=== PATIENT | male | born 1955 | race Hispanic/Latino ===

== ENCOUNTER 2017-04-22 10:39 | Inpatient (IN) | payer OTHER ==
[2017-04-22 11:18] LABS: #Eosinphils 0.2 thou/uL (0.0-0.7); #Monocytes 0.4 thou/uL (0.11-0.59); %Basophils 1.1 % (0.0-1.0); %Eosinophils 6.6 % (0.0-10.0); %Lymphocytes 38.9 % (21.0-51.0); %Neutrophils 39.5 % (42.0-75.0); Anisocytosis SLIGHT = 6-15 cells (100X) (0-5/hpf); Hemoglobin 6.8 g/dL (14.0-18.0); MDiff Complete? YES; Mean Corpuscular HGB CONC 34.1 g/dL (32.0-36.0); Mean Corpuscular Hemoglobin 33.6 pg (27.0-31.0); Mean Corpuscular Volume 98.6 fl (80.0-94.0); Mean Platelet Volume 7.6 fL (7.4-10.4); PLT Morphology Comment Appears Decreased; Platelet Count 32 thou/uL (130-400); RBC Distribution Width 14.6 % (11.5-14.5); Red Blood Cell (RBC) Count 2.02 mill/uL (4.70-6.10); White Blood Cell (WBC) Count 2.6 thou/uL (4.8-10.8)
--- NOTE | 2017-04-22 11:31 | RAD ---
PORTABLE CHEST ONE VIEW: 04/22/2017 10:59 a.m. HISTORY: Chest pain. COMPARISON: 12/15/2008 FINDINGS: There are changes of median sternotomy. The heart size is borderline. The lung are well expanded wi th mild infiltrate in the right medial lung base. No pneumothoraces or pleural effusions are seen. The possibility of pneumonia should be considered. POS: OFF
[2017-04-22 11:33] LABS: ALT (SGPT) 24 U/L (8-55); AST (SGOT) 19 U/L (5-34); Albumin 3.9 g/dL (3.5-5.0); Alkaline Phosphatase 273 U/L (40-150); Anion Gap 12 mmol/L (10-20); BUN (Urea Nitrogen) 40 mg/dL (8.4-25.7); Bilirubin, Total 0.5 mg/dL (0.2-1.2); CK (CPK) 38 U/L (30-200); Calc. Creatinine Clearance 0 mL/min (70-130); Carbon Dioxide 17 mmol/L (22-29); Chloride 115 mmol/L (98-107); Estimated GFR-MDRD 22; Globulin 2.4 g/dL (2.4-3.5); Glucose 279 mg/dL (70-105); Potassium 5.9 mmol/L (3.5-5.1); Protein, Total 6.3 g/dL (6.0-8.3); Sodium 138 mmol/L (136-145)
[2017-04-22 11:37] LABS: CKMB 0.9 ng/mL (0-6.6); Troponin I Less than 0.010 ng/mL (< 0.028)
[2017-04-22] MEDS ORDERED: AMOXicillin 250 MG CAP ONE (12:56)
[2017-04-22] MEDS ORDERED: Clarithromycin 500 MG TAB PO SCH (13:00)
[2017-04-22] MEDS ORDERED: diphenhydrAMINE 50 MG/ML VIAL ONE (15:45)
--- NOTE | 2017-04-22 16:03 | PDOC.FPRHP ---
Addendum entered and electronically signed by Terrence Hidalgo MD 04/29/17 11:35: -Discussed access with Dr. Lagunas, he will address this today, considering surgery consultation - stopped bicarb - Will give glycerin suppository Addendum entered and electronically signed by Rodrick Armendariz DO 04/22/17 19: 05: Upper Level Addendum: I personally evaluated the patient at the same time as Dr. Hidalgo and I agree with his plan as below. Pertinent History: 61 year old male presenting with leg weakness, fatigue, and exertional dyspnea as well as multiple other symptoms over the last few months. Pertinent Exam Findings: Patient awake, alert, and in no apparent distress. Vital stable. Patient slightly pale. Abdomen bloated but no distended and nontender. A/P: 1) Pancytopenia - Will need extensive workup including peripheral smear, PT/INR , HIV screen, hepatitis screen, and LDH. Consult hematology in the morning. Will consult GI regarding anemia in light of H. pylori result 2) H. pylori IgG positive - Current infection vs previous exposure. In light of anemia + positive test, triple therapy started 3) PACHECO vs CKD - urine studies ordered. May improve with volume expansion via PRBCs. Trend creatinine 4) Hyperkalemia - May improve with volume expansion. Will repeat CMP this evening For full history, exam, assessment, and plan. Please refer to Dr. Hidalgo's note below. Original Note: - History of Present Illness Chief Complaint: Leg weakness History of Present Illness: 61 year old male who presented to the ER due to reported leg weakness. He states he has not had this before. It has been ongoing for 3-4 months. No history of injury. He reports full body weakness and leg pain with walking. Associated symptoms include dizziness with exertion, resting and exertional dyspnea, intermittent vomiting 2 weeks ago, occasional headaches, and bloating with meals. Denies nausea, chest pain, diarrhea, hematemesis, melena, diarrhea, hematochezia, constipation. Patient has been without his meds for 2-3 weeks because they make him feel bloated. Patient's PCP is in [place]. He does not know his name. ED Course: Received 2U of blood, patient broke out in rash after platelets so transfusion was halted - Allergies/Adverse Reactions Allergies Allergy/AdvReac Type Severity Reaction Status Date / Time No Known Allergies Allergy Verified 04/22/17 16:50 - Home Medications Medication Instructions Recorded Confirmed Type Insulin Glargine,Hum.Rec.Anlog 20 unit SQ QAM 04/22/17 04/22/17 History [Lantus] Insulin Glargine,Hum.Rec.Anlog 20 units SQ HS 04/22/17 04/22/17 History [Lantus] Comments: Patient is not sure of his home medications. He thinks he is on 20 of Lantus nightly but he is not sure. He remembers he is on aspirin but does not remember any of his other medications. 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 - Review of Systems General: reports: fever/chills, night sweats, fatigue. denies: weight/appetite/ sleep changes Respiratory: reports: exercise intolerance. denies: cough, shortness of breath Cardiovascular: denies: chest pain, palpitation, edema Gastrointestinal: denies: nausea, vomiting, diarrhea, constipation, abdominal pain Genitourinary: denies: dysuria, polyuria Skin: denies: rashes, lesions Musculoskeletal: reports: pain (pain with walking). denies: tenderness Neurological: reports: weakness. denies: numbness - Vital signs BP: [] HR: [] RR: [] Tmax: [] Pox: []% on [] Wt: [] - Physical Exam Constitutional: NAD, awake, alert and oriented HEENT: normocephalic and atraumatic, PERRLA, other (pale oral mucosa) Neck: supple, trachea midline Heart: RRR, normal S1/S2, no murmurs/rubs/gallops, pulses present, no edema Lungs: CTAB, no respiratory distress Abdomen: soft, non-tender, bowel sounds present, no masses/distention Musculoskeletal: normal structure, normal tone, ROM grossly normal, other ( bloated) Neurological: no focal deficit, CN II-XII intact Skin: no rash/lesions, capillary refill <2 seconds, other FMR H&P: Results - Labs Result Diagrams: 04/29/17 05:20 04/29/17 05:20 Lab results: WBC 2.6 thou/uL (4.8-10.8) L 04/22/17 10:55 Hgb 6.8 g/dL (14.0-18.0) L 04/22/17 10:55 Hct 20.0 % (42.0-52.0) L 04/22/17 10:55 MCV 98.6 fl (80.0-94.0) H 04/22/17 10:55 Plt Count 32 thou/uL (130-400) L 04/22/17 10:55 Neutrophils % 39.5 % (42.0-75.0) L 04/22/17 10:55 Sodium 138 mmol/L (136-145) 04/22/17 10:55 Potassium 5.9 mmol/L (3.5-5.1) H 04/22/17 10:55 Chloride 115 mmol/L (98-107) H 04/22/17 10:55 Carbon Dioxide 17 mmol/L (22-29) L 04/22/17 10:55 BUN 40 mg/dL (8.4-25.7) H 04/22/17 10:55 Creatinine 2.94 mg/dL (0.6-1.3) H 04/22/17 10:55 Glucose 279 mg/dL (70-105) H 04/22/17 10:55 Calcium 10.0 mg/dL (7.8-10.44) 04/22/17 10:55 Total Bilirubin 0.5 mg/dL (0.2-1.2) 04/22/17 10:55 AST 19 U/L (5-34) 04/22/17 10:55 ALT 24 U/L (8-55) 04/22/17 10:55 Alkaline Phosphatase 273 U/L (40-150) H 04/22/17 10:55 Creatine Kinase 38 U/L (30-200) 04/22/17 10:55 CK-MB (CK-2) 0.9 ng/mL (0-6.6) 04/22/17 10:55 Serum Total Protein 6.3 g/dL (6.0-8.3) 04/22/17 10:55 Albumin 3.9 g/dL (3.5-5.0) 02/26/18 10:55 FMR H&P: A/P - Problem List (1) Pancytopenia Current Visit: Yes Status: Acute Code(s): D61.818 - OTHER PANCYTOPENIA (2) Weakness Current Visit: Yes Status: Acute Code(s): R53.1 - WEAKNESS (3) GI bleed Current Visit: Yes Status: Acute Code(s): K92.2 - GASTROINTESTINAL HEMORRHAGE, UNSPECIFIED (4) Anemia Current Visit: Yes Status: Acute Code(s): D64.9 - ANEMIA, UNSPECIFIED (5) Diabetes Current Visit: Yes Status: Acute Code(s): E11.9 - TYPE 2 DIABETES MELLITUS WITHOUT COMPLICATIONS Qualifiers: Diabetes mellitus type: type 2 Diabetes mellitus complication status: without complication Diabetes mellitus custodial insulin use: with intermediate designer use Qualified Code(s): E11.9 - Type 2 diabetes mellitus without complications ; Z79.4 - shelter (current) use of insulin; Z79.4 - shelter (current) use of insulin; Z79.4 - intermediate designer (current) use of insulin; Z79.4 - shelter ( current) use of insulin (6) Coronary artery disease Current Visit: Yes Status: Acute Code(s): I25.10 - ATHSCL HEART DISEASE OF [place] CORONARY ARTERY W/O ANG PCTRS Qualifiers: Coronary Disease-Associated Artery/Lesion type: [place] artery [place] vs. transplanted heart: [place] heart Associated angina: angina presence unspecified Qualified Code(s): I25.10 - Atherosclerotic heart disease of [place] coronary artery without angina pectoris - Plan # Pancytopenia - 2 U blood received in ED - re-check CBC at midnight - Hep C negative at outside lab - check HIV, PT/INR, CMP, LDH, Hepatitis panel, Urine h. pylori - consult Heme # PACHECO - Cr 2.69 - Urine Cr, Na, Urea # HTN - PRN Hydralazine 5mg # GI Bleed - denies melena, bright red blood per stools, hematochezia - IgG positive H. Pylori - start triple therapy - GI consult, consider Scope # Diabetes - Sliding scale insulin # History CABG - will hold ASA now due to possible active bleed # PPx - SCDs - will hold pharmacologic anticoagulation 2/2 to possible active bleed FMR H&P: Upper Level - Plan Date/Time: 02/26/18 1602 I, [], have evaluated this patient and agree with findings/plan as outlined by software intern resident. Pertinent changes/additions are listed here. Attending Addendum - Attending Addendum Date/Time: 04/29/171605 I personally evaluated the patient and discussed the management with Dr. Hidalgo. I agree with the History, Examination, Assessment and Plan documented above with any addition or exceptions noted below.
[2017-04-22] MEDS ORDERED: hydrALAZINE 20 MG/ML VIAL SLOW IVP PRN (17:25)
[2017-04-22] MEDS ORDERED: FLU VACC QS2017-18 36 mo. & older 0.5 ML SYRINGE IM ONE (18:00)
[2017-04-22 19:45] LABS: Bilirubin Negative (Negative); Blood, Urine Trace (Negative); Clarity CLEAR (Clear); Glucose, Urine (Dipstick) Negative (Negative); Leukocyte Negative (Negative); Nitrite Negative (Negative); Protein, Urine (Dipstick) 100 mg/dL (Neg-Trace); Specific Gravity, Urine 1.016 (1.002-1.036); Urobilinogen 0.2 mg/dL (0.2-1.0)
[2017-04-22 19:55] LABS: Bacteria/HPF None Seen HPF (None Seen); Hyaline Casts/LPF 0-3 HYALINE CAST LPF (0-3 Hyaline); Squamous Epithelial None Seen HPF (0-3); WBC/HPF 0-3 HPF (0-3)
[2017-04-22 19:58] LABS: Yeast-AUWi Flag 32.5 (0-25.0)
[2017-04-22 20:00] LABS: Creatinine, Urine 70.58 mg/dL (63-166)
[2017-04-22 20:11] LABS: Yeast-All Forms None Seen HPF (None Seen)
[2017-04-22] MEDS: AMOXicillin 250 MG CAP PO SCH (20:46)
[2017-04-22] MEDS: Clarithromycin 500 MG TAB PO SCH (20:46)
[2017-04-23 00:53] LABS: Eosinophils 2 % (0-10); Hemoglobin 7.3 g/dL (14.0-18.0); Lymphocytes 49 % (21-51); MDiff Complete? YES; Mean Corpuscular HGB CONC 33.4 g/dL (32.0-36.0); Mean Corpuscular Hemoglobin 32.1 pg (27.0-31.0); Mean Platelet Volume 7.8 fL (7.4-10.4); Monocytes 7 % (0-10); Neutrophil 41 % (42-75); PLT Morphology Comment Appears Decreased; Platelet Count 31 thou/uL (130-400); RBC Distribution Width 15.6 % (11.5-14.5); Red Blood Cell (RBC) Count 2.27 mill/uL (4.70-6.10)
[2017-04-23 01:01] LABS: ALT (SGPT) 20 U/L (8-55); AST (SGOT) 15 U/L (5-34); Albumin 3.6 g/dL (3.5-5.0); Alkaline Phosphatase 263 U/L (40-150); Anion Gap 11 mmol/L (10-20); BUN (Urea Nitrogen) 37 mg/dL (8.4-25.7); Bilirubin, Total 0.6 mg/dL (0.2-1.2); Calc. Creatinine Clearance 30 mL/min (70-130); Calcium 9.5 mg/dL (7.8-10.44); Carbon Dioxide 16 mmol/L (22-29); Chloride 116 mmol/L (98-107); Estimated GFR-MDRD 25; Globulin 2.3 g/dL (2.4-3.5); Glucose 114 mg/dL (70-105); Potassium 5.8 mmol/L (3.5-5.1); Protein, Total 5.9 g/dL (6.0-8.3); Sodium 137 mmol/L (136-145)
[2017-04-23 05:49] LABS: Hemoglobin 7.4 g/dL (14.0-18.0); INR-International Normal Ratio 1.3; Mean Corpuscular HGB CONC 32.6 g/dL (32.0-36.0); Mean Corpuscular Hemoglobin 31.8 pg (27.0-31.0); Mean Corpuscular Volume 97.3 fl (80.0-94.0); Mean Platelet Volume 8.1 fL (7.4-10.4); PTT 36.2 SEC (22.9-36.1); Platelet Count 33 thou/uL (130-400); RBC Distribution Width 15.6 % (11.5-14.5); Red Blood Cell (RBC) Count 2.34 mill/uL (4.70-6.10)
[2017-04-23 05:55] LABS: Anion Gap 13 mmol/L (10-20); BUN (Urea Nitrogen) 36 mg/dL (8.4-25.7); Calc. Creatinine Clearance 31 mL/min (70-130); Calcium 9.7 mg/dL (7.8-10.44); Carbon Dioxide 14 mmol/L (22-29); Chloride 116 mmol/L (98-107); Estimated GFR-MDRD 26; Glucose 108 mg/dL (70-105); Potassium 5.5 mmol/L (3.5-5.1); Sodium 137 mmol/L (136-145)
[2017-04-23] MEDS: Sodium Chloride 0.9% 1,000 ML IV SCH ×4 (06:26→23:31)
[2017-04-23 07:18] LABS: HBSAg Index 0.26 S/CO (0-0.99); Hep B Surf Ag Non-Reactive S/CO (NonReactive)
[2017-04-23 07:19] LABS: Hep A IgM AB Non-Reactive (NonReactive); Hep C IgG Ab Non-Reactive (NonReactive); Hep C Index 0.06 S/CO (0-0.79)
[2017-04-23 07:21] LABS: HBCM Index 0.06 S/CO (0-0.79); Hepatitis B Core IGM Abs Non-Reactive (NonReactive)
--- NOTE | 2017-04-23 09:30 | PDOC.FM ---
- Objective Vital Signs & Weight: Vital Signs (12 hours) Temp Pulse Resp BP Pulse Ox 04/23/17 10:14 98.5 F 76 18 160/78 H 93 L 04/23/17 04:00 98.9 F 74 20 143/70 H 95 Weight Weight 68.991 kg I&O: 04/22/17 04/23/17 04/24/17 06:59 06:59 06:59 Intake Total 560 Output Total 650 Balance -90 Result Diagrams: 04/23/17 05:32 04/23/17 05:32 <Rodrick Armendariz - Last Filed: 04/23/17 11:11> - Subjective Subjective: This morning patient states he is still feeling weak overall. He states he rested well overnight. Says he feels somewhat bloated, having a bowel movement helped some. Denies blood in stool or dark stool. No Nausea, vomiting, or diarrhea. - Objective Vital Signs & Weight: Vital Signs (12 hours) Temp Pulse Resp BP Pulse Ox 04/23/17 04:00 98.9 F 74 20 143/70 H 95 04/22/17 21:43 175/85 H Weight Weight 68.991 kg I&O: 04/22/17 04/23/17 04/24/17 06:59 06:59 06:59 Intake Total 560 Output Total 650 Balance -90 Result Diagrams: 04/23/17 05:32 04/23/17 05:32 <Terrence Hidalgo - Last Filed: 04/23/17 13:55> - Objective Vital Signs & Weight: Vital Signs (12 hours) Temp Pulse Resp BP Pulse Ox 04/23/17 12:12 98.5 F 78 16 163/84 H 94 L 04/23/17 10:14 98.5 F 76 18 160/78 H 93 L 04/23/17 08:36 98.5 F 78 16 93 L 04/23/17 04:00 98.9 F 74 20 143/70 H 95 Weight Weight 68.991 kg I&O: 04/22/17 04/23/17 04/24/17 06:59 06:59 06:59 Intake Total 560 Output Total 650 Balance -90 Result Diagrams: 04/23/17 05:32 04/23/17 05:32 <Pina Cuello - Last Filed: 04/23/17 15:04> Phys Exam - Physical Examination HEENT: PERRLA, moist MMs Neck: no nodes, full ROM Respiratory: no wheezing, clear to auscultation bilateral Cardiovascular: RRR, no significant murmur Gastrointestinal: soft, non-tender, positive bowel sounds mild distension Musculoskeletal: no edema, pulses present Neurological: non-focal, moves all 4 limbs Lymphatic: no nodes Skin: no rash, normal turgor, cap refill <2 seconds <Terrence Hidalgo - Last Filed: 04/23/17 13:55> Dx/Plan - Plan Plan: I personally evaluated patient and discussed the case with Dr. Hidalgo. I agree with his exam, assessment, and plan with the exceptions as listed below. 1) Pancytopenia - Hepatitis and HIV workup negative so far. INR normal. No abnormalities on CMP. Oncology and GI consulted 2) H. pylori antibody positive - Stool antigen pending. On triple therapy. GI consulted for guidance 3) PACHECO - Improving. Unclear if patient has baseline CKD 4) Hyperkalemia - Potassium trending down. Continue to follow. Now receiving iv fluids <Rodrick Armendariz - Last Filed: 04/23/17 11:11> (1) Pancytopenia Code(s): D61.818 - OTHER PANCYTOPENIA Status: Acute (2) Weakness Code(s): R53.1 - WEAKNESS Status: Acute (3) GI bleed Code(s): K92.2 - GASTROINTESTINAL HEMORRHAGE, UNSPECIFIED Status: Acute (4) Anemia Code(s): D64.9 - ANEMIA, UNSPECIFIED Status: Acute (5) Diabetes Code(s): E11.9 - TYPE 2 DIABETES MELLITUS WITHOUT COMPLICATIONS Status: Acute (6) Coronary artery disease Code(s): I25.10 - ATHSCL HEART DISEASE OF [place] CORONARY ARTERY W/O ANG PCTRS Status: Acute - Plan Plan: # Pancytopenia - 1 U blood received in ED - Hgb at 7.4 this morning, was 6.8 on presentation to Ed - Hep C negative at outside lab - check HIV, PT/INR, CMP, LDH, Hepatitis panel, Urine h. pylori - consult Heme # GI Bleed - denies melena, bright red blood per stools, hematochezia - FOBT negative - IgG positive H. Pylori - start triple therapy - GI consult #Hyperkalemia - down to 5.5 this AM will monitor # PACHECO - Cr 2.69-> 2.60 - FeNa is 1.43 # HTN - PRN Hydralazine 5mg # Diabetes - Sliding scale insulin # History CABG - will hold ASA now due to possible active bleed # PPx - SCDs - will hold pharmacologic anticoagulation 2/2 to possible active bleed <Terrence Hidalgo - Last Filed: 04/23/17 13:55> Attending Addendum - Attending Addendum Date/Time: 04/23/17 8626 I personally evaluated the patient and discussed the management with Dr. Hidalgo on 04/23/17. I agree with the History, Examination, Assessment and Plan documented above with any addition or exceptions noted below. Patient with pancytopenia, including absolute neutropenia. Heme consulted, will do peripheral smear. Given low hg and postive serum H Pylori antigen as well as epigastric TTP, GI consulted to consider PUD. Started on neutropenic precautions for now. <Pina Cuello - Last Filed: 04/23/17 15:04>
[2017-04-23 09:34] LABS: HIV (1/2) Antibody/Antigen Non-Reactive (NonReactive); HIV 1/2 INDEX 0.14 S/CO (<1.00)
[2017-04-23] MEDS: AMOXicillin 250 MG CAP PO SCH ×2 (10:17→20:39)
[2017-04-23] MEDS ORDERED: Clarithromycin 500 MG TAB PO SCH (12:30)
[2017-04-23] MEDS: Clarithromycin 500 MG TAB PO SCH ×2 (15:03→20:40)
[2017-04-23] MEDS ORDERED: GoLYTELY 4,000 ml Bottle PO SCH (16:15)
--- NOTE | 2017-04-23 17:39 | PRG ---
DATE OF SERVICE: 04/23/2017 MISCELLANEOUS GI NOTE I discussed the patient's case with Hematology. They feel it is more likely that the patient may hav e a bone marrow disorder underlying his pancytopenia. Given his neutropenia, thrombocytopenia, negat agatha FOBT, no report of overt gastrointestinal bleeding, together we feel that bone marrow workup shou ld probably be performed prior to any endoscopic investigation. They are planning to proceed with aracely ne marrow biopsy likely tomorrow. We will hold off on any endoscopic exam and follow up the results of their workup.
--- NOTE | 2017-04-23 19:24 | CON ---
DATE OF CONSULTATION: 04/23/2017 GI INPATIENT CONSULTATION NOTE REQUESTING PHYSICIAN: Dr. Hidalgo. REASON FOR CONSULTATION: Anemia, possible gastrointestinal bleed. HISTORY OF PRESENT ILLNESS: Ahmet Venegas is a 61-year-old gentleman who speaks [place]ian only seen to day with the assistance of an project manager senior phone. He has a history of diabetes, as well as significan t coronary artery disease and coronary artery bypass graft in the past. He was admitted to the [facility] yesterday, presenting with significant fatigue, lower extremity weakness, dyspnea on exertion and he was found to have pancytopenia, hemoglobin was 6.8 on presentation and inquiring after gastrointe stinal symptoms, the patient does report that he has been having epigastric pain and a sensation of e pigastric fullness and bloating which is worsened postprandially. This has been going on for the pas t 2 weeks. He also reports diarrhea by which he means his stools are loose and often urgent and even sometimes in the middle the night 2 or 3 times, this is also new over the past couple of weeks. He denies any melena or hematochezia. He denies any nausea, vomiting or any hematemesis. He will occas ionally have mild nosebleeds, but nothing recent. He has been found to have some degree of acute kid jennifer injury with a little bit of creatinine improvement over the past couple of days. He has received 1 unit RBC transfusion. They tried to give him platelet transfusion, but evidently he developed a r jose with this. He also tested positive for H. pylori serology, it is a triple therapy has been start ed. He has never undergone EGD or colonoscopy. It is unclear what his baseline blood counts are. T his is his first presentation to this institution. REVIEW OF SYSTEMS: Full review of systems including constitutional, head, eyes, ears, nose, throat, GI, , cardiovascular, respiratory, musculoskeletal, and neurologic systems is negative except as no kaleigh in the HPI. PAST MEDICAL HISTORY: 1. Diabetes on insulin. 2. Coronary artery disease status post coronary artery bypass graft. 3. Hypertension. 4. Hyperlipidemia. FAMILY HISTORY: Noncontributory. 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 No tobacco, alcohol, or drug use. ALLERGIES: No known drug allergies. HOME MEDICATIONS: Lantus insulin 20 units twice daily, daily aspirin. Patient cannot recall any of his other medications: PHYSICAL EXAMINATION: VITAL SIGNS: Temperature 98.5, pulse 78, blood pressure 163/84, 94% oxygen saturation on room air. GENERAL: A 61-year-old gentleman sitting up in bed comfortably in no acute distress. SKIN: He is a bit pale, no jaundice, no rash visible or palpable. EYES: No scleral icterus. Extraocular movements are intact. ENT: Mucous membranes moist, no oral lesions. LYMPH: No submandibular, supraclavicular lymphadenopathy. THYROID: Nontender to palpation. HEART: Regular rate and rhythm. LUNGS: Clear to auscultation bilaterally. ABDOMEN: Bowel sounds present, soft, nontender to palpation throughout. No masses or organomegaly a ppreciated. EXTREMITIES: No peripheral edema. VESSELS: Radial pulses 2+ bilaterally. NEUROLOGICAL: Cranial nerves II-XII intact bilaterally. No focal deficits. LABORATORY STUDIES: WBC 2.0, hemoglobin 7.4, platelets 33, MCV 97. INR 1.3. Peripheral smear is pe nding. LDH is normal at 128, BUN 36, creatinine 2.56, glucose 108. H. pylori serology is positive. Troponin negative, creatine kinase 38, total bilirubin 0.6, alkaline phosphatase 263, AST 15, ALT 20 . Viral hepatitis serology is negative. HIV negative. FOBT was negative. IMAGING STUDIES: Chest x-ray suggested possible mild infiltrate in the right lung base. ASSESSMENT AND PLAN: 1. Pancytopenia. 2. Macrocytic anemia. 3. Epigastric pain. 4. Diarrhea. 5. Positive Helicobacter serology. Note the patient's anemia is really in the context of pancytopenia which is of unknown etiology at th is time. Agree with Hematology consultation which is pending. Peripheral smear is pending. Note th e normal LDH and normal total bilirubin, so I doubt that he is hemolyzing. He reports no overt gastr ointestinal bleeding, but on the other hand, he has been complaining of new diarrhea, new epigastric pain and does have this positive H. pylori serology. It would be reasonable to perform endoscopic in vestigation to rule out gastrointestinal bleeding lesion is contributive to his anemia. I discussed this in detail with the patient. Due to his low platelets, we will need to be judicious with any bio psies obtained, and this will likely be a diagnostic exam only. We will go ahead and administer hanh l preparation tonight in anticipation of procedure tomorrow. Thank you for the consultation. Please call back anytime with questions or concerns.
--- NOTE | 2017-04-23 21:46 | CON ---
DATE OF CONSULTATION: 04/23/2017 REASON FOR CONSULTATION: Pancytopenia. HISTORY OF PRESENT ILLNESS: Mr. Venegas is a pleasant 61-year-old male with a past medical hi story of diabetes who presented to the emergency room for weakness. He states it has been ongoing fo r the last several months, but has been significantly worse in the last few days. He states he has f ever at night with night sweats. Denies any weight loss. He has no chest pain or shortness of breat h. He does have occasional stomach pain and feels like his food gets stuck in his stomach, but he do es have regular bowel movements. He has pain on his right upper quadrant. He is able to pinpoint th e area exactly on palpation. He has no rebound or guarding. In the emergency room, he had a CBC don e, which showed a white count of 2.6 with 39% neutrophils and 38% lymphocytes, 14% monocytes. His he moglobin was 6.8 on arrival and platelet count was 32,000. He received 2 units of packed RBCs and 1 unit of platelets with minimal improvement in his counts. He has been recently diagnosed with H. pyl laisha, but he denies any hematochezia or melena. No epistaxis or hematuria. He denies any rash. PAST MEDICAL HISTORY: Diabetes type 2. PAST SURGICAL HISTORY: None. ALLERGIES: No known drug allergies. HOME MEDICATIONS: Lantus insulin daily. FAMILY HISTORY: His mother had diabetes. No known history of cancer. SOCIAL HISTORY: He is , lives with his spouse in [place], 3 grown children. Denies any alcoh ol, tobacco or illicit drug use. REVIEW OF SYSTEMS: Twelve-point review of systems negative except for noted in HPI. PHYSICAL EXAMINATION: VITAL SIGNS: Temperature is 97.9, pulse is 80, respiratory rate 16, blood pressure is 162/83, and he is 95% on room air. GENERAL: Well-developed, well-nourished male in no acute distress. HEENT: Normocephalic, atraumatic. Pupils equal and reactive to light. NECK: Supple. CARDIOVASCULAR: Regular rate and rhythm. LUNGS: Clear to auscultation. ABDOMEN: Soft, nontender, bowel sounds are positive. There is no hepatosplenomegaly. EXTREMITIES: No clubbing, cyanosis or edema. SKIN: No rash. HEMATOLOGIC: There is no petechia or purpura. NEUROLOGIC: Nonfocal. PSYCHIATRIC: The patient appears alert and oriented and appropriate. PERTINENT LABORATORY DATA AND X-RAYS: Current WBCs are 2.0, hemoglobin 7.4, hematocrit 22.8, platele t count 33,000. Peripheral smear is pending. His PT is 16.0, INR is 1.3, PTT is 36.2. Sodium is 13 7, potassium is 5.5, chloride is 116, CO2 is 14, BUN is 36, creatinine is 2.56, calcium is 9.7, total bilirubin is 0.6, AST is 15, ALT is 20, alkaline phosphatase is 263, LDH is 128. Troponin is negati ve. Serum total protein is 5.9, albumin is 3.6, globulin is 2.3. His urine is negative for bacteria . His hepatitis and HIV panel is negative. Chest x-ray showed possible infiltrate in the right lung base. ASSESSMENT: 1. Pancytopenia. 2. Acute renal insufficiency versus chronic kidney disease 4. DISCUSSION: The patient's pancytopenia is worrisome for bone marrow dysfunction, recommend a bone ma rrow biopsy tomorrow. Further recommendations will be based on these results. I have spoken with Dr Minoo Dunne and a GI evaluation can be placed on hold until bone marrow biopsy has been obtained. He is r eceiving IV fluids at this time and has been transfused. We will continue to check a daily CBC. I w ill not transfuse until his hemoglobin drops below 7 or if platelets drop below 15. There is no evid ence of bleeding at this time. We will provide supportive care and followup during this hospitalizat ion. Thank you for the consult.
[2017-04-24 07:50] LABS: Hemoglobin 7.4 g/dL (14.0-18.0); Mean Corpuscular HGB CONC 32.9 g/dL (32.0-36.0); Mean Corpuscular Hemoglobin 31.7 pg (27.0-31.0); Mean Corpuscular Volume 96.2 fl (80.0-94.0); Mean Platelet Volume 8.2 fL (7.4-10.4); Platelet Count 27 thou/uL (130-400); RBC Distribution Width 15.4 % (11.5-14.5); Red Blood Cell (RBC) Count 2.32 mill/uL (4.70-6.10); White Blood Cell (WBC) Count 1.8 thou/uL (4.8-10.8)
--- NOTE | 2017-04-24 07:55 | PDOC.FM ---
- Subjective Subjective: This morning patient states he slept well overnight. He denies any episodes of diarrhea overnight. He states understanding of the bone marrow biopsy scheduled for today. States he is still feeling weak overall although ambulating does not cause shortness of breath. He is still having muscle aches particularly around the knees. - Objective Vital Signs & Weight: Vital Signs (12 hours) Temp Pulse Resp BP Pulse Ox 04/24/17 07:41 97.1 F L 76 16 151/82 H 93 L 04/24/17 04:00 97.8 F 81 18 152/78 H 93 L 04/23/17 20:35 98.1 F 78 20 169/87 H 96 Weight Weight 70.392 kg I&O: 04/23/17 04/24/17 04/25/17 06:59 06:59 06:59 Intake Total 560 2995 Output Total 650 1125 Balance -90 1870 Result Diagrams: 04/24/17 07:30 04/23/17 05:32 <Terrence Hidalgo - Last Filed: 04/24/17 09:35> - Objective Vital Signs & Weight: Vital Signs (12 hours) Temp Pulse Resp BP Pulse Ox 04/24/17 12:27 97.3 F L 90 16 163/85 H 93 L 04/24/17 07:41 97.1 F L 76 16 151/82 H 93 L 04/24/17 04:00 97.8 F 81 18 152/78 H 93 L Weight Weight 70.392 kg I&O: 04/23/17 04/24/17 04/25/17 06:59 06:59 06:59 Intake Total 560 2995 Output Total 650 1125 Balance -90 1870 Result Diagrams: 04/24/17 07:30 04/24/17 07:30 <Pina Cuello - Last Filed: 04/24/17 14:00> Phys Exam - Physical Examination HEENT: PERRLA, moist MMs Neck: no nodes Respiratory: no wheezing, clear to auscultation bilateral Cardiovascular: RRR, no significant murmur Gastrointestinal: soft, non-tender, positive bowel sounds Still distended, similiar maybe slightly more than yesterday Musculoskeletal: no edema, pulses present Neurological: non-focal, moves all 4 limbs Psychiatric: normal affect, A&O x 3 Skin: no rash, normal turgor, cap refill <2 seconds <Terrence Hidalgo - Last Filed: 04/24/17 09:35> Dx/Plan (1) Pancytopenia Code(s): D61.818 - OTHER PANCYTOPENIA Status: Acute (2) Weakness Code(s): R53.1 - WEAKNESS Status: Acute (3) GI bleed Code(s): K92.2 - GASTROINTESTINAL HEMORRHAGE, UNSPECIFIED Status: Acute (4) Anemia Code(s): D64.9 - ANEMIA, UNSPECIFIED Status: Acute (5) Diabetes Code(s): E11.9 - TYPE 2 DIABETES MELLITUS WITHOUT COMPLICATIONS Status: Acute (6) Coronary artery disease Code(s): I25.10 - ATHSCL HEART DISEASE OF [place] CORONARY ARTERY W/O ANG PCTRS Status: Acute - Plan Plan: # Pancytopenia - 1 U blood received in ED - Hgb unchanged from yesterday at 7.4 this morning, was 6.8 on presentation to Ed - Plts down to 27 this AM - Hep C negative at outside lab - LDH, Bili not elevated, therefore likely not hemolysis - hepatitis panel negative - bone marrow biopsy today # GI Bleed - denies melena, bright red blood per stools, hematochezia - FOBT negative - IgG positive H. Pylori - continue triple therapy - GI consulted, will consider scope after results of bone marrow biopsy #Hyperkalemia - trending down, will follow # PACHECO - Cr 2.69-> 2.60 - FeNa is 1.43 # HTN - PRN Hydralazine 5mg # Diabetes - Sliding scale insulin # History CABG - will hold ASA now due to possible active bleed # PPx - SCDs - will hold pharmacologic anticoagulation 2/2 to possible active bleed <Terrence Hidalgo - Last Filed: 04/24/17 09:35> Attending Addendum - Attending Addendum Date/Time: 04/24/17 1872 I personally evaluated the patient and discussed the management with Dr. Hidalgo on 04/24/17. I agree with the History, Examination, Assessment and Plan documented above with any addition or exceptions noted below. Patient feels well today, although still fatigues. Hemoglobin stable, platelets decreased. On neutropenic precautions for absolute neutropenia. Going for bone marrow biopsy today. May consider EGD after biopsy results return. <Pina Cuello Last Filed: 04/24/17 14:00>
[2017-04-24 08:02] LABS: Anion Gap 12 mmol/L (10-20); BUN (Urea Nitrogen) 33 mg/dL (8.4-25.7); Calc. Creatinine Clearance 32 mL/min (70-130); Carbon Dioxide 13 mmol/L (22-29); Chloride 119 mmol/L (98-107); Estimated GFR-MDRD 27; Glucose 74 mg/dL (70-105); Potassium 5.1 mmol/L (3.5-5.1); Sodium 139 mmol/L (136-145)
[2017-04-24] MEDS: AMOXicillin 250 MG CAP PO SCH ×2 (09:56→22:13)
[2017-04-24] MEDS: Clarithromycin 500 MG TAB PO SCH ×2 (09:56→22:12)
[2017-04-24] MEDS ORDERED: Sodium Bicarbonate 2.4 MEQ/5 ML ONE (11:21)
[2017-04-24] MEDS ORDERED: Fentanyl 100 MCG/2 ML VIAL ONE (11:21)
[2017-04-24] MEDS ORDERED: Midazolam HCl 2 mg/2 ml Vial ONE (11:21)
--- NOTE | 2017-04-24 15:05 | CT ---
PERCUTANEOUS BONE MARROW ASPIRATION AND BIOPSY RIGHT ILIAC BONE: TRE: 04/24/17. HISTORY: Pancytopenia. TECHNIQUE: The procedure including the risks and complications were explained to the patient and informed consen t was obtained. The patient was placed on the CT scan table in the prone position. Limited noncontr asted CT scan was obtained through each iliac bone with grid localizer in place. An area was marked overlying the right iliac bone, and the area was meticulously prepped and draped in the usual sterile fashion. Skin and subcutaneous tissues were infiltrated with buffered 1% Lidocaine for local anesth esia. A small skin incision was made. An 11 gauge lung biopsy needle was advanced through the cortex of the posterior right iliac bone. Ap proximately 8 ml of bone marrow was aspirated. A single 11 gauge 2-3 cm core bone biopsy was then ob tained of the right iliac bone. Hemostasis was achieved with direct pressure. A dry sterile dressing was placed. The patient tolerated the procedure well and without immediate complication. FINDINGS: Initial limited salon supervisor images through the pelvis demonstrate a small amount of intraperitone al free fluid in the visualized pelvis. Vascular calcifications are evident. Urinary bladder whitfield appear thickened, and this is probably related to incomplete distention. A technically successful CT-guided bone marrow aspiration and biopsy was obtained of the right iliac bone. IMPRESSION: 1. Ascites. 2. Technically successful bone marrow aspiration and biopsy acquired from the right iliac bone. POS: [facility]
--- NOTE | 2017-04-24 16:41 | PRG ---
DATE OF SERVICE: 04/24/2017 This is GI inpatient daily progress note. SUBJECTIVE: Mr. Venegas underwent bone marrow biopsy earlier today, results are pending. He says he i s not having any further abdominal pain at all today. He is feeling hungry. There has been no evide nce of any melena or hematochezia. He has remained stable. PHYSICAL EXAMINATION: VITAL SIGNS: Temperature 97.7, pulse 84, blood pressure 163/83, 96% oxygen saturation on room air. GENERAL: No acute distress. HEART: Regular rate and rhythm. LUNGS: Clear to auscultation bilaterally. ABDOMEN: Bowel sounds present, soft, nontender to deep palpation throughout today. EXTREMITIES: No peripheral edema. LABORATORY STUDIES: INR 1.3. WBC 1.8, hemoglobin 7.4, platelets down to 27. Sodium 139, potassium 5.1, BUN 33, creatinine 2.46. Viral hepatitis serology is negative. HIV antibody negative. ASSESSMENT AND PLAN: 1. Pancytopenia. 2. Epigastric pain, resolved. 3. Positive H. pylori serology. There has been no overt evidence of gastrointestinal bleeding. We will await the results of his hematology workup including bone marrow biopsy prior to making any deci navin about endoscopic investigation. I doubt that gastrointestinal blood loss is significant contrib utor to his anemia in this case. Would continue triple therapy to completion for his H. pylori. If the bone marrow biopsy and other studies are unrevealing with regards to the anemia, we could always perform EGD and colonoscopy thereafter. Please call with questions or concerns.
--- NOTE | 2017-04-24 17:24 | PDOC.EVN ---
Event Note - Event Note Event Note: Called to bedside to eval patient for chest pain. Patient states the pain is 3/ 10, worsened by palpating left side of the chest, or moving in bed. Not worsened by exertion, no radiation. Patient says it is "muscle soreness." One time dose tramadol 50mg
[2017-04-24] MEDS ORDERED: traMADol HCl 50 MG TAB PO SCH (17:45)
[2017-04-24] MEDS: Sodium Chloride 0.9% 1,000 ML IV SCH (17:52)
[2017-04-24] MEDS: Acetaminophen 500 MG TAB PO PRN (22:12)
[2017-04-25] MEDS: Sodium Chloride 0.9% 1,000 ML IV SCH (04:22)
[2017-04-25] MEDS: Ondansetron HCl/PF 4 MG/2 ML Vial SLOW IVP PRN (04:22)
[2017-04-25 05:39] LABS: Hemoglobin 7.9 g/dL (14.0-18.0); Mean Corpuscular HGB CONC 33.3 g/dL (32.0-36.0); Mean Corpuscular Hemoglobin 32.1 pg (27.0-31.0); Mean Corpuscular Volume 96.5 fl (80.0-94.0); Mean Platelet Volume 8.4 fL (7.4-10.4); Platelet Count 35 thou/uL (130-400); RBC Distribution Width 15.1 % (11.5-14.5); Red Blood Cell (RBC) Count 2.45 mill/uL (4.70-6.10); White Blood Cell (WBC) Count 2.7 thou/uL (4.8-10.8)
[2017-04-25 06:11] LABS: ALT (SGPT) 20 U/L (8-55); AST (SGOT) 14 U/L (5-34); Albumin 3.7 g/dL (3.5-5.0); Alkaline Phosphatase 281 U/L (40-150); Anion Gap 13 mmol/L (10-20); BUN (Urea Nitrogen) 33 mg/dL (8.4-25.7); Bilirubin, Total 0.8 mg/dL (0.2-1.2); Calc. Creatinine Clearance 32 mL/min (70-130); Calcium 9.6 mg/dL (7.8-10.44); Carbon Dioxide 12 mmol/L (22-29); Chloride 119 mmol/L (98-107); Estimated GFR-MDRD 27; Globulin 2.4 g/dL (2.4-3.5); Glucose 105 mg/dL (70-105); Protein, Total 6.1 g/dL (6.0-8.3); Sodium 139 mmol/L (136-145)
--- NOTE | 2017-04-25 07:14 | PDOC.FM ---
- Subjective Subjective: This morning patient states he had vomiting x3 overnight. He denies any abdominal pain or nausea this morning. He was given zofran overnight and says that seems to have helped. He denies any chest pain or shortness of breath this morning. States he is noticing some swelling at the ankles. - Objective Vital Signs & Weight: Vital Signs (12 hours) Temp Pulse Resp BP BP Pulse Ox 04/25/17 04:00 97.5 F L 89 18 171/86 H 93 L 04/25/17 00:20 87 18 94 L 04/24/17 20:55 98.2 F 89 16 158/82 H 93 L 04/24/17 20:00 98.2 F 89 16 Weight Weight 70.392 kg I&O: 04/24/17 04/25/17 04/26/17 06:59 06:59 06:59 Intake Total 2995 2900 Output Total 1125 1400 Balance 1870 1500 Result Diagrams: 04/25/17 05:01 04/25/17 05:01 <Terrence Hidalgo - Last Filed: 04/25/17 08:59> - Objective Vital Signs & Weight: Vital Signs (12 hours) Temp Pulse Resp BP Pulse Ox 04/25/17 04:00 97.5 F L 89 18 171/86 H 93 L Weight Weight 70.307 kg I&O: 04/24/17 04/25/17 04/26/17 06:59 06:59 06:59 Intake Total 2995 2900 Output Total 1125 1400 Balance 1870 1500 Result Diagrams: 04/25/17 05:01 04/25/17 05:01 <Pina Cuello - Last Filed: 04/25/17 12:41> Phys Exam - Physical Examination HEENT: PERRLA, moist MMs Neck: no nodes, full ROM Respiratory: no wheezing, clear to auscultation bilateral Cardiovascular: RRR, no significant murmur, no rub Gastrointestinal: soft, non-tender, positive bowel sounds still mildly distended Musculoskeletal: pulses present trace edema Neurological: non-focal, moves all 4 limbs Psychiatric: normal affect, A&O x 3 Skin: no rash, normal turgor, cap refill <2 seconds <Terrence Hidalgo - Last Filed: 04/25/17 08:59> Dx/Plan (1) Pancytopenia Code(s): D61.818 - OTHER PANCYTOPENIA Status: Acute (2) Weakness Code(s): R53.1 - WEAKNESS Status: Acute (3) GI bleed Code(s): K92.2 - GASTROINTESTINAL HEMORRHAGE, UNSPECIFIED Status: Acute (4) Anemia Code(s): D64.9 - ANEMIA, UNSPECIFIED Status: Acute (5) Diabetes Code(s): E11.9 - TYPE 2 DIABETES MELLITUS WITHOUT COMPLICATIONS Status: Acute (6) Coronary artery disease Code(s): I25.10 - ATHSCL HEART DISEASE OF [place] CORONARY ARTERY W/O ANG PCTRS Status: Acute - Plan Plan: # Pancytopenia - 1 U blood received in ED - Hgb up to 7.9 today, 6.8 on presentation to Ed - Plts up to 33 - Hep C negative at outside lab - LDH, Bili not elevated, therefore likely not hemolysis - hepatitis panel negative - bone marrow biopsy yesterday, awaiting results # GI Bleed - denies melena, bright red blood per stools, hematochezia - FOBT negative - IgG positive H. Pylori - continue triple therapy - CT marrow biopsy shows ascites - GI consulted, will consider scope after results of bone marrow biopsy # Ascites - albumin WNL - ALP trending up - check abdominal US #Hyperkalemia - trending down, will follow # PACHECO - Cr 2.69-> 2.60 - FeNa is 1.43 - Stopped IVF today 2/2 swelling, tolerating PO intake # HTN - PRN Hydralazine 5mg # Diabetes - Sliding scale insulin # History CABG - will hold ASA now due to possible active bleed # PPx - SCDs - will hold pharmacologic anticoagulation 2/2 to possible active bleed <Terrence Hidalgo - Last Filed: 04/25/17 08:59> Attending Addendum - Attending Addendum Date/Time: 04/25/17 1240 I personally evaluated the patient and discussed the management with Dr. Hidalgo on . I agree with the History, Examination, Assessment and Plan documented above with any addition or exceptions noted below. Patient nauseated from medications, likely from triple therapy. Will treat with IV or NM nausea medication prior to taking. Otherwise doing well today. Results of bone marrow biopsy still pending. Given his elevated alk phos as well as ascites noted during CT for bone marrow biopsy, will check RUQ/spleen US. <Pina Cuello - Last Filed: 04/25/17 12:41>
[2017-04-25] MEDS ORDERED: Sodium Chloride 0.9% 10 ML ONE (08:44)
[2017-04-25] MEDS: Acetaminophen 500 MG TAB PO PRN (08:54)
[2017-04-25] MEDS: AMOXicillin 250 MG CAP PO SCH ×2 (08:54→23:13)
[2017-04-25] MEDS: Ondansetron ODT 4 MG TAB PO PRN (09:07)
[2017-04-25] MEDS: Clarithromycin 500 MG TAB PO SCH ×2 (09:08→23:13)
[2017-04-25] MEDS ORDERED: traMADol HCl 50 MG TAB PO SCH (12:45)
--- NOTE | 2017-04-25 13:02 | ULT ---
ABDOMEN ULTRASOUND: HISTORY: Ascites. Right upper quadrant pain. Epigastric pain. COMPARISON: None. TECHNIQUE: Utilizing a Multi-Hertz transducer, sonographic imaging of the abdomen is performed in the longitudin al and transverse planes. FINDINGS: The head and proximal pancreatic body have a normal echotexture. The remainder of the pancreas is ob scured by bowel gas. The visualized IVC and aorta are unremarkable. The hepatic parenchyma has a normal echotexture. No hepatic masses or intrahepatic biliary dilatatio n. The contour of the hepatic margin is maintained. The right hepatic lobe measures 15.4 cm. There is evidence of perihepatic free fluid. The main portal vein is patent. Appropriate directional flow. The common bile duct diameter is 0.4 cm. No sonographic evidence of cholelithiasis. Gallbladder wall thickness is at the upper limits of norm al. No pericholecystic fluid. Negative Spann sign. Both kidneys have a normal cortical echotexture. Bilaterally, no hydronephrosis. The right kidney m easures 5.2 x 11.9 x 5.1 cm. The left kidney measures 5.8 x 12.3 x 5 cm. The spleen has a normal echotexture, measuring 13.5 cm. There is perisplenic fluid. Bilateral pleural effusions are identified. IMPRESSION: 1. Bilateral pleural effusion. 2. Small amount of ascites. 3. Mild splenomegaly. POS: [facility]
[2017-04-25 15:37] LABS: Uric Acid 8.1 mg/dL (3.5-7.2)
--- NOTE | 2017-04-25 17:29 | RAD ---
XR BONE SURVEY ADULT STANDARD 04/25/17 HISTORY: Plasma cell myeloma. COMPARISON: None. TECHNIQUE: Cervical spine two view. Thoracic spine one view. Lumbar spine one view. Pelvis one view. Right forearm one view. Left forearm one view. Right tib/fib one view. Left tib/fib one view. Right femur one view. Left femur one view. Right humerus one view. Left humerus one view. FINDINGS: There are no abnormal areas of lytic process in the axial or appendicular skeleton. Normal cervical lordosis. No acute compression fractures of the spine. Extensive vascular calcificati ons. IMPRESSION: No evidence of osteolytic disease. POS: [facility]
[2017-04-25] MEDS: Promethazine HCl 25 MG/ML VIAL IM/IV PRN (17:52)
[2017-04-26 05:53] LABS: Hemoglobin 7.2 g/dL (14.0-18.0); Mean Corpuscular HGB CONC 34.2 g/dL (32.0-36.0); Mean Corpuscular Hemoglobin 32.5 pg (27.0-31.0); Mean Corpuscular Volume 95.2 fl (80.0-94.0); Mean Platelet Volume 7.8 fL (7.4-10.4); Platelet Count 31 thou/uL (130-400); RBC Distribution Width 15.3 % (11.5-14.5); Red Blood Cell (RBC) Count 2.22 mill/uL (4.70-6.10); White Blood Cell (WBC) Count 2.1 thou/uL (4.8-10.8)
[2017-04-26 05:57] LABS: Anion Gap 14 mmol/L (10-20); BUN (Urea Nitrogen) 35 mg/dL (8.4-25.7); Calc. Creatinine Clearance 31 mL/min (70-130); Calcium 9.5 mg/dL (7.8-10.44); Carbon Dioxide 13 mmol/L (22-29); Chloride 119 mmol/L (98-107); Estimated GFR-MDRD 26; Glucose 130 mg/dL (70-105); Potassium 5.4 mmol/L (3.5-5.1); Sodium 141 mmol/L (136-145)
[2017-04-26] MEDS: AMOXicillin 250 MG CAP PO SCH (07:45)
[2017-04-26] MEDS: Clarithromycin 500 MG TAB PO SCH (07:45)
--- NOTE | 2017-04-26 08:20 | RAD ---
PORTABLE UPRIGHT FRONTAL CHEST RADIOGRAPH: DATE: 04/26/17. COMPARISON: 04/22/17. HISTORY: Pleural fluid. FINDINGS: There is rounded increased density in the medial left lung base with intervening lucency. This could represent a hiatal hernia. There is pulmonary vascular congestion and perihilar/bibasilar interstit ial prominence, new. Blunting of the costophrenic angles suggests bilateral pleural effusions. IMPRESSION: 1. Probable small bilateral pleural effusions with pulmonary vascular congestion and perihilar inter stitial prominence suggests interstitial edema. 2. Focal area of density with internal lucency within the medial left lung base. This could be on t he basis of hiatal hernia or consolidated lung. Recommend PA and lateral chest imaging following felipe atment for full assessment. POS: [facility]
--- NOTE | 2017-04-26 09:03 | PDOC.FM ---
- Subjective Subjective: This morning patient states he is feeling well overall. He denies any vomiting or headache overnight. He states he is understanding the information he has been given about Multiple Myeloma and that he has no further questions regarding the diagnosis at this time. - Objective Vital Signs & Weight: Vital Signs (12 hours) Temp Pulse Resp BP Pulse Ox 04/26/17 08:00 98.4 F 85 14 94 L 04/26/17 07:47 98.4 F 85 14 148/74 H 95 04/26/17 04:00 97.9 F 83 16 143/76 H 94 L Weight Weight 72.603 kg I&O: 04/25/17 04/26/17 04/27/17 06:59 06:59 06:59 Intake Total 2900 965 Output Total 1400 1135 Balance 1500 -170 Result Diagrams: 04/26/17 04:47 04/26/17 04:47 <Terrence Hidalgo - Last Filed: 04/26/17 09:05> - Objective Vital Signs & Weight: Vital Signs (12 hours) Temp Pulse Resp BP Pulse Ox 04/27/17 07:15 97.6 F 82 20 157/80 H 95 04/27/17 03:54 97.8 F 85 20 154/74 H 96 04/26/17 23:39 98.0 F 81 16 158/77 H 95 Weight Weight 72.01 kg I&O: 04/26/17 04/27/17 04/28/17 06:59 06:59 06:59 Intake Total 965 600 Output Total 1135 850 Balance -170 -250 Result Diagrams: 04/27/17 07:14 04/27/17 07:14 <Pina Cuello - Last Filed: 04/27/17 09:25> Phys Exam - Physical Examination HEENT: PERRLA, moist MMs Neck: no nodes, full ROM Respiratory: no wheezing, clear to auscultation bilateral Cardiovascular: RRR, no significant murmur Gastrointestinal: soft, non-tender mild distension Musculoskeletal: pulses present trace edema Neurological: non-focal, moves all 4 limbs Psychiatric: normal affect, A&O x 3 Skin: no rash, normal turgor, cap refill <2 seconds <Terrence Hidalgo - Last Filed: 04/26/17 09:05> Dx/Plan (1) Pancytopenia Code(s): D61.818 - OTHER PANCYTOPENIA Status: Acute (2) Weakness Code(s): R53.1 - WEAKNESS Status: Acute (3) GI bleed Code(s): K92.2 - GASTROINTESTINAL HEMORRHAGE, UNSPECIFIED Status: Acute (4) Anemia Code(s): D64.9 - ANEMIA, UNSPECIFIED Status: Acute (5) Diabetes Code(s): E11.9 - TYPE 2 DIABETES MELLITUS WITHOUT COMPLICATIONS Status: Acute (6) Coronary artery disease Code(s): I25.10 - ATHSCL HEART DISEASE OF [place] CORONARY ARTERY W/O ANG PCTRS Status: Acute - Plan Plan: # Pancytopenia 2/2 Multiple Myeloma - 1 U blood received in ED - Hgb up to 7.2 today, 6.8 on presentation to Ed - Plts up to 27 -> 33 -> 31 - Hep C negative at outside lab - Hem/Onc planning to initiate treatment, likely 4 more days in hospital # Pleural Effusion - gentle diuresis - repeat PA/Lateral after diuresis 03/29 to non-specific density on left lower lobe # GI Bleed - denies melena, bright red blood per stools, hematochezia - FOBT negative - IgG positive H. Pylori - continue triple therapy started 04/22 - GI consulted, no plan for endoscopy at this time - monitor for symptoms # Ascites - Abdominal US shows small amount of ascites - mild splenomegaly #Hyperkalemia - trend - 5.4 today # PACHECO - Cr 2.69-> 2.60 -> 2.5 - FeNa is 1.43 - Stopped IVF today 2/2 swelling, tolerating PO intake # HTN - PRN Hydralazine 5mg # Diabetes - Sliding scale insulin # History CABG - will hold ASA now due to possible active bleed # PPx - SCDs Dispo: hem/onc planning to start treatment, possible d/c 04/29 at earliest <Terrence Hidalgo - Last Filed: 04/26/17 09:05> Attending Addendum - Attending Addendum Date/Time: 04/27/17923 I personally evaluated the patient and discussed the management with Dr. Hidalgo on 04/26/17. I agree with the History, Examination, Assessment and Plan documented above with any addition or exceptions noted below. Patient with multiple myeloma, chemo being initiated today. Will discuss need for EGD with GI, given diagnosis and need to be on high-dose steroids. Continue triple therapy. <Pina Cuello - Last Filed: 04/27/17 09:25>
--- NOTE | 2017-04-26 10:56 | CT ---
PERCUTANEOUS BONE MARROW ASPIRATION AND BIOPSY RIGHT ILIAC BONE: TRE: 04/24/17. HISTORY: Pancytopenia. TECHNIQUE: The procedure including the risks and complications were explained to the patient and informed consen t was obtained. The patient was placed on the CT scan table in the prone position. Limited noncontr asted CT scan was obtained through each iliac bone with grid localizer in place. An area was marked overlying the right iliac bone, and the area was meticulously prepped and draped in the usual sterile fashion. Skin and subcutaneous tissues were infiltrated with buffered 1% Lidocaine for local anesth esia. A small skin incision was made. An 11 gauge lung biopsy needle was advanced through the cortex of the posterior right iliac bone. Ap proximately 8 ml of bone marrow was aspirated. A single 11 gauge 2-3 cm core bone biopsy was then ob tained of the right iliac bone. Hemostasis was achieved with direct pressure. A dry sterile dressing was placed. The patient tolerated the procedure well and without immediate complication. FINDINGS: Initial limited specialty cook images through the pelvis demonstrate a small amount of intraperitone al free fluid in the visualized pelvis. Vascular calcifications are evident. Urinary bladder whitfield appear thickened, and this is probably related to incomplete distention. A technically successful CT-guided bone marrow aspiration and biopsy was obtained of the right iliac bone. IMPRESSION: 1. Ascites. 2. Technically successful bone marrow aspiration and biopsy acquired from the right iliac bone.
[2017-04-26] MEDS ORDERED: Dexamethasone 40 MG in Sodium Chloride 0.9% 50 ML IVPB SCH (11:45)
[2017-04-26] MEDS ORDERED: Furosemide 20 MG/2 ML VIAL SLOW IVP SCH (12:15)
--- NOTE | 2017-04-26 14:33 | PRG ---
DATE OF SERVICE: 04/26/2017 SUBJECTIVE: Mr. Venegas has had no further diarrhea. He has had no more vomiting over the past day; h owever, he does complain of continued epigastric discomfort particularly postprandially with a sensat ion of fullness and early satiety. His bone marrow biopsy did come back positive for multiple myelom a. OBJECTIVE: VITAL SIGNS: Temperature 97.6, pulse 91, blood pressure 152/76, 93% oxygen saturation on room air. GENERAL: No acute distress. HEART: Regular rate and rhythm. LUNGS: Clear to auscultation bilaterally. ABDOMEN: Soft, bowel sounds present. Some tenderness to palpation in the epigastrium, but no guardi ng or rebound tenderness. EXTREMITIES: No peripheral edema. LABORATORY STUDIES: WBC 2.1, hemoglobin 7.2, platelets 31. Sodium 141, potassium 5.4, BUN 35, creat inine 2.52. ASSESSMENT AND PLAN: 1. Epigastric pain, persistent. 2. Positive H. pylori serology, currently being treated. 3. Pancytopenia, secondary to multiple myeloma which was recently diagnosed. The patient has no nelida dence of gastrointestinal bleeding. His pancytopenia appears to be due to multiple myeloma. However , he does continue to have this epigastric discomfort and early satiety in the context of treatment f or H. pylori. Upper endoscopy would be reasonable to rule out peptic ulcer disease. We will arrange for EGD tomorrow. The patient desires to proceed.
[2017-04-27] MEDS: AMOXicillin 250 MG CAP PO SCH ×2 (00:28→12:42)
[2017-04-27] MEDS: Clarithromycin 500 MG TAB PO SCH ×2 (00:28→12:43)
[2017-04-27] MEDS ORDERED: Dextrose 5% in Water 1,000 ML IV PRN (01:17)
[2017-04-27] MEDS ORDERED: Dextrose 50% Abboject 50 ML SYRINGE SLOW IVP PRN (01:17)
[2017-04-27] MEDS ORDERED: Propofol 200 MG/20 ML VIAL ONE (07:15)
[2017-04-27] MEDS ORDERED: Lidocaine 1% PF 5 ML VIAL ONE (07:15)
--- NOTE | 2017-04-27 07:37 | PDOC.FM ---
- Subjective Subjective: Patient still complaining of mid-epigastric abdominal pain this AM. He denies N/ V, F/C. He reports that he has had hip pain and weakness for the past two months. He reports SOB whenever his abdomen gets distended. - Objective MAR Reviewed: Yes Vital Signs & Weight: Vital Signs (12 hours) Temp Pulse Resp BP BP BP Pulse Ox 04/27/17 03:54 97.8 F 85 20 154/74 H 96 04/26/17 23:39 98.0 F 81 16 158/77 H 95 04/26/17 21:00 156/84 H 04/26/17 20:00 97.8 F 85 20 153/104 H 94 L 04/26/17 19:36 97.9 F 98 20 170/83 H 95 Weight Weight 72.01 kg I&O: 04/26/17 04/27/17 04/28/17 06:59 06:59 06:59 Intake Total 965 600 Output Total 1135 850 Balance -170 -250 Result Diagrams: 04/26/17 04:47 04/26/17 04:47 <Bettie Simental - Last Filed: 04/27/17 07:35> - Objective Vital Signs & Weight: Vital Signs (12 hours) Temp Pulse Resp BP Pulse Ox 04/27/17 07:15 97.6 F 82 20 157/80 H 95 04/27/17 03:54 97.8 F 85 20 154/74 H 96 04/26/17 23:39 98.0 F 81 16 158/77 H 95 Weight Weight 72.01 kg I&O: 04/26/17 04/27/17 04/28/17 06:59 06:59 06:59 Intake Total 965 600 Output Total 1135 850 Balance -170 -250 Result Diagrams: 04/27/17 07:14 04/27/17 07:14 <Mikhail Tripp - Last Filed: 04/27/17 10:57> Phys Exam - Physical Examination Constitutional: NAD HEENT: moist MMs Respiratory: no wheezing, no rales, no rhonchi, clear to auscultation bilateral Cardiovascular: RRR, no significant murmur, no rub Gastrointestinal: soft, no distention, positive bowel sounds TTP in RICO region Musculoskeletal: no edema, pulses present Neurological: non-focal, moves all 4 limbs Psychiatric: normal affect, A&O x 3 Skin: cap refill <2 seconds Deviation from normal: pallor <Bettie Simental - Last Filed: 04/27/17 07:35> Dx/Plan (1) Multiple myeloma Code(s): C90.00 - MULTIPLE MYELOMA NOT HAVING ACHIEVED REMISSION Status: Acute QualifierTitle: Multiple myeloma remission status: not in remission Qualified Code(s): C90.00 - Multiple myeloma not having achieved remission (2) Pancytopenia Code(s): D61.818 - OTHER PANCYTOPENIA Status: Acute (3) H. pylori infection Code(s): A04.8 - OTHER SPECIFIED BACTERIAL INTESTINAL INFECTIONS Status: Acute (4) Weakness Code(s): R53.1 - WEAKNESS Status: Acute (5) Elevated blood pressure reading without diagnosis of hypertension Code(s): R03.0 - ELEVATED BLOOD-PRESSURE READING, W/O DIAGNOSIS OF HTN Status : Acute (6) Diabetes Code(s): E11.9 - TYPE 2 DIABETES MELLITUS WITHOUT COMPLICATIONS Status: Acute QualifierTitle: Diabetes mellitus type: type 2 Diabetes mellitus complication status: without complication Diabetes mellitus curriculum development specialist insulin use: with fci use Qualified Code(s): E11.9 - Type 2 diabetes mellitus without complications; Z79.4 - nursing home (current) use of insulin; Z79.4 - nursing home (current) use of insulin; Z79.4 - window systems administrator (current) use of insulin; Z79.4 - window systems administrator (current) use of insulin (7) Coronary artery disease Code(s): I25.10 - ATHSCL HEART DISEASE OF [place] CORONARY ARTERY W/O ANG PCTRS Status: Acute QualifierTitle: Coronary Disease-Associated Artery/Lesion type: [place] artery [place] vs. transplanted heart: [place] heart Associated angina: angina presence unspecified Qualified Code(s): I25.10 - Atherosclerotic heart disease of [place] coronary artery without angina pectoris (8) PACHECO (acute kidney injury) Code(s): N17.9 - ACUTE KIDNEY FAILURE, UNSPECIFIED Status: Acute (9) CKD (chronic kidney disease) Code(s): N18.9 - CHRONIC KIDNEY DISEASE, UNSPECIFIED Status: Acute QualifierTitle: Chronic kidney disease stage: unspecified stage Qualified Code(s): N18.9 - Chronic kidney disease, unspecified (10) Hyperkalemia Code(s): E87.5 - HYPERKALEMIA Status: Acute - Plan Plan: 1. Pancytopenia 2/2 Multiple Myeloma Bone marrow biopsy on 04/24 confirmed Multiple Myeloma. Several labs are pending including serum and urine electrophoresis, beta2 microglobulin, kappa/lambda light chain. - 1 U PRBC's received in ED - Hgb up to 7.2 yesterday (pending for today), 6.8 on presentation to Ed - Plts up to 27 -> 33 -> 31 yesterday (pending for today) - Hep C negative at outside lab - Heme/Onc on board, appreciate recs - Heme/Onc initiated tx with IV dexamethasone 40mg daily 2. Pleural Effusion - gentle diuresis - repeat PA/Lateral after diuresis / to non-specific density on left lower lobe, f/u pending results 3. H. Pylori infection - denies melena, bright red blood per stools, hematochezia - FOBT negative - IgG positive H. Pylori - continue triple therapy started 04/22 - GI consulted, plan for EGD this AM due to patient's persistent R[place] pain - monitor for symptoms 4. Ascites - Abdominal US shows small amount of ascites - mild splenomegaly 5. Hyperkalemia - trend - 5.4 yesterday, pending for today 6. PACHECO vs CKD - Cr 2.69-> 2.60 -> 2.52, has stabilized and could be at patient's baseline - difficult to say as no prior records to compare to - FeNa is 1.43 - Stopped IVF 2/2 swelling, tolerating PO intake 7. HTN - PRN Hydralazine 5mg - Patient's BP's have remained elevated, will consider adding a curriculum development specialist medication such as amlodipine 8. Diabetes - Sliding scale insulin - Pt is currently NPO 2/2 EGD, will consider re-adding Levemir as pt takes 20U at bedtime and his most recent glucose checks have been in the 300's. 9. History CABG - will hold ASA now due to possible active bleed Dispo: Possible d/c 3/5 at earliest pending Heme/Onc recs once pt has completed course of dexamethasone <Bettie Simental - Last Filed: 04/27/17 07:35> Attending Addendum - Attending Addendum Date/Time: 04/27/17 3816 I personally evaluated the patient and discussed the management with Dr. Simental. I agree with the History, Examination, Assessment and Plan documented above with any addition or exceptions noted below. Patient going for EGD today due to his persistent epigastric pain. Continues on treatment on H pylori. He is currently receiving chemo and steroids for his new diagnosis of Multiple Myeloma. Some labs related to that still pending. His BP has been elevated and we will initiate anti-HTN therapy this morning. His renal function is overall stable, but he does continue to have hyperchloremia and metabolic acidosis that is likely assocaited with it. This is all likely due to his malignany, but will go ahead and get Nephro on board. Will initiate Bicarb 650mg TID PO therapy to help with his acidosis. Monitor his hyperkalemia in the setting of renal failure. <Mikhail Tripp - Last Filed: 04/27/17 10:57>
[2017-04-27 07:48] LABS: Anion Gap 18 mmol/L (10-20); BUN (Urea Nitrogen) 41 mg/dL (8.4-25.7); Calc. Creatinine Clearance 30 mL/min (70-130); Calcium 9.4 mg/dL (7.8-10.44); Carbon Dioxide 11 mmol/L (22-29); Chloride 115 mmol/L (98-107); Estimated GFR-MDRD 24; Glucose 367 mg/dL (70-105); Potassium 5.8 mmol/L (3.5-5.1); Sodium 138 mmol/L (136-145)
[2017-04-27 07:54] LABS: Hemoglobin 7.3 g/dL (14.0-18.0); Mean Corpuscular Hemoglobin 32.9 pg (27.0-31.0); Mean Platelet Volume 8.7 fL (7.4-10.4); Platelet Count 27 thou/uL (130-400); RBC Distribution Width 14.6 % (11.5-14.5); Red Blood Cell (RBC) Count 2.22 mill/uL (4.70-6.10); White Blood Cell (WBC) Count 1.8 thou/uL (4.8-10.8)
[2017-04-27] MEDS: HumaLOG 300 UNITS/3 ML VIAL SC PRN ×3 (09:54→20:54)
[2017-04-27] MEDS ORDERED: Insulin Regular 300 UNITS/3 ML VIAL ONE (10:48)
--- NOTE | 2017-04-27 12:11 | RAD ---
TWO VIEWS OF THE CHEST: COMPARISON: 04/26/17. HISTORY: Pleural effusion. FINDINGS: Two views of the chest show a normal-size cardiomediastinal silhouette. The patient is status post s ternotomy. There is no evidence of consolidation or mass. There are small bilateral pleural effusio ns. IMPRESSION: Small bilateral pleural effusions. POS: [facility]
[2017-04-27] MEDS: Amlodipine 5 MG TAB PO SCH (12:41)
[2017-04-27] MEDS: Dexamethasone 40 MG in Sodium Chloride 0.9% 50 ML IVPB SCH (12:41)
--- NOTE | 2017-04-27 13:22 | EKG ---
Test Reason : Blood Pressure : / mmHG Vent. Rate : 087 BPM Atrial Rate : 087 BPM P-R Int : 150 ms QRS Dur : 084 ms QT Int : 358 ms P-R-T Axes : 045 084 041 degrees QTc Int : 430 ms Normal sinus rhythm Nonspecific ST and T wave abnormality Abnormal ECG Confirmed by HECTOR MATHEW ([id number]), assistant film editor LIBORIO TANG ([id number]) on 04/27/2017 1:22:44 PM Referred By: Confirmed By:HECTOR MATHEW
[2017-04-27 13:30] LABS: Potassium 5.2 mmol/L (3.5-5.1)
[2017-04-27 14:20] LABS: Actual Bicarbonate (HCO3a) 13.1 mEq/L (22-26); Base Excess (BEa) -11.4 mEq/L (0 (+/-) 2.5); CO2 Tension 24.7 mmHg (35.0-45.0); Hematocrit-ABG 20.6 % (42.0-52.0); Hemoglobin (Hb) 7.5 g/dL (14.0-18.0); O2 Tension (PaO2) 85.2 mmHg (80.0-100.0); pH, Arterial 7.34 (7.35-7.45)
[2017-04-27 14:21] LABS: ALV-art Gradient 33.655 (0-20); Analyzer IN Cardio OR; Calcium, Ionized 1.4 mmol/L (1.12-1.30); Puncture Site RBA
[2017-04-27] MEDS: Sodium Bicarbonate Tab 325 MG TAB PO SCH ×2 (15:47→20:56)
--- NOTE | 2017-04-27 15:56 | RAD ---
RADIOGRAPH ABDOMEN 2 VIEWS: DATE: 04/27/17 TIME: 3:25 p.m. HISTORY: 61-year-old male with generalized abdominal pain. FINDINGS: No evidence of free air on the upright image. No differential air fluid levels. There are a few scatt ered air fluid levels in nondilated loops of small intestine and colon. Moderate to large volume of c olonic stool. No evidence of organomegaly. No air filled dilated small bowel loops identified. IMPRESSION: 1. Nonspecific bowel gas pattern. 2. Possible constipation. POS: [facility]
--- NOTE | 2017-04-27 16:00 | ULT ---
RENAL SONOGRAM: DATE: 04/27/17. HISTORY: Renal failure. FINDINGS: The kidneys demonstrate a normal sonographic appearance bilaterally without evidence of a renal mass, renal calculus, or hydronephrosis. The right kidney measures 12.7 cm x 4.9 cm with the left kidney measuring 11.1 cm x 5.1 cm. No perinephric fluid collection is seen. The urinary bladder is incompletely distended. The [place] of the urinary bladder do appear mildly pro minent which could be attributable to incomplete distention. There is a small amount of intraperitoneal free fluid seen within the lower quadrants bilaterally wit h a small amount of free fluid adjacent to the liver. IMPRESSION: 1. Normal-appearing bilateral kidneys without evidence of hydronephrosis. 2. Mild thickening of the whit[place] of the urinary bladder which could be related to incomplete distenti on of the urinary bladder. Cystitis could not be entirely excluded. 3. Small amount of ascites. POS: [facility]
--- NOTE | 2017-04-27 18:36 | OP ---
PREOPERATIVE DIAGNOSES: 1. Epigastric pain, bloating after eating. 2. Multiple myeloma. 3. On antibiotics for Helicobacter pylori. POSTPROCEDURE DIAGNOSES: 1. Normal esophagus. The stomach with atrophic gastritis, not biopsied as she has known H. pylori. Otherwise, stomach is normal sensibility in forward and retroflexed views. 2. Normal duodenum, third portion. RECOMMENDATIONS: 1. Stop H. pylori treatment at this time. The clarithromycin is very irritating the stomach and typ ically causes stomach pain. 2. Continue PPIs. 3. Check hemoglobin A1c for uncontrolled diabetes and may have gastroparesis. Check ultrasound of t he gallbladder, check plain films of the abdomen to make sure does not have any signs of obstruction or impaction. ANESTHESIA: TIVA. PROCEDURE IN DETAIL: The patient with risks, benefits, possible complications of endoscopy and perfo ration, reactions to medication and aspiration, informed consent was signed, the patient was brought to endoscopy suite where she was prepped and draped in standard fashion. Once she was comfortable, a bite block was placed in incisural orifice. The endoscope advanced. The esophagus was normal. The stomach had normal sensibility. There is mild atrophy of the mucosa, but no ulcers, lesions or infi ltrative processes. The gastric folds were normal. The pylorus was normal. The stomach was normal to retroflexion. Duodenum was normal, second and third portions. The scope was removed. The patien t tolerated the procedure well with no complications.
[2017-04-27] MEDS: Insulin Detemir 100 UNITS/ML 20 UNITS in Pre-Filled Syringe SC SCH (20:54)
--- NOTE | 2017-04-27 23:17 | CON ---
DATE OF CONSULTATION: 04/27/2017 CONSULTING PHYSICIAN: Bebo Ngo M.D. REQUESTING PHYSICIAN: [facility] REASON FOR CONSULTATION: Severe acute kidney injury. IMPRESSION: 1. Acute on chronic kidney disease. This is likely in the context of myeloma kidney though cannot c ompletely rule out potential diabetic nephropathy component. 2. Metabolic acidosis. 3. Hyperkalemia in the context of metabolic acidosis with its attendant cellular shift of potassium and reduced GFR. 4. Multiple myeloma likely responsible for pancytopenia and renal dysfunction. PLAN: 1. Evaluate the phosphorus level and the echotexture of the kidney ultrasound. 2. Renally-dosed medications and avoid potentially nephrotoxic agents. 3. We will likely gently rehydrate this patient with a bicarbonate based infusion. This hopefully w ill address the metabolic acidosis and hyperkalemia. 4. No emergent indication for renal replacement therapy (dialytic intervention); however, if the velma al function continues to deteriorate, this modality of treatment might become indicated. 5. Further management to be dependent on the clinical course as well as any definitive therapy for t he multiple myeloma. HISTORY OF PRESENT ILLNESS: History is that of 61-year-old [place]ese speaking gentleman who presented with weakness and clinical evaluation revealed pancytopenia for which patient did undergo workup diag nosed with multiple myeloma, renal function noted not to be optimal and as well as hyperkalemia and m etabolic acidosis, these findings necessitated renal consultation. PAST MEDICAL HISTORY: Significant for diabetes mellitus type 2. ALLERGIES: No known drug allergy. MEDICATIONS: Reviewed as documented on [place]. FAMILY HISTORY: None significantly related to the presenting illness. SOCIAL HISTORY: , living with his spouse. No alcohol, no tobacco, no illicit drug use. REVIEW OF SYSTEMS: As documented in the body of the history. All the other systems were reviewed an d found not to be significantly related to presenting illness. PHYSICAL EXAMINATION: GENERAL: The patient was found not to be in any obvious distress. VITAL SIGNS: Afebrile with temperature 97.7, pulse 92, respiratory rate 16, O2 sat 97% with blood pr essure 161/75. HEENT: Unremarkable. CARDIOVASCULAR SYSTEM: First and second heart sounds were heard. RESPIRATORY SYSTEM: Clear to auscultation. DIGESTIVE SYSTEM: Revealed a benign abdomen with positive bowel sounds. EXTREMITIES: No peripheral edema. SKIN: No new gross rash. LYMPHATICS: No peripheral lymphadenopathy. SUMMARY: A 61-year-old gentleman who presented here with multiple myeloma, now noted with decreased renal function. Thank you for this consultation. We will follow with you.
[2017-04-28] MEDS: Benzonatate 100 MG CAP PO PRN (00:44)
[2017-04-28 04:44] LABS: Hemoglobin A1c 6.6 % (4.0-6.0)
[2017-04-28 04:46] LABS: Platelet Count 26 thou/uL (130-400)
[2017-04-28 04:58] LABS: Albumin 3.4 g/dL (3.5-5.0); Anion Gap 11 mmol/L (10-20); BUN (Urea Nitrogen) 49 mg/dL (8.4-25.7); BUN/Creatinine Ratio 18.77; Calc. Creatinine Clearance 31 mL/min (70-130); Calcium 9.1 mg/dL (7.8-10.44); Carbon Dioxide 15 mmol/L (22-29); Chloride 112 mmol/L (98-107); Estimated GFR-MDRD 25; Glucose 425 mg/dL (70-105); Phosphorus 4.3 mg/dL (2.3-4.7); Potassium 5.3 mmol/L (3.5-5.1); Sodium 133 mmol/L (136-145)
[2017-04-28 05:24] LABS: Hemoglobin 6.8 g/dL (14.0-18.0); Mean Corpuscular HGB CONC 35.2 g/dL (32.0-36.0); Mean Corpuscular Hemoglobin 32.5 pg (27.0-31.0); Mean Corpuscular Volume 92.3 fl (80.0-94.0); Mean Platelet Volume 8.6 fL (7.4-10.4); RBC Distribution Width 14.8 % (11.5-14.5); White Blood Cell (WBC) Count 2.3 thou/uL (4.8-10.8)
[2017-04-28] MEDS: HumaLOG 300 UNITS/3 ML VIAL SC PRN ×4 (06:06→20:15)
--- NOTE | 2017-04-28 07:38 | PDOC.FM ---
- Subjective Subjective: Patient feels much better this AM. He denies any abdominal pain, N/V, fevers, or chills. He reports no issues after the EGD. - Objective MAR Reviewed: Yes Vital Signs & Weight: Vital Signs (12 hours) Temp Pulse Resp BP Pulse Ox 04/28/17 07:13 98 F 80 20 144/74 H 94 L 04/28/17 03:36 98.9 F 83 16 137/79 97 04/27/17 23:37 98.2 F 81 12 132/73 94 L 04/27/17 20:00 97.7 F 92 16 97 Weight Weight 74.049 kg I&O: 04/27/17 04/28/17 04/29/17 06:59 06:59 06:59 Intake Total 600 960 Output Total 850 1000 Balance -250 -40 Result Diagrams: 04/28/17 03:49 04/28/17 03:50 <Bettie Simnetal - Last Filed: 04/28/17 07:36> - Objective Vital Signs & Weight: Vital Signs (12 hours) Temp Pulse Resp BP BP Pulse Ox 04/28/17 08:31 80 144/74 H 04/28/17 08:00 98 F 80 20 94 L 04/28/17 07:13 98 F 80 20 144/74 H 94 L 04/28/17 03:36 98.9 F 83 16 137/79 97 04/27/17 23:37 98.2 F 81 12 132/73 94 L Weight Weight 74.049 kg I&O: 04/27/17 04/28/17 04/29/17 06:59 06:59 06:59 Intake Total 600 960 Output Total 850 1000 Balance -250 -40 Result Diagrams: 04/28/17 03:49 04/28/17 03:50 <Mikhail Tripp - Last Filed: 04/28/17 10:56> Phys Exam - Physical Examination Constitutional: NAD HEENT: moist MMs Respiratory: no wheezing, no rales, no rhonchi, clear to auscultation bilateral Cardiovascular: RRR, no significant murmur, no rub Gastrointestinal: soft, non-tender, no distention, positive bowel sounds Musculoskeletal: no edema, pulses present Neurological: non-focal, moves all 4 limbs Psychiatric: normal affect, A&O x 3 <Bettie Simental - Last Filed: 04/28/17 07:36> Dx/Plan (1) Multiple myeloma Code(s): C90.00 - MULTIPLE MYELOMA NOT HAVING ACHIEVED REMISSION Status: Acute QualifierTitle: Multiple myeloma remission status: not in remission Qualified Code(s): C90.00 - Multiple myeloma not having achieved remission (2) Pancytopenia Code(s): D61.818 - OTHER PANCYTOPENIA Status: Acute (3) H. pylori infection Code(s): A04.8 - OTHER SPECIFIED BACTERIAL INTESTINAL INFECTIONS Status: Acute (4) Weakness Code(s): R53.1 - WEAKNESS Status: Acute (5) Elevated blood pressure reading without diagnosis of hypertension Code(s): R03.0 - ELEVATED BLOOD-PRESSURE READING, W/O DIAGNOSIS OF HTN Status : Acute (6) Diabetes Code(s): E11.9 - TYPE 2 DIABETES MELLITUS WITHOUT COMPLICATIONS Status: Acute QualifierTitle: Diabetes mellitus type: type 2 Diabetes mellitus complication status: without complication Diabetes mellitus group home insulin use: with group home use Qualified Code(s): E11.9 - Type 2 diabetes mellitus without complications; Z79.4 - group home (current) use of insulin; Z79.4 - group home (current) use of insulin; Z79.4 - [facility] (current) use of insulin; Z79.4 - o[facility] (current) use of insulin (7) Coronary artery disease Code(s): I25.10 - ATHSCL HEART DISEASE OF [place] CORONARY ARTERY W/O ANG PCTRS Status: Acute QualifierTitle: Coronary Disease-Associated Artery/Lesion type: [place] artery [place] vs. transplanted heart: [place] heart Associated angina: angina presence unspecified Qualified Code(s): I25.10 - Atherosclerotic heart disease of [place] coronary artery without angina pectoris (8) PACHECO (acute kidney injury) Code(s): N17.9 - ACUTE KIDNEY FAILURE, UNSPECIFIED Status: Acute (9) CKD (chronic kidney disease) Code(s): N18.9 - CHRONIC KIDNEY DISEASE, UNSPECIFIED Status: Acute QualifierTitle: Chronic kidney disease stage: unspecified stage Qualified Code(s): N18.9 - Chronic kidney disease, unspecified (10) Hyperkalemia Code(s): E87.5 - HYPERKALEMIA Status: Acute - Plan Plan: 1. Pancytopenia 2/2 Multiple Myeloma Bone marrow biopsy on 04/24 confirmed Multiple Myeloma. Several labs are pending including serum and urine electrophoresis, beta2 microglobulin, kappa/lambda light chain. - 1 U PRBC's received in ED - Hgb down to 6.8 today, 6.8 on presentation to Ed - Plts to to 27 -> 33 -> 31->26 - Hep C negative at outside lab - Heme/Onc on board, appreciate recs - Heme/Onc initiated tx with IV dexamethasone 40mg daily 2. Pleural Effusion - gentle diuresis - CXR showed small bilateral pleural effusions 3. H. Pylori infection EGD on 04/27 showed atrophic gastritis - denies melena, bright red blood per stools, hematochezia - FOBT negative - IgG positive H. Pylori - Continue PPI, amoxicillin and clarithromycin d/c'd on 04/27 - GI consulted, appreciate recs - monitor for symptoms 4. Ascites - Abdominal US shows small amount of ascites - mild splenomegaly 5. Hyperkalemia - trend - 5.3 today, s/p one dose of kayexalate. Will avoid further use due to gastric irritation risk 6. PACHE[place] vs CKD - Cr 2.69-> 2.60 -> 2.52, has stabilized and could be at patient's baseline - difficult to say as no prior records to compare to - FeNa is 1.43 - Stopped IVF 2/2 swelling, tolerating PO intake 7. HTN - PRN Hydralazine 5mg - Amlodipine initiated on 04/27 8. Diabetes - Sliding scale insulin - Levemir 20U qHS Glucose has been elevated likely 2/2 dex, will increase SSI and monitor closely 9. History CABG - will hold ASA now due to possible active bleed Dispo: Possible d/c 3/ at earliest pending Heme/Onc recs once pt has completed course of dexamethasone <Bettie Simental - Last Filed: 04/28/17 07:36> Attending Addendum - Attending Addendum Date/Time: 04/28/17 1052 I personally evaluated the patient and discussed the management with Dr. Simental. I agree with the History, Examination, Assessment and Plan documented above with any addition or exceptions noted below. Patient doing well s/p EGD. He reports mild bloating with meals, but no abdominal pain. This is likely related to his H. pylori infection, but witholding abx at this time to prevent further gastric irritation per GI. His renal function is overall stable, Nephro on board. His is currently on bicarb drip for his metabolic acidosis. Mild hyperkalemia, will recheck in a few hours. His blood sugars are out of control due to steroid therapy. Will need intense escalation of therapy to get his sugars under better control. Pancytopenia mildly worse, no indication for transfusion of blood products at this time, but if decreases more or becomes symptomatic, will need transfusion of PRBCs or platelets. <Mikhail Tripp - Last Filed: 04/28/17 10:56>
[2017-04-28] MEDS: Sodium Bicarbonate 150 MEQ in Dextrose 5% in Water 1,000 ML IV SCH ×6 (07:48→23:53)
[2017-04-28] MEDS: Sodium Bicarbonate Tab 325 MG TAB PO SCH ×3 (08:30→20:17)
[2017-04-28] MEDS: Amlodipine 5 MG TAB PO SCH (08:31)
[2017-04-28] MEDS ORDERED: Insulin Detemir 100 UNITS/ML 20 UNITS in Pre-Filled Syringe 1 EACH SC SCH (09:00)
[2017-04-28] MEDS ORDERED: Dextrose 5% in Water 1,000 ML IV PRN (10:00)
[2017-04-28] MEDS: Dexamethasone 40 MG in Sodium Chloride 0.9% 50 ML IVPB SCH (10:58)
--- NOTE | 2017-04-28 15:35 | EKG ---
Test Reason : Blood Pressure : / mmHG Vent. Rate : 077 BPM Atrial Rate : 077 BPM P-R Int : 150 ms QRS Dur : 088 ms QT Int : 414 ms P-R-T Axes : 027 075 056 degrees QTc Int : 468 ms Normal sinus rhythm Normal ECG When compared with ECG of 22-APR-2017 11:02, No significant change was found Confirmed by DR. Jeramie MONTANO ([id number]) on 04/28/2017 3:34:30 PM Referred By: IRA Confirmed By:DR. Jeramie MONTANO
[2017-04-28 17:06] LABS: Protein, Urine 105 mg/dL (1-14)
--- NOTE | 2017-04-28 17:52 | PRG ---
DATE OF SERVICE: 04/28/2017 SUBJECTIVE: The patient was seen and examined, seems to be feeling better, noted with the following vital signs. PHYSICAL EXAMINATION: VITAL SIGNS: Afebrile with temperature 98, pulse 80, respiratory of 20, blood pressure 144/74, O2 sa t of 94%. HEENT: Unremarkable with moist oral mucosa. No conjunctival injection or icterus NECK: Supple. CARDIOVASCULAR: First and second heart sounds were heard. RESPIRATORY: Clear to auscultation. DIGESTIVE: Revealed a benign abdomen with positive bowel sounds. EXTREMITIES: No peripheral edema. SKIN: No new gross rash. LYMPHATICS: No peripheral lymphadenopathy. IMPRESSION: 1. Advanced chronic kidney disease, likely in the context of myeloma kidney. 2. Metabolic acidosis. 3. Pancytopenia due to multiple myeloma. 4. Hyperkalemia in the context of kidney disease and metabolic acidosis with its attendant cellular shift. 5. Pseudohyponatremia due to severe hyperglycemia. PLAN: 1. Blood sugar control strongly recommended. 2. Start this patient on a gentle bicarbonate infusion with a special attention placed on the flu st atus of this patient to avoid precipitating fluid overload. 3. Anemia management, will be deferred to the primary team as well as Oncology service. 4. If patient does not respond to medical intervention in terms of the acid base disorder and electr olytes as he relates to hyperkalemia, renal replacement therapy (hemodialysis) will become indicated in this patient.
[2017-04-28 17:53] LABS: Collection Duration 24 hrs; Protein - 24 Hr 709 mg/24 hr (Less than 300); Urine Total Volume 675 mL (800-1800)
[2017-04-28] MEDS: Insulin Detemir 100 UNITS/ML 20 UNITS in Pre-Filled Syringe SC SCH (20:16)
--- NOTE | 2017-04-28 22:14 | PRG ---
DATE OF SERVICE: 04/28/2017 SUBJECTIVE: Mr. Venegas feels a little bit better since endoscopy yesterday. We really did not do any thing except stop the clarithromycin and amoxicillin. OBJECTIVE: VITAL SIGNS: Temperature is 98, pulse 80, blood pressure 144/74. ABDOMEN: Slightly protuberant. IMAGING: X-rays showed no evidence of obstruction. Abdominal ultrasound on 04/25/2017 showed bilate ral effusions, small amount of ascites, and mild splenomegaly. ASSESSMENT: With regard to the patient's bloating after meals and dyspepsia, this is not likely rela kaleigh to his H. pylori. He had antibody positive. There are no signs of acute gastritis that would gi ve him symptoms. I agree that this should be treated at some point in time, but he does not feel wel l with the stomach. The Biaxin is very irritating the stomach and actually usually causes more pain and probably it is #1 cause being discontinued as the side effects with regard to GI symptoms. At th is point in time, until his myeloma comes into a better control, I will treat him with just a PPI and worry about treating the H. pylori at a later date. We will sign off. There is a lot of upper GI b leeding symptoms prior to do with splenomegaly. Low albumin levels related to his myeloma and scant ascites. At this point in time, we will follow from a distance, Dr. Dunne will return tomorrow if any further GI assistance is needed.
[2017-04-29] MEDS ORDERED: Insulin Detemir 100 UNITS/ML 24 UNITS in Pre-Filled Syringe 1 EACH SC SCH (05:18)
[2017-04-29] MEDS: HumaLOG 300 UNITS/3 ML VIAL SC PRN ×3 (05:23→18:25)
[2017-04-29 05:53] LABS: Platelet Count 21 thou/uL (130-400)
[2017-04-29 06:07] LABS: Anion Gap 12 mmol/L (10-20); BUN (Urea Nitrogen) 56 mg/dL (8.4-25.7); Calc. Creatinine Clearance 33 mL/min (70-130); Calcium 8.5 mg/dL (7.8-10.44); Carbon Dioxide 20 mmol/L (22-29); Chloride 106 mmol/L (98-107); Estimated GFR-MDRD 27; Glucose 304 mg/dL (70-105); Potassium 4.6 mmol/L (3.5-5.1); Sodium 133 mmol/L (136-145)
[2017-04-29 06:09] LABS: Hemoglobin 6.7 g/dL (14.0-18.0); Mean Corpuscular HGB CONC 35.4 g/dL (32.0-36.0); Mean Corpuscular Hemoglobin 32.6 pg (27.0-31.0); Mean Platelet Volume 9.4 fL (7.4-10.4); RBC Distribution Width 14.9 % (11.5-14.5); Red Blood Cell (RBC) Count 2.05 mill/uL (4.70-6.10); White Blood Cell (WBC) Count 2.3 thou/uL (4.8-10.8)
[2017-04-29 07:04] LABS: A/G Ratio 1.2 (0.7-1.7); Alpha 1 0.3 g/dL (0.0-0.4); Alpha 2 0.7 g/dL (0.4-1.0); Beta 1.1 g/dL (0.7-1.3); Gamma 0.4 g/dL (0.4-1.8); Globulin, Total 2.5 g/dL (2.2-3.9); M-Spike 0.2 g/dL (Not Observed)
--- NOTE | 2017-04-29 08:41 | PDOC.FM ---
- Subjective Subjective: This morning that patient states that he is feeling more bloated in his abdomen. He also states that he is having increased shortness of breath when laying down. Says he is tolerating PO intake but is taking smaller portions. No nausea or vomiting. No cough or fever. - Objective Vital Signs & Weight: Vital Signs (12 hours) Temp Pulse Resp BP Pulse Ox 04/29/17 07:15 97.9 F 87 16 138/73 95 Weight Weight 74.049 kg I&O: 04/28/17 04/29/17 04/30/17 06:59 06:59 06:59 Intake Total 960 1800 Output Total 1000 500 Balance -40 1300 Result Diagrams: 04/29/17 05:20 04/29/17 05:20 <Terrence Hidalgo - Last Filed: 04/29/17 08:40> - Objective Vital Signs & Weight: Vital Signs (12 hours) Temp Pulse Pulse Resp BP BP BP 04/29/17 12:45 97.9 F 88 16 156/78 H 04/29/17 12:39 97.9 F 88 16 156/78 H 04/29/17 10:06 87 138/73 04/29/17 08:00 97.9 F 88 16 04/29/17 07:15 97.9 F 87 16 138/73 Pulse Ox 04/29/17 12:45 97 04/29/17 12:39 97 04/29/17 10:06 04/29/17 08:00 04/29/17 07:15 95 Weight Weight 74.049 kg I&O: 04/28/17 04/29/17 04/30/17 06:59 06:59 06:59 Intake Total 960 1800 0 Output Total 1000 500 Balance -40 1300 0 Result Diagrams: 04/29/17 05:20 04/29/17 05:20 <Stanford Solomon - Last Filed: 04/29/17 15:39> Phys Exam - Physical Examination Constitutional: NAD HEENT: PERRLA, sclera anicteric Neck: no nodes, full ROM Respiratory: no wheezing, clear to auscultation bilateral Cardiovascular: RRR, no significant murmur Gastrointestinal: soft, non-tender, positive bowel sounds mild distension Musculoskeletal: pulses present trace edema bilaterally Neurological: non-focal, moves all 4 limbs Lymphatic: no nodes Psychiatric: normal affect, A&O x 3 Skin: no rash, cap refill <2 seconds <Terrence Hidalgo - Last Filed: 04/29/17 08:40> Dx/Plan (1) Pancytopenia Code(s): D61.818 - OTHER PANCYTOPENIA Status: Acute (2) Weakness Code(s): R53.1 - WEAKNESS Status: Acute (3) GI bleed Code(s): K92.2 - GASTROINTESTINAL HEMORRHAGE, UNSPECIFIED Status: Acute (4) Anemia Code(s): D64.9 - ANEMIA, UNSPECIFIED Status: Acute (5) Diabetes Code(s): E11.9 - TYPE 2 DIABETES MELLITUS WITHOUT COMPLICATIONS Status: Acute QualifierTitle: Diabetes mellitus type: type 2 Diabetes mellitus complication status: without complication 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 transplanted heart: [place] heart Associated angina: angina presence unspecified Qualified Code(s): I25.10 - Atherosclerotic heart disease of [place] coronary artery without angina pectoris - Plan Plan: 1. Pancytopenia 2/2 Multiple Myeloma Bone marrow biopsy on 04/24 confirmed Multiple Myeloma. Hem/Onc is guiding process of obtaining access to treatment as he is unfunded. - 1 U PRBC's received in ED - Hgb down to 6.7 today, 6.8 on presentation to Ed - Plts to to 27 -> 33 -> 31-> 26 -> 21 - Hep C negative at outside lab - Heme/Onc on board, appreciate recs - Heme/Onc initiated tx with IV dexamethasone 40mg daily, d/c'd 04/29/2017 - Transfuse 2 U PRBC 04/29/17 2. Pleural Effusion - gentle diuresis - CXR showed small bilateral pleural effusions - 40 mg IV lasix with transfusion 3. H. Pylori infection EGD on 04/27 showed atrophic gastritis - denies melena, bright red blood per stools, hematochezia - FOBT negative - IgG positive H. Pylori - Continue PPI, amoxicillin and clarithromycin d/c'd on 04/27 - GI consulted, appreciate recs - EGD shows atrophic gastritis - monitor for symptoms 4. Ascites - Abdominal US shows small amount of ascites - mild splenomegaly 5. Hyperkalemia - trend - 4.6 today, s/p one dose of kayexalate. Will avoid further use due to gastric irritation risk 6. PACHECO vs CKD - Cr 2.69-> 2.60 -> 2.52 -> 2.5, has stabilized and could be at patient's baseline - difficult to say as no prior records to compare to - FeNa is 1.43 - Stopped IVF 2/2 swelling, tolerating PO intake - Nephrology is consulted, appreciate recs 7. HTN - PRN Hydralazine 5mg - Amlodipine initiated on 04/27 8. Diabetes - Sliding scale insulin - Levemir increased to 24 U BID from 20U 04/29/17 Glucose has been elevated likely 2/2 dex, will increase SSI and monitor closely 9. History CABG - will hold ASA now due to possible active bleed Dispo: working to obtain access to treatment for MM, appreciate Heme recs <Terrence Hidalgo - Last Filed: 04/29/17 08:40> Attending Addendum - Attending Addendum Date/Time: 04/29/17 2340 I personally evaluated the patient and discussed the management with Dr. Hidalgo. I agree with the History, Examination, Assessment and Plan documented above with any addition or exceptions noted below. <Stanford Solomon - Last Filed: 04/29/17 15:39>
[2017-04-29] MEDS ORDERED: Furosemide 40 MG/4 ML VIAL SLOW IVP SCH (08:45)
[2017-04-29] MEDS: Dexamethasone 40 MG in Sodium Chloride 0.9% 50 ML IVPB SCH (10:02)
[2017-04-29] MEDS: Docusate 100 MG CAP PO SCH ×2 (10:04→20:27)
[2017-04-29] MEDS: Sodium Bicarbonate Tab 325 MG TAB PO SCH ×3 (10:04→20:27)
[2017-04-29] MEDS: Amlodipine 5 MG TAB PO SCH (10:06)
[2017-04-29] MEDS: Benzonatate 100 MG CAP PO PRN (11:33)
--- NOTE | 2017-04-29 12:06 | PRG ---
DATE OF SERVICE: 04/29/2017 Mr. Venegas still has bloating after eating and feels protuberant and distended but has no vomiting. PHYSICAL EXAMINATION: VITAL SIGNS: Temperature is 97.4, pulse 87, blood pressure 138/73, weight was 163, he was 155 on adm ission. ABDOMEN: Protuberant with dullness to percussion. There is no tenderness or rebound. LABORATORY STUDIES: White count is 2.3, hemoglobin 6.7, platelet count 21,000. Sodium 133, BUN and creatinine 56 and 2.5. He has significant proteinuria. Diabetes, poorly controlled with sugars in the 300-400s. ASSESSMENT: 1. Multiple myeloma. 2. Abdominal bloating is likely related to anasarca and fluid retention. He may have developed more ascites. It is unclear if he has a nephrotic syndrome, but with his renal failure/proteinuria and a diagnosis of multiple myeloma this is very likely. 3. Endoscopy was negative in terms of sources of bloating or discomfort after eating. RECOMMENDATIONS: As previously would avoid any treatment of his H. pylori at this time. I do not th ink it is contributing to his symptoms. He can be on a PPI for ulcer prophylaxis. At this time with nothing further to add from a GI standpoint, management of anasarca and likely nephrotic syndrome per primary service and Nephrology.
[2017-04-29 14:17] LABS: Albumin-Ur 62.7 % (.); Alpha 1 - Ur 2.6 % (.); Alpha 2 - Ur 8.9 % (.); Gamma-Ur 13.8 % (.); M-Spike,% Not Observed % (Not Observed); Protein, Urine 123.2 mg/dL (Not Estab.)
--- NOTE | 2017-04-29 18:44 | PRG ---
DATE OF SERVICE: 04/29/2017 SUBJECTIVE: The patient was seen and examined with no new complaint except lower extremity swelling and noted with following vital signs. PHYSICAL EXAMINATION: VITAL SIGNS: Afebrile with temperature 97.4, pulse 87, blood pressure 130/73. HEENT: Unremarkable. CARDIOVASCULAR: First and second heart sounds were heard. RESPIRATORY: Clear to auscultation. DIGESTIVE: Revealed a distended abdomen. EXTREMITIES: Showed peripheral edema. LABORATORY INVESTIGATIONS: Showed a creatinine of 2.5, BUN of 56 and platelet count of 21,000. Hemo globin is 6.7. IMPRESSION: 1. Advanced kidney disease in the context of myeloma kidney. 2. Anasarca, likely in the context of renal failure/possible nephrotic syndrome. 3. Multiple myeloma. PLAN: 1. From all indication, the patient is at a point that is going to require renal replacement therapy (hemodialysis) to assist with current condition. 2. Furthermore, the patient to receive blood transfusion today with diuretic coverage. 3. We will recommend diuresis for now. 4. We will consult Surgery to evaluate the patient for possible access placement towards initiation of hemodialysis.
[2017-04-29] MEDS: Insulin Detemir 100 UNITS/ML 24 UNITS in Pre-Filled Syringe 1 EACH SC SCH (20:15)
--- NOTE | 2017-04-30 05:52 | PDOC.FM ---
- Subjective Subjective: This morning patient states he is feeling well overall. He feels his abdominal distension is about the same as yesterday. Denies nausea, vomiting, or diarrhea. Anticipating placement of dialysis catheter in the next day or two. - Objective Vital Signs & Weight: Vital Signs (12 hours) Temp Pulse Pulse Resp BP BP BP 04/30/17 04:33 98.0 F 72 16 153/81 H 04/30/17 00:00 98.7 F 80 20 158/78 H 04/29/17 20:00 97.8 F 83 18 04/29/17 19:10 97.8 F 83 83 18 155/83 H 155/83 H Pulse Ox 04/30/17 04:33 96 04/30/17 00:00 96 04/29/17 20:00 98 04/29/17 19:10 98 Weight Weight 81.102 kg Most Recent Monitor Data Heart Rate from ECG 85 I&O: 04/28/17 04/29/17 04/30/17 06:59 06:59 06:59 Intake Total 960 1800 1880 Output Total 1000 500 Balance -40 1300 1880 Result Diagrams: 04/30/17 05:19 04/30/17 05:19 <Terrence Hidalgo - Last Filed: 04/30/17 12:47> - Objective Vital Signs & Weight: Vital Signs (12 hours) Temp Pulse Resp BP BP Pulse Ox 04/30/17 19:05 92 104/60 04/30/17 17:00 97.7 F 04/30/17 16:15 96.0 F L 85 18 92 L 04/30/17 16:09 85 120/63 04/30/17 16:00 96.1 F L 04/30/17 14:38 102 H 136/111 H 04/30/17 11:10 97.6 F 82 18 146/83 H 97 Weight Weight 81.102 kg Most Recent Monitor Data Heart Rate from ECG 94 NIBP 104/60 NIBP BP-Mean 75 Respiration from ECG 0 SpO2 100 I&O: 04/29/17 04/30/17 05/01/17 06:59 06:59 06:59 Intake Total 1800 1880 102 Output Total 500 Balance 1300 1880 102 Result Diagrams: 04/30/17 05:19 04/30/17 05:19 <Ara Langford - Last Filed: 04/30/17 22:00> Phys Exam - Physical Examination Constitutional: NAD HEENT: PERRLA, moist MMs Neck: no nodes, full ROM Respiratory: no wheezing, clear to auscultation bilateral Cardiovascular: RRR, no significant murmur Gastrointestinal: soft, non-tender, positive bowel sounds mildly distended Musculoskeletal: pulses present trace edema of the lower extremities Neurological: non-focal, normal sensation, moves all 4 limbs Psychiatric: normal affect, A&O x 3 Skin: no rash, cap refill <2 seconds <Terrence Hidalgo - Last Filed: 04/30/17 12:47> Dx/Plan (1) Pancytopenia Code(s): D61.818 - OTHER PANCYTOPENIA Status: Acute (2) Weakness Code(s): R53.1 - WEAKNESS Status: Acute (3) GI bleed Code(s): K92.2 - GASTROINTESTINAL HEMORRHAGE, UNSPECIFIED Status: Acute (4) Anemia Code(s): D64.9 - ANEMIA, UNSPECIFIED Status: Acute (5) Diabetes Code(s): E11.9 - TYPE 2 DIABETES MELLITUS WITHOUT COMPLICATIONS Status: Acute QualifierTitle: Diabetes mellitus type: type 2 Diabetes mellitus complication status: without complication Diabetes mellitus longterm insulin use: with supervisor intermediates use Qualified Code(s): E11.9 - Type 2 diabetes mellitus without complications; Z79.4 - residential (current) use of insulin; Z79.4 - residential (current) use of insulin; Z79.4 - residential (current) use of insulin; Z79.4 - long term care pharmacist (current) use of insulin (6) Coronary artery disease Code(s): I25.10 - ATHSCL HEART DISEASE OF [place] CORONARY ARTERY W/O ANG PCTRS Status: Acute QualifierTitle: Coronary Disease-Associated Artery/Lesion type: [place] artery [place] vs. transplanted heart: [place] heart Associated angina: angina presence unspecified Qualified Code(s): I25.10 - Atherosclerotic heart disease of [place] coronary artery without angina pectoris - Plan Plan: 1. Pancytopenia 2/2 Multiple Myeloma Bone marrow biopsy on 04/24 confirmed Multiple Myeloma. Hem/Onc is guiding process of obtaining access to treatment as he is unfunded. - 1 U PRBC's received in ED - Hgb down to 9.5 today after 2U transfusion 04/29, 6.8 on presentation to Ed - Plts to to 27 -> 33 -> 31-> 26 -> 21 -> 21 - Hep C negative at outside lab - Heme/Onc on board, appreciate recs - Heme/Onc initiated tx with IV dexamethasone 40mg daily, d/c'd 04/29/2017 - Heme/Onc working on best regimen accounting for funding issues with this patient 2. Pleural Effusion - patient denies SOB - will likely need dialysis for removal of fluids - Lasix 40mg IV daily, awaiting dialysis - Cr trending down - ordered echo to eval for CHF 3. Atrophic Gastritis EGD on 04/27 showed atrophic gastritis - denies melena, bright red blood per stools, hematochezia - FOBT negative - IgG positive H. Pylori - Continue PPI - amoxicillin and clarithromycin d/c'd on 04/27 - GI consulted, appreciate recs - EGD shows atrophic gastritis - monitor for symptoms 4. Ascites - Abdominal US shows small amount of ascites - mild splenomegaly 5. Hyperkalemia - resolved - continue to monitor 6. PACHECO vs CKD - Cr 2.69-> 2.60 -> 2.52 -> 2.5-> 2.26, no baseline known - FeNa is 1.43 - Stopped IVF 2/2 swelling, tolerating PO intake - Could be nephrotic syndrome 2/2 MM - Nephrology is guiding dialysis access and timing, appreciate recs 7. HTN - PRN Hydralazine 5mg - Amlodipine initiated on 04/27, increased to 10mg 04/30 8. Diabetes - Sliding scale insulin - Levemir increased to 28U am, 24 U pm Glucose has been elevated likely 2/2 dex, will increase SSI and monitor closely 9. History CABG - will hold ASA now due to possible active bleed Dispo: working to obtain access to treatment for MM, appreciate Heme recs <Terrence Hidalgo - Last Filed: 04/30/17 12:47> Attending Addendum - Attending Addendum Date/Time: 04/30/17 4985 I personally evaluated the patient and discussed the management with Dr. Hidalgo. I agree with the History, Examination, Assessment and Plan documented above with any addition or exceptions noted below- Patient intubated in ICU and sedated. Afebrile VSS. Exam repeated by me- Lungs- CTA b/l; CV-RRR , no murmur. R HD catheter in place as well as right wrist fistula-dressing intact. A/P: 1) CKD- s/p HD catheter placement today and fistula creation. Dialyzed x 2 hours today. Continue plans as per nephrology. 2) Hypoxia- unable to wean post- ptocedure. Pt left intubated and wean as tolerated per pulmonary recommendations. 3) Multiple myeloma- plans as per heme/onc. 4) DM- stable; monitor BG. <Ara Langford - Last Filed: 04/30/17 22:00>
[2017-04-30 05:56] LABS: Anion Gap 11 mmol/L (10-20); BUN (Urea Nitrogen) 61 mg/dL (8.4-25.7); Calc. Creatinine Clearance 40 mL/min (70-130); Calcium 8.2 mg/dL (7.8-10.44); Carbon Dioxide 21 mmol/L (22-29); Chloride 107 mmol/L (98-107); Estimated GFR-MDRD 30; Glucose 95 mg/dL (70-105); Potassium 4.3 mmol/L (3.5-5.1); Sodium 135 mmol/L (136-145)
[2017-04-30 06:03] LABS: Hemoglobin 9.5 g/dL (14.0-18.0); Mean Corpuscular HGB CONC 35.6 g/dL (32.0-36.0); Mean Corpuscular Hemoglobin 32.6 pg (27.0-31.0); Mean Corpuscular Volume 91.4 fl (80.0-94.0); Mean Platelet Volume 9.2 fL (7.4-10.4); Platelet Count 21 thou/uL (130-400); Red Blood Cell (RBC) Count 2.91 mill/uL (4.70-6.10); White Blood Cell (WBC) Count 2.5 thou/uL (4.8-10.8)
[2017-04-30] MEDS ORDERED: CEFAZOLIN/Water 2 GM/20 ML SYRINGE SLOW IVP SCH ×2 (09:00→14:29)
[2017-04-30] MEDS: Sodium Bicarbonate Tab 325 MG TAB PO SCH ×3 (09:02→23:16)
[2017-04-30] MEDS: Amlodipine 10 MG TAB PO SCH (09:02)
[2017-04-30] MEDS: Furosemide 40 MG/4 ML VIAL SLOW IVP SCH (09:03)
[2017-04-30] MEDS: Insulin Detemir 100 UNITS/ML 28 UNITS in Pre-Filled Syringe 1 EACH SC SCH (09:03)
[2017-04-30] MEDS: Docusate 100 MG CAP PO SCH ×2 (09:03→21:59)
--- NOTE | 2017-04-30 09:36 | HP ---
HISTORY OF PRESENT ILLNESS: Mario Venegas is a 61-year-old male, [place]ic speaking only, , francis ross in [place] has obtained his medications from the [facility], but has recently quit going t here. He does take insulin at home. He is an insulin-dependent diabetic, hypertensive, not entirely compliant with his medications. He was recently discovered this hospitalization to have thrombocyto penia, splenomegaly. He has had a bone marrow diagnosed with multiple myeloma followed by Dr. Brisa conner. He has thrombocytopenia, splenomegaly and some pleural effusions, ascites. He had an EGD with Dr Minoo Dunne that did not reveal any varices. He has not had a colonoscopy. I have been asked by Dr. Thuy garcia to see him for dialysis access. He has had IV blood draws in his right antecubital area with a bandage. He has had a left radial artery harvest for coronary bypass grafting. Ultrasound vein ma pping is pending. With his thrombocytopenia 21,000, would plan perioperative platelet transfusion an d placement of hemodialysis catheter and placement of a more than likely left arm fistula pending vei n mapping. ALLERGIES: None. TOBACCO: None. ALCOHOL: None. MEDICATIONS: At home, he takes insulin. He takes an oral hypoglycemic, but type of unknown. In the hospital, he is on sliding scale insulin, Norvasc 10 mg a day, 40 mg of Lasix daily IV, sliding scal e insulin, Protonix, sodium bicarbonate 650 mg t.i.d. PAST SURGICAL HISTORY: Coronary bypass grafting, left radial harvest, saphenous vein harvest left le g by Dr. Mckenna 2008 after presenting with a non-ST segment elevation myocardial infarction, left luz maria n 3-vessel coronary disease, preserved the LV function. He has not followed up with Cardiology since that time. He had a cardiac stent placed prior to that. He denies any cardiac symptoms currently PAST MEDICAL HISTORY: Coronary disease, stable, asymptomatic, insulin-dependent diabetes mellitus, hypertension, multiple myeloma recently diagnosed with splenomegaly and thrombocytopenia. Abdominal ultrasound unremarkable, end-stage renal disease secondary to diabetes, hypertension, and multiple my eloma. REVIEW OF SYSTEMS: Ten point noncontributory. SOCIAL HISTORY: Patient is and lives in [place]. PHYSICAL EXAMINATION: VITAL SIGNS: Height 5 foot tall, weight 170 pounds, 97.9, 76, 142/81, 18. HEENT: Unremarkable. LUNGS: Clear to auscultation. CARDIAC: Regular rate and rhythm without murmur or gallop. ABDOMEN: Soft, nontender. Well-healed sternotomy scar. EXTREMITIES: A left radial artery harvest mid forearm, left. Saphenous vein scar left thigh. Palpa ble radial pulses. IV left hand. Mild edema. LABORATORY: White count 2, hemoglobin 9.5, platelet count 21,000. Sodium 135, potassium 4.3, carbon dioxide 21, 61, 2.26. ASSESSMENT AND PLAN: 1. End-stage renal disease. We will plan placement of new dialysis catheter in the right or left ar m fistula pending vein mapping. Risk of infection, bleeding, reoperation explained, questions answer ed. Exercise his arm post procedure. Follow up in my office in 3-4 weeks afterwards. The patient d oes not have financial resources at this time. 2. Multiple myeloma diagnosed this hospitalization with thrombocytopenia, splenomegaly. 3. Mild pleural effusions and ascites secondary to end-stage renal disease and hypoalbuminemia, mult iple myeloma. 4. Insulin dependent diabetes mellitus. 5. Hypertension. 6. Coronary artery disease, status post coronary bypass grafting after myocardial infarction with pr ior stent placement. No Cardiology followup. 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
[2017-04-30] MEDS ORDERED: Heparin 10,000 UNITS/ 10 ML VIAL ONE ×2 (10:00→14:21)
--- NOTE | 2017-04-30 11:27 | ULT ---
BILATERAL UPPER EXTREMITY VENOUS DUPLEX SCAN FOR PREDIALYSIS ACCESS: Date: 04/30/17 HISTORY: End-stage renal disease. FINDINGS: RIGHT UPPER EXTREMITY: The right cephalic vein measures 1.5 mm in the proximal arm, 1.3 mm in the mid arm, 2.1 mm in the dis zoila arm, 2.5 mm in the antecubital fossa, 2.1 mm in the proximal forearm, 2.2 mm in the mid forearm, and 1.8 mm in the distal forearm. The right basilic vein measures 3.3 mm in the proximal arm, 2.1 mm in the mid arm, 2.5 mm in the dist al arm, 1.7 mm in the antecubital fossa, 0.6 mm in the proximal forearm, 0.7 mm in the mid forearm, a nd 1.4 mm in the distal forearm. The right brachial artery measures 4.6 mm, radial artery measures 2.5 mm, and ulnar artery measures 1 .7 mm. LEFT UPPER EXTREMITY: The left cephalic vein measures 1.5 mm in the proximal arm, 2.4 mm in the mid arm, 1.7 mm in the dist al arm, 2.2 mm in the antecubital fossa, 1.7 mm in the proximal forearm, 1.2 mm in the mid forearm, a nd 1.4 mm in the distal forearm. The left basilic vein measures 2.0 mm in the proximal arm, 1.9 mm in the mid arm, 2.2 mm in the dista l arm, 1.6 mm in the antecubital fossa, 1.3 mm in the proximal forearm, 1.1 mm in the mid forearm, an d 1.0 mm in the distal forearm. The left brachial artery measures 4.5 mm, radial artery measures 1.0 mm, and ulnar artery measures 1. 6 mm. POS: FAUSTINA
[2017-04-30] MEDS ORDERED: Propofol 500 MG/50 ML VIAL ONE ×2 (11:59→14:49)
[2017-04-30] MEDS ORDERED: Fentanyl 250 MCG/5 ML VIAL ONE ×2 (12:00→14:46)
[2017-04-30] MEDS ORDERED: Dextrose 50% Abboject 50 ML SYRINGE ONE (12:01)
[2017-04-30] MEDS ORDERED: Sodium Chloride 0.9% 10 ML ONE (12:02)
[2017-04-30] MEDS ORDERED: Protamine Sulfate 50 MG/5 ML VIAL ONE (12:02)
[2017-04-30] MEDS ORDERED: Heparin 5,000 UNITS/ML VIAL ONE (12:02)
[2017-04-30] MEDS ORDERED: Heparin 10,000 UNITS/1 ML VIAL ONE (12:02)
[2017-04-30] MEDS ORDERED: Bupivacaine HCl 0.5%/Epinephrine 1:200,000/PF 30 ml Vial ONE (12:02)
[2017-04-30] MEDS ORDERED: CEFAZOLIN/Water 2 GM/20 ML SYRINGE ONE (12:25)
[2017-04-30] MEDS ORDERED: Ondansetron HCl/PF 4 MG/2 ML Vial ONE (14:21)
[2017-04-30] MEDS ORDERED: Lidocaine 1% PF 5 ML VIAL ONE (14:21)
[2017-04-30] MEDS ORDERED: Propofol 200 MG/20 ML VIAL ONE (14:21)
[2017-04-30] MEDS ORDERED: PROVENTIL INHALER 6.7 G (200 INHALATIONS) ONE (14:21)
[2017-04-30] MEDS ORDERED: Glycopyrrolate 0.2 MG/ML 5 ML SYRINGE ONE (14:21)
[2017-04-30] MEDS ORDERED: Albuterol Sulfate 2.5 mg/3 ml Neb NEB SCH (14:30)
[2017-04-30] MEDS ORDERED: Ventilator Sedation Protocol 1 EACH FS SCH (14:30)
--- NOTE | 2017-04-30 14:35 | PDOC.PULCN ---
Pulmonology Consult: HPI - Date of Consult Date: 04/30/17 Time: 14:33 - Consult Details Reason for Consult: Post-op ventilator mgmt. Requesting Physician: Dr. Sommers - History of Present Illness HPI: LIDIA HANSEN is a 61 year-old M admitted 04/22/2017 for HD access placement which was performed today. He has advancing chronic renal failure secondary to multiple myeloma. Today he was hypoxic during surgery and is being left intubated until after dialysis later today. I have obtained data from speaking with Dr. Sommers and reviewing extensive documentation in the chart. 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) Pulmonology Consult: Meds - Medications MAR Reviewed: Yes Medications: Current Medications Acetaminophen (Tylenol) 1,000 mg PO Q6H PRN PRN Reason: Moderate to Severe Pain (6-10) Albuterol Sulfate (Ventolin) 2.5 mg NEB ONE [facility] Amlodipine Besylate (Norvasc) 10 mg PO DAILY [facility] Last Admin: 04/30/17 09:02 Dose: 10 mg Benzonatate (Tessalon) 100 mg PO Q4H PRN PRN Reason: Cough Last Admin: 04/29/17 11:33 Dose: 100 mg Cefazolin Sodium (Ancef) 2 gm SLOW IVP WILLCALL [facility] Stop: 05/01/17 15:00 Cefazolin Sodium (Ancef) 2 gm SLOW IVP WILLCALL [facility] Dextrose/Water (Dextrose 50%) 25 gm SLOW IVP PRN PRN PRN Reason: Hypoglycemia Dextrose/Water (Dextrose 50%) 25 gm SLOW IVP PRN PRN PRN Reason: Hypoglycemia Docusate Sodium (Colace) 100 mg PO BID [facility] Last Admin: 04/30/17 09:03 Dose: 100 mg Furosemide (Lasix) 40 mg SLOW IVP DAILY [facility] Last Admin: 04/30/17 09:03 Dose: 40 mg Glucagon (Glucagon) 1 mg IM PRN PRN PRN Reason: Hypoglycemia Glucagon (Glucagon) 1 mg IM PRN PRN PRN Reason: Hypoglycemia Glycerin (Glycerin) 1 supp ME Q24HR PRN PRN Reason: Constipation Last Admin: 04/29/17 18:25 Dose: 1 supp Hydralazine HCl (Apresoline) 5 mg SLOW IVP Q15MIN PRN PRN Reason: SBP Greater Than 180 Dextrose/Water (D5w) 1,000 mls @ 0 mls/hr IV .Q0M PRN; As Directed PRN Reason: Hypoglycemia Dextrose/Water (D5w) 1,000 mls @ 0 mls/hr IV .Q0M PRN; As Directed PRN Reason: Hypoglycemia Insulin Detemir 24 units/ (Miscellaneous Medication) 0.24 mls @ 1 mls/hr SC HS [facility] Last Admin: 04/29/17 20:15 Dose: 0.24 mls Insulin Detemir 28 units/ (Miscellaneous Medication) 0.28 mls @ 1 mls/hr SC QAM [facility] Last Admin: 04/30/17 09:03 Dose: Not Given Insulin Human Lispro (Humalog) 0 units SC .BEDTIME SLIDING SC PRN PRN Reason: Bedtime Correctional Scale Last Admin: 04/28/17 20:15 Dose: 3 unit Insulin Human Lispro (Humalog) 0 units SC .AGGRESSIVE SLIDING PRN PRN Reason: Aggressive Correctional Scale Last Admin: 04/29/17 18:25 Dose: 6 unit Miscellaneous Medication (Ventilator Sedation Protocol) 1 each FS ONE [facility] Ondansetron HCl (Zofran) 4 mg SLOW IVP Q6H PRN PRN Reason: Nausea/Vomiting Last Admin: 04/25/17 04:22 Dose: 4 mg Ondansetron HCl (Zofran Odt) 4 mg PO Q6H PRN PRN Reason: Nausea/Vomiting Last Admin: 04/25/17 09:07 Dose: 4 mg Pantoprazole Sodium (Protonix) 40 mg PO 2100 [facility] Last Admin: 04/29/17 20:27 Dose: 40 mg Polyethylene Glycol (Miralax) 17 gm PO DAILY [facility] Promethazine HCl (Phenergan) 25 mg IM/IV Q6H PRN PRN Reason: Nausea/Vomiting Last Admin: 04/25/17 17:52 Dose: 25 mg Sodium Bicarbonate (Bicarbonate, Sodium) 650 mg PO TID [facility] Last Admin: 04/30/17 09:02 Dose: 650 mg Sodium Chloride (Flush - Normal Saline) 10 ml IVF Q12HR MELODY Last Admin: 04/30/17 09:03 Dose: 10 ml Sodium Chloride (Flush - Normal Saline) 10 ml IVF PRN PRN PRN Reason: Saline Flush Tramadol HCl (Ultram) 50 mg PO Q6H PRN PRN Reason: Pain Tramadol HCl (Ultram) 100 mg PO Q6H PRN PRN Reason: Pain - Allergies Allergies/Adverse Reactions: Allergies Allergy/AdvReac Type Severity Reaction Status Date / Time No Known Allergies Allergy Verified 04/22/17 16:50 Pulmonology Consult: PE - Physical Exam Deviation from normal: intubated, agitated HEENT: PERRLA, sclera anicteric Neck: no nodes, no JVD, supple Cardiovascular: RRR Respiratory: rales Gastrointestinal: soft, non-tender Musculoskeletal: edema present Deviation from normal: HD access in R wrist Neurological: moves all 4 limbs Lymphatic: no nodes Deviation from normal: intubated, on sedation Skin: no rash Pulmonology Consult: Results - Labs Result Diagrams: 04/30/17 05:19 04/30/17 05:19 - ABG Interpretation ABG Results: ABG pH 7.34 (7.35-7.45) L 04/27/17 14:15 ABG pCO2 24.7 mmHg (35.0-45.0) L* 04/27/17 14:15 ABG O2 Sat Calc/Charley 97.1 % (94.0-100.0) 04/27/17 14:15 ABG Base Excess -11.4 mEq/L (0 (+/-) 2.5) L 04/27/17 14:15 - Radiology Interpretation Chest x-ray Status: image reviewed by me Additional comments: significant pulm edema and effusions. ETT placement OK Pulmonology Consult: A/P - Problem (1) Acute respiratory failure with hypoxia Current Visit: Yes Code(s): J96.01 - ACUTE RESPIRATORY FAILURE WITH HYPOXIA Status: Acute (2) PACHECO (acute kidney injury) Current Visit: Yes Code(s): N17.9 - ACUTE KIDNEY FAILURE, UNSPECIFIED Status : Acute (3) CKD (chronic kidney disease) Current Visit: Yes Code(s): N18.9 - CHRONIC KIDNEY DISEASE, UNSPECIFIED Status: Acute Qualifiers: Chronic kidney disease stage: unspecified stage Qualified Code(s): N18.9 - Chronic kidney disease, unspecified (4) Coronary artery disease Current Visit: Yes Code(s): I25.10 - ATHSCL HEART DISEASE OF [place] CORONARY ARTERY W/O ANG PCTRS Status: Acute Qualifiers: Coronary Disease-Associated Artery/Lesion type: [place] artery [place] vs. transplanted heart: [place] heart Associated angina: angina presence unspecified Qualified Code(s): I25.10 - Atherosclerotic heart disease of [place] coronary artery without angina pectoris (5) Diabetes Current Visit: Yes Code(s): E11.9 - TYPE 2 DIABETES MELLITUS WITHOUT COMPLICATIONS Status: Acute Qualifiers: Diabetes mellitus type: type 2 Diabetes mellitus complication status: without complication Diabetes mellitus mcfp insulin use: with mcfp use Qualified Code(s): E11.9 - Type 2 diabetes mellitus without complications ; Z79.4 - shelter (current) use of insulin; Z79.4 - shelter (current) use of insulin; Z79.4 - shelter (current) use of insulin; Z79.4 - 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 Time with Patient: greater than 70 minutes (CC time) - Plan Plan: Keep intubated until after HD and extensive fluid removal Check CXR and ABG. Adjust vent parameters.
--- NOTE | 2017-04-30 15:18 | OP ---
DATE OF PROCEDURE: 04/30/2017 PREOPERATIVE DIAGNOSES: Multiple myeloma, end-stage renal disease in need of dialysis access. POSTOPERATIVE DIAGNOSES: Multiple myeloma, end-stage renal disease in need of dialysis access. PROCEDURE: Right IJ cuffed tunnel hemodialysis catheter, precurved angiodynamics. A right wrist Cim ashly AV fistula, outflow calibrated at 4 mm coronary dilator. Able to form the fistula despite recent past IV in this vein. SURGEON: Dr. Yair Sommers. ANESTHESIA: General, local 0.5% Marcaine with epinephrine, 30 mL, mixed with 2% Xylocaine, 10 mL Ultrasound and fluoroscopy used for his line placement. PROCEDURE IN DETAIL: Patient was taken to the operating room where under general anesthesia (thrombo cytopenia secondary to myelodysplastic syndrome), his right upper extremity was prepped with ChloraPr ep, draped in routine fashion as was his neck and chest. Local anesthetic infiltrated into the skin, subcutaneous tissue about the operative site. Trocar catheter cannulated the right internal jugular vein under ultrasound guidance and J-wire threaded. Trocar catheter removed. Skin incised and enla rged sharply. Stab incision made over the right chest. Using the tunneling device, precurved angiod ynamics, cuffed tunnel hemodialysis catheter tunneled between the two incisions and fabric cuff place d beneath the skin exit site. Catheter secured with 2 interrupted sutures of 3-0 nylon. Dermabond B iopatch sterile dressing applied. Smaller medium-sized dilators placed over the J-wire into the inte rnal jugular vein removed. Dilator and pull-away sheath placed over the J-wire into the superior brain a cava and dilator J-wire removed. Catheter placed through pull-away sheath. Pull-away sheath remov ed. Fluoroscopically, catheter noted to be in good position. Platysma approximated with 4-0 Monocry l, skin with subdermal 4-0 Monocryl and DermaGlue applied. Each port aspirated blood and flushed wit h saline solution and heparinized saline solution 1000 units heparin per mL indicated volume of the p ort. Incision was made between the radial artery and cephalic vein to the right wrist longitudinally, polanco ied down through the skin and subcutaneous tissue, and radial artery and cephalic vein dissected free . Patient given 6000 units heparin intravenously by Anesthesia. The cephalic vein dissected free an d on the hand side it was ligated with a 4-0 silk tie and spatulated and interrogated with coronary d ilators, placing coronary dilators from a 2 mm to a 4 mm coronary dilator throughout the cephalic vei n length. The dilator without obstruction. The radial artery was clamped proximally and distally an d longitudinal arteriotomy 2 cm made end-to-vein side radial artery anastomosis created with continuo us suture of 6-0 Prolene. After completing anastomosis, the patient was given 50 mg of protamine by Anesthesia. Good hemostasis noted and obtained with 6-0 Prolene. Good hemostasis noted. Good Doppl er signal noted in the cephalic vein outflow. Subcutaneous tissues approximated with 3-0 Monocryl, s kin with subdermal 4-0 Monocryl, counter incision was made over visible branch point, which was clipp ed. Good Doppler signal remained. Patient tolerated the procedure well.
--- NOTE | 2017-04-30 15:30 | RAD ---
CHEST 1 VIEW: Date: 04/30/17 COMPARISON: 04/26/17, 04/27/17. HISTORY: Central line placement. FINDINGS: Portable upright chest radiograph demonstrates endotracheal tube at the level of the clavicles. There are sternotomy wires. Heart is enlarged. There is pulmonary vascular prominence. There are bilateral perihilar infiltrates. There are bilateral pleural effusions. Interval placement of right-sided Hemo Split dialysis catheter. Distal tip projects over the expected region of the superior vena cava. No p neumothorax. There is mild bone demineralization. IMPRESSION: 1. Congestive heart failure/volume overload. Superimposed pneumonia cannot be excluded. 2. Right-sided HemoSplit dialysis catheter as above. No pneumothorax. POS: [facility]
[2017-04-30 15:40] LABS: Actual Bicarbonate (HCO3a) 19.7 mEq/L (22-26); Analyzer IN Cardio OR; Base Excess (BEa) -5.6 mEq/L (0 (+/-) 2.5); CO2 Tension 37.7 mmHg (35.0-45.0); Calcium, Ionized 1.1 mmol/L (1.12-1.30); Hematocrit-ABG 27.8 % (42.0-52.0); Hemoglobin (Hb) 9.4 g/dL (14.0-18.0); O2 Tension (PaO2) 90.2 mmHg (80.0-100.0); pH, Arterial 7.34 (7.35-7.45)
[2017-04-30 15:41] LABS: ALV-art Gradient 287.475 (0-20); Puncture Site LRA
[2017-04-30] MEDS ORDERED: Propofol 1,000 MG/100 ML VIAL IV ONE (16:18)
[2017-04-30] MEDS ORDERED: fentaNYL Citrate/PF 2,000 MCG in Sodium Chloride 0.9% 60 ML IV SCH (17:16)
[2017-04-30] MEDS ORDERED: Morphine 2 MG/ML SYRINGE SLOW IVP PRN (17:16)
[2017-04-30] MEDS ORDERED: Lorazepam 2 MG/ML VIAL SLOW IVP PRN (17:16)
[2017-04-30] MEDS ORDERED: DISCONTINUE PREVIOUS NARCOTIC PAIN MEDICATIONS AND BENZODIAZEPINES FS SCH (17:16)
--- NOTE | 2017-04-30 22:13 | PRG ---
DATE OF SERVICE: 04/30/2017 SUBJECTIVE: The patient was seen and examined, status post dialysis access placement. The patient d id decompensate status post dialysis catheter placement in the way of hypoxic respiratory failure in the context of fluid overload. Decision is now being taken to dialyze this patient with ultrafiltrat ion in order to improve the respiratory status of this patient. OBJECTIVE: GENERAL: The patient is noted to be lying down sedated with endotracheal tube in place. CARDIOVASCULAR: First and second heart sounds were heard. RESPIRATORY: Clear to auscultation. DIGESTIVE: Revealed a benign abdomen with positive bowel sounds. EXTREMITIES: Showed 2 to 3+ peripheral edema. SKIN: No new gross rash. LYMPHATICS: No peripheral lymphadenopathy. IMPRESSION: 1. Advanced kidney disease in the context of myeloma kidney. 2. Hypoxic respiratory failure in the context of fluid overload. 3. Recent diagnosis of multiple myeloma. PLAN: Given the fact that this patient decompensated respiratory carlin in the way of hypoxic respirat ory failure due to both pulmonary congestion and bilateral pleural effusion, decision has been taken to dialyze this patient in order to effect ultrafiltration and be able to wean this patient off venti lator.
[2017-04-30] MEDS: Propofol 1,000 MG/100 ML VIAL IV PRN (23:13)
[2017-04-30] MEDS: Insulin Detemir 100 UNITS/ML 24 UNITS in Pre-Filled Syringe 1 EACH SC SCH (23:54)
[2017-04-30] MEDS: HumaLOG 300 UNITS/3 ML VIAL SC PRN ×2 (23:55→23:56)
[2017-05-01] MEDS: Propofol 1,000 MG/100 ML VIAL IV PRN (04:50)
[2017-05-01 04:56] VITALS: BMI 28.8
[2017-05-01 05:04] LABS: Hemoglobin 9.3 g/dL (14.0-18.0); Mean Corpuscular HGB CONC 35.1 g/dL (32.0-36.0); Mean Corpuscular Hemoglobin 32.4 pg (27.0-31.0); Mean Corpuscular Volume 92.2 fl (80.0-94.0); Platelet Count 48 thou/uL (130-400); RBC Distribution Width 14.2 % (11.5-14.5); Red Blood Cell (RBC) Count 2.87 mill/uL (4.70-6.10)
[2017-05-01 05:09] LABS: Anion Gap 14 mmol/L (10-20); BUN (Urea Nitrogen) 43 mg/dL (8.4-25.7); Calc. Creatinine Clearance 46 mL/min (70-130); Calcium 8.2 mg/dL (7.8-10.44); Carbon Dioxide 23 mmol/L (22-29); Chloride 105 mmol/L (98-107); Estimated GFR-MDRD 36; Glucose 161 mg/dL (70-105); Potassium 3.6 mmol/L (3.5-5.1); Sodium 138 mmol/L (136-145)
[2017-05-01 07:58] LABS: CO2 Tension 31.2 mmHg (35.0-45.0); O2 Tension (PaO2) 82.8 mmHg (80.0-100.0); pH, Arterial 7.51 (7.35-7.45)
[2017-05-01 07:59] LABS: Actual Bicarbonate (HCO3a) 24.3 mEq/L (22-26); Base Excess (BEa) 1.6 mEq/L (0 (+/-) 2.5); Calcium, Ionized 1.2 mmol/L (1.12-1.30); Hematocrit-ABG 26.4 % (42.0-52.0); Hemoglobin (Hb) 9.2 g/dL (14.0-18.0); Puncture Site RBA
[2017-05-01] MEDS ORDERED: DC Sedation Protocol FS ONE (08:08)
--- NOTE | 2017-05-01 08:23 | PRG ---
DATE OF SERVICE: 05/01/2017 Thirty-five minutes critical care time. The patient is awake and alert and is ready to be extubated. PHYSICAL EXAMINATION: VITAL SIGNS: Temperature 98.4, pulse 85, blood pressure 160/69. 24 hour intake 311, output 2000. HEENT: Unremarkable. NECK: No JVD. LUNGS: Clear. CARDIAC: S1 and S2 regular. ABDOMEN: Soft. EXTREMITIES: No edema. He had an air leak around his cuff when deflating the endotracheal tube. LABORATORY: White blood cell count 2.0, hematocrit 26.5, platelet count 48, pH 7.51, CO2 31, pO2 of 82 on SIMV rate of 16, tidal volume 500, PEEP 5, pressure support 10, FiO2 50%. Sodium 138, potassiu m 3.6, chloride 105, CO2 23, BUN 43, creatinine 1.9, glucose 161. ASSESSMENT: 1. Acute on chronic renal failure secondary to multiple myeloma. 2. Acute respiratory failure secondary to fluid overload. 3. Diabetes mellitus. 4. Coronary artery disease. PLAN: 1. Extubate and observe. 2. Continue hemodialysis. 3. Can likely be transferred out to the floor this afternoon.
[2017-05-01] MEDS: Amlodipine 10 MG TAB PO SCH (08:36)
[2017-05-01] MEDS: Insulin Detemir 100 UNITS/ML 28 UNITS in Pre-Filled Syringe 1 EACH SC SCH (08:37)
[2017-05-01] MEDS: Docusate 100 MG CAP PO SCH ×2 (08:38→21:25)
[2017-05-01] MEDS: Sodium Bicarbonate Tab 325 MG TAB PO SCH ×2 (08:38→15:25)
[2017-05-01] MEDS: Furosemide 40 MG/4 ML VIAL SLOW IVP SCH (08:39)
[2017-05-01] MEDS: Polyethylene Glycol 3350 17 GM Packet PO SCH (08:39)
--- NOTE | 2017-05-01 09:01 | PDOC.FM ---
- Subjective Subjective: Yesterday after placement of HD catheter patient was unable to be extubated 2/2 respiratory distress likely resulting from pleural effusion. Patient was transferred to the ICU and monitorred overnight. He had a course of HD last night to aid in fluid removal. Patient intubated and sedated at time of my exam. - Objective Vital Signs & Weight: Vital Signs (12 hours) Temp Pulse Resp BP Pulse Ox 05/01/17 08:36 81 190/76 H 05/01/17 08:05 78 20 100 05/01/17 08:00 97.7 F 05/01/17 07:47 79 05/01/17 06:00 16 05/01/17 04:00 98.4 F 16 05/01/17 02:41 81 165/66 H 05/01/17 02:00 16 05/01/17 00:00 98.8 F 16 04/30/17 22:00 16 04/30/17 21:58 91 130/68 Weight Weight 78.6 kg Most Recent Monitor Data Heart Rate from ECG 76 NIBP 190/76 NIBP BP-Mean 132 Respiration from ECG 16 SpO2 100 I&O: 04/30/17 05/01/17 05/02/17 06:59 06:59 06:59 Intake Total 1880 311 100 Output Total 0 0 Balance 1880 311 100 Result Diagrams: 05/01/17 04:38 05/01/17 04:38 <Terrence Hidalgo - Last Filed: 05/01/17 09:01> - Objective Vital Signs & Weight: Vital Signs (12 hours) Temp Pulse Resp BP Pulse Ox 05/01/17 16:00 97.8 F 05/01/17 12:00 98.1 F 05/01/17 08:36 81 190/76 H 05/01/17 08:05 78 20 100 05/01/17 08:00 97.7 F 76 16 100 05/01/17 07:47 79 05/01/17 06:00 16 Weight Weight 78.6 kg Most Recent Monitor Data Heart Rate from ECG 90 NIBP 135/84 NIBP BP-Mean 97 Respiration from ECG 14 SpO2 97 I&O: 04/30/17 05/01/17 05/02/17 06:59 06:59 06:59 Intake Total 1880 311 676 Output Total 0 600 Balance 1880 311 76 Result Diagrams: 05/01/17 04:38 05/01/17 04:38 <JuanitoStanford jay Ren - Last Filed: 05/01/17 17:11> Phys Exam - Physical Examination Constitutional: NAD HEENT: moist MMs intubated, clear to auscultation bilaterally Cardiovascular: RRR, no significant murmur Gastrointestinal: soft, non-tender, positive bowel sounds distension is decreased from yesterday Musculoskeletal: pulses present still +1 edema bilaterally at the ankles Psychiatric: normal affect, A&O x 3 Skin: no rash, cap refill <2 seconds <Terrence Hidalgo - Last Filed: 05/01/17 09:01> Dx/Plan (1) Pancytopenia Code(s): D61.818 - OTHER PANCYTOPENIA Status: Acute (2) Weakness Code(s): R53.1 - WEAKNESS Status: Acute (3) GI bleed Code(s): K92.2 - GASTROINTESTINAL HEMORRHAGE, UNSPECIFIED Status: Acute (4) Anemia Code(s): D64.9 - ANEMIA, UNSPECIFIED Status: Acute (5) Diabetes Code(s): E11.9 - TYPE 2 DIABETES MELLITUS WITHOUT COMPLICATIONS Status: Acute QualifierTitle: Diabetes mellitus type: type 2 Diabetes mellitus complication status: without complication Diabetes mellitus half-way insulin use: with half-way use Qualified Code(s): E11.9 - Type 2 diabetes mellitus without complications; Z79.4 - FDC (current) use of insulin; 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 transplanted heart: [place] heart Associated angina: angina presence unspecified Qualified Code(s): I25.10 - Atherosclerotic heart disease of [place] coronary artery without angina pectoris - Plan Plan: # Pancytopenia 2/2 Multiple Myeloma Bone marrow biopsy on 04/24 confirmed Multiple Myeloma. Hem/Onc is guiding process of obtaining access to treatment as he is unfunded. - 1 U PRBC's received in ED - 2U transfusion 04/29, - hgb 6.8 on presentation to Ed, 9.3 today - Plts to to 27 -> 33 -> 31-> 26 -> 21 -> 21 -> 48 - Hep C negative at outside lab - Heme/Onc on board, appreciate recs - Heme/Onc initiated tx with IV dexamethasone 40mg daily, d/c'd 04/29/2017 - Hem/Onc to use cytoxin and valcade - ok to d/c 05/02 # PACHECO vs CKD - Cr 2.69-> 2.60 -> 2.52 -> 2.5-> 2.26, no baseline known - FeNa is 1.43 - Stopped IVF 2/2 swelling, tolerating PO intake - Could be nephrotic syndrome 2/2 MM - HD 04/30 - will monitor to eval if repeat HD is needed - Nephro recs much appreciated # Pleural Effusion - cont lasix 40mg IV daily - HD 04/30 - extubated, monitor # Uninsured - may help qualify for insurance - CM consulted # Atrophic Gastritis EGD on 04/27 showed atrophic gastritis - denies melena, bright red blood per stools, hematochezia - FOBT negative - IgG positive H. Pylori - Continue PPI - amoxicillin and clarithromycin d/c'd on 04/27 - GI consulted, appreciate recs - EGD shows atrophic gastritis - monitor for symptoms # Ascites - Abdominal US shows small amount of ascites - mild splenomegaly # Hyperkalemia - resolved - continue to monitor # HTN - PRN Hydralazine 5mg - Amlodipine initiated on 04/27, increased to 10mg 04/30 # Diabetes - Sliding scale insulin - Levemir increased to 28U am, 24 U pm Glucose has been elevated likely 2/2 dex, will increase SSI and monitor closely # History CABG - will hold ASA now due to possible active bleed Dispo: working to qualify for medicaid, maybe d/c 05/02 or 05/03 pending resp status , HD status <Terrence Hidalgo - Last Filed: 05/01/17 09:01> (1) Pancytopenia Code(s): D61.818 - OTHER PANCYTOPENIA Status: Acute (2) Weakness Code(s): R53.1 - WEAKNESS Status: Acute (3) GI bleed Code(s): K92.2 - GASTROINTESTINAL HEMORRHAGE, UNSPECIFIED Status: Acute (4) Anemia Code(s): D64.9 - ANEMIA, UNSPECIFIED Status: Acute (5) Diabetes Code(s): E11.9 - TYPE 2 DIABETES MELLITUS WITHOUT COMPLICATIONS Status: Acute Qualifiers: Diabetes mellitus type: type 2 Diabetes mellitus complication status: without complication Diabetes mellitus half-way insulin use: with half-way use Qualified Code(s): E11.9 - Type 2 diabetes mellitus without complications ; Z79.4 - supervisor fur dressing (current) use of insulin; Z79.4 - supervisor fur dressing (current) use of insulin; Z79.4 - supervisor fur dressing (current) use of insulin; Z79.4 - supervisor fur dressing ( current) use of insulin (6) Coronary artery disease Code(s): I25.10 - ATHSCL HEART DISEASE OF [place] CORONARY ARTERY W/O ANG PCTRS Status: Acute Qualifiers: Coronary Disease-Associated Artery/Lesion type: [place] artery [place] vs. transplanted heart: [place] heart Associated angina: angina presence unspecified Qualified Code(s): I25.10 - Atherosclerotic heart disease of [place] coronary artery without angina pectoris <Stanford Solomon A - Last Filed: 05/01/17 17:11> Attending Addendum - Attending Addendum Date/Time: 05/01/17 1710 I personally evaluated the patient and discussed the management with Dr. Hidalgo. I agree with the History, Examination, Assessment and Plan documented above with any addition or exceptions noted below. <Stanford Solomon - Last Filed: 05/01/17 17:11>
[2017-05-01 15:24] LABS: Kappa/Lambda Ratio 50.96 (2.04-10.37)
[2017-05-01] MEDS: Dextrose 50% Abboject 50 ML SYRINGE SLOW IVP PRN (16:58)
[2017-05-01] MEDS: Acetaminophen 500 MG TAB PO PRN (17:44)
--- NOTE | 2017-05-01 20:21 | PRG ---
DATE OF SERVICE: 05/01/2017 SUBJECTIVE: The patient is seen and examined, extubated successfully, noted with the following vital signs. PHYSICAL EXAMINATION: VITAL SIGNS: Afebrile with temperature 98.4, pulse 85, blood pressure 160/69. HEENT: Unremarkable with moist oral mucosa. No conjunctival injection or icterus. NECK: Supple. CARDIOVASCULAR: First and second heart sounds were heard. RESPIRATORY: Clear to auscultation. DIGESTIVE: Revealed a benign abdomen with positive bowel sounds. EXTREMITIES: No significant edema. IMPRESSION: 1. Acute on chronic kidney disease in the context of multiple myeloma likely myeloma kidney. 2. Hypoxic respiratory failure in the context of hypervolemia, responded well to dialysis with ultra filtration. 3. Type 2 diabetes mellitus. PLAN: 1. We will hold dialysis today. The patient likely to be transferred out of the floor. We will mon itor the kidney closely as well as the fluid status of this patient with IV the possibility of outpat ient dialysis requirement pending when the definitive treatment of the multiple myeloma is initiated at which point there is the possibility of renal function improving once the multiple myeloma treatme nt is fully initiated. 2. Further management to be dependent on the clinical course as well as the renal response to the mu ltiple myeloma treatment.
[2017-05-01] MEDS: Insulin Detemir 100 UNITS/ML 24 UNITS in Pre-Filled Syringe 1 EACH SC SCH (21:24)
[2017-05-01] MEDS: Benzonatate 100 MG CAP PO PRN (21:25)
--- NOTE | 2017-05-01 23:07 | PRG ---
DATE OF SERVICE: 05/01/2017 SUBJECTIVE: Mr. Venegas is doing well today, he has been extubated. Unfortunately, he was given lunch despite n.p.o. status and plans for a MediPort today. Operation was thus canceled. We will schedul e this for Saturday. He will need a MediPort for multiple myeloma treatment. He has a good thrill and bruit in his right wrist from his [place] fistula. The patient is eating lunch. He overall is doing well. ASSESSMENT AND PLAN: 1. Multiple myeloma, MediPort Saturday. 2. End-stage renal disease on dialysis, right [place] fistula maturing. Follow up in my office in 3- 4 weeks.
[2017-05-02 05:50] LABS: Hemoglobin 9.4 g/dL (14.0-18.0); Mean Corpuscular HGB CONC 34.9 g/dL (32.0-36.0); Mean Corpuscular Hemoglobin 32.8 pg (27.0-31.0); Mean Corpuscular Volume 93.9 fl (80.0-94.0); Mean Platelet Volume 8.6 fL (7.4-10.4); Platelet Count 43 thou/uL (130-400); RBC Distribution Width 14.3 % (11.5-14.5); Red Blood Cell (RBC) Count 2.85 mill/uL (4.70-6.10); White Blood Cell (WBC) Count 2.8 thou/uL (4.8-10.8)
[2017-05-02 05:59] LABS: Anion Gap 10 mmol/L (10-20); BUN (Urea Nitrogen) 48 mg/dL (8.4-25.7); Calc. Creatinine Clearance 42 mL/min (70-130); Calcium 7.8 mg/dL (7.8-10.44); Carbon Dioxide 26 mmol/L (22-29); Chloride 106 mmol/L (98-107); Estimated GFR-MDRD 33; Glucose 140 mg/dL (70-105); Potassium 4.4 mmol/L (3.5-5.1); Sodium 138 mmol/L (136-145)
--- NOTE | 2017-05-02 08:15 | PDOC.FM ---
Addendum entered and electronically signed by Terrence Hidalgo MD 05/02/17 11:54: Starting chemotherapy today, ok for d/c from hem/onc standpoint 05/03 Medport tomorrow Hypoglycemic overnight, decreased to 20U levemir AM/PM which is home dose, monitor Original Note: - Subjective Subjective: This morning patient is feeling well overall. He states his pain at the incision site is about 2/10 but getting better. He states that he is still feeling some pressure in the abdomen but it has been getting progressively better. He was able to eat yesterday. Eating did not make the pain in the abdomen better or worse although he did experience early satiety. He has questions regarding obtaining authorization for his family from [employer] to come visit him, will f/u with CM. - Objective Vital Signs & Weight: Vital Signs (12 hours) Temp Pulse Resp BP Pulse Ox 05/02/17 04:00 98.3 F 82 18 142/81 H 97 Weight Weight 78.6 kg Most Recent Monitor Data Heart Rate from ECG 90 NIBP 132/70 NIBP BP-Mean 89 Respiration from ECG 17 SpO2 100 I&O: 05/01/17 05/02/17 05/03/17 06:59 06:59 06:59 Intake Total 311 1396 Output Total 0 600 Balance 311 796 Result Diagrams: 05/02/17 04:54 05/02/17 04:54 <Terrence Hidalgo - Last Filed: 05/02/17 08:13> - Objective Vital Signs & Weight: Vital Signs (12 hours) Temp Pulse Resp BP BP Pulse Ox 05/02/17 12:00 98 F 91 24 H 156/80 H 97 05/02/17 08:24 98 142/75 H 05/02/17 08:00 98.3 F 98 20 142/75 H 98 Weight Weight 78.6 kg Most Recent Monitor Data Heart Rate from ECG 90 NIBP 132/70 NIBP BP-Mean 89 Respiration from ECG 17 SpO2 100 I&O: 05/01/17 05/02/17 05/03/17 06:59 06:59 06:59 Intake Total 311 1396 Output Total 0 600 Balance 311 796 Result Diagrams: 05/02/17 04:54 05/02/17 04:54 <Stanford Solomon - Last Filed: 05/02/17 16:02> Phys Exam - Physical Examination Constitutional: NAD HEENT: PERRLA Neck: no nodes, full ROM Respiratory: no wheezing, clear to auscultation bilateral Cardiovascular: RRR, no significant murmur Gastrointestinal: soft, non-tender distension improving Musculoskeletal: no edema, pulses present Neurological: non-focal, moves all 4 limbs Lymphatic: no nodes Psychiatric: normal affect, A&O x 3 Skin: no rash, cap refill <2 seconds <Terrence Hidalgo - Last Filed: 05/02/17 08:13> Dx/Plan (1) Pancytopenia Code(s): D61.818 - OTHER PANCYTOPENIA Status: Acute (2) Weakness Code(s): R53.1 - WEAKNESS Status: Acute (3) GI bleed Code(s): K92.2 - GASTROINTESTINAL HEMORRHAGE, UNSPECIFIED Status: Acute (4) Anemia Code(s): D64.9 - ANEMIA, UNSPECIFIED Status: Acute (5) Diabetes Code(s): E11.9 - TYPE 2 DIABETES MELLITUS WITHOUT COMPLICATIONS Status: Acute QualifierTitle: Diabetes mellitus type: type 2 Diabetes mellitus complication status: without complication Diabetes mellitus chcf insulin use: with environmental lawyer use Qualified Code(s): E11.9 - Type 2 diabetes mellitus without complications; Z79.4 - punch card operator (current) use of insulin; Z79.4 - punch card operator (current) use of insulin; Z79.4 - custodial (current) use of insulin; Z79.4 - custodial (current) use of insulin (6) Coronary artery disease Code(s): I25.10 - ATHSCL HEART DISEASE OF [place] CORONARY ARTERY W/O ANG PCTRS Status: Acute QualifierTitle: Coronary Disease-Associated Artery/Lesion type: [place] artery [place] vs. transplanted heart: [place] heart Associated angina: angina presence unspecified Qualified Code(s): I25.10 - Atherosclerotic heart disease of [place] coronary artery without angina pectoris - Plan Plan: # Pancytopenia 2/2 Multiple Myeloma Bone marrow biopsy on 04/24 confirmed Multiple Myeloma. Hem/Onc is guiding process of obtaining access to treatment as he is unfunded. - 1 U PRBC's received in ED - 2U transfusion 04/29, - hgb 6.8 on presentation to Ed, 9.4 today - Plts to to 27 -> 33 -> 31-> 26 -> 21 -> 21 -> 48 -> 43 - Hep C negative at outside lab - Heme/Onc on board, appreciate recs - Heme/Onc initiated tx with IV dexamethasone 40mg daily, d/c'd 04/29/2017 - Hem/Onc to use cytoxin and valcade - patient will get medport placement tomorrow by Dr. Sommers # PACHECO vs CKD - FeNa is 1.43 - Stopped IVF 2/2 swelling, tolerating PO intake - Could be nephrotic syndrome 2/2 MM - HD 04/30 - Nephro recs much appreciated, anticipate dialysis 05/03 or 05/04 # Pleural Effusion - cont lasix 40mg IV daily - HD 04/30 - extubated, monitor, denies shortness of breath, still has sore throat # Uninsured - may help qualify for insurance - CM consulted - trying to obtain authorization for family from [employer] to visit # Atrophic Gastritis EGD on 04/27 showed atrophic gastritis - denies melena, bright red blood per stools, hematochezia - FOBT negative - IgG positive H. Pylori - Continue PPI - amoxicillin and clarithromycin d/c'd on 04/27 - GI consulted, appreciate recs - EGD shows atrophic gastritis - monitor for symptoms # Ascites - Abdominal US shows small amount of ascites - mild splenomegaly # Hyperkalemia - resolved - continue to monitor # HTN - PRN Hydralazine 5mg - Amlodipine initiated on 04/27, increased to 10mg 04/30 # Diabetes - Sliding scale insulin - Levemir increased to 28U am, 24 U pm Glucose has been elevated likely 2/2 dex, will increase SSI and monitor closely # History CABG - holding ASA 2/2 bleeding risk, thrombocytopenia Dispo: Medport placement 05/03 <Terrence Hidalgo - Last Filed: 05/02/17 08:13> (1) Pancytopenia Code(s): D61.818 - OTHER PANCYTOPENIA Status: Acute (2) Weakness Code(s): R53.1 - WEAKNESS Status: Acute (3) GI bleed Code(s): K92.2 - GASTROINTESTINAL HEMORRHAGE, UNSPECIFIED Status: Acute (4) Anemia Code(s): D64.9 - ANEMIA, UNSPECIFIED Status: Acute (5) Diabetes Code(s): E11.9 - TYPE 2 DIABETES MELLITUS WITHOUT COMPLICATIONS Status: Acute Qualifiers: Diabetes mellitus type: type 2 Diabetes mellitus complication status: without complication Diabetes mellitus chcf insulin use: with chcf use Qualified Code(s): E11.9 - Type 2 diabetes mellitus without complications ; Z79.4 - custodial (current) use of insulin; Z79.4 - punch card operator (current) use of insulin; Z79.4 - punch card operator (current) use of insulin; Z79.4 - custodial ( current) use of insulin (6) Coronary artery disease Code(s): I25.10 - ATHSCL HEART DISEASE OF [place] CORONARY ARTERY W/O ANG PCTRS Status: Acute Qualifiers: Coronary Disease-Associated Artery/Lesion type: [place] artery [place] vs. transplanted heart: [place] heart Associated angina: angina presence unspecified Qualified Code(s): I25.10 - Atherosclerotic heart disease of [place] coronary artery without angina pectoris <Stanford Solomon - Last Filed: 05/02/17 16:02> Attending Addendum - Attending Addendum Date/Time: 05/02/17 1602 I personally evaluated the patient and discussed the management with Dr. Hidalgo. I agree with the History, Examination, Assessment and Plan documented above with any addition or exceptions noted below. <Stanford Solomon - Last Filed: 05/02/17 16:02>
[2017-05-02] MEDS: traMADol HCl 50 MG TAB PO PRN ×2 (08:23→18:34)
[2017-05-02] MEDS: Amlodipine 10 MG TAB PO SCH (08:24)
[2017-05-02] MEDS: Docusate 100 MG CAP PO SCH ×2 (08:25→21:50)
[2017-05-02] MEDS: Polyethylene Glycol 3350 17 GM Packet PO SCH (08:25)
[2017-05-02] MEDS: Insulin Detemir 100 UNITS/ML 28 UNITS in Pre-Filled Syringe 1 EACH SC SCH (08:32)
[2017-05-02] MEDS ORDERED: Bortezomib 3.5 MG SDV VIAL IVP SCH (09:00)
[2017-05-02] MEDS ORDERED: PRE FILLED SC SCH (09:15)
[2017-05-02] MEDS ORDERED: CYCLOPHOSPHAMIDE IVPB SCH ×4 (09:15)
[2017-05-02] MEDS ORDERED: Bisacodyl 10 MG SUPP PR SCH (09:15)
[2017-05-02] MEDS ORDERED: SODIUM CHLORIDE 0.9% IVPB SCH ×4 (09:15)
[2017-05-02] MEDS ORDERED: BORTEZOMIB SC SCH (09:15)
--- NOTE | 2017-05-02 09:32 | PRG ---
DATE OF SERVICE: 05/02/2017 The patient seen and examined, he seems to be doing better, but however, still complained of abdomina l pain. He complained of tense abdomen, distended. PHYSICAL EXAMINATION: VITAL SIGNS: Afebrile with temperature 98.3, pulse 90, respiratory rate 24, O2 sat 98% with blood pr essure 142/75. HEENT: Unremarkable. CARDIOVASCULAR: First and second heart sounds were heard. RESPIRATORY SYSTEM: Clear to auscultation. DIGESTIVE SYSTEM: Revealed a tense abdomen with positive bowel sounds. EXTREMITIES: Showed minimal peripheral edema. SKIN: No new gross rash. LYMPHATICS: No peripheral lymphadenopathy. LABORATORY INVESTIGATIONS: Showed a creatinine of 2.09 with BUN of 48. IMPRESSION: 1. Acute kidney injury in the context of multiple myeloma. 2. Hypoxic respiratory failure, status post mechanical ventilation, now extubated status post hemodi alysis. 3. Constipation. 4. Abdominal distention, query related to constipation versus ascites. PLAN: 1. Will administer bowel regimen to this patient to see if this abdominal distention has something t o do with constipation or if we are dealing with ascites. 2. We will hold off on hemodialysis, especially now that it appears the patient is about to start ch emotherapy. 3. Reevaluate renal function status post chemotherapy treatment initiation and see if this patient's renal function will improve to the point of coming off dialysis. 4. Further management to be dependent on the clinical course.
[2017-05-02] MEDS ORDERED: Magnesium Citrate 300 ML BOT PO SCH (09:35)
--- NOTE | 2017-05-02 09:52 | PRG ---
DATE OF SERVICE: 05/02/2017 The patient is doing reasonably well. He is complaining of some abdominal distention. PHYSICAL EXAMINATION: VITAL SIGNS: Temperature 98.3, pulse 98, blood pressure 142/75, O2 sat 98%. HEENT: Unremarkable. NECK: No JVD. LUNGS: Clear. CARDIAC: S1 and S2 regular. ABDOMEN: Protuberant. EXTREMITIES: Edematous. LABORATORY DATA: White blood cell count 2.8, hematocrit 26.7, platelet count 43. Sodium 138, potass ium 4.4, chloride 106, CO2 26, BUN 28, creatinine 2.1, glucose 140. ASSESSMENT: 1. Multiple myeloma. 2. Acute renal failure. 3. Diabetes mellitus. 4. Status post acute respiratory failure. PLAN: Continue hemodialysis. Hopefully, his abdominal distention will decrease with continued fluid removal. He is stable from a pulmonary standpoint. I will sign off the case. Please recall if fur ther assistance needed.
[2017-05-02] MEDS ORDERED: Insulin Detemir 100 UNITS/ML 20 UNITS in Pre-Filled Syringe 1 EACH SC SCH ×2 (10:15→21:00)
[2017-05-02] MEDS: Ondansetron HCl/PF 4 MG/2 ML Vial SLOW IVP PRN (12:59)
[2017-05-02] MEDS ORDERED: CEFAZOLIN/Water 2 GM/20 ML SYRINGE SLOW IVP SCH (18:15)
[2017-05-02] MEDS: valACYclovir 500 MG TAB PO SCH (18:35)
[2017-05-02] MEDS: Acetaminophen 500 MG TAB PO PRN (21:42)
[2017-05-02] MEDS: Benzonatate 100 MG CAP PO PRN (21:42)
[2017-05-03 05:27] LABS: Hemoglobin 8.5 g/dL (14.0-18.0); Mean Corpuscular HGB CONC 35.1 g/dL (32.0-36.0); Mean Corpuscular Hemoglobin 32.9 pg (27.0-31.0); Mean Corpuscular Volume 93.9 fl (80.0-94.0); Platelet Count 28 thou/uL (130-400); Red Blood Cell (RBC) Count 2.59 mill/uL (4.70-6.10); White Blood Cell (WBC) Count 1.9 thou/uL (4.8-10.8)
[2017-05-03 05:35] LABS: Anion Gap 10 mmol/L (10-20); BUN (Urea Nitrogen) 50 mg/dL (8.4-25.7); Calc. Creatinine Clearance 36 mL/min (70-130); Calcium 7.8 mg/dL (7.8-10.44); Carbon Dioxide 28 mmol/L (22-29); Chloride 104 mmol/L (98-107); Estimated GFR-MDRD 27; Glucose 138 mg/dL (70-105); Potassium 4.5 mmol/L (3.5-5.1); Sodium 137 mmol/L (136-145)
--- NOTE | 2017-05-03 06:11 | PDOC.EVN ---
Event Note - Event Note Event Note: Patient Hospital Course This pleasent 61 yo M was admitted for Pancytopenia on 04/22/17. He had been having 3-4 months of progressively worsening weakness and fatigue. Upon further workup he was found to have Multiple Myeloma. This is a cancer of the bone marrow which results in decreased production of white and red blood cells, severe kidney damage, and bone lesions which can cause pathologic fracture and pain. The patient underwent placement of a dialysis catheter and a medport in the hospital. He was started on Chemotherapy on 05/03/17. He will be followed closely by his PCP, Nephrology, and Hematology/Oncology. If there are any questions please feel free to call [facility] in [place], [place] Terrence Hidalgo MD
--- NOTE | 2017-05-03 07:12 | PDOC.EVN ---
Event Note - Event Note Event Note: Patient Hospital Course This pleasent 61 yo M was admitted for Pancytopenia on 04/22/17. He had been having 3-4 months of progressively worsening weakness and fatigue. Upon further workup he was found to have Multiple Myeloma. This is a cancer of the bone marrow which results in decreased production of white and red blood cells, severe kidney damage, and bone lesions which can cause pathologic fracture and pain. The patient underwent placement of a dialysis catheter and a medport in the hospital. He was started on Chemotherapy on 05/03/17. He will be followed closely by his PCP, Nephrology, and Hematology/Oncology. The patient's children: Christiano & Stephanie Manley & Bere Freitas & Timothy Young It would be beneficial for patient's family to visit the patient as this is a gravely serious illness for which he needs to stay near [place], [place] to continue his treatment. If there are any questions please feel free to call [facility] in [place], [place] Terrence Hidalgo MD
--- NOTE | 2017-05-03 07:15 | PDOC.FM ---
- Subjective Subjective: This morning the patient states that his breathing is improved, denies wheezes, and denies cough. He is in good spirits. He did have a BM yesterday. He states his bloating is resolving. and he was able to eat without issues yesterday. - Objective Vital Signs & Weight: Vital Signs (12 hours) Temp Pulse Resp BP BP Pulse Ox 05/03/17 03:48 98.8 F 89 16 125/61 97 05/02/17 20:00 97.7 F 97 16 148/81 H 98 Weight Weight 78.6 kg Most Recent Monitor Data Heart Rate from ECG 90 NIBP 132/70 NIBP BP-Mean 89 Respiration from ECG 17 SpO2 100 I&O: 05/02/17 05/03/17 05/04/17 06:59 06:59 06:59 Intake Total 1396 1150 Output Total 600 Balance 796 1150 Result Diagrams: 05/03/17 04:57 05/03/17 04:58 <Terrence Hidalgo - Last Filed: 05/03/17 07:13> - Objective Vital Signs & Weight: Vital Signs (12 hours) Temp Pulse Resp BP BP BP Pulse Ox 05/03/17 09:46 85 138/75 05/03/17 07:30 98.0 F 85 18 138/75 98 05/03/17 03:48 98.8 F 89 16 125/61 97 Weight Weight 78.6 kg Most Recent Monitor Data Heart Rate from ECG 90 NIBP 132/70 NIBP BP-Mean 89 Respiration from ECG 17 SpO2 100 I&O: 05/02/17 05/03/17 05/04/17 06:59 06:59 06:59 Intake Total 1396 1225 Output Total 600 Balance 796 1225 Result Diagrams: 05/03/17 04:57 05/03/17 04:58 <Stanford Solomon - Last Filed: 05/03/17 11:14> Phys Exam - Physical Examination Constitutional: NAD HEENT: PERRLA, moist MMs Neck: no nodes, full ROM Respiratory: no wheezing, clear to auscultation bilateral Cardiovascular: RRR, no significant murmur Gastrointestinal: soft, non-tender, no distention, positive bowel sounds Musculoskeletal: no edema, pulses present Neurological: non-focal, moves all 4 limbs Lymphatic: no nodes Psychiatric: normal affect, A&O x 3 Skin: no rash, cap refill <2 seconds Deviation from normal: incision sites clean and without signs of infection <Terrence Hidalgo - Last Filed: 05/03/17 07:13> Dx/Plan (1) Pancytopenia Code(s): D61.818 - OTHER PANCYTOPENIA Status: Acute (2) Weakness Code(s): R53.1 - WEAKNESS Status: Acute (3) GI bleed Code(s): K92.2 - GASTROINTESTINAL HEMORRHAGE, UNSPECIFIED Status: Acute (4) Anemia Code(s): D64.9 - ANEMIA, UNSPECIFIED Status: Acute (5) Diabetes Code(s): E11.9 - TYPE 2 DIABETES MELLITUS WITHOUT COMPLICATIONS Status: Acute QualifierTitle: Diabetes mellitus type: type 2 Diabetes mellitus complication status: without complication Diabetes mellitus penitentiary insulin use: with penitentiary use Qualified Code(s): E11.9 - Type 2 diabetes mellitus without complications; Z79.4 - detention (current) use of insulin; Z79.4 - detention (current) use of insulin; Z79.4 - detention (current) use of insulin; Z79.4 - predatory animal exterminator (current) use of insulin (6) Coronary artery disease Code(s): I25.10 - ATHSCL HEART DISEASE OF [place] CORONARY ARTERY W/O ANG PCTRS Status: Acute QualifierTitle: Coronary Disease-Associated Artery/Lesion type: [place] artery [place] vs. transplanted heart: [place] heart Associated angina: angina presence unspecified Qualified Code(s): I25.10 - Atherosclerotic heart disease of [place] coronary artery without angina pectoris - Plan Plan: # Pancytopenia 2/2 Multiple Myeloma Bone marrow biopsy on 04/24 confirmed Multiple Myeloma. Hem/Onc is guiding process of obtaining access to treatment as he is unfunded. - 1 U PRBC's received in ED - 2U transfusion 04/29, - hgb 6.8 on presentation to Ed, 9.4 today - Plts to to 27 -> 33 -> 31-> 26 -> 21 -> 21 -> 48 -> 43 -> 28 - Hep C negative at outside lab - Heme/Onc on board, appreciate recs - Heme/Onc initiated tx with IV dexamethasone 40mg daily, d/c'd 04/29/2017 - Hem/Onc to use cytoxin and valcade - patient will get medport placement today by Dr. Sommers # PACHECO vs CKD - FeNa is 1.43 - Stopped IVF 2/2 swelling, tolerating PO intake - Could be nephrotic syndrome 2/2 MM - HD 04/30 - Nephro recs much appreciated, nephro evaluating post-chemo renal fxn # Diabetes - Sliding scale insulin - low blood glucose overnight 05/01 - Levemir back to home dose 20U AM, 20U PM # Pleural Effusion - cont lasix 40mg IV daily - HD 04/30 - extubated, monitor, denies shortness of breath # Uninsured - may help qualify for insurance - CM consulted - trying to obtain authorization for family from [place] to visit # Atrophic Gastritis EGD on 04/27 showed atrophic gastritis - denies melena, bright red blood per stools, hematochezia - FOBT negative - IgG positive H. Pylori - Continue PPI - amoxicillin and clarithromycin d/c'd on 04/27 - GI consulted, appreciate recs - EGD shows atrophic gastritis - monitor for symptoms # Ascites - Abdominal US shows small amount of ascites - mild splenomegaly # Hyperkalemia - resolved - continue to monitor # HTN - PRN Hydralazine 5mg - Amlodipine initiated on 04/27, increased to 10mg 04/30 # History CABG - holding ASA 2/2 bleeding risk, thrombocytopenia Dispo: Medport placement 05/03 <Terrence Hidalgo - Last Filed: 05/03/17 07:13> (1) Pancytopenia Code(s): D61.818 - OTHER PANCYTOPENIA Status: Acute (2) Weakness Code(s): R53.1 - WEAKNESS Status: Acute (3) GI bleed Code(s): K92.2 - GASTROINTESTINAL HEMORRHAGE, UNSPECIFIED Status: Acute (4) Anemia Code(s): D64.9 - ANEMIA, UNSPECIFIED Status: Acute (5) Diabetes Code(s): E11.9 - TYPE 2 DIABETES MELLITUS WITHOUT COMPLICATIONS Status: Acute Qualifiers: Diabetes mellitus type: type 2 Diabetes mellitus complication status: without complication Diabetes mellitus truck terminal manager insulin use: with truck terminal manager use Qualified Code(s): E11.9 - Type 2 diabetes mellitus without complications ; Z79.4 - predatory animal exterminator (current) use of insulin; Z79.4 - predatory animal exterminator (current) use of insulin; Z79.4 - detention (current) use of insulin; Z79.4 - detention ( current) use of insulin (6) Coronary artery disease Code(s): I25.10 - ATHSCL HEART DISEASE OF [place] CORONARY ARTERY W/O ANG PCTRS Status: Acute Qualifiers: Coronary Disease-Associated Artery/Lesion type: [place] artery [place] vs. transplanted heart: [place] heart Associated angina: angina presence unspecified Qualified Code(s): I25.10 - Atherosclerotic heart disease of [place] coronary artery without angina pectoris <Stanford Solomon - Last Filed: 05/03/17 11:14> Attending Addendum - Attending Addendum Date/Time: 05/03/17 1114 I personally evaluated the patient and discussed the management with Dr. Hidalgo. I agree with the History, Examination, Assessment and Plan documented above with any addition or exceptions noted below. <Stanford Solomon - Last Filed: 05/03/17 11:14>
[2017-05-03] MEDS ORDERED: Insulin Detemir 100 UNITS/ML 20 UNITS in Pre-Filled Syringe 1 EACH SC SCH (09:00)
[2017-05-03] MEDS: valACYclovir 500 MG TAB PO SCH (09:45)
[2017-05-03] MEDS: Docusate 100 MG CAP PO SCH ×2 (09:45→23:22)
[2017-05-03] MEDS: Amlodipine 10 MG TAB PO SCH (09:46)
--- NOTE | 2017-05-03 10:56 | PDOC.EVN ---
Event Note - Event Note Event Note: Patient Hospital Course This pleasent 61 yo M was admitted for Pancytopenia on 04/22/17. He had been having 3-4 months of progressively worsening weakness and fatigue. Upon further workup he was found to have Multiple Myeloma. This is a cancer of the bone marrow which results in decreased production of white and red blood cells, severe kidney damage, and bone lesions which can cause pathologic fracture and pain. The patient underwent placement of a dialysis catheter and a medport in the hospital. He was started on Chemotherapy on 05/03/17. He will be followed closely by his PCP, Nephrology, and Hematology/Oncology. The patient's children: Christiano Theo Narvaeza Sindhu Theo No It would be beneficial for patient's family to visit the patient as this is a gravely serious illness for which he needs to stay near [place], [place] to continue his treatment. If there are any questions please feel free to call [facility] in [place], [place] [phone] Terrence Hidalgo MD
[2017-05-03] MEDS: Dextrose 50% Abboject 50 ML SYRINGE SLOW IVP PRN ×2 (11:03→17:38)
[2017-05-03] MEDS ORDERED: Bupivacaine/Epinephrine 0.25% 30 ML VIAL ONE (12:26)
[2017-05-03] MEDS ORDERED: Midazolam HCl 2 mg/2 ml Vial ONE (12:32)
[2017-05-03] MEDS ORDERED: HYDROmorphone 0.5 MG/0.5 ML SYRINGE ONE (12:32)
[2017-05-03] MEDS ORDERED: CEFAZOLIN/Water 2 GM/20 ML SYRINGE ONE (12:52)
[2017-05-03] MEDS ORDERED: Lidocaine 1% PF 5 ML VIAL ONE (14:59)
[2017-05-03] MEDS ORDERED: Propofol 200 MG/20 ML VIAL ONE (14:59)
[2017-05-03] MEDS: Ondansetron ODT 4 MG TAB PO PRN ×2 (16:37→23:18)
--- NOTE | 2017-05-03 16:51 | RAD ---
AP VIEW OF THE CHEST 05/03/17 INDICATION: Mediport placement. COMPARISON: Prior exam dated 04/30/17. FINDINGS: Since the comparison examination, patient has been extubated. Right IJ dialysis catheter is unchanged . There is a left IJ Mediport in place. Tip of the catheter projects over the region of the right atr ium. There is cardiomegaly with pulmonary vascular congestion and perihilar interstitial and air spac e opacities. There is small bilateral pleural effusions which are worse on the prior exam. No pneumot horax is evident. IMPRESSION: 1. Findings suggesting volume overload or CHF. 2. New left IJ Mediport in place. No pneumothorax demonstrated. 3. The patient is extubated. 4. Right IJ dialysis catheter is stable. POS: TPC
[2017-05-03] MEDS: Dextrose 5% in Water 1,000 ML IV SCH (18:13)
--- NOTE | 2017-05-03 18:17 | OP ---
DATE OF PROCEDURE: 05/03/2017 PREOPERATIVE DIAGNOSES: End-stage renal disease, multiple myeloma, in need of IV access for neoplast ic chemotherapy access. POSTOPERATIVE DIAGNOSES: End-stage renal disease, multiple myeloma, in need of IV access for neoplas tic chemotherapy access. PROCEDURE: Left IJ MediPort standard CT scan compatible. SURGEON: Dr. Yair Sommers ANESTHESIA: Intravenous sedation, local 0.5% Marcaine with epinephrine 30 mL mixed with 2% Xylocaine 10 mL. Fluoroscopy used. PROCEDURE: The patient was taken to the operating room where under intravenous sedation, neck and ch est prepped with ChloraPrep, draped in routine fashion. Local anesthetic infiltrated into the skin a nd subcutaneous tissue about the operative site. Left internal jugular vein was accessed with a troc ar catheter. J-wire threaded. Trocar catheter removed. Skin incised and enlarged sharply. Stab in cision made on the left chest infraclavicular and transverse skin incision was made carried down thro ugh the skin and subcutaneous tissue and a pocket created to accommodate the MediPort. Using the missy neling device, the MediPort catheter tunneled between the chest incisions in the neck puncture site. A dilator and pull-away sheath was placed over the J-wire into the superior vena cava, and dilator a nd J-wire removed. Catheter placed through a pull-away sheath and pull-away sheath removed. Fluoros copically, the tip placed in optimal position in the superior vena cava. Catheter tailored to length , connected the MediPort which was placed in subcutaneous pocket and secured with 2 interrupted sutur es of 3-0 Prolene. Subcutaneous tissues approximated with 3-0 Monocryl, skin with subdermal 4-0 [place] cryl. MediPort accessed with a [place] needle to leave it accessed and aspirated blood and flushed wit h heparinized saline solution. Fluoroscopy revealed good line placement. The patient tolerated and sterile dressing applied.
[2017-05-03] MEDS: traMADol HCl 50 MG TAB PO PRN ×2 (18:31→23:16)
[2017-05-03] MEDS: Polyethylene Glycol 3350 17 GM Packet PO SCH (18:32)
[2017-05-03] MEDS ORDERED: Insulin Detemir 100 UNITS/ML 16 UNITS in Pre-Filled Syringe 1 EACH SC SCH (21:00)
[2017-05-04 06:29] LABS: Hemoglobin 7.8 g/dL (14.0-18.0); Mean Corpuscular HGB CONC 34.6 g/dL (32.0-36.0); Mean Corpuscular Hemoglobin 32.4 pg (27.0-31.0); Mean Corpuscular Volume 93.6 fl (80.0-94.0); Mean Platelet Volume 8.5 fL (7.4-10.4); Platelet Count 23 thou/uL (130-400); RBC Distribution Width 13.7 % (11.5-14.5); White Blood Cell (WBC) Count 1.8 thou/uL (4.8-10.8)
[2017-05-04 06:41] LABS: Anion Gap 10 mmol/L (10-20); BUN (Urea Nitrogen) 50 mg/dL (8.4-25.7); Calc. Creatinine Clearance 36 mL/min (70-130); Calcium 7.7 mg/dL (7.8-10.44); Carbon Dioxide 26 mmol/L (22-29); Chloride 103 mmol/L (98-107); Estimated GFR-MDRD 27; Glucose 148 mg/dL (70-105); Potassium 4.4 mmol/L (3.5-5.1); Sodium 135 mmol/L (136-145)
--- NOTE | 2017-05-04 06:59 | PDOC.FM ---
- Subjective Subjective: This morning the patient states that he is feeling well overall. He states he feels the medport placement went well and is not having any pain from this. He has a mild sore throat but this is to be expected. Patient denies SOB, nausea, vomiting, or diarrhea. States he has had a mild decrease in appetite, but was still able to eat supper. He is experiencing mild light-headedness this morning. - Objective Vital Signs & Weight: Vital Signs (12 hours) Temp Pulse Resp BP Pulse Ox 05/04/17 00:00 97.4 F L 83 18 146/80 H 98 05/03/17 20:00 97.4 F L 83 18 Weight Weight 78.6 kg Most Recent Monitor Data Heart Rate from ECG 90 NIBP 132/70 NIBP BP-Mean 89 Respiration from ECG 17 SpO2 100 I&O: 05/02/17 05/03/17 05/04/17 06:59 06:59 06:59 Intake Total 1396 1225 800 Output Total 600 200 Balance 796 1225 600 Result Diagrams: 05/04/17 05:50 05/04/17 05:50 <Terrence Hidalgo - Last Filed: 05/04/17 06:57> - Objective Vital Signs & Weight: Vital Signs (12 hours) Temp Pulse Resp BP Pulse Ox 05/04/17 08:06 95 05/04/17 07:50 98.3 F 88 18 156/79 H 95 05/04/17 04:00 98.0 F 91 16 140/78 99 05/04/17 00:00 97.4 F L 83 18 146/80 H 98 Weight Weight 78.6 kg Most Recent Monitor Data Heart Rate from ECG 90 NIBP 132/70 NIBP BP-Mean 89 Respiration from ECG 17 SpO2 100 I&O: 05/03/17 05/04/17 05/05/17 06:59 06:59 07:59 Intake Total 1225 1280 Output Total 200 Balance 1225 1080 Result Diagrams: 05/04/17 05:50 05/04/17 05:50 <Stanford Solomon - Last Filed: 05/04/17 11:31> Phys Exam - Physical Examination Constitutional: NAD HEENT: PERRLA Neck: no nodes, full ROM Respiratory: no wheezing mild crackles at the bases Cardiovascular: RRR, no significant murmur Gastrointestinal: soft, non-tender, no distention, positive bowel sounds Musculoskeletal: pulses present trace Lower extremity edema Neurological: non-focal, moves all 4 limbs Psychiatric: normal affect, A&O x 3 Skin: no rash, cap refill <2 seconds <Terrence Hidalgo - Last Filed: 05/04/17 06:57> Dx/Plan (1) Pancytopenia Code(s): D61.818 - OTHER PANCYTOPENIA Status: Acute (2) Weakness Code(s): R53.1 - WEAKNESS Status: Acute (3) GI bleed Code(s): K92.2 - GASTROINTESTINAL HEMORRHAGE, UNSPECIFIED Status: Acute (4) Anemia Code(s): D64.9 - ANEMIA, UNSPECIFIED Status: Acute (5) Diabetes Code(s): E11.9 - TYPE 2 DIABETES MELLITUS WITHOUT COMPLICATIONS Status: Acute QualifierTitle: Diabetes mellitus type: type 2 Diabetes mellitus complication status: without complication Diabetes mellitus custodial insulin use: with custodial use Qualified Code(s): E11.9 - Type 2 diabetes mellitus without complications; Z79.4 - FDC (current) use of insulin; Z79.4 - intermission coordinator (current) use of insulin; Z79.4 - intermission coordinator (current) use of insulin; Z79.4 - intermission coordinator (current) use of insulin (6) Coronary artery disease Code(s): I25.10 - ATHSCL HEART DISEASE OF [place] CORONARY ARTERY W/O ANG PCTRS Status: Acute QualifierTitle: Coronary Disease-Associated Artery/Lesion type: [place] artery [place] vs. transplanted heart: [place] heart Associated angina: angina presence unspecified Qualified Code(s): I25.10 - Atherosclerotic heart disease of [place] coronary artery without angina pectoris - Plan Plan: # Pancytopenia 2/2 Multiple Myeloma Bone marrow biopsy on 04/24 confirmed Multiple Myeloma. Hem/Onc is guiding process of obtaining access to treatment as he is unfunded. - 1 U PRBC's received in ED - 2U transfusion 04/29, - hgb 6.8 on presentation to Ed, 9.4 today - Plts to to 27 -> 33 -> 31-> 26 -> 21 -> 21 -> 48 -> 43 -> 28 -> 23 - Hep C negative at outside lab - Heme/Onc on board, appreciate recs - Heme/Onc initiated tx with IV dexamethasone 40mg daily, d/c'd 04/29/2017 - Hem/Onc to use cytoxin and valcade -Medport placed 05/03 # PACHECO vs CKD - FeNa is 1.43 - Stopped IVF 2/2 swelling, tolerating PO intake - Could be nephrotic syndrome 2/2 MM - HD 04/30 - Nephro recs much appreciated, nephro evaluating post-chemo renal fxn - Possible HD today, awaiting nephro recs # Diabetes - Sliding scale insulin - hypoglycemic at times during the day yesterday, was NPO b4 procedure - insulin down to 16U AM/PM # Pleural Effusion - cont lasix 40mg IV daily - HD 04/30 - extubated without difficulty after procedure - After dialysis catheter placement earlier this week patient was intubated overnight - CXR yesterday shows pleural effusions, anticipate HD # Uninsured - may help qualify for insurance - CM consulted - trying to obtain authorization for family from [place] to visit # Atrophic Gastritis EGD on 04/27 showed atrophic gastritis - denies melena, bright red blood per stools, hematochezia - FOBT negative - IgG positive H. Pylori - Continue PPI - amoxicillin and clarithromycin d/c'd on 04/27 - GI consulted, appreciate recs - EGD shows atrophic gastritis - monitor for symptoms # Ascites - Abdominal US shows small amount of ascites - mild splenomegaly # Hyperkalemia - resolved - continue to monitor # HTN - PRN Hydralazine 5mg - Amlodipine initiated on 04/27, increased to 10mg 04/30 # History CABG - holding ASA 2/2 bleeding risk, thrombocytopenia Dispo: Anticipate D/C today pending Nephro recs <Terrence Hidalgo - Last Filed: 05/04/17 06:57> (1) Pancytopenia Code(s): D61.818 - OTHER PANCYTOPENIA Status: Acute (2) Weakness Code(s): R53.1 - WEAKNESS Status: Acute (3) GI bleed Code(s): K92.2 - GASTROINTESTINAL HEMORRHAGE, UNSPECIFIED Status: Acute (4) Anemia Code(s): D64.9 - ANEMIA, UNSPECIFIED Status: Acute (5) Diabetes Code(s): E11.9 - TYPE 2 DIABETES MELLITUS WITHOUT COMPLICATIONS Status: Acute Qualifiers: Diabetes mellitus type: type 2 Diabetes mellitus complication status: without complication Diabetes mellitus custodial insulin use: with intermediate project manager use Qualified Code(s): E11.9 - Type 2 diabetes mellitus without complications ; Z79.4 - FDC (current) use of insulin; Z79.4 - FDC (current) use of insulin; Z79.4 - FDC (current) use of insulin; Z79.4 - FDC ( current) use of insulin (6) Coronary artery disease Code(s): I25.10 - ATHSCL HEART DISEASE OF [place] CORONARY ARTERY W/O ANG PCTRS Status: Acute Qualifiers: Coronary Disease-Associated Artery/Lesion type: [place] artery [place] vs. transplanted heart: [place] heart Associated angina: angina presence unspecified Qualified Code(s): I25.10 - Atherosclerotic heart disease of [place] coronary artery without angina pectoris <Stanford Solomon - Last Filed: 05/04/17 11:31> Attending Addendum - Attending Addendum Date/Time: 05/04/17 6130 I personally evaluated the patient and discussed the management with Dr. Hidalgo. I agree with the History, Examination, Assessment and Plan documented above with any addition or exceptions noted below. I think dialysis and a blood transfusion today is appropriate. Possible discharge if all this can arranged/performed. He is very tired and nauseated with vomiting from chemotherapy and anemia. Promethazine and zofran added. <Stanford Solomon - Last Filed: 05/04/17 11:31>
[2017-05-04] MEDS: Ondansetron ODT 4 MG TAB PO PRN (07:33)
[2017-05-04] MEDS: Promethazine HCl 25 MG/ML VIAL IM/IV PRN (08:58)
[2017-05-04] MEDS ORDERED: Insulin Detemir 100 UNITS/ML 16 UNITS in Pre-Filled Syringe 1 EACH SC SCH (09:00)
[2017-05-04] MEDS: Amlodipine 10 MG TAB PO SCH (17:06)
[2017-05-04] MEDS: valACYclovir 500 MG TAB PO SCH (17:07)
[2017-05-04] MEDS: Docusate 100 MG CAP PO SCH ×2 (17:07→22:32)
[2017-05-04] MEDS: Dextrose 5% in Water 1,000 ML IV SCH (17:49)
[2017-05-04] MEDS: Polyethylene Glycol 3350 17 GM Packet PO SCH (19:07)
[2017-05-05 05:24] LABS: Hemoglobin 8.8 g/dL (14.0-18.0); Mean Corpuscular Hemoglobin 31.9 pg (27.0-31.0); Mean Corpuscular Volume 91.1 fl (80.0-94.0); Mean Platelet Volume 8.1 fL (7.4-10.4); Platelet Count 21 thou/uL (130-400); RBC Distribution Width 13.8 % (11.5-14.5); Red Blood Cell (RBC) Count 2.75 mill/uL (4.70-6.10); White Blood Cell (WBC) Count 1.9 thou/uL (4.8-10.8)
[2017-05-05 05:35] LABS: Anion Gap 7 mmol/L (10-20); BUN (Urea Nitrogen) 34 mg/dL (8.4-25.7); Calc. Creatinine Clearance 40 mL/min (70-130); Calcium 7.7 mg/dL (7.8-10.44); Carbon Dioxide 28 mmol/L (22-29); Chloride 100 mmol/L (98-107); Estimated GFR-MDRD 31; Glucose 280 mg/dL (70-105); Potassium 4.1 mmol/L (3.5-5.1); Sodium 131 mmol/L (136-145)
--- NOTE | 2017-05-05 07:18 | PDOC.FM ---
Addendum entered and electronically signed by Terrence Hidalgo MD 05/05/17 09:41: Barriers to D/C: need to establish outpt. Dialysis plan per JORDAN Gallegos as he is currently unfunded. Stable for d/c per primary team, Oncology Original Note: - Subjective Subjective: This morning the patient states he is feeling somewhat stronger although still weak overall. He states he was able to eat more yesterday without experiencing nausea or vomiting, but still not able to complete an entire meal. The patient states he is having no pain except a mild headache. He notes that his abdominal distension is much improved. He is excited as his children from [place] maybe able to come visit sometime next week. - Objective Vital Signs & Weight: Vital Signs (12 hours) Temp Pulse Resp BP BP Pulse Ox 05/05/17 03:58 99.2 F 82 16 120/80 96 05/05/17 00:00 98.8 F 88 20 153/75 H 98 05/04/17 23:20 98.8 F 88 20 153/75 H 98 05/04/17 20:00 98.2 F 100 16 147/73 H 94 L Weight Weight 78.6 kg Most Recent Monitor Data Heart Rate from ECG 78 NIBP 135/78 NIBP BP-Mean 89 Respiration from ECG 16 SpO2 100 I&O: 05/04/17 05/05/17 05/06/17 05:59 06:59 06:59 Intake Total Output Total Balance Result Diagrams: 05/05/17 05:15 05/05/17 05:15 <Terrence Hidalgo - Last Filed: 05/05/17 07:16> - Objective Vital Signs & Weight: Vital Signs (12 hours) Temp Pulse Resp BP BP Pulse Ox 05/05/17 09:00 81 05/05/17 07:57 96 05/05/17 07:40 98.8 F 81 18 140/75 95 05/05/17 03:58 99.2 F 82 16 120/80 96 05/05/17 00:00 98.8 F 88 20 153/75 H 98 05/04/17 23:20 98.8 F 88 20 153/75 H 98 Weight Weight 78.6 kg Most Recent Monitor Data Heart Rate from ECG 78 NIBP 135/78 NIBP BP-Mean 89 Respiration from ECG 16 SpO2 100 I&O: 05/04/17 05/05/17 05/06/17 05:59 06:59 06:59 Intake Total Output Total Balance Result Diagrams: 05/05/17 05:15 05/05/17 05:15 <Stanford Solomon - Last Filed: 05/05/17 10:26> Phys Exam - Physical Examination Constitutional: NAD HEENT: PERRLA, moist MMs Neck: no nodes, full ROM Respiratory: no wheezing, clear to auscultation bilateral mild decreased breath sounds at the bases bilaterally Cardiovascular: RRR, no significant murmur Gastrointestinal: soft, non-tender, no distention, positive bowel sounds distension is very much improved from time of admit Musculoskeletal: pulses present +1 edema of lower extremities bilaterally Neurological: non-focal, moves all 4 limbs Lymphatic: no nodes Psychiatric: normal affect, A&O x 3 Skin: no rash, cap refill <2 seconds <Terrence Hidalgo - Last Filed: 05/05/17 07:16> Dx/Plan (1) Pancytopenia Code(s): D61.818 - OTHER PANCYTOPENIA Status: Acute (2) Weakness Code(s): R53.1 - WEAKNESS Status: Acute (3) GI bleed Code(s): K92.2 - GASTROINTESTINAL HEMORRHAGE, UNSPECIFIED Status: Acute (4) Anemia Code(s): D64.9 - ANEMIA, UNSPECIFIED Status: Acute (5) Diabetes Code(s): E11.9 - TYPE 2 DIABETES MELLITUS WITHOUT COMPLICATIONS Status: Acute QualifierTitle: Diabetes mellitus type: type 2 Diabetes mellitus complication status: without complication Diabetes mellitus terminal make up operator insulin use: with residential use Qualified Code(s): E11.9 - Type 2 diabetes mellitus without complications; Z79.4 - manager terminal (current) use of insulin; Z79.4 - care home (current) use of insulin; Z79.4 - manager terminal (current) use of insulin; Z79.4 - care home (current) use of insulin (6) Coronary artery disease Code(s): I25.10 - ATHSCL HEART DISEASE OF [place] CORONARY ARTERY W/O ANG PCTRS Status: Acute QualifierTitle: Coronary Disease-Associated Artery/Lesion type: [place] artery [place] vs. transplanted heart: [place] heart Associated angina: angina presence unspecified Qualified Code(s): I25.10 - Atherosclerotic heart disease of [place] coronary artery without angina pectoris - Plan Plan: # Pancytopenia 2/2 Multiple Myeloma Bone marrow biopsy on 04/24 confirmed Multiple Myeloma. Hem/Onc is guiding process of obtaining access to treatment as he is unfunded. - 1 U PRBC's received in ED - 2U transfusion 04/29, 1U transfused 05/04 - hgb 6.8 on presentation to Ed, 9.4 today - Plts 27 -> 33 -> 31-> 26 -> 21 -> 21 -> 48 -> 43 -> 28 -> 23 -> 21 - Hep C negative at outside lab - Heme/Onc on board, appreciate recs - Heme/Onc initiated tx with IV dexamethasone 40mg daily, d/c'd 04/29/2017 - Hem/Onc to use cytoxin and valcade - Medport placed 05/03 # PACHECO vs CKD - FeNa is 1.43 - Stopped IVF 2/2 swelling, tolerating PO intake - Could be nephrotic syndrome 2/2 MM - HD 04/30, 05/04 - Nephro recs much appreciated, working up post-chemo renal function, working on outpatient dialysis plans # Diabetes - Sliding scale insulin - stopped levemir 05/04 secondary consistent issues with hypoglycemia since starting chemo - stopped D50 this AM # Pleural Effusion - cont lasix 40mg IV daily - HD 04/30, HD 05/04 - extubated without difficulty after procedure - After dialysis catheter placement earlier this week patient was intubated overnight - CXR 05/03 showed pleural effusion # Uninsured - may help qualify for insurance - CM consulted - trying to obtain authorization for family from [place] to visit # Atrophic Gastritis EGD on 04/27 showed atrophic gastritis - denies melena, bright red blood per stools, hematochezia - FOBT negative - IgG positive H. Pylori - Continue PPI - amoxicillin and clarithromycin d/c'd on 04/27 - GI consulted, appreciate recs - EGD shows atrophic gastritis - monitor for symptoms # Ascites - Abdominal US shows small amount of ascites - mild splenomegaly # Hyperkalemia - resolved - continue to monitor # HTN - PRN Hydralazine 5mg - Amlodipine initiated on 04/27, increased to 10mg 04/30 # History CABG - holding ASA 2/2 bleeding risk, thrombocytopenia Dispo: working up post-chemo renal fxn, DM regimen, awaiting outpatient dialysis plans (needs insurance) <Terrence Hidalgo - Last Filed: 05/05/17 07:16> (1) Pancytopenia Code(s): D61.818 - OTHER PANCYTOPENIA Status: Acute (2) Weakness Code(s): R53.1 - WEAKNESS Status: Acute (3) GI bleed Code(s): K92.2 - GASTROINTESTINAL HEMORRHAGE, UNSPECIFIED Status: Acute (4) Anemia Code(s): D64.9 - ANEMIA, UNSPECIFIED Status: Acute (5) Diabetes Code(s): E11.9 - TYPE 2 DIABETES MELLITUS WITHOUT COMPLICATIONS Status: Acute Qualifiers: Diabetes mellitus type: type 2 Diabetes mellitus complication status: without complication Diabetes mellitus residential insulin use: with terminal make up operator use Qualified Code(s): E11.9 - Type 2 diabetes mellitus without complications ; Z79.4 - care home (current) use of insulin; Z79.4 - manager terminal (current) use of insulin; Z79.4 - manager terminal (current) use of insulin; Z79.4 - manager terminal ( current) use of insulin (6) Coronary artery disease Code(s): I25.10 - ATHSCL HEART DISEASE OF [place] CORONARY ARTERY W/O ANG PCTRS Status: Acute Qualifiers: Coronary Disease-Associated Artery/Lesion type: [place] artery [place] vs. transplanted heart: [place] heart Associated angina: angina presence unspecified Qualified Code(s): I25.10 - Atherosclerotic heart disease of [place] coronary artery without angina pectoris <Stanford Solomon - Last Filed: 05/05/17 10:26> Attending Addendum - Attending Addendum Date/Time: 05/05/17 1025 I personally evaluated the patient and discussed the management with Dr. Hidalgo. I agree with the History, Examination, Assessment and Plan documented above with any addition or exceptions noted below. Dr Lagunas has requested holding discharge until insurance for dialysis can be arranged. Otherwise stable for discharge. <Stanford Solomon - Last Filed: 05/05/17 10:26>
[2017-05-05] MEDS: Amlodipine 10 MG TAB PO SCH (09:00)
[2017-05-05] MEDS: Polyethylene Glycol 3350 17 GM Packet PO SCH (09:01)
[2017-05-05] MEDS: valACYclovir 500 MG TAB PO SCH (09:01)
[2017-05-05] MEDS: Docusate 100 MG CAP PO SCH ×2 (09:01→21:06)
[2017-05-05] MEDS ORDERED: Heparin 1,000 UNITS/ML VIAL ONE (11:11)
[2017-05-05] MEDS: traMADol HCl 50 MG TAB PO PRN (13:58)
[2017-05-05] MEDS ORDERED: Dextrose 50% Abboject 50 ML SYRINGE SLOW IVP PRN (15:44)
[2017-05-05] MEDS ORDERED: Dextrose 5% in Water 1,000 ML IV PRN (15:44)
[2017-05-05] MEDS: HumaLOG 300 UNITS/3 ML VIAL SC PRN ×2 (16:42→21:07)
[2017-05-05] MEDS: Acetaminophen 500 MG TAB PO PRN (23:53)
[2017-05-06 06:28] LABS: Hemoglobin 8.7 g/dL (14.0-18.0); Mean Corpuscular HGB CONC 36.2 g/dL (32.0-36.0); Mean Corpuscular Hemoglobin 32.9 pg (27.0-31.0); Mean Platelet Volume 8.5 fL (7.4-10.4); Platelet Count 23 thou/uL (130-400); RBC Distribution Width 13.6 % (11.5-14.5); Red Blood Cell (RBC) Count 2.64 mill/uL (4.70-6.10); White Blood Cell (WBC) Count 2.8 thou/uL (4.8-10.8)
[2017-05-06 06:36] LABS: Anion Gap 10 mmol/L (10-20); BUN (Urea Nitrogen) 42 mg/dL (8.4-25.7); Calc. Creatinine Clearance 31 mL/min (70-130); Calcium 7.8 mg/dL (7.8-10.44); Carbon Dioxide 27 mmol/L (22-29); Chloride 101 mmol/L (98-107); Estimated GFR-MDRD 23; Glucose 99 mg/dL (70-105); Potassium 4.4 mmol/L (3.5-5.1); Sodium 134 mmol/L (136-145)
--- NOTE | 2017-05-06 08:09 | PDOC.FM ---
- Subjective Subjective: THis morning the patient states he is feeling stronger overall. He denies N/V/D or SOB. He states his appetite is still less than usual. He denies any pain at this time. He states he feels his distension in the abdomen is improved. He is in good spirits. - Objective Vital Signs & Weight: Vital Signs (12 hours) Temp Pulse Resp BP Pulse Ox 05/06/17 07:30 97.9 F 81 18 139/74 98 Weight Weight 78.6 kg Most Recent Monitor Data Heart Rate from ECG 78 NIBP 135/78 NIBP BP-Mean 89 Respiration from ECG 16 SpO2 100 I&O: 05/05/17 05/06/17 05/07/17 06:59 06:59 06:59 Intake Total 1260 Output Total 650 Balance 610 Result Diagrams: 05/06/17 06:20 05/06/17 06:20 <Terrence Hidalgo - Last Filed: 05/06/17 08:07> - Objective Vital Signs & Weight: Vital Signs (12 hours) Temp Pulse Resp BP Pulse Ox 05/06/17 08:53 81 05/06/17 08:00 97.9 F 81 18 98 05/06/17 07:30 97.9 F 81 18 139/74 98 Weight Weight 78.6 kg Most Recent Monitor Data Heart Rate from ECG 78 NIBP 135/78 NIBP BP-Mean 89 Respiration from ECG 16 SpO2 100 I&O: 05/05/17 05/06/17 05/07/17 06:59 06:59 06:59 Intake Total 1260 Output Total 650 Balance 610 Result Diagrams: 05/06/17 06:20 05/06/17 06:20 <Hudson Arevalo - Last Filed: 05/06/17 10:48> Phys Exam - Physical Examination Constitutional: NAD HEENT: PERRLA, moist MMs Neck: no nodes, full ROM Respiratory: no wheezing, clear to auscultation bilateral Cardiovascular: RRR, no significant murmur Gastrointestinal: soft, non-tender, positive bowel sounds mild distension Musculoskeletal: pulses present +2 edema of Lower extremities bilaterally Neurological: non-focal, moves all 4 limbs Lymphatic: no nodes Psychiatric: normal affect, A&O x 3 Skin: no rash, cap refill <2 seconds <Terrnece Hidalgo - Last Filed: 03/12/18 08:07> Dx/Plan (1) Pancytopenia Code(s): D61.818 - OTHER PANCYTOPENIA Status: Acute (2) Weakness Code(s): R53.1 - WEAKNESS Status: Acute (3) GI bleed Code(s): K92.2 - GASTROINTESTINAL HEMORRHAGE, UNSPECIFIED Status: Acute (4) Anemia Code(s): D64.9 - ANEMIA, UNSPECIFIED Status: Acute (5) Diabetes Code(s): E11.9 - TYPE 2 DIABETES MELLITUS WITHOUT COMPLICATIONS Status: Acute QualifierTitle: Diabetes mellitus type: type 2 Diabetes mellitus complication status: without complication Diabetes mellitus fdc insulin use: with fdc use Qualified Code(s): E11.9 - Type 2 diabetes mellitus without complications; Z79.4 - assisted (current) use of insulin; Z79.4 - assisted (current) use of insulin; Z79.4 - lobsterman (current) use of insulin; Z79.4 - assisted (current) use of insulin (6) Coronary artery disease Code(s): I25.10 - ATHSCL HEART DISEASE OF [place] CORONARY ARTERY W/O ANG PCTRS Status: Acute QualifierTitle: Coronary Disease-Associated Artery/Lesion type: [place] artery [place] vs. transplanted heart: [place] heart Associated angina: angina presence unspecified Qualified Code(s): I25.10 - Atherosclerotic heart disease of [place] coronary artery without angina pectoris - Plan Plan: # Pancytopenia 2/2 Multiple Myeloma Bone marrow biopsy on 04/24 confirmed Multiple Myeloma. Hem/Onc is guiding process of obtaining access to treatment as he is unfunded. - 1 U PRBC's received in ED - 2U transfusion 04/29, 1U transfused 05/04 - hgb 6.8 on presentation to Ed, 8.7 today - Plts 27 -> 33 -> 31-> 26 -> 21 -> 21 -> 48 -> 43 -> 28 -> 23 -> 21 -> 23 - Hep C negative at outside lab - Heme/Onc on board, appreciate recs - Heme/Onc initiated tx with IV dexamethasone 40mg daily, d/c'd 04/29/2017 - Hem/Onc to use cytoxin and valcade - Medport placed 05/03 # PACHECO vs CKD - FeNa is 1.43 - tolerating PO intake - Could be nephrotic syndrome 2/2 MM - HD 3/6, 05/04 - Nephro recs much appreciated, working up post-chemo renal function, working on outpatient dialysis plans # Diabetes - Sliding scale insulin - stopped levemir 05/04 secondary consistent issues with hypoglycemia since starting chemo - restarted levemir AM at 10 U 05/06 # Pleural Effusion - cont lasix 40mg IV daily - HD 04/30, HD 05/04 - extubated without difficulty after procedure - After dialysis catheter placement earlier this week patient was intubated overnight - CXR 05/03 showed pleural effusion # Uninsured - may help qualify for insurance - CM consulted - trying to obtain authorization for family from [place] to visit # Atrophic Gastritis EGD on 04/27 showed atrophic gastritis - denies melena, bright red blood per stools, hematochezia - FOBT negative - IgG positive H. Pylori - Continue PPI - amoxicillin and clarithromycin d/c'd on 04/27 - GI consulted, appreciate recs - EGD shows atrophic gastritis - monitor for symptoms # Ascites - Abdominal US shows small amount of ascites - mild splenomegaly # Hyperkalemia - resolved - continue to monitor # HTN - PRN Hydralazine 5mg - Amlodipine initiated on 04/27, increased to 10mg 04/30 # History CABG - holding ASA 2/2 bleeding risk, thrombocytopenia Dispo: barrier to d/c is obtaining emergency medicaid so patient can get outpatient dialysis <Terrence Hidalgo - Last Filed: 05/06/17 08:07> Attending Addendum - Attending Addendum Date/Time: 05/06/17 1047 I personally evaluated the patient and discussed the management with Dr. Hidalgo I agree with the History, Examination, Assessment and Plan documented above with any addition or exceptions noted below. Patient awaiting arrangement Outpatient dialysis prior to dismissal. <Hudson Arevalo - Last Filed: 05/06/17 10:48>
[2017-05-06] MEDS: Polyethylene Glycol 3350 17 GM Packet PO SCH (08:52)
[2017-05-06] MEDS: valACYclovir 500 MG TAB PO SCH (08:53)
[2017-05-06] MEDS: Amlodipine 10 MG TAB PO SCH (08:53)
[2017-05-06] MEDS: Docusate 100 MG CAP PO SCH ×2 (08:53→21:47)
[2017-05-06] MEDS: Insulin Detemir 100 UNITS/ML 10 UNITS in Pre-Filled Syringe 1 EACH SC SCH (08:55)
[2017-05-06] MEDS: Acetaminophen 500 MG TAB PO PRN (16:56)
[2017-05-06] MEDS: HumaLOG 300 UNITS/3 ML VIAL SC PRN ×2 (16:56→21:50)
[2017-05-07] MEDS: traMADol HCl 50 MG TAB PO PRN ×3 (04:12→20:50)
--- NOTE | 2017-05-07 06:09 | PDOC.FM ---
- Subjective Subjective: This morning patient states he is feeling well overall. He states that he was able to walk the hallway with PT yesterday. He was having more swelling of the legs but is scheduled for dialysis this morning. He denies cough or SOB. He states he had a mild headache yesterday but it is resolved this morning. Labs were sent yesterday obtaining access to [facility] in [place]. Business office representatives visited the patient yesterday to assist with medicaid application. - Objective Vital Signs & Weight: Vital Signs (12 hours) Temp Pulse Resp BP BP Pulse Ox 05/06/17 20:00 98.3 F 88 18 140/76 140/76 99 Weight Weight 78.6 kg Most Recent Monitor Data Heart Rate from ECG 78 NIBP 135/78 NIBP BP-Mean 89 Respiration from ECG 16 SpO2 100 I&O: 05/05/17 05/06/17 05/07/17 06:59 06:59 06:59 Intake Total 1260 850 Output Total 650 Balance 610 850 Result Diagrams: 05/06/17 06:20 05/06/17 06:20 <Terrence Hidalgo - Last Filed: 05/07/17 08:39> - Objective Vital Signs & Weight: Weight Weight 78.6 kg Most Recent Monitor Data Heart Rate from ECG 78 NIBP 135/78 NIBP BP-Mean 89 Respiration from ECG 16 SpO2 100 I&O: 05/06/17 05/07/17 05/08/17 06:59 06:59 06:59 Intake Total 1260 1330 Output Total 650 Balance 610 1330 Result Diagrams: 05/06/17 06:20 05/06/17 06:20 <Hudson Arevalo - Last Filed: 05/07/17 11:03> Phys Exam - Physical Examination Constitutional: NAD HEENT: PERRLA, moist MMs Neck: no nodes, full ROM Respiratory: no wheezing, no rales, clear to auscultation bilateral Cardiovascular: RRR, no significant murmur Gastrointestinal: soft, non-tender, no distention, positive bowel sounds Musculoskeletal: pulses present +1 edema of the lower extremities Neurological: non-focal, moves all 4 limbs Lymphatic: no nodes Psychiatric: normal affect, A&O x 3 Skin: no rash, cap refill <2 seconds <Terrence Hidalgo - Last Filed: 05/07/17 08:39> Dx/Plan (1) Pancytopenia Code(s): D61.818 - OTHER PANCYTOPENIA Status: Acute (2) Weakness Code(s): R53.1 - WEAKNESS Status: Acute (3) GI bleed Code(s): K92.2 - GASTROINTESTINAL HEMORRHAGE, UNSPECIFIED Status: Acute (4) Anemia Code(s): D64.9 - ANEMIA, UNSPECIFIED Status: Acute (5) Diabetes Code(s): E11.9 - TYPE 2 DIABETES MELLITUS WITHOUT COMPLICATIONS Status: Acute QualifierTitle: Diabetes mellitus type: type 2 Diabetes mellitus complication status: without complication Diabetes mellitus senior care insulin use: with senior care use Qualified Code(s): E11.9 - Type 2 diabetes mellitus without complications; Z79.4 - intermodal dispatcher (current) use of insulin; Z79.4 - [facility] (current) use of insulin; Z79.4 - intermodal dispatcher (current) use of insulin; Z79.4 - [facility] (current) use of insulin (6) Coronary artery disease Code(s): I25.10 - ATHSCL HEART DISEASE OF [place] CORONARY ARTERY W/O ANG PCTRS Status: Acute QualifierTitle: Coronary Disease-Associated Artery/Lesion type: [place] artery [place] vs. transplanted heart: [place] heart Associated angina: angina presence unspecified Qualified Code(s): I25.10 - Atherosclerotic heart disease of [place] coronary artery without angina pectoris - Plan Plan: # Pancytopenia 2/2 Multiple Myeloma Bone marrow biopsy on 04/24 confirmed Multiple Myeloma. Hem/Onc is guiding process of obtaining access to treatment as he is unfunded. - 1 U PRBC's received in ED - 2U transfusion 04/29, 1U transfused 05/04 - hgb 6.8 on presentation to Ed, 8.7 today - Plts 27 -> 33 -> 31-> 26 -> 21 -> 21 -> 48 -> 43 -> 28 -> 23 -> 21 -> 23 - Hep C negative at outside lab - Heme/Onc on board, appreciate recs - Heme/Onc initiated tx with IV dexamethasone 40mg daily, d/c'd 04/29/2017 - Hem/Onc to use cytoxin and valcade - Medport placed 05/03 # PACHECO vs CKD - FeNa is 1.43 - tolerating PO intake - Could be nephrotic syndrome 2/2 MM - HD 04/30, 05/04 - Nephro recs much appreciated, working up post-chemo renal function, working on outpatient dialysis plans # Diabetes - Sliding scale insulin - stopped levemir 05/04 secondary consistent issues with hypoglycemia since starting chemo - restarted levemir AM at 10 U 05/06 # Pleural Effusion - cont lasix 40mg IV daily - HD 04/30, HD 05/04 - extubated without difficulty after procedure - After dialysis catheter placement earlier this week patient was intubated overnight - CXR 05/03 showed pleural effusion # Uninsured - Hep B panel, TB-quant gold sent yesterday in order to obtain access to [facility] in [place] - business office visited on 05/07 to help with medicaid application - CM consulted - trying to obtain authorization for family from [place] to visit # Atrophic Gastritis EGD on 04/27 showed atrophic gastritis - denies melena, bright red blood per stools, hematochezia - FOBT negative - IgG positive H. Pylori - Continue PPI - amoxicillin and clarithromycin d/c'd on 04/27 - GI consulted, appreciate recs - EGD shows atrophic gastritis - monitor for symptoms # Ascites - Abdominal US shows small amount of ascites - mild splenomegaly # Hyperkalemia - resolved - continue to monitor # HTN - PRN Hydralazine 5mg - Amlodipine initiated on 04/27, increased to 10mg 04/30 # History CABG - holding ASA 2/2 bleeding risk, thrombocytopenia Dispo: barrier to d/c is obtaining emergency medicaid so patient can get outpatient dialysis <Terrence Hidalgo - Last Filed: 05/07/17 08:39> Attending Addendum - Attending Addendum Date/Time: 05/07/17 1101 I personally evaluated the patient and discussed the management with Dr. Hidalgo I agree with the History, Examination, Assessment and Plan documented above with any addition or exceptions noted below. Discussed with Wraparound Facilitator eligibility and appreciate assistance. <Hudson Arevalo - Last Filed: 05/07/17 11:03>
[2017-05-07] MEDS: valACYclovir 500 MG TAB PO SCH (14:39)
[2017-05-07] MEDS: Docusate 100 MG CAP PO SCH (14:39)
[2017-05-07] MEDS: Amlodipine 10 MG TAB PO SCH (14:44)
[2017-05-07] MEDS: Polyethylene Glycol 3350 17 GM Packet PO SCH (14:45)
[2017-05-07] MEDS: Insulin Detemir 100 UNITS/ML 10 UNITS in Pre-Filled Syringe 1 EACH SC SCH (14:59)
[2017-05-07] MEDS ORDERED: diphenhydrAMINE 25 MG in Sodium Chloride 0.9% 50 ML IVPB SCH (17:00)
[2017-05-07] MEDS ORDERED: Acetaminophen 500 MG TAB PO SCH (17:01)
--- NOTE | 2017-05-07 17:07 | PDOC.EVN ---
Event Note - Event Note Event Note: Called to bedside to evaluate patient for bleeding from the dialysis catheter. Nurse states the dressing has been changed x3 in the last 2 days. Blood appears to be dried at time of my examination, nursing states was running down his chest earlier this PM. Spoke to Dr. Randall who rec'd 1 U of platelet to be given with benadryl and tylenol 2/2 prior allergic rxn to platelets. Discussed plan with nursing staff.
[2017-05-07] MEDS: HumaLOG 300 UNITS/3 ML VIAL SC PRN (18:09)
[2017-05-07] MEDS ORDERED: diphenhydrAMINE 50 MG/ML VIAL IVP SCH (20:30)
--- NOTE | 2017-05-07 21:33 | PRG ---
DATE OF SERVICE: 05/07/2017 SUBJECTIVE: The patient seen and examined with no new complaint; however, the patient seems to have been retaining quite a lot of fluid, begin to give him a little bit of discomfort up to his thigh. PHYSICAL EXAMINATION: VITAL SIGNS: Afebrile with temperature 98.3, pulse 88, respiratory rate of 18, O2 sat 99%, blood pre ssure 165/78. HEENT: Unremarkable with moist oral mucosa. No conjunctival injection or icterus. NECK: Supple CARDIOVASCULAR: First and second heart sounds were heard. RESPIRATORY: Clear to auscultation. DIGESTIVE: Showed some distended abdomen with presence of ascites. EXTREMITIES: Showed 2-3+ bilateral lower extremity edema. SKIN: No new gross rash. LYMPHATICS: No peripheral lymphadenopathy. IMPRESSION: 1. Advanced chronic kidney disease, end-stage renal disease in the context of multiple myeloma. 2. Pancytopenia in the context of multiple myeloma. 3. Hypervolemia related to problem #1 above. PLAN: 1. The patient to resume dialysis with ultrafiltration as tolerated by hemodynamics. 2. Renally dose all medications. 3. Further management to be dependent on the clinical course, but at this point, patient's outpatien t dialysis placement probably needs to be coordinated and immigration case worker is already on this case. Furt her management to be dependent on the clinical course.
[2017-05-08] MEDS: Docusate 100 MG CAP PO SCH ×3 (02:48→22:25)
[2017-05-08 05:57] LABS: #Eosinphils 0.1 thou/uL (0.0-0.7); #Lymphocytes 0.6 thou/uL (1.20-3.40); #Monocytes 0.2 thou/uL (0.11-0.59); #Neutrophils 1.8 thou/uL (1.40-6.50); %Basophils 0.5 % (0.0-1.0); %Eosinophils 2.4 % (0.0-10.0); %Monocytes 7.3 % (0.0-10.0); %Neutrophils 67.8 % (42.0-75.0); Hemoglobin 8.3 g/dL (14.0-18.0); Mean Corpuscular HGB CONC 33.6 g/dL (32.0-36.0); Mean Corpuscular Hemoglobin 31.4 pg (27.0-31.0); Mean Corpuscular Volume 93.4 fl (80.0-94.0); Mean Platelet Volume 8.3 fL (7.4-10.4); Platelet Count 53 thou/uL (130-400); RBC Distribution Width 13.5 % (11.5-14.5); Red Blood Cell (RBC) Count 2.65 mill/uL (4.70-6.10); White Blood Cell (WBC) Count 2.7 thou/uL (4.8-10.8)
[2017-05-08 06:24] LABS: Anion Gap 9 mmol/L (10-20); BUN (Urea Nitrogen) 26 mg/dL (8.4-25.7); Calc. Creatinine Clearance 42 mL/min (70-130); Carbon Dioxide 31 mmol/L (22-29); Chloride 100 mmol/L (98-107); Estimated GFR-MDRD 32; Glucose 182 mg/dL (70-105); Potassium 4.5 mmol/L (3.5-5.1); Sodium 135 mmol/L (136-145)
--- NOTE | 2017-05-08 08:41 | PDOC.FM ---
- Subjective Subjective: Patient is in good spirits this morning. He denies pain, N/V/D. He states he is feeling much stronger today. States fluid in legs is much better after dialysis. Bleeding at dialysis port resolved. - Objective Vital Signs & Weight: Vital Signs (12 hours) Temp Pulse Resp BP Pulse Ox 05/08/17 08:00 98.9 F 87 24 H 139/72 96 05/08/17 04:00 97.7 F 86 18 138/74 99 Weight Weight 78.6 kg Most Recent Monitor Data Heart Rate from ECG 78 NIBP 135/78 NIBP BP-Mean 89 Respiration from ECG 16 SpO2 100 I&O: 05/07/17 05/08/17 05/09/17 06:59 06:59 06:59 Intake Total 1330 1450 Output Total 3500 Balance 1329 Result Diagrams: 05/08/17 05:44 05/08/17 05:44 <Terrence Hidalgo - Last Filed: 05/08/17 08:39> - Objective Vital Signs & Weight: Vital Signs (12 hours) Temp Pulse Resp BP Pulse Ox 05/08/17 11:38 97.4 F L 90 20 165/83 H 100 05/08/17 11:12 87 05/08/17 08:00 98.9 F 87 24 H 139/72 96 05/08/17 04:00 97.7 F 86 18 138/74 99 Weight Weight 78.6 kg Most Recent Monitor Data Heart Rate from ECG 78 NIBP 135/78 NIBP BP-Mean 89 Respiration from ECG 16 SpO2 100 I&O: 05/07/17 05/08/17 05/09/17 06:59 06:59 06:59 Intake Total 1330 1450 Output Total 3500 Balance 1329 Result Diagrams: 05/08/17 05:44 05/08/17 05:44 <Hudson Arevalo - Last Filed: 05/08/17 12:38> Phys Exam - Physical Examination Constitutional: NAD HEENT: PERRLA, moist MMs Neck: no nodes, full ROM Respiratory: no wheezing, clear to auscultation bilateral Cardiovascular: RRR, no significant murmur Gastrointestinal: soft, non-tender, no distention, positive bowel sounds Musculoskeletal: pulses present trace edema of lower extremities Neurological: non-focal, moves all 4 limbs Lymphatic: no nodes Psychiatric: normal affect, A&O x 3 Skin: no rash, cap refill <2 seconds <Terrence Hidalgo - Last Filed: 05/08/17 08:39> Dx/Plan (1) Pancytopenia Code(s): D61.818 - OTHER PANCYTOPENIA Status: Acute (2) Weakness Code(s): R53.1 - WEAKNESS Status: Acute (3) GI bleed Code(s): K92.2 - GASTROINTESTINAL HEMORRHAGE, UNSPECIFIED Status: Acute (4) Anemia Code(s): D64.9 - ANEMIA, UNSPECIFIED Status: Acute (5) Diabetes Code(s): E11.9 - TYPE 2 DIABETES MELLITUS WITHOUT COMPLICATIONS Status: Acute QualifierTitle: Diabetes mellitus type: type 2 Diabetes mellitus long-term insulin use: with long-term use Diabetes mellitus complication status: without complication Qualified Code(s): E11.9 - Type 2 diabetes mellitus without complications; Z79.4 - [facility] (current) use of insulin; Z79.4 - [facility] (current) use of insulin; Z79.4 - [facility] (current) use of insulin; Z79.4 - [facility] (current) use of insulin (6) Coronary artery disease Code(s): I25.10 - ATHSCL HEART DISEASE OF [place] CORONARY ARTERY W/O ANG PCTRS Status: Acute QualifierTitle: Coronary Disease-Associated Artery/Lesion type: [place] artery [place] vs. transplanted heart: [place] heart Associated angina: angina presence unspecified Qualified Code(s): I25.10 - Atherosclerotic heart disease of [place] coronary artery without angina pectoris - Plan Plan: # Pancytopenia 2/2 Multiple Myeloma Bone marrow biopsy on 04/24 confirmed Multiple Myeloma. Hem/Onc is guiding process of obtaining access to treatment as he is unfunded. - 1 U PRBC's received in ED - 2U transfusion 04/29, 1U transfused 05/04 - hgb 6.8 on presentation to Ed, 8.7 today - Plts 27 -> 33 -> 31-> 26 -> 21 -> 21 -> 48 -> 43 -> 28 -> 23 -> 21 -> 23 -> 59 - Hep C negative at outside lab - Heme/Onc on board, appreciate recs - Heme/Onc initiated tx with IV dexamethasone 40mg daily, d/c'd 04/29/2017 - Hem/Onc to use cytoxin and valcade - Medport placed 05/03 -Resolved 1U platelets 05/07 secondary to bleeding at dialysis catheter site, bleeding resolved # PACHECO vs CKD - FeNa is 1.43 - tolerating PO intake - Could be nephrotic syndrome 2/2 MM - HD 04/30, 05/04 - Nephro recs much appreciated, working up post-chemo renal function, working on outpatient dialysis plans # Diabetes - Sliding scale insulin - stopped levemir 05/04 secondary consistent issues with hypoglycemia since starting chemo - restarted levemir AM at 10 U 05/06 # Pleural Effusion - cont lasix 40mg IV daily - HD 04/30, HD 05/04 - extubated without difficulty after procedure - After dialysis catheter placement earlier this week patient was intubated overnight - CXR 05/03 showed pleural effusion # Uninsured - Hep B panel, TB-quant gold sent yesterday in order to obtain access to [facility] in [place] - business office visited on 05/07 to help with medicaid application - CM consulted - trying to obtain authorization for family from [place] to visit # Atrophic Gastritis EGD on 04/27 showed atrophic gastritis - denies melena, bright red blood per stools, hematochezia - FOBT negative - IgG positive H. Pylori - Continue PPI - amoxicillin and clarithromycin d/c'd on 04/27 - GI consulted, appreciate recs - EGD shows atrophic gastritis - monitor for symptoms # Ascites - Abdominal US shows small amount of ascites - mild splenomegaly # Hyperkalemia - resolved - continue to monitor # HTN - PRN Hydralazine 5mg - Amlodipine initiated on 04/27, increased to 10mg 04/30 # History CABG - holding ASA 2/2 bleeding risk, thrombocytopenia Dispo: barrier to d/c is obtaining emergency medicaid so patient can get outpatient dialysis, [facility] in [place] is processing paperwork <Terrence Hidalgo - Last Filed: 05/08/17 08:39> Attending Addendum - Attending Addendum Date/Time: 05/08/17 3320 I personally evaluated the patient and discussed the management with Dr. Hidalgo I agree with the History, Examination, Assessment and Plan documented above with any addition or exceptions noted below. <Hudson Arevalo - Last Filed: 05/08/17 12:38>
[2017-05-08] MEDS: Polyethylene Glycol 3350 17 GM Packet PO SCH (11:11)
[2017-05-08] MEDS: valACYclovir 500 MG TAB PO SCH (11:12)
[2017-05-08] MEDS: Amlodipine 10 MG TAB PO SCH (11:12)
[2017-05-08] MEDS: Insulin Detemir 100 UNITS/ML 10 UNITS in Pre-Filled Syringe 1 EACH SC SCH (11:13)
--- NOTE | 2017-05-08 11:44 | RAD ---
TWO VIEWS CHEST: History: Patient with positive PPD. Evaluate for tuberculosis. Date: 05-08-17 Comparison: 05-03-17 FINDINGS: PA and lateral views of the chest demonstrate sternotomy wires. A left jugular Mediport catheter is i n place, distal tip overlying the right atrium. There is a right jugular dialysis catheter in place. Bilateral pleural effusion is again seen. No definite evidence of upper lobe abnormality seen. Pulmonary vascular congestion is seen. Bilateral pleural effusions noted. No significant evidence of airspace opacity seen. IMPRESSION: 1. Bilateral pleural effusions and pulmonary vascular congestion. These are not significantly changed since previous exam from 5 days earlier. 2. No radiographic evidence of definite tuberculosis is seen. No significant interval changes seen si nce the previous comparison numerous radiographs. POS: [facility]
[2017-05-08] MEDS ORDERED: Heparin 10,000 UNITS/ 10 ML VIAL ONE (12:55)
[2017-05-08 14:25] LABS: Hep B Surface AG-Rflx Sendout Negative (Negative); Hepatitis B Core IgM AB Negative (Negative); Hepatitis B Core Total Negative (Negative); Hepatitis B Surface AB-Sendout Non Reactive (.)
--- NOTE | 2017-05-08 14:38 | PRG ---
DATE OF SERVICE: 05/08/2017 The patient was seen and examined. PHYSICAL EXAMINATION: VITAL SIGNS: Afebrile with temperature 97.4, pulse 90, respiratory rate 20, O2 saturation 100% with a blood pressure 160/83. HEENT: Unremarkable with moist oral mucosa. NECK: Supple, no conjunctival injection or icterus. CARDIOVASCULAR: First and second heart sounds were heard. RESPIRATORY: Clear to auscultation. DIGESTIVE: Revealed a benign abdomen. EXTREMITIES: Showed pitting edema bilaterally. IMPRESSION: 1. Advanced chronic kidney disease/end-stage renal disease. 2. Multiple myeloma. 3. Pancytopenia, status post blood transfusion. PLAN: 1. The patient dialysis regimen to be changed from twice a week now 3 times a week to address the ex cessive fluid weight gain. 2. Renally dose all medications and avoid potentially nephrotoxic agents. 3. Further management to be dependent on the clinical course.
[2017-05-08] MEDS: HumaLOG 300 UNITS/3 ML VIAL SC PRN (17:07)
[2017-05-09] MEDS: traMADol HCl 50 MG TAB PO PRN (05:21)
--- NOTE | 2017-05-09 05:52 | PDOC.FM ---
- Subjective Subjective: Patient states he felt some chest tightness yesterday. It was mostly on the right around his dialysis port. He denies N/V/D, he state he is feeling stronger every day. He states that his swelling is somewhat increased. - Objective Vital Signs & Weight: Vital Signs (12 hours) Temp Pulse Resp BP Pulse Ox 05/08/17 20:00 98.0 F 86 18 130/72 99 Weight Weight 78.6 kg Most Recent Monitor Data Heart Rate from ECG 78 NIBP 135/78 NIBP BP-Mean 89 Respiration from ECG 16 SpO2 100 I&O: 05/07/17 05/08/17 05/09/17 06:59 06:59 06:59 Intake Total 1330 1450 1000 Output Total 3500 400 Balance 1330 -2050 600 Result Diagrams: 05/08/17 05:44 05/08/17 05:44 <Terrence Hidalgo - Last Filed: 05/09/17 08:43> - Objective Vital Signs & Weight: Weight Weight 78.6 kg Most Recent Monitor Data Heart Rate from ECG 78 NIBP 135/78 NIBP BP-Mean 89 Respiration from ECG 16 SpO2 100 I&O: 05/08/17 05/09/17 05/10/17 06:59 06:59 06:59 Intake Total 1450 1600 Output Total 3500 400 Balance -2050 1200 Result Diagrams: 05/08/17 05:44 05/08/17 05:44 <Hudson Arevalo - Last Filed: 05/09/17 11:12> Phys Exam - Physical Examination Constitutional: NAD HEENT: PERRLA, moist MMs Neck: no nodes, full ROM Respiratory: no wheezing, clear to auscultation bilateral Cardiovascular: RRR, no significant murmur Gastrointestinal: soft, non-tender, no distention, positive bowel sounds Musculoskeletal: no edema, pulses present Neurological: non-focal, moves all 4 limbs Lymphatic: no nodes Psychiatric: normal affect, A&O x 3 Skin: no rash, cap refill <2 seconds <Terrence Hidalgo - Last Filed: 05/09/17 08:43> Dx/Plan (1) Pancytopenia Code(s): D61.818 - OTHER PANCYTOPENIA Status: Acute (2) Weakness Code(s): R53.1 - WEAKNESS Status: Acute (3) GI bleed Code(s): K92.2 - GASTROINTESTINAL HEMORRHAGE, UNSPECIFIED Status: Acute (4) Anemia Code(s): D64.9 - ANEMIA, UNSPECIFIED Status: Acute (5) Diabetes Code(s): E11.9 - TYPE 2 DIABETES MELLITUS WITHOUT COMPLICATIONS Status: Acute QualifierTitle: Diabetes mellitus type: type 2 Diabetes mellitus long-term insulin use: with long-term use Diabetes mellitus complication status: without complication Qualified Code(s): E11.9 - Type 2 diabetes mellitus without complications; Z79.4 - long term care social worker (current) use of insulin; Z79.4 - long term care social worker (current) use of insulin; Z79.4 - [facility] (current) use of insulin; Z79.4 - long term care social worker (current) use of insulin (6) Coronary artery disease Code(s): I25.10 - ATHSCL HEART DISEASE OF [place] CORONARY ARTERY W/O ANG PCTRS Status: Acute QualifierTitle: Coronary Disease-Associated Artery/Lesion type: [place] artery [place] vs. transplanted heart: [place] heart Associated angina: angina presence unspecified Qualified Code(s): I25.10 - Atherosclerotic heart disease of [place] coronary artery without angina pectoris - Plan Plan: Dispo: barrier to d/c is obtaining insurance and dialysis placement - will check EKG this AM, scheduled for dialysis today # Pancytopenia 2/2 Multiple Myeloma Bone marrow biopsy on 04/24 confirmed Multiple Myeloma. Hem/Onc is guiding process of obtaining access to treatment as he is unfunded. - 1 U PRBC's received in ED - 2U transfusion 04/29, 1U transfused 05/04 - hgb 6.8 on presentation to Ed, 8.7 today - Plts 27 -> 33 -> 31-> 26 -> 21 -> 21 -> 48 -> 43 -> 28 -> 23 -> 21 -> 23 -> 59 - Hep C negative at outside lab - Heme/Onc on board, appreciate recs - Heme/Onc initiated tx with IV dexamethasone 40mg daily, d/c'd 04/29/2017 - Hem/Onc to use cytoxin and valcade - Medport placed 05/03 -Resolved 1U platelets 05/07 secondary to bleeding at dialysis catheter site, bleeding resolved # PACHECO vs CKD - FeNa is 1.43 - tolerating PO intake - Could be nephrotic syndrome 2/2 MM - HD 04/30, 05/04 - Nephro recs much appreciated, working up post-chemo renal function, working on outpatient dialysis plans # Diabetes - Sliding scale insulin - stopped levemir 05/04 secondary consistent issues with hypoglycemia since starting chemo - restarted levemir AM at 10 U 05/06 # Pleural Effusion - cont lasix 40mg IV daily - HD 04/30, HD 05/04 - extubated without difficulty after procedure - After dialysis catheter placement earlier this week patient was intubated overnight - CXR 05/03 showed pleural effusion # Uninsured - Hep B panel, TB-quant gold sent yesterday in order to obtain access to [facility] in [place] - business office visited on 05/07 to help with medicaid application - CM consulted - trying to obtain authorization for family from [place] to visit # Atrophic Gastritis EGD on 04/27 showed atrophic gastritis - denies melena, bright red blood per stools, hematochezia - FOBT negative - IgG positive H. Pylori - Continue PPI - amoxicillin and clarithromycin d/c'd on 04/27 - GI consulted, appreciate recs - EGD shows atrophic gastritis - monitor for symptoms # Ascites - Abdominal US shows small amount of ascites - mild splenomegaly # Hyperkalemia - resolved - continue to monitor # HTN - PRN Hydralazine 5mg - Amlodipine initiated on 04/27, increased to 10mg 04/30 # History CABG - holding ASA 2/2 bleeding risk, thrombocytopenia <Terrence Hidalgo - Last Filed: 05/09/17 08:43> Attending Addendum - Attending Addendum Date/Time: 05/09/17 1111 I personally evaluated the patient and discussed the management with Dr. Hidalgo I agree with the History, Examination, Assessment and Plan documented above with any addition or exceptions noted below. Note EKG with no acute ischemic changes continue to monitor. Patient tolerating HD well. <Hudson Arevalo - Last Filed: 05/09/17 11:12>
[2017-05-09] MEDS ORDERED: CYCLOPHOSPHAMIDE IVPB SCH (08:45)
[2017-05-09] MEDS ORDERED: ADMIXTURE FEE IVPB SCH ×2 (08:45)
[2017-05-09] MEDS ORDERED: SODIUM CHLORIDE IVPB SCH ×2 (08:45)
[2017-05-09] MEDS ORDERED: DEXAMETHASONE IVPB SCH (08:45)
[2017-05-09] MEDS ORDERED: ADMIXTURE FEE SC SCH (09:00)
[2017-05-09] MEDS ORDERED: BORTEZOMIB SC SCH (09:00)
[2017-05-09] MEDS: Insulin Detemir 100 UNITS/ML 10 UNITS in Pre-Filled Syringe 1 EACH SC SCH (15:19)
[2017-05-09] MEDS: Polyethylene Glycol 3350 17 GM Packet PO SCH (15:36)
[2017-05-09] MEDS: Amlodipine 10 MG TAB PO SCH (15:36)
[2017-05-09] MEDS: Docusate 100 MG CAP PO SCH ×2 (15:36→21:09)
[2017-05-09] MEDS: valACYclovir 500 MG TAB PO SCH (15:36)
[2017-05-09] MEDS: Promethazine HCl 25 MG/ML VIAL IM/IV PRN (17:31)
--- NOTE | 2017-05-09 21:09 | PRG ---
DATE OF SERVICE: 05/09/2017 SUBJECTIVE: The patient is seen and examined today at dialysis with no new complaint. OBJECTIVE: VITAL SIGNS: Afebrile with temperature 98, pulse 86, respirations 18, O2 sat 99% on room air with bl ood pressure 128/66. HEENT: Unremarkable with moist oral mucosa. No conjunctival injection or icterus. NECK: Supple. CARDIOVASCULAR: First and second heart sounds were heard. RESPIRATORY: Clear to auscultation. DIGESTIVE: Revealed a benign abdomen with positive bowel sounds. EXTREMITIES: Shows some peripheral edema, but much improved compared to how it used to be. NEUROLOGIC: Alert, oriented. No lateralizing signs. LYMPHATICS: No peripheral lymphadenopathy. LABORATORY INVESTIGATION: None for today. IMPRESSION: 1. End-stage renal disease on hemodialysis. 2. Multiple myeloma. PLAN: 1. The patient to continue with hemodialysis Saturday, , and Saturday schedule. 2. Outpatient dialysis placement in progress. writing manager coordinating. 3. Further management to be dependent on the clinical course.
[2017-05-10] MEDS: HumaLOG 300 UNITS/3 ML VIAL SC PRN ×3 (04:51→16:07)
[2017-05-10 05:36] LABS: #Lymphocytes 0.2 thou/uL (1.20-3.40); #Monocytes 0.1 thou/uL (0.11-0.59); #Neutrophils 1.4 thou/uL (1.40-6.50); %Basophils 0.6 % (0.0-1.0); %Eosinophils 0.5 % (0.0-10.0); %Lymphocytes 14.3 % (21.0-51.0); %Monocytes 3.6 % (0.0-10.0); %Neutrophils 81.1 % (42.0-75.0); Hemoglobin 7.9 g/dL (14.0-18.0); Mean Corpuscular HGB CONC 34.9 g/dL (32.0-36.0); Mean Corpuscular Hemoglobin 32.7 pg (27.0-31.0); Mean Corpuscular Volume 93.8 fl (80.0-94.0); Mean Platelet Volume 8.7 fL (7.4-10.4); Platelet Count 37 thou/uL (130-400); RBC Distribution Width 13.5 % (11.5-14.5); Red Blood Cell (RBC) Count 2.42 mill/uL (4.70-6.10); White Blood Cell (WBC) Count 1.7 thou/uL (4.8-10.8)
[2017-05-10 05:47] LABS: Anion Gap 13 mmol/L (10-20); BUN (Urea Nitrogen) 30 mg/dL (8.4-25.7); Calc. Creatinine Clearance 41 mL/min (70-130); Calcium 8.3 mg/dL (7.8-10.44); Carbon Dioxide 28 mmol/L (22-29); Chloride 99 mmol/L (98-107); Estimated GFR-MDRD 32; Glucose 309 mg/dL (70-105); Potassium 4.5 mmol/L (3.5-5.1); Sodium 135 mmol/L (136-145)
--- NOTE | 2017-05-10 08:06 | PDOC.FM ---
- Subjective Subjective: This morning the patient states he is feeling very well. He states he is feeling good strength throughout, denies N/V/D or headache. Denies swelling or SOB. Says he has been able to walk the the oliver without difficulty. Denies any pain. - Objective Vital Signs & Weight: Vital Signs (12 hours) Pulse Ox 05/10/17 05:35 92 L Weight Admit Weight 70.307 kg Weight 78.6 kg Most Recent Monitor Data Heart Rate from ECG 78 NIBP 135/78 NIBP BP-Mean 89 Respiration from ECG 16 SpO2 100 I&O: 05/09/17 05/10/17 05/11/17 06:59 06:59 06:59 Intake Total 1600 1030 Output Total 400 3800 Balance 1200 -2770 Result Diagrams: 05/10/17 04:44 05/10/17 04:44 <Terrence Hidalgo - Last Filed: 05/10/17 08:23> - Objective Vital Signs & Weight: Vital Signs (12 hours) Temp Pulse Resp BP BP Pulse Ox 05/10/17 08:20 90 127/66 05/10/17 08:15 98.6 F 90 18 127/66 95 05/10/17 05:35 92 L Weight Admit Weight 70.307 kg Weight 78.6 kg Most Recent Monitor Data Heart Rate from ECG 78 NIBP 135/78 NIBP BP-Mean 89 Respiration from ECG 16 SpO2 100 I&O: 05/09/17 05/10/17 05/11/17 06:59 06:59 06:59 Intake Total 1600 1030 Output Total 400 3800 Balance 1200 -2770 Result Diagrams: 05/10/17 04:44 05/10/17 04:44 <Hudson Arevalo - Last Filed: 05/10/17 13:29> Phys Exam - Physical Examination Constitutional: NAD HEENT: PERRLA, moist MMs Neck: no nodes, full ROM Respiratory: no wheezing, clear to auscultation bilateral Cardiovascular: RRR, no significant murmur Gastrointestinal: soft, non-tender, no distention, positive bowel sounds Musculoskeletal: no edema, pulses present Neurological: non-focal, moves all 4 limbs Lymphatic: no nodes Psychiatric: normal affect, A&O x 3 Skin: no rash, cap refill <2 seconds <Terrence Hidalgo - Last Filed: 05/10/17 08:23> Dx/Plan (1) Pancytopenia Code(s): D61.818 - OTHER PANCYTOPENIA Status: Acute (2) Weakness Code(s): R53.1 - WEAKNESS Status: Acute (3) GI bleed Code(s): K92.2 - GASTROINTESTINAL HEMORRHAGE, UNSPECIFIED Status: Acute (4) Anemia Code(s): D64.9 - ANEMIA, UNSPECIFIED Status: Acute (5) Diabetes Code(s): E11.9 - TYPE 2 DIABETES MELLITUS WITHOUT COMPLICATIONS Status: Acute QualifierTitle: Diabetes mellitus type: type 2 Diabetes mellitus superintendent marine oil terminal insulin use: with skilled nursing use Diabetes mellitus complication status: without complication Qualified Code(s): E11.9 - Type 2 diabetes mellitus without complications; Z79.4 - keno terminal operator (current) use of insulin; Z79.4 - [facility] (current) use of insulin; Z79.4 - keno terminal operator (current) use of insulin; Z79.4 - keno terminal operator (current) use of insulin (6) Coronary artery disease Code(s): I25.10 - ATHSCL HEART DISEASE OF [place] CORONARY ARTERY W/O ANG PCTRS Status: Acute QualifierTitle: Coronary Disease-Associated Artery/Lesion type: [place] artery [place] vs. transplanted heart: [place] heart Associated angina: angina presence unspecified Qualified Code(s): I25.10 - Atherosclerotic heart disease of [place] coronary artery without angina pectoris - Plan Plan: 05/10/17 Dispo: barrier to d/c is obtaining insurance and dialysis placement - check Hgb 05/11, transfuse during dialysis (05/11) if indicated - now on levemir 10U AM/PM - issues with hypoglycemia earlier this hospitalization, titrate up slowly if indicated -Positive quant gold, Negative chest X-ray, asymptomatic -spoke with ID, refer to health department for treatment of latent TB upon d/ c, no isolation precautions b/c asymptomatic -will check drug interactions to see if he qualifies for 3 month regimen # Pancytopenia 2/2 Multiple Myeloma Bone marrow biopsy on 04/24 confirmed Multiple Myeloma. Hem/Onc is guiding process of obtaining access to treatment as he is unfunded. - 1 U PRBC's received in ED - 2U transfusion 04/29, 1U transfused 05/04 - hgb 6.8 on presentation to Ed, 8.7 today - Plts 27 -> 33 -> 31-> 26 -> 21 -> 21 -> 48 -> 43 -> 28 -> 23 -> 21 -> 23 -> 59 - Hep C negative at outside lab - Heme/Onc on board, appreciate recs - Heme/Onc initiated tx with IV dexamethasone 40mg daily, d/c'd 04/29/2017 - Hem/Onc to use cytoxin and valcade - Medport placed 05/03 -Resolved 1U platelets 05/07 secondary to bleeding at dialysis catheter site, bleeding resolved # PACHECO vs CKD - FeNa is 1.43 - tolerating PO intake - Could be nephrotic syndrome 2/2 MM - HD 04/30, 05/04 - Nephro recs much appreciated, working up post-chemo renal function, working on outpatient dialysis plans # Diabetes - Sliding scale insulin - stopped levemir 05/04 secondary consistent issues with hypoglycemia since starting chemo - restarted levemir AM at 10 U 05/06 # Pleural Effusion - cont lasix 40mg IV daily - HD 04/30, HD 05/04 - extubated without difficulty after procedure - After dialysis catheter placement earlier this week patient was intubated overnight - CXR 05/03 showed pleural effusion # Uninsured - Hep B panel, TB-quant gold sent yesterday in order to obtain access to [facility] in [place] - business office visited on 05/07 to help with medicaid application - CM consulted - trying to obtain authorization for family from [place] to visit # Atrophic Gastritis EGD on 04/27 showed atrophic gastritis - denies melena, bright red blood per stools, hematochezia - FOBT negative - IgG positive H. Pylori - Continue PPI - amoxicillin and clarithromycin d/c'd on 04/27 - GI consulted, appreciate recs - EGD shows atrophic gastritis - monitor for symptoms # Ascites - Abdominal US shows small amount of ascites - mild splenomegaly # Hyperkalemia - resolved - continue to monitor # HTN - PRN Hydralazine 5mg - Amlodipine initiated on 04/27, increased to 10mg 04/30 # History CABG - holding ASA 2/2 bleeding risk, thrombocytopenia <Terrence Hidalgo - Last Filed: 05/10/17 08:23> Attending Addendum - Attending Addendum Date/Time: 05/10/17 6732 I personally evaluated the patient and discussed the management with Dr. Hidalgo I agree with the History, Examination, Assessment and Plan documented above with any addition or exceptions noted below. <Hudson Arevalo - Last Filed: 05/10/17 13:29>
[2017-05-10] MEDS: Amlodipine 10 MG TAB PO SCH (08:20)
[2017-05-10] MEDS: valACYclovir 500 MG TAB PO SCH (08:20)
[2017-05-10] MEDS: Polyethylene Glycol 3350 17 GM Packet PO SCH (08:21)
[2017-05-10] MEDS: Insulin Detemir 100 UNITS/ML 10 UNITS in Pre-Filled Syringe 1 EACH SC SCH (08:21)
[2017-05-10] MEDS: Docusate 100 MG CAP PO SCH ×2 (08:21→21:20)
--- NOTE | 2017-05-10 13:58 | PRG ---
DATE OF SERVICE: 05/10/2017 The patient was seen and examined. PHYSICAL EXAMINATION: VITAL SIGNS: Afebrile, temperature 98.6, pulse 90, respiratory rate of 18, O2 sat 95% with blood pre ssure 127/66. HEENT: Unremarkable. Moist oral mucosa. Neck was supple, no conjunctival injection, no icterus. CARDIOVASCULAR: First and second heart sounds were heard. RESPIRATORY: Clear to auscultation. DIGESTIVE: Revealed a benign abdomen with positive bowel sounds. EXTREMITIES: Showed improved lower extremity edema. IMPRESSION: 1. End-stage renal disease in the context of problem #2. 2. Multiple myeloma. 3. Anemia of chronic disease. PLAN: 1. The patient to continue with hemodialysis as per schedule. 2. Outpatient dialysis placement workup in progress.
[2017-05-10] MEDS ORDERED: Insulin Detemir 100 UNITS/ML 10 UNITS in Pre-Filled Syringe 1 EACH SC SCH (21:00)
[2017-05-11] MEDS: Acetaminophen 500 MG TAB PO PRN (06:02)
--- NOTE | 2017-05-11 06:05 | PDOC.FM ---
- Subjective Subjective: Patient is resting comfortably this morning. He reports some back pain, but has received medication about 30 min ago and is waiting for it to kick in. Patient reports normal BM's and no trouble urinating. Did have some difficulty sleeping overnight but unsure why. Overall, patient reports he is ready to go home. We discussed his follow up plan and he had no questions. - Objective MAR Reviewed: Yes Vital Signs & Weight: Vital Signs (12 hours) Temp Pulse Resp BP Pulse Ox 05/11/17 05:49 97 05/11/17 03:46 98.0 F 82 16 121/70 97 05/10/17 23:30 97.8 F 83 16 121/68 98 05/10/17 20:00 97.9 F 87 16 117/61 96 Weight Admit Weight 70.307 kg Weight 78.6 kg Most Recent Monitor Data Heart Rate from ECG 78 NIBP 135/78 NIBP BP-Mean 89 Respiration from ECG 16 SpO2 100 I&O: 05/09/17 05/10/17 05/11/17 06:59 06:59 06:59 Intake Total 1600 1030 720 Output Total 400 3800 Balance 1200 -2770 720 Result Diagrams: 05/11/17 05:50 05/10/17 04:44 <Jennifer Baker - Last Filed: 05/11/17 07:31> - Objective Vital Signs & Weight: Vital Signs (12 hours) Temp Pulse Resp BP BP Pulse Ox 05/11/17 08:00 98 F 85 20 99 05/11/17 07:48 98 F 85 20 120/70 99 05/11/17 05:49 97 05/11/17 03:46 98.0 F 82 16 121/70 97 Weight Admit Weight 70.307 kg Weight 78.6 kg Most Recent Monitor Data Heart Rate from ECG 78 NIBP 135/78 NIBP BP-Mean 89 Respiration from ECG 16 SpO2 100 I&O: 05/10/17 05/11/17 05/12/17 06:59 06:59 06:59 Intake Total 1030 1120 Output Total 3800 Balance -2770 1120 Result Diagrams: 05/11/17 05:50 05/10/17 04:44 <Hudson Arevalo - Last Filed: 05/11/17 12:26> Phys Exam - Physical Examination Constitutional: NAD HEENT: PERRLA, moist MMs, sclera anicteric Respiratory: no wheezing, no rales, clear to auscultation bilateral Cardiovascular: RRR, no significant murmur Gastrointestinal: soft, non-tender Musculoskeletal: no edema Psychiatric: A&O x 3 Skin: cap refill <2 seconds <Jennifer Baker - Last Filed: 05/11/17 07:31> Dx/Plan (1) Multiple myeloma Code(s): C90.00 - MULTIPLE MYELOMA NOT HAVING ACHIEVED REMISSION Status: Acute QualifierTitle: Multiple myeloma remission status: not in remission Qualified Code(s): C90.00 - Multiple myeloma not having achieved remission (2) Pancytopenia Code(s): D61.818 - OTHER PANCYTOPENIA Status: Acute (3) Latent tuberculosis Status: Acute (4) CKD (chronic kidney disease) Code(s): N18.9 - CHRONIC KIDNEY DISEASE, UNSPECIFIED Status: Acute QualifierTitle: Chronic kidney disease stage: unspecified stage Qualified Code(s): N18.9 - Chronic kidney disease, unspecified (5) Coronary artery disease Code(s): I25.10 - ATHSCL HEART DISEASE OF [place] CORONARY ARTERY W/O ANG PCTRS Status: Acute QualifierTitle: Coronary Disease-Associated Artery/Lesion type: [place] artery [place] vs. 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 pylori infection Code(s): A04.8 - OTHER SPECIFIED BACTERIAL INTESTINAL INFECTIONS Status: Acute (8) Hyperkalemia Code(s): E87.5 - HYPERKALEMIA Status: Resolved - Plan Plan: # Pancytopenia 2/2 Multiple Myeloma Bone marrow biopsy on 04/24 confirmed Multiple Myeloma. Hem/Onc is guiding process of obtaining access to treatment as he is unfunded. - 1 U PRBC's received in ED - 2U transfusion 04/29, 1U transfused 05/04, 1U platelets 05/07 - hgb 6.8 on presentation to Ed, 7.7 today - Plts 27 -> 33 -> 31-> 26 -> 21 -> 21 -> 48 -> 43 -> 28 -> 23 -> 21 -> 23 -> 59 -> 37 - Hep C negative at outside lab - Heme/Onc on board, appreciate recs - Heme/Onc initiated tx with IV dexamethasone 40mg daily, d/c'd 04/29/2017 - Hem/Onc to use cytoxin and valcade - Medport placed 05/03 # PACHECO vs CKD - FeNa is 1.43 - tolerating PO intake - Could be nephrotic syndrome 2/2 MM - HD 04/30, 05/04, 05/11 - Nephro recs much appreciated, working up post-chemo renal function, working on outpatient dialysis plans # Diabetes - Sliding scale insulin - now on levemir 10U AM/PM - issues with hypoglycemia earlier this hospitalization, titrate up slowly if indicated # Pleural Effusion - patient asymptomatic - cont lasix 40mg IV daily - HD 04/30, HD 05/04 - CXR 05/03 showed pleural effusion # Latent TB - Positive quant gold, Negative chest X-ray, asymptomatic - spoke with ID, refer to health department for treatment of latent TB upon d/c , no isolation precautions b/c asymptomatic # Uninsured - Hep B panel, TB-quant gold sent yesterday in order to obtain access to [facility] in [place] - business office visited on 05/07 to help with medicaid application - CM consulted - trying to obtain authorization for family from [place] to visit # Atrophic Gastritis - EGD on 04/27 showed atrophic gastritis - denies melena, bright red blood per stools, hematochezia - FOBT negative - IgG positive H. Pylori - Continue PPI - amoxicillin and clarithromycin d/c'd on 04/27 - GI consulted, appreciate recs - monitor for symptoms # Ascites - Abdominal US shows small amount of ascites - mild splenomegaly # Hyperkalemia - resolved - continue to monitor # HTN - PRN Hydralazine 5mg - Amlodipine initiated on 04/27, increased to 10mg 04/30 # History CABG - holding ASA 2/2 bleeding risk, thrombocytopenia Dispo: D/c today after dialysis. Follow up with Onc, GI, Nephro, and new PCP in [place] as well as health dept for latent TB. <Jennifer Baker - Last Filed: 05/11/17 07:31> Attending Addendum - Attending Addendum Date/Time: 05/11/17 1223 I personally evaluated the patient and discussed the management with Dr. Baker I agree with the History, Examination, Assessment and Plan documented above with any addition or exceptions noted below.Arrangement made stable dismissal has dialysis chair, oncology follow up and will need to go [facility] consider [facility] for latent TB negative CXR with positive quantiferon. <Hudson Arevalo - Last Filed: 05/11/17 12:26>
[2017-05-11 06:47] LABS: Hemoglobin 7.7 g/dL (14.0-18.0); Mean Corpuscular Hemoglobin 32.2 pg (27.0-31.0); Mean Corpuscular Volume 91.9 fl (80.0-94.0); Mean Platelet Volume 8.1 fL (7.4-10.4); Platelet Count 39 thou/uL (130-400); RBC Distribution Width 13.9 % (11.5-14.5); White Blood Cell (WBC) Count 3.1 thou/uL (4.8-10.8)
[2017-05-11 07:49] VITALS: BP 120/70; TEMP 98
[2017-05-11] MEDS ORDERED: Heparin 1,000 UNITS/ML VIAL ONE (11:11)
[2017-05-11] MEDS: Ondansetron HCl/PF 4 MG/2 ML Vial SLOW IVP PRN (13:58)
[2017-05-11] MEDS: Insulin Detemir 100 UNITS/ML 10 UNITS in Pre-Filled Syringe 1 EACH SC SCH (14:06)
[2017-05-11] MEDS: valACYclovir 500 MG TAB PO SCH (14:11)
[2017-05-11] MEDS: Docusate 100 MG CAP PO SCH ×2 (14:11→14:12)
[2017-05-11] MEDS: Polyethylene Glycol 3350 17 GM Packet PO SCH (14:11)
[2017-05-11] MEDS: Amlodipine 10 MG TAB PO SCH (14:11)
--- NOTE | 2017-05-12 18:56 | DIS-2 ---
DATE OF ADMISSION: 04/22/2017 DATE OF DISCHARGE: 05/11/2017 RESIDENT: Terrence Hidalgo M.D. ADMITTING ATTENDING: Pina Cuello D.O. DISCHARGE ATTENDING: Hudson Arevalo M.D. CONSULTATIONS: Hematology, Pulmonology, Nephrology, Infectious Disease, General Surgery, Gastroenterology. PROCEDURES: Bone marrow biopsy, EGD, dialysis access placement, MediPort placement, PRIMARY DIAGNOSIS: Multiple myeloma. SECONDARY DIAGNOSES: Pancytopenia, acute kidney injury, diabetes mellitus, pleural effusion, latent tuberculosis, atrophic gastritis, ascites, hyperkalemia , hypertension, and history of coronary artery disease. DISCHARGE MEDICATIONS: Amlodipine 10 mg daily, Glargine 16 units b.i.d., Zofran , Protonix 40 mg daily, Phenergan p.r.n., tramadol p.r.n., and valacyclovir 500 mg p.o. daily. Chemotherapy per Oncology. DISCONTINUED MEDICATIONS: None. HISTORY OF PRESENT ILLNESS AND HOSPITAL COURSE: This 61-year-old patient presented to the ED with 3-4 months of fatigue, was found to be suffering from pancytopenia. He denied any history of injury. He stated he had full body weakness and leg pain. Stated he had dizziness with exertion. He had intermittent vomiting two weeks before coming in, occasional headaches, and bloating with meals. He denied nausea, chest pain, diarrhea, hematemesis, melena, diarrhea, hematochezia, or constipation. The patient had not been taking his home medications for 2-3 weeks before coming in because he said they were making him feel bloated. Patient had bone marrow biopsy which ultimately showed him to be suffering from multiple myeloma. He was started on appropriate chemotherapy regimen per Dr. Randall with Oncology. He was also started on valacyclovir for prophylaxis in regards to his chemotherapy. Patient received multiple transfusions throughout the hospital stay. The patient also suffered from renal failure as noted during the hospitalization. He developed pleural effusions, ascites and swelling of the ankles, which are relieved with dialysis. Upon discharge, we decided that the patient would continue with dialysis 3 times weekly. The patient's pleural effusions resolved after dialysis. The patient was found to have latent TB upon required testing for outpatient dialysis. His chest x-ray was negative. QuantiFERON Gold was positive. Discussed with Infectious Disease , recommends 3 months of rifampin and isoniazid weekly for treatment of latent TB. The patient is completely asymptomatic in regards to TB, he needs to follow up with the department of health for treatment. Early in the hospitalization, the patient was being treated for possible H. pylori, but EGD suggested more of an atrophic gastritis picture, so amoxicillin and clarithromycin were discontinued on 04/27/2017. The patient will follow up with Dr. Randall for continued chemotherapy at [facility] in [place], [place]. Patient will follow up with Dr. Lagunas for outpatient dialysis 3 times a week. The patient will follow up with Dr. Sommers for checkup on dialysis access in 3-4 weeks. The patient should follow up with the Health Department for treatment of his latent TB. DISPOSITION: Stable. DISCHARGE INSTRUCTIONS: 1. Location: Home. 2. Diet: Diabetic. ACTIVITY: As tolerated. FOLLOWUP: As noted in last paragraph of hospital course. MTDD
--- NOTE | 2017-05-14 20:10 | EKG ---
Test Reason : Blood Pressure : / mmHG Vent. Rate : 085 BPM Atrial Rate : 085 BPM P-R Int : 142 ms QRS Dur : 088 ms QT Int : 406 ms P-R-T Axes : 054 079 067 degrees QTc Int : 483 ms Normal sinus rhythm Prolonged QT Abnormal ECG When compared with ECG of 27-APR-2017 14:01, No significant change was found Confirmed by LAVERNE PAREDES (2) on 05/14/2017 8:10:21 PM Referred By: BERNADETTE Confirmed By:LAVERNE PAREDES
== END 2017-05-11 17:30 | disposition home or self-care (01) | DRG 823 ==
LOC: ERS 10:39 → 2NO 15:36 → ONC 04-26 20:31 → CCU 04-30 15:15 → ONC 05-01 19:50
PROVIDERS: ADMIT Student in an Organized Health Care Education/Training Program; ATTEND Student in an Organized Health Care Education/Training Program
PROC: 07DR3ZX Extraction of Iliac Bone Marrow, Percutaneous Approach, Diagnostic (ICD-10-PCS; principal; 2017-04-24)
PROC: 30233N1 Transfusion of Nonautologous Red Blood Cells into Peripheral Vein, Percutaneous Approach (ICD-10-PCS; 2017-04-24)
PROC: 30233R1 Transfusion of Nonautologous Platelets into Peripheral Vein, Percutaneous Approach (ICD-10-PCS; 2017-04-24)
PROC: 0DJ08ZZ Inspection of Upper Intestinal Tract, Via Natural or Artificial Opening Endoscopic (ICD-10-PCS; 2017-04-27)
PROC: 031B0ZF Bypass Right Radial Artery to Lower Arm Vein, Open Approach (ICD-10-PCS; 2017-04-30)
PROC: 5A1D70Z Performance of Urinary Filtration, Intermittent, Less than 6 Hours Per Day (ICD-10-PCS; 2017-04-30)
PROC: 0JH63XZ Insertion of Tunneled Vascular Access Device into Chest Subcutaneous Tissue and Fascia, Percutaneous Approach (ICD-10-PCS; 2017-04-30)
PROC: 02HV33Z Insertion of Infusion Device into Superior Vena Cava, Percutaneous Approach (ICD-10-PCS; 2017-04-30)
PROC: 5A1945Z Respiratory Ventilation, 24-96 Consecutive Hours (ICD-10-PCS; 2017-04-30)
PROC: 0JH60WZ Insertion of Totally Implantable Vascular Access Device into Chest Subcutaneous Tissue and Fascia, Open Approach (ICD-10-PCS; 2017-05-03)
PROC: 02HV33Z Insertion of Infusion Device into Superior Vena Cava, Percutaneous Approach (ICD-10-PCS; 2017-05-03)
DX: C90.00 Multiple myeloma not having achieved remission (principal); J96.01 Acute respiratory failure with hypoxia; D61.818 Other pancytopenia; J90 Pleural effusion, not elsewhere classified; N17.9 Acute kidney failure, unspecified; I12.0 Hypertensive chronic kidney disease with stage 5 chronic kidney disease or end stage renal disease; N18.6 End stage renal disease; D69.6 Thrombocytopenia, unspecified; R18.8 Other ascites; E87.2 Acidosis; E11.22 Type 2 diabetes mellitus with diabetic chronic kidney disease; E87.5 Hyperkalemia; E11.9 Type 2 diabetes mellitus without complications; I10 Essential (primary) hypertension; K29.40 Chronic atrophic gastritis without bleeding; R76.11 Nonspecific reaction to tuberculin skin test without active tuberculosis; Z79.4 Long term (current) use of insulin; I25.10 Atherosclerotic heart disease of native coronary artery without angina pectoris; Z95.1 Presence of aortocoronary bypass graft; B96.81 Helicobacter pylori [H. pylori] as the cause of diseases classified elsewhere
CPT/HCPCS: 20225; 36415; 36416; 36430; 71045; 71046; 74019; 76000; 76700; 76770; 77012; 77075; 80048; 80053; 80069; 80074; 81001; 82232; 82274; 82553; 82570; 82805; 83036; 83615; 83880; 83883; 83970; 84100; 84156; 84165; 84166; 84300; 84484; 84540; 84550; 85025; 85027; 85060; 85097; 85610; 85730; 86480; 86704; 86705; 86706; 86707; 86850; 86900; 86901; 87340; 87350; 87389; 88184; 88237; 88305; 88311; 88313; 88341; 88342; 88360; 90935; 93005; 93010; 93306; 93970; 94002; 94003; 94760; 96361; 96374; A4216; C1752; C1769; C1788; G0257; G0365; G8978-GP-CK; G8979-GP-CJ; J0670; J1100; J1170; J1200; J1642; J1644; J1815; J1940; J2001; J2250; J2270; J2405; J2550; J2704; J2720; J3010; J7050; J7070; J9041; J9070; P9016; P9035; Q0162

== ENCOUNTER 2017-05-20 10:07 | Day surgery (SDC) | payer MEDICAID, OTHER, SELFPAY ==
[2017-05-20] MEDS ORDERED: ONDANSETRON IVPB SCH (10:30)
[2017-05-20] MEDS ORDERED: ADMIXTURE FEE IVPB SCH ×2 (10:30→10:45)
[2017-05-20] MEDS ORDERED: DEXAMETHASONE IVPB SCH (10:30)
[2017-05-20] MEDS ORDERED: [UNRECOGNIZED DRUG - OTHER] IVPB SCH (10:30)
[2017-05-20] MEDS ORDERED: SODIUM CHLORIDE IVPB SCH (10:45)
[2017-05-20] MEDS ORDERED: CYCLOPHOSPHAMIDE IVPB SCH (10:45)
[2017-05-20] MEDS ORDERED: ADMIXTURE FEE SC SCH (10:45)
[2017-05-20] MEDS ORDERED: BORTEZOMIB SC SCH (10:45)
[2017-05-20 10:56] VITALS: BP 100/58; TEMP 99.9
[2017-05-20] MEDS ORDERED: Sodium Chloride 0.9% 40 ML ONE (11:14)
[2017-05-20 11:33] LABS: ALT (SGPT) 20 U/L (8-55); AST (SGOT) 18 U/L (5-34); Albumin 3.6 g/dL (3.5-5.0); Alkaline Phosphatase 199 U/L (40-150); Anion Gap 12 mmol/L (10-20); BUN (Urea Nitrogen) 30 mg/dL (8.4-25.7); Bilirubin, Total 0.7 mg/dL (0.2-1.2); Calc. Creatinine Clearance 19 mL/min (70-130); Calcium 8.1 mg/dL (7.8-10.44); Carbon Dioxide 31 mmol/L (22-29); Chloride 95 mmol/L (98-107); Estimated GFR-MDRD 16; Globulin 1.9 g/dL (2.4-3.5); Glucose 134 mg/dL (70-105); Potassium 3.6 mmol/L (3.5-5.1); Protein, Total 5.5 g/dL (6.0-8.3); Sodium 134 mmol/L (136-145)
== END 2017-05-20 13:12 | disposition home or self-care (01) ==
LOC: ONC/OP 10:07
PROVIDERS: ATTEND Internal Medicine Hematology & Oncology
DX: Z51.11 Encounter for antineoplastic chemotherapy (principal); C90.00 Multiple myeloma not having achieved remission; E11.22 Type 2 diabetes mellitus with diabetic chronic kidney disease; I12.0 Hypertensive chronic kidney disease with stage 5 chronic kidney disease or end stage renal disease; N18.6 End stage renal disease; I25.10 Atherosclerotic heart disease of native coronary artery without angina pectoris; I25.2 Old myocardial infarction; Z79.4 Long term (current) use of insulin; Z79.899 Other long term (current) drug therapy; Z95.828 Presence of other vascular implants and grafts; Z98.890 Other specified postprocedural states
CPT/HCPCS: 80053; 96367; 96401; 96413; A4216; J1100; J1642; J2405; J7050; J9041; J9070

== ENCOUNTER 2017-05-27 11:29 | Day surgery (SDC) | payer OTHER ==
[2017-05-27] MEDS ORDERED: SODIUM CHLORIDE 0.9% IVPB SCH ×2 (12:00→12:15)
[2017-05-27] MEDS ORDERED: Ondansetron HCl/PF 4 MG/2 ML Vial SLOW IVP SCH (12:00)
[2017-05-27] MEDS ORDERED: Dexamethasone 40 MG in Sodium Chloride 0.9% 50 ML IVPB SCH (12:00)
[2017-05-27] MEDS ORDERED: valACYclovir 500 MG TAB PO SCH (12:00)
[2017-05-27] MEDS ORDERED: Bortezomib 3.5 MG SDV VIAL IVP SCH (12:00)
[2017-05-27] MEDS ORDERED: CYCLOPHOSPHAMIDE IVPB SCH ×2 (12:00→12:15)
[2017-05-27] MEDS ORDERED: Dexamethasone 40 MG, Ondansetron 2MG/ML MDV 10 MG in Sodium Chloride 0.9% 50 ML IVPB SCH (12:15)
[2017-05-27] MEDS ORDERED: PRE FILLED SC SCH (12:15)
[2017-05-27] MEDS ORDERED: BORTEZOMIB SC SCH (12:15)
[2017-05-27] MEDS ORDERED: Sodium Chloride 0.9% 20 ML ONE (12:55)
[2017-05-27 14:30] VITALS: BP 127/65
== END 2017-05-27 14:31 | disposition home or self-care (01) ==
LOC: ONC/OP 11:29
PROVIDERS: ATTEND Internal Medicine Hematology & Oncology
DX: Z51.11 Encounter for antineoplastic chemotherapy (principal); C90.00 Multiple myeloma not having achieved remission; I25.10 Atherosclerotic heart disease of native coronary artery without angina pectoris; E11.22 Type 2 diabetes mellitus with diabetic chronic kidney disease; I12.0 Hypertensive chronic kidney disease with stage 5 chronic kidney disease or end stage renal disease; N18.6 End stage renal disease; R16.1 Splenomegaly, not elsewhere classified; I25.2 Old myocardial infarction; D69.6 Thrombocytopenia, unspecified; Z79.4 Long term (current) use of insulin; Z79.899 Other long term (current) drug therapy
CPT/HCPCS: 96367; 96401; 96413; A4216; J1100; J1642; J2405; J7050; J9041; J9070

== ENCOUNTER 2017-06-03 10:40 | Day surgery (SDC) | payer OTHER, SELFPAY ==
[2017-06-03] MEDS ORDERED: Sodium Chloride 0.9% 40 ML ONE (11:47)
[2017-06-03 11:48] VITALS: BP 120/59; TEMP 97.7
[2017-06-03] MEDS ORDERED: ADMIXTURE FEE IVPB SCH ×2 (12:30)
[2017-06-03] MEDS ORDERED: ADMIXTURE FEE SC SCH (12:30)
[2017-06-03] MEDS ORDERED: ONDANSETRON IVPB SCH (12:30)
[2017-06-03] MEDS ORDERED: [UNRECOGNIZED DRUG - OTHER] IVPB SCH (12:30)
[2017-06-03] MEDS ORDERED: SODIUM CHLORIDE IVPB SCH (12:30)
[2017-06-03] MEDS ORDERED: DEXAMETHASONE IVPB SCH (12:30)
[2017-06-03] MEDS ORDERED: CYCLOPHOSPHAMIDE IVPB SCH (12:30)
[2017-06-03] MEDS ORDERED: BORTEZOMIB SC SCH (12:30)
== END 2017-06-03 14:50 | disposition home or self-care (01) ==
LOC: ONC/OP 10:40
PROVIDERS: ATTEND Internal Medicine Hematology & Oncology
DX: I12.0 Hypertensive chronic kidney disease with stage 5 chronic kidney disease or end stage renal disease; I25.2 Old myocardial infarction; Z79.899 Other long term (current) drug therapy; E11.22 Type 2 diabetes mellitus with diabetic chronic kidney disease; Z79.4 Long term (current) use of insulin; Z51.11 Encounter for antineoplastic chemotherapy; N18.6 End stage renal disease; C90.00 Multiple myeloma not having achieved remission; I25.10 Atherosclerotic heart disease of native coronary artery without angina pectoris
CPT/HCPCS: 96367; 96401; 96413; A4216; J1100; J1642; J2405; J7050; J9041; J9070

== ENCOUNTER 2017-06-10 09:55 | Day surgery (SDC) | payer OTHER, SELFPAY ==
[2017-06-10] MEDS ORDERED: Sodium Chloride 0.9% 20 ML ONE (10:26)
[2017-06-10] MEDS ORDERED: [UNRECOGNIZED DRUG - OTHER] IVPB SCH (12:00)
[2017-06-10] MEDS ORDERED: DEXAMETHASONE IVPB SCH (12:00)
[2017-06-10] MEDS ORDERED: ADMIXTURE FEE IVPB SCH ×2 (12:00→12:30)
[2017-06-10] MEDS ORDERED: ONDANSETRON IVPB SCH (12:00)
[2017-06-10] MEDS ORDERED: ADMIXTURE FEE SC SCH (12:30)
[2017-06-10] MEDS ORDERED: CYCLOPHOSPHAMIDE IVPB SCH (12:30)
[2017-06-10] MEDS ORDERED: BORTEZOMIB SC SCH (12:30)
[2017-06-10] MEDS ORDERED: SODIUM CHLORIDE IVPB SCH (12:30)
== END 2017-06-10 14:09 | disposition home or self-care (01) ==
LOC: ONC/OP 09:55
PROVIDERS: ATTEND Internal Medicine Hematology & Oncology
DX: Z51.11 Encounter for antineoplastic chemotherapy (principal); C90.00 Multiple myeloma not having achieved remission; I25.10 Atherosclerotic heart disease of native coronary artery without angina pectoris; I25.2 Old myocardial infarction; E11.22 Type 2 diabetes mellitus with diabetic chronic kidney disease; I12.0 Hypertensive chronic kidney disease with stage 5 chronic kidney disease or end stage renal disease; N18.6 End stage renal disease; Z79.4 Long term (current) use of insulin; Z79.899 Other long term (current) drug therapy
CPT/HCPCS: 96367; 96401; 96413; A4216; J1100; J1642; J2405; J7050; J9041; J9070

== ENCOUNTER 2017-06-17 10:02 | Day surgery (SDC) | payer SELFPAY ==
[2017-06-17 10:30] VITALS: BP 158/73; TEMP 97.6
[2017-06-17] MEDS ORDERED: Dexamethasone 40 MG, Ondansetron 2MG/ML MDV 10 MG in Sodium Chloride 0.9% 50 ML IVPB SCH (10:30)
[2017-06-17] MEDS ORDERED: ADMIXTURE FEE SC SCH (10:30)
[2017-06-17] MEDS ORDERED: BORTEZOMIB SC SCH (10:30)
[2017-06-17] MEDS ORDERED: valACYclovir 500 MG TAB PO SCH ×2 (10:45)
[2017-06-17] MEDS ORDERED: CYCLOPHOSPHAMIDE IVPB SCH (10:45)
[2017-06-17] MEDS ORDERED: SODIUM CHLORIDE 0.9% IVPB SCH (10:45)
[2017-06-17] MEDS ORDERED: Sodium Chloride 0.9% 30 ML ONE (11:47)
== END 2017-06-17 16:49 | disposition home or self-care (01) ==
LOC: ONC/OP 10:02
PROVIDERS: ATTEND Internal Medicine Hematology & Oncology
DX: Z51.11 Encounter for antineoplastic chemotherapy (principal); C90.00 Multiple myeloma not having achieved remission; D61.818 Other pancytopenia; I25.2 Old myocardial infarction; I25.10 Atherosclerotic heart disease of native coronary artery without angina pectoris; E11.22 Type 2 diabetes mellitus with diabetic chronic kidney disease; I12.0 Hypertensive chronic kidney disease with stage 5 chronic kidney disease or end stage renal disease; N18.6 End stage renal disease; R76.11 Nonspecific reaction to tuberculin skin test without active tuberculosis; Z79.4 Long term (current) use of insulin; Z79.899 Other long term (current) drug therapy; Z99.2 Dependence on renal dialysis
CPT/HCPCS: 96367; 96401; 96413; A4216; J1100; J1642; J2405; J7050; J9041; J9070

== ENCOUNTER 2017-06-24 14:30 | Day surgery (SDC) | payer OTHER, SELFPAY ==
[2017-06-24] MEDS ORDERED: Sodium Chloride 0.9% 30 ML ONE (15:30)
[2017-06-24] MEDS ORDERED: Dexamethasone 40 MG, Ondansetron 2MG/ML MDV 10 MG in Sodium Chloride 0.9% 50 ML IVPB SCH (15:30)
[2017-06-24] MEDS ORDERED: BORTEZOMIB SC SCH (15:45)
[2017-06-24] MEDS ORDERED: ADMIXTURE FEE SC SCH (15:45)
[2017-06-24] MEDS ORDERED: CYCLOPHOSPHAMIDE IVPB SCH (16:00)
[2017-06-24] MEDS ORDERED: SODIUM CHLORIDE 0.9% IVPB SCH (16:00)
[2017-06-24 19:38] VITALS: BP 158/78; TEMP 97.8
== END 2017-06-24 19:40 | disposition home or self-care (01) ==
LOC: ONC/OP 14:30
PROVIDERS: ATTEND Internal Medicine Medical Oncology
DX: Z51.11 Encounter for antineoplastic chemotherapy (principal); C90.00 Multiple myeloma not having achieved remission; I25.2 Old myocardial infarction; I25.10 Atherosclerotic heart disease of native coronary artery without angina pectoris; E11.22 Type 2 diabetes mellitus with diabetic chronic kidney disease; I12.0 Hypertensive chronic kidney disease with stage 5 chronic kidney disease or end stage renal disease; N18.6 End stage renal disease; R76.11 Nonspecific reaction to tuberculin skin test without active tuberculosis; Z99.2 Dependence on renal dialysis; Z79.4 Long term (current) use of insulin; Z79.899 Other long term (current) drug therapy; Z95.828 Presence of other vascular implants and grafts
CPT/HCPCS: 96375; 96401; 96413; A4216; J1100; J1642; J2405; J7050; J9041; J9070

== ENCOUNTER 2017-07-01 10:09 | Day surgery (SDC) | payer OTHER, SELFPAY ==
[2017-07-01 10:29] VITALS: BP 159/77; TEMP 97.4
[2017-07-01] MEDS ORDERED: ADMIXTURE FEE IVPB SCH ×2 (10:30→10:45)
[2017-07-01] MEDS ORDERED: ONDANSETRON IVPB SCH (10:30)
[2017-07-01] MEDS ORDERED: [UNRECOGNIZED DRUG - OTHER] IVPB SCH (10:30)
[2017-07-01] MEDS ORDERED: DEXAMETHASONE IVPB SCH (10:30)
[2017-07-01] MEDS ORDERED: Ondansetron HCl/PF 4 MG/2 ML Vial IVP SCH (10:30)
[2017-07-01] MEDS ORDERED: CYCLOPHOSPHAMIDE IVPB SCH (10:45)
[2017-07-01] MEDS ORDERED: BORTEZOMIB SC SCH (10:45)
[2017-07-01] MEDS ORDERED: ADMIXTURE FEE SC SCH (10:45)
[2017-07-01] MEDS ORDERED: SODIUM CHLORIDE IVPB SCH (10:45)
== END 2017-07-01 13:20 | disposition home or self-care (01) ==
LOC: ONC/OP 10:09
PROVIDERS: ATTEND Internal Medicine Hematology & Oncology
DX: Z51.11 Encounter for antineoplastic chemotherapy (principal); C90.00 Multiple myeloma not having achieved remission; I25.2 Old myocardial infarction; I25.10 Atherosclerotic heart disease of native coronary artery without angina pectoris; E11.22 Type 2 diabetes mellitus with diabetic chronic kidney disease; I12.0 Hypertensive chronic kidney disease with stage 5 chronic kidney disease or end stage renal disease; N18.6 End stage renal disease; R76.11 Nonspecific reaction to tuberculin skin test without active tuberculosis; Z99.2 Dependence on renal dialysis; Z79.4 Long term (current) use of insulin; Z79.899 Other long term (current) drug therapy; Z95.828 Presence of other vascular implants and grafts
CPT/HCPCS: 96367; 96401; 96413; J1100; J2405; J7050; J9041; J9070

== ENCOUNTER 2017-07-08 10:09 | Day surgery (SDC) | payer OTHER ==
[2017-07-08] MEDS ORDERED: Sodium Chloride 0.9% 40 ML ONE (10:28)
[2017-07-08] MEDS ORDERED: valACYclovir 500 MG TAB PO SCH (10:30)
[2017-07-08] MEDS ORDERED: Dexamethasone 40 MG, Ondansetron 2MG/ML MDV 10 MG in Sodium Chloride 0.9% 50 ML IVPB SCH (10:30)
[2017-07-08] MEDS ORDERED: SODIUM CHLORIDE 0.9% IVPB SCH ×2 (10:30→10:45)
[2017-07-08] MEDS ORDERED: CYCLOPHOSPHAMIDE IVPB SCH ×2 (10:30→10:45)
[2017-07-08] MEDS ORDERED: SODIUM CHLORIDE 0.9% IVP SCH (10:30)
[2017-07-08] MEDS ORDERED: BORTEZOMIB IVP SCH (10:30)
[2017-07-08] MEDS ORDERED: BORTEZOMIB SC SCH (10:45)
[2017-07-08] MEDS ORDERED: PRE FILLED SC SCH (10:45)
[2017-07-08 12:47] VITALS: BP 148/79; TEMP 97.8
[2017-07-09] MEDS ORDERED: valACYclovir 500 MG TAB PO SCH (09:00)
== END 2017-07-08 12:48 | disposition home or self-care (01) ==
LOC: ONC/OP 10:09
PROVIDERS: ATTEND Internal Medicine Hematology & Oncology
DX: Z51.11 Encounter for antineoplastic chemotherapy (principal); C90.00 Multiple myeloma not having achieved remission; I12.0 Hypertensive chronic kidney disease with stage 5 chronic kidney disease or end stage renal disease; E11.22 Type 2 diabetes mellitus with diabetic chronic kidney disease; N18.6 End stage renal disease; I25.2 Old myocardial infarction; I25.10 Atherosclerotic heart disease of native coronary artery without angina pectoris; Z79.4 Long term (current) use of insulin; Z79.899 Other long term (current) drug therapy; Z99.2 Dependence on renal dialysis; Z95.1 Presence of aortocoronary bypass graft; Z98.890 Other specified postprocedural states
CPT/HCPCS: 96367; 96402; 96413; A4216; J1100; J1642; J2405; J7050; J9041; J9070

== ENCOUNTER 2017-07-15 10:05 | Day surgery (SDC) | payer OTHER ==
[2017-07-15] MEDS ORDERED: Sodium Chloride 0.9% 30 ML ONE (10:23)
[2017-07-15] MEDS ORDERED: DEXAMETHASONE IVPB SCH (10:30)
[2017-07-15] MEDS ORDERED: [UNRECOGNIZED DRUG - OTHER] IVPB SCH (10:30)
[2017-07-15] MEDS ORDERED: ADMIXTURE FEE SC SCH (10:30)
[2017-07-15] MEDS ORDERED: BORTEZOMIB SC SCH (10:30)
[2017-07-15] MEDS ORDERED: SODIUM CHLORIDE IVPB SCH (10:30)
[2017-07-15] MEDS ORDERED: CYCLOPHOSPHAMIDE IVPB SCH (10:30)
[2017-07-15] MEDS ORDERED: ONDANSETRON IVPB SCH (10:30)
[2017-07-15] MEDS ORDERED: ADMIXTURE FEE IVPB SCH ×2 (10:30)
[2017-07-15 10:52] VITALS: BP 179/81; TEMP 97.7
== END 2017-07-15 12:20 | disposition home or self-care (01) ==
LOC: ONC/OP 10:05
PROVIDERS: ATTEND Internal Medicine Hematology & Oncology
DX: Z51.11 Encounter for antineoplastic chemotherapy (principal); C90.00 Multiple myeloma not having achieved remission; D61.818 Other pancytopenia; E11.22 Type 2 diabetes mellitus with diabetic chronic kidney disease; I12.0 Hypertensive chronic kidney disease with stage 5 chronic kidney disease or end stage renal disease; N18.6 End stage renal disease; I25.2 Old myocardial infarction; I25.10 Atherosclerotic heart disease of native coronary artery without angina pectoris; Z95.5 Presence of coronary angioplasty implant and graft; Z95.1 Presence of aortocoronary bypass graft; Z79.4 Long term (current) use of insulin; Z79.899 Other long term (current) drug therapy
CPT/HCPCS: 96367; 96401; 96413; A4216; J1100; J1642; J2405; J7050; J9041; J9070

== ENCOUNTER 2017-07-29 10:21 | Day surgery (SDC) | payer OTHER ==
[2017-07-29] MEDS ORDERED: Dexamethasone 40 MG, Ondansetron 2MG/ML MDV 10 MG in Sodium Chloride 0.9% 50 ML IVPB SCH (10:45)
[2017-07-29] MEDS ORDERED: ADMIXTURE FEE SC SCH (10:45)
[2017-07-29] MEDS ORDERED: BORTEZOMIB SC SCH (10:45)
[2017-07-29] MEDS ORDERED: CYCLOPHOSPHAMIDE IVPB SCH (11:00)
[2017-07-29] MEDS ORDERED: SODIUM CHLORIDE 0.9% IVPB SCH (11:00)
[2017-07-29 12:10] VITALS: BP 157/81; TEMP 98.2
== END 2017-07-29 13:11 | disposition home or self-care (01) ==
LOC: ONC/OP 10:21
PROVIDERS: ATTEND Internal Medicine Hematology & Oncology
DX: Z51.11 Encounter for antineoplastic chemotherapy (principal); C90.00 Multiple myeloma not having achieved remission; I25.2 Old myocardial infarction; I25.10 Atherosclerotic heart disease of native coronary artery without angina pectoris; I12.0 Hypertensive chronic kidney disease with stage 5 chronic kidney disease or end stage renal disease; E11.22 Type 2 diabetes mellitus with diabetic chronic kidney disease; N18.6 End stage renal disease; Z79.4 Long term (current) use of insulin; Z79.899 Other long term (current) drug therapy
CPT/HCPCS: 96367; 96401; 96413; J1100; J2405; J7050; J9041; J9070

== ENCOUNTER 2017-08-05 09:10 | Day surgery (SDC) | payer OTHER, SELFPAY ==
[2017-08-05] MEDS ORDERED: Sodium Chloride 0.9% 30 ML ONE (09:28)
[2017-08-05] MEDS ORDERED: Bortezomib 3.5 MG SDV VIAL SC SCH (09:30)
[2017-08-05] MEDS ORDERED: Dexamethasone 40 MG, Ondansetron 2MG/ML MDV 10 MG in Sodium Chloride 0.9% 50 ML SLOW IVP SCH (09:30)
[2017-08-05] MEDS ORDERED: CYCLOPHOSPHAMIDE IVPB SCH ×3 (09:30→10:00)
[2017-08-05] MEDS ORDERED: SODIUM CHLORIDE 0.9% IVPB SCH ×3 (09:30→10:00)
[2017-08-05] MEDS ORDERED: BORTEZOMIB SC SCH (09:45)
[2017-08-05] MEDS ORDERED: PRE FILLED SC SCH (09:45)
[2017-08-05 10:36] VITALS: BP 180/84
[2017-08-06] MEDS ORDERED: valACYclovir 500 MG TAB PO SCH (09:00)
== END 2017-08-05 12:07 | disposition home or self-care (01) ==
LOC: ONC/OP 09:10
PROVIDERS: ATTEND Internal Medicine Hematology & Oncology
DX: Z51.11 Encounter for antineoplastic chemotherapy (principal); C90.00 Multiple myeloma not having achieved remission; I25.10 Atherosclerotic heart disease of native coronary artery without angina pectoris; I12.0 Hypertensive chronic kidney disease with stage 5 chronic kidney disease or end stage renal disease; E11.22 Type 2 diabetes mellitus with diabetic chronic kidney disease; N18.6 End stage renal disease; I25.2 Old myocardial infarction; Z79.899 Other long term (current) drug therapy
CPT/HCPCS: 96375; 96401; 96413; A4216; J1100; J1642; J2405; J7050; J9041; J9070

== ENCOUNTER 2017-08-12 09:42 | Day surgery (SDC) | payer OTHER, SELFPAY ==
[2017-08-12] MEDS ORDERED: Sodium Chloride 0.9% 40 ML ONE (09:55)
[2017-08-12] MEDS ORDERED: CYCLOPHOSPHAMIDE IVPB SCH (10:00)
[2017-08-12] MEDS ORDERED: BORTEZOMIB SC SCH (10:00)
[2017-08-12] MEDS ORDERED: Dexamethasone 40 MG, Ondansetron 2MG/ML MDV 10 MG in Sodium Chloride 0.9% 50 ML IVPB SCH (10:00)
[2017-08-12] MEDS ORDERED: SODIUM CHLORIDE 0.9% IVPB SCH (10:00)
[2017-08-12] MEDS ORDERED: ADMIXTURE FEE SC SCH (10:00)
[2017-08-12 10:30] VITALS: BP 178/86; TEMP 97.6
== END 2017-08-12 16:56 | disposition home or self-care (01) ==
LOC: ONC/OP 09:42
PROVIDERS: ATTEND Internal Medicine Hematology & Oncology
DX: Z51.11 Encounter for antineoplastic chemotherapy (principal); C90.00 Multiple myeloma not having achieved remission; I12.0 Hypertensive chronic kidney disease with stage 5 chronic kidney disease or end stage renal disease; E11.22 Type 2 diabetes mellitus with diabetic chronic kidney disease; N18.6 End stage renal disease; I25.2 Old myocardial infarction; I25.10 Atherosclerotic heart disease of native coronary artery without angina pectoris; Z79.4 Long term (current) use of insulin; Z79.899 Other long term (current) drug therapy
CPT/HCPCS: 96401; 96413; A4216; J1100; J1642; J2405; J7050; J9041; J9070

== ENCOUNTER 2017-08-19 09:18 | Outpatient (CLI) | payer OTHER ==
--- NOTE | 2017-08-19 10:25 | RAD ---
CHEST PA AND LATERAL: HISTORY: A 62-year-old male with a history of IGRA positive, LTVI positive TB test. COMPARISON: 05/08/17. FINDINGS: Postop midline sternotomy. Right dual-lumen venous access catheter. Left subclavian catheter with i njection port. Minimal increased linear and interstitial markings are noted, particularly in the low er lung zones with resolution of the bilateral pleural effusions. No new confluent process. No acut e pleural effusion. IMPRESSION: No significant acute process. Resolution of the bilateral pleural effusions. POS: C
== END 2017-08-19 09:19 | disposition home or self-care (01) ==
LOC: RAD 09:18
PROVIDERS: ATTEND Internal Medicine Hematology & Oncology
DX: R76.12 Nonspecific reaction to cell mediated immunity measurement of gamma interferon antigen response without active tuberculosis (principal); J90 Pleural effusion, not elsewhere classified
CPT/HCPCS: 71046

== ENCOUNTER 2017-08-26 09:57 | Day surgery (SDC) | payer OTHER, SELFPAY ==
[~2017-08-26 09:57] MED LIST: valACYclovir 500 MG TAB PO SCH
[2017-08-26] MEDS ORDERED: Sodium Chloride 0.9% 20 ML ONE (10:17)
[2017-08-26] MEDS ORDERED: BORTEZOMIB IVP SCH (10:30)
[2017-08-26] MEDS ORDERED: Dexamethasone 40 MG, Ondansetron 2MG/ML MDV 10 MG in Sodium Chloride 0.9% 50 ML IVPB SCH (10:30)
[2017-08-26] MEDS ORDERED: PRE FILLED IVP SCH (10:30)
[2017-08-26] MEDS ORDERED: SODIUM CHLORIDE 0.9% IVPB SCH ×2 (10:30→10:45)
[2017-08-26] MEDS ORDERED: CYCLOPHOSPHAMIDE IVPB SCH ×2 (10:30→10:45)
[2017-08-26] MEDS ORDERED: PRE FILLED SC SCH (10:45)
[2017-08-26] MEDS ORDERED: BORTEZOMIB SC SCH (10:45)
[2017-08-26 12:07] VITALS: BP 171/81; TEMP 98.1
== END 2017-08-26 15:28 | disposition home or self-care (01) ==
LOC: ONC/OP 09:57
PROVIDERS: ATTEND Internal Medicine Hematology & Oncology
DX: Z51.11 Encounter for antineoplastic chemotherapy (principal); C90.00 Multiple myeloma not having achieved remission; E11.22 Type 2 diabetes mellitus with diabetic chronic kidney disease; I12.0 Hypertensive chronic kidney disease with stage 5 chronic kidney disease or end stage renal disease; N18.6 End stage renal disease; I25.10 Atherosclerotic heart disease of native coronary artery without angina pectoris; I25.2 Old myocardial infarction; Z95.5 Presence of coronary angioplasty implant and graft; Z79.899 Other long term (current) drug therapy
CPT/HCPCS: 96401; 96413; A4216; J1100; J1642; J2405; J7050; J9041; J9070

== ENCOUNTER 2017-09-02 09:46 | Day surgery (SDC) | payer MEDICARE, MEDICAID ==
[2017-09-02] MEDS ORDERED: Sodium Chloride 0.9% 30 ML ONE (10:11)
[2017-09-02] MEDS ORDERED: BORTEZOMIB SC SCH (10:15)
[2017-09-02] MEDS ORDERED: SODIUM CHLORIDE 0.9% IVPB SCH (10:15)
[2017-09-02] MEDS ORDERED: CYCLOPHOSPHAMIDE IVPB SCH (10:15)
[2017-09-02] MEDS ORDERED: Dexamethasone 40 MG, Ondansetron 2MG/ML MDV 10 MG in Sodium Chloride 0.9% 50 ML IVPB SCH (10:15)
[2017-09-02] MEDS ORDERED: ADMIXTURE FEE SC SCH (10:15)
== END 2017-09-02 11:40 | disposition home or self-care (01) ==
LOC: ONC/OP 09:46
PROVIDERS: ATTEND Internal Medicine Hematology & Oncology
DX: Z51.11 Encounter for antineoplastic chemotherapy (principal); C90.00 Multiple myeloma not having achieved remission; E11.22 Type 2 diabetes mellitus with diabetic chronic kidney disease; I12.0 Hypertensive chronic kidney disease with stage 5 chronic kidney disease or end stage renal disease; N18.6 End stage renal disease; I25.2 Old myocardial infarction; Z79.4 Long term (current) use of insulin; Z79.899 Other long term (current) drug therapy
CPT/HCPCS: 96366; 96401; 96413; A4216; J1100; J1642; J2405; J7050; J9041; J9070

== ENCOUNTER 2017-09-09 12:52 | Day surgery (SDC) | payer MEDICARE, MEDICAID ==
[2017-09-09] MEDS ORDERED: Sodium Chloride 0.9% 20 ML ONE (13:13)
[2017-09-09] MEDS ORDERED: Dexamethasone 40 MG, Ondansetron 2MG/ML MDV 10 MG in Sodium Chloride 0.9% 50 ML IVPB SCH (13:30)
[2017-09-09] MEDS ORDERED: BORTEZOMIB SC SCH (13:30)
[2017-09-09] MEDS ORDERED: ADMIXTURE FEE SC SCH (13:30)
[2017-09-09] MEDS ORDERED: SODIUM CHLORIDE 0.9% IVPB SCH (13:30)
[2017-09-09] MEDS ORDERED: CYCLOPHOSPHAMIDE IVPB SCH (13:30)
[2017-09-09 13:36] VITALS: BP 158/82; TEMP 97.6
== END 2017-09-09 15:34 | disposition home or self-care (01) ==
LOC: ONC/OP 12:52
PROVIDERS: ATTEND Internal Medicine Hematology & Oncology
DX: Z51.11 Encounter for antineoplastic chemotherapy (principal); C90.00 Multiple myeloma not having achieved remission
CPT/HCPCS: 96401; 96413; A4216; J1100; J1642; J2405; J7050; J9041; J9070

== ENCOUNTER 2017-09-16 10:26 | Day surgery (SDC) | payer MEDICARE, MEDICAID ==
[~2017-09-16 10:26] MED LIST changes: +Darbepoetin Alfa in Polysorbat 25 MCG/ML VIAL SC SCH; -valACYclovir 500 MG TAB PO SCH
[2017-09-16] MEDS ORDERED: Dexamethasone 40 MG, Ondansetron 2MG/ML MDV 10 MG in Sodium Chloride 0.9% 50 ML IVPB SCH (11:15)
[2017-09-16] MEDS ORDERED: ADMIXTURE FEE SC SCH (11:45)
[2017-09-16] MEDS ORDERED: SODIUM CHLORIDE 0.9% IVPB SCH (11:45)
[2017-09-16] MEDS ORDERED: CYCLOPHOSPHAMIDE IVPB SCH (11:45)
[2017-09-16] MEDS ORDERED: BORTEZOMIB SC SCH (11:45)
[2017-09-16] MEDS ORDERED: Sodium Chloride 0.9% 20 ML ONE (12:32)
[2017-09-16 13:39] VITALS: BP 132/72; TEMP 98.6
== END 2017-09-16 12:25 | disposition home or self-care (01) ==
LOC: ONC/OP 10:26
PROVIDERS: ATTEND Internal Medicine Hematology & Oncology
DX: Z51.11 Encounter for antineoplastic chemotherapy (principal); C90.00 Multiple myeloma not having achieved remission
CPT/HCPCS: 96366; 96401; 96413; A4216; J0881; J1100; J1642; J2405; J7050; J9041; J9070

== ENCOUNTER → 2017-11-04 | Day surgery (SDC) | payer MEDICARE, MEDICAID ==
[~2017-11-04] MED LIST changes: +Acetaminophen 500 MG TAB PO SCH; +DARATUMUMAB IV SCH; +DIPHENHYDRAMINE IVPB SCH; -Darbepoetin Alfa in Polysorbat 25 MCG/ML VIAL SC SCH; +Dexamethasone 40 MG in Sodium Chloride 0.9% 50 ML IVPB SCH; +Ondansetron HCl/PF 10 MG in Sodium Chloride 0.9% 50 ML IVPB PRN; +Prevnar 13-Val Conj/PF 0.5 ML SYRINGE IM ONE; +SODIUM CHLORIDE 0.9% IV SCH; +SODIUM CHLORIDE 0.9% IVPB SCH; +Sodium Chloride 0.9% 20 ML ONE; +diphenhydrAMINE 25 MG in Sodium Chloride 0.9% 50 ML IVPB SCH
--- NOTE | 2017-11-04 15:09 | RAD ---
CHEST PA AND LATERAL TWO VIEWS: History: 62-year-old male with TB, infection. Follow up. Comparison: 08-19-17 FINDINGS: Left subclavian catheter. Post underlying sternotomy. Heart size is within normal limits. No confluen t pneumonia, overt edema, or pleural effusion. IMPRESSION: No significant acute intrathoracic disease. No evidence for active TB. Left subclavian catheter and i njection port. Atherosclerosis of the aorta. POS: FAUSTINA
[2017-11-05 03:55] VITALS: BP 177/79; TEMP 99
== END ==
LOC: ONC/OP 11:13
PROVIDERS: ATTEND Internal Medicine Hematology & Oncology
DX: Z51.11 Encounter for antineoplastic chemotherapy (principal); C90.00 Multiple myeloma not having achieved remission
CPT/HCPCS: 36415; 71046; 80053; 82248; 83615; 84100; 84550; 86850; 86880; 86900; 86901; 86905; 96375; 96413; 96415; 99212; A4216; G0463; J1100; J1200; J1642; J2405; J7050; J9145

== ENCOUNTER 2017-11-11 09:32 | Day surgery (SDC) | payer MEDICARE, MEDICAID ==
[2017-11-11] MEDS ORDERED: SODIUM CHLORIDE IVPB SCH (09:45)
[2017-11-11] MEDS ORDERED: DEXAMETHASONE IVPB SCH (09:45)
[2017-11-11] MEDS ORDERED: Acetaminophen 500 MG TAB PO SCH (09:45)
[2017-11-11] MEDS ORDERED: ADMIXTURE FEE IVPB SCH (09:45)
[2017-11-11] MEDS ORDERED: diphenhydrAMINE 25 MG, Admixture Fee 1 EACH in Sodium Chloride 0.9% 50 ML IVPB SCH (09:45)
[2017-11-11] MEDS ORDERED: Sodium Chloride 0.9% 20 ML ONE (09:54)
[2017-11-11] MEDS ORDERED: DARATUMUMAB IV SCH ×2 (10:00)
[2017-11-11] MEDS ORDERED: SODIUM CHLORIDE 0.9% IV SCH ×2 (10:00)
[2017-11-11 12:14] VITALS: TEMP 97.7
[2017-11-11 16:38] VITALS: BP 200/91
== END 2017-11-11 16:39 | disposition home or self-care (01) ==
LOC: ONC/OP 09:32
PROVIDERS: ATTEND Internal Medicine Hematology & Oncology
DX: C90.00 Multiple myeloma not having achieved remission (principal); I25.2 Old myocardial infarction; I25.10 Atherosclerotic heart disease of native coronary artery without angina pectoris; I12.0 Hypertensive chronic kidney disease with stage 5 chronic kidney disease or end stage renal disease; E11.22 Type 2 diabetes mellitus with diabetic chronic kidney disease; N18.6 End stage renal disease; Z86.11 Personal history of tuberculosis; Z95.1 Presence of aortocoronary bypass graft; Z95.5 Presence of coronary angioplasty implant and graft; Z79.4 Long term (current) use of insulin; Z79.899 Other long term (current) drug therapy; Z99.2 Dependence on renal dialysis
CPT/HCPCS: 96367; 96413; 96415; A4216; J1100; J1200; J1642; J7050; J9145

== ENCOUNTER 2017-11-18 09:47 | Day surgery (SDC) | payer MEDICARE, MEDICAID ==
[2017-11-18] MEDS ORDERED: Acetaminophen 500 MG TAB PO SCH (10:00)
[2017-11-18] MEDS ORDERED: diphenhydrAMINE 50 MG in Sodium Chloride 0.9% 50 ML IVPB SCH (10:00)
[2017-11-18] MEDS ORDERED: Dexamethasone 40 MG in Sodium Chloride 0.9% 50 ML IVPB SCH (10:00)
[2017-11-18] MEDS ORDERED: diphenhydrAMINE 25 MG in Sodium Chloride 0.9% 50 ML IVPB SCH (10:45)
[2017-11-18] MEDS ORDERED: DARATUMUMAB IV SCH ×2 (11:00)
[2017-11-18] MEDS ORDERED: SODIUM CHLORIDE 0.9% IV SCH ×2 (11:00)
[2017-11-18 18:28] VITALS: TEMP 98
[2017-11-18 18:36] VITALS: BP 171/81
== END 2017-11-18 18:36 | disposition home or self-care (01) ==
LOC: ONC/OP 09:47
PROVIDERS: ATTEND Internal Medicine Hematology & Oncology
DX: Z51.11 Encounter for antineoplastic chemotherapy (principal); C90.00 Multiple myeloma not having achieved remission; I25.2 Old myocardial infarction; I25.10 Atherosclerotic heart disease of native coronary artery without angina pectoris; I12.0 Hypertensive chronic kidney disease with stage 5 chronic kidney disease or end stage renal disease; E11.22 Type 2 diabetes mellitus with diabetic chronic kidney disease; N18.6 End stage renal disease; Z79.4 Long term (current) use of insulin; Z79.899 Other long term (current) drug therapy
CPT/HCPCS: 36415; 80053; 82248; 83615; 84100; 84550; 96367; 96375; 96413; 96415; J1100; J1200; J7050; J9145

== ENCOUNTER → 2017-11-25 | Day surgery (SDC) | payer MEDICARE, MEDICAID ==
[~2017-11-25] MED LIST changes: -DIPHENHYDRAMINE IVPB SCH; +Dexamethasone Sod Phosphate 40 MG in Sodium Chloride 0.9% 50 ML IVPB SCH; -Ondansetron HCl/PF 10 MG in Sodium Chloride 0.9% 50 ML IVPB PRN; -Prevnar 13-Val Conj/PF 0.5 ML SYRINGE IM ONE; -SODIUM CHLORIDE 0.9% IVPB SCH; +cloNIDine 0.1 MG TAB PO PRN; +cloNIDine 0.1 MG TAB PO SCH; -diphenhydrAMINE 25 MG in Sodium Chloride 0.9% 50 ML IVPB SCH; +diphenhydrAMINE 50 MG/ML VIAL IVP SCH
[2017-11-25 12:38] VITALS: BP 198/91; TEMP 98.1
== END ==
LOC: ONC/OP 11:00
PROVIDERS: ATTEND Internal Medicine Hematology & Oncology
DX: Z51.11 Encounter for antineoplastic chemotherapy (principal); C90.00 Multiple myeloma not having achieved remission; I25.2 Old myocardial infarction; I25.10 Atherosclerotic heart disease of native coronary artery without angina pectoris; I12.0 Hypertensive chronic kidney disease with stage 5 chronic kidney disease or end stage renal disease; E11.22 Type 2 diabetes mellitus with diabetic chronic kidney disease; N18.6 End stage renal disease; Z86.11 Personal history of tuberculosis; Z79.4 Long term (current) use of insulin; Z79.899 Other long term (current) drug therapy; Z95.5 Presence of coronary angioplasty implant and graft; Z95.1 Presence of aortocoronary bypass graft; Z99.2 Dependence on renal dialysis
CPT/HCPCS: 36415; 80053; 82248; 83615; 84100; 84550; 96367; 96375; 96413; 96415; A4216; J1100; J1200; J1642; J7050; J9145

== ENCOUNTER → 2017-12-02 | Day surgery (SDC) | payer MEDICARE, MEDICAID ==
[~2017-12-02] MED LIST changes: -Dexamethasone Sod Phosphate 40 MG in Sodium Chloride 0.9% 50 ML IVPB SCH; -cloNIDine 0.1 MG TAB PO PRN; +diphenhydrAMINE 25 MG in Sodium Chloride 0.9% 50 ML IVPB SCH; -diphenhydrAMINE 50 MG/ML VIAL IVP SCH
[2017-12-02 12:51] VITALS: TEMP 97.8
[2017-12-02 17:40] VITALS: BP 174/83
== END ==
LOC: ONC/OP 12:01
PROVIDERS: ATTEND Internal Medicine Hematology & Oncology
DX: Z51.11 Encounter for antineoplastic chemotherapy (principal); C90.00 Multiple myeloma not having achieved remission; I12.0 Hypertensive chronic kidney disease with stage 5 chronic kidney disease or end stage renal disease; E11.22 Type 2 diabetes mellitus with diabetic chronic kidney disease; N18.6 End stage renal disease; I25.2 Old myocardial infarction; I25.10 Atherosclerotic heart disease of native coronary artery without angina pectoris; Z79.4 Long term (current) use of insulin; Z79.899 Other long term (current) drug therapy; Z95.1 Presence of aortocoronary bypass graft; Z95.5 Presence of coronary angioplasty implant and graft; Z99.2 Dependence on renal dialysis
CPT/HCPCS: 96366; 96375; 96413; 96415; A4216; J1100; J1200; J1642; J7050; J9145

== ENCOUNTER 2017-12-09 11:06 | Day surgery (SDC) | payer MEDICARE, MEDICAID ==
[2017-12-09] MEDS ORDERED: Sodium Chloride 0.9% 20 ML ONE (11:15)
[2017-12-09 11:39] VITALS: TEMP 974
[2017-12-09] MEDS ORDERED: Dexamethasone 40 MG in Sodium Chloride 0.9% 50 ML IVPB SCH (11:45)
[2017-12-09] MEDS ORDERED: SODIUM CHLORIDE 0.9% IV SCH ×2 (11:45→12:00)
[2017-12-09] MEDS ORDERED: Acetaminophen 500 MG TAB PO SCH (11:45)
[2017-12-09] MEDS ORDERED: diphenhydrAMINE 25 MG CAP PO SCH (11:45)
[2017-12-09] MEDS ORDERED: DARATUMUMAB IV SCH ×2 (11:45→12:00)
[2017-12-09] MEDS ORDERED: Dexamethasone Sod Phosphate 40 MG in Sodium Chloride 0.9% 50 ML IVPB SCH (12:15)
[2017-12-09 16:15] VITALS: BP 172/92
== END 2017-12-09 17:03 | disposition home or self-care (01) ==
LOC: ONC/OP 11:06
PROVIDERS: ATTEND Internal Medicine Hematology & Oncology
DX: Z51.11 Encounter for antineoplastic chemotherapy (principal); C90.00 Multiple myeloma not having achieved remission; I12.0 Hypertensive chronic kidney disease with stage 5 chronic kidney disease or end stage renal disease; E11.22 Type 2 diabetes mellitus with diabetic chronic kidney disease; N18.6 End stage renal disease; I25.2 Old myocardial infarction; R76.11 Nonspecific reaction to tuberculin skin test without active tuberculosis; Z79.4 Long term (current) use of insulin; Z79.899 Other long term (current) drug therapy; Z99.2 Dependence on renal dialysis; Z95.1 Presence of aortocoronary bypass graft; Z95.5 Presence of coronary angioplasty implant and graft
CPT/HCPCS: 36415; 83883; 96367; 96413; 96415; J1100; J1642; J7050; J9145

== ENCOUNTER 2017-12-16 10:19 | Day surgery (SDC) | payer MEDICARE, MEDICAID ==
[2017-12-16] MEDS ORDERED: Sodium Chloride 0.9% 20 ML ONE (10:22)
[2017-12-16 10:25] VITALS: TEMP 97.2
[2017-12-16] MEDS ORDERED: SODIUM CHLORIDE 0.9% IV SCH ×2 (10:45)
[2017-12-16] MEDS ORDERED: Dexamethasone Sod Phosphate 40 MG in Sodium Chloride 0.9% 50 ML IVPB SCH (10:45)
[2017-12-16] MEDS ORDERED: DARATUMUMAB IV SCH ×2 (10:45)
[2017-12-16] MEDS ORDERED: diphenhydrAMINE 25 MG in Sodium Chloride 0.9% 50 ML IVPB SCH (10:45)
[2017-12-16] MEDS ORDERED: Dexamethasone 40 MG in Sodium Chloride 0.9% 50 ML IVPB SCH (10:45)
[2017-12-16] MEDS ORDERED: Acetaminophen 500 MG TAB PO SCH (10:45)
[2017-12-16 16:32] VITALS: BP 188/84
== END 2017-12-16 16:33 | disposition home or self-care (01) ==
LOC: ONC/OP 10:19
PROVIDERS: ATTEND Internal Medicine Hematology & Oncology
DX: Z51.11 Encounter for antineoplastic chemotherapy (principal); C90.00 Multiple myeloma not having achieved remission; I12.0 Hypertensive chronic kidney disease with stage 5 chronic kidney disease or end stage renal disease; E11.22 Type 2 diabetes mellitus with diabetic chronic kidney disease; N18.6 End stage renal disease; I25.2 Old myocardial infarction; I25.10 Atherosclerotic heart disease of native coronary artery without angina pectoris; Z79.4 Long term (current) use of insulin; Z79.899 Other long term (current) drug therapy; Z95.1 Presence of aortocoronary bypass graft; Z95.5 Presence of coronary angioplasty implant and graft; Z95.828 Presence of other vascular implants and grafts; Z99.2 Dependence on renal dialysis
CPT/HCPCS: 96367; 96375; 96413; 96415; J1100; J1200; J1642; J7050; J9145

== ENCOUNTER 2017-12-23 12:08 | Day surgery (SDC) | payer MEDICARE, MEDICAID ==
[2017-12-23] MEDS ORDERED: Sodium Chloride 0.9% 20 ML ONE (12:17)
[2017-12-23 12:27] VITALS: BP 183/84; TEMP 97.6
[2017-12-23] MEDS ORDERED: SODIUM CHLORIDE 0.9% IV SCH ×2 (12:30→13:00)
[2017-12-23] MEDS ORDERED: DARATUMUMAB IV SCH ×2 (12:30→13:00)
[2017-12-23] MEDS ORDERED: diphenhydrAMINE 25 MG, Admixture Fee 1 EACH in Sodium Chloride 0.9% 50 ML IVPB SCH (12:30)
[2017-12-23] MEDS ORDERED: ADMIXTURE FEE IVPB SCH (12:30)
[2017-12-23] MEDS ORDERED: SODIUM CHLORIDE IVPB SCH (12:30)
[2017-12-23] MEDS ORDERED: DEXAMETHASONE IVPB SCH (12:30)
[2017-12-23] MEDS ORDERED: Acetaminophen 500 MG TAB PO SCH (12:30)
[2017-12-23] MEDS ORDERED: diphenhydrAMINE 25 MG CAP PO SCH (12:45)
== END 2017-12-23 16:43 | disposition home or self-care (01) ==
LOC: ONC/OP 12:08
PROVIDERS: ATTEND Internal Medicine Hematology & Oncology
DX: C90.00 Multiple myeloma not having achieved remission (principal); I12.0 Hypertensive chronic kidney disease with stage 5 chronic kidney disease or end stage renal disease; E11.22 Type 2 diabetes mellitus with diabetic chronic kidney disease; N18.6 End stage renal disease; I25.2 Old myocardial infarction; I25.10 Atherosclerotic heart disease of native coronary artery without angina pectoris; R76.11 Nonspecific reaction to tuberculin skin test without active tuberculosis; Z79.4 Long term (current) use of insulin; Z79.899 Other long term (current) drug therapy; Z95.5 Presence of coronary angioplasty implant and graft; Z95.1 Presence of aortocoronary bypass graft; Z99.2 Dependence on renal dialysis
CPT/HCPCS: 36415; 80053; 82248; 83615; 84100; 84550; 96367; 96413; 96415; J1100; J1200; J1642; J7050; J9145

== ENCOUNTER 2017-12-30 10:32 | Day surgery (SDC) | payer MEDICARE, MEDICAID ==
[2017-12-30] MEDS ORDERED: Sodium Chloride 0.9% 20 ML ONE (10:35)
[2017-12-30 10:47] VITALS: BP 176/89; TEMP 97.6
[2017-12-30] MEDS ORDERED: SODIUM CHLORIDE 0.9% IV SCH (11:00)
[2017-12-30] MEDS ORDERED: Dexamethasone Sod Phosphate 20 MG in Sodium Chloride 0.9% 50 ML IVPB SCH (11:00)
[2017-12-30] MEDS ORDERED: Dexamethasone 10 MG/ML VIAL SLOW IVP SCH (11:00)
[2017-12-30] MEDS ORDERED: DARATUMUMAB IV SCH (11:00)
[2017-12-30] MEDS ORDERED: diphenhydrAMINE 25 MG in Sodium Chloride 0.9% 50 ML IVPB SCH (11:00)
[2017-12-30] MEDS ORDERED: diphenhydrAMINE 50 MG/ML VIAL IVP SCH (11:00)
[2017-12-30] MEDS ORDERED: Acetaminophen 500 MG TAB PO SCH (11:00)
== END 2017-12-30 17:07 | disposition home or self-care (01) ==
LOC: ONC/OP 10:32
PROVIDERS: ATTEND Internal Medicine Hematology & Oncology
DX: Z51.12 Encounter for antineoplastic immunotherapy (principal); C90.00 Multiple myeloma not having achieved remission; I25.2 Old myocardial infarction; I25.10 Atherosclerotic heart disease of native coronary artery without angina pectoris; I12.0 Hypertensive chronic kidney disease with stage 5 chronic kidney disease or end stage renal disease; E11.22 Type 2 diabetes mellitus with diabetic chronic kidney disease; N18.6 End stage renal disease; R76.11 Nonspecific reaction to tuberculin skin test without active tuberculosis; Z79.4 Long term (current) use of insulin; Z79.899 Other long term (current) drug therapy; Z95.1 Presence of aortocoronary bypass graft; Z95.5 Presence of coronary angioplasty implant and graft; Z99.2 Dependence on renal dialysis
CPT/HCPCS: 36415; 80053; 82248; 83615; 84100; 84550; 96375; 96413; 96415; J1100; J1200; J1642; J7050; J9145

== ENCOUNTER 2018-01-13 10:56 | Day surgery (SDC) | payer MEDICARE, MEDICAID ==
[2018-01-13] MEDS ORDERED: Dexamethasone Sod Phosphate 20 MG in Sodium Chloride 0.9% 50 ML IVPB SCH (11:15)
[2018-01-13] MEDS ORDERED: Acetaminophen 500 MG TAB PO SCH (11:15)
[2018-01-13] MEDS ORDERED: SODIUM CHLORIDE 0.9% IV SCH ×2 (11:15)
[2018-01-13] MEDS ORDERED: diphenhydrAMINE 25 MG CAP PO SCH (11:15)
[2018-01-13] MEDS ORDERED: DARATUMUMAB IV SCH ×2 (11:15)
[2018-01-13] MEDS ORDERED: Dexamethasone 20 MG in Sodium Chloride 0.9% 50 ML IVPB SCH (11:15)
[2018-01-13 11:23] VITALS: BP 189/87; TEMP 97.5
== END 2018-01-13 16:37 | disposition home or self-care (01) ==
LOC: ONC/OP 10:56
PROVIDERS: ATTEND Internal Medicine Hematology & Oncology
DX: Z51.12 Encounter for antineoplastic immunotherapy (principal); C90.00 Multiple myeloma not having achieved remission; I25.10 Atherosclerotic heart disease of native coronary artery without angina pectoris; I12.0 Hypertensive chronic kidney disease with stage 5 chronic kidney disease or end stage renal disease; E11.22 Type 2 diabetes mellitus with diabetic chronic kidney disease; N18.6 End stage renal disease; I25.2 Old myocardial infarction; Z79.4 Long term (current) use of insulin; Z79.899 Other long term (current) drug therapy; Z95.5 Presence of coronary angioplasty implant and graft; Z95.1 Presence of aortocoronary bypass graft; Z99.2 Dependence on renal dialysis
CPT/HCPCS: 36415; 83883; 96375; 96413; 96415; J1100; J7050; J9145

== ENCOUNTER 2018-01-27 09:37 | Day surgery (SDC) | payer MEDICARE, MEDICAID ==
[2018-01-27] MEDS ORDERED: Sodium Chloride 0.9% 20 ML ONE (09:50)
[2018-01-27] MEDS ORDERED: DARATUMUMAB IV SCH ×2 (10:15→10:45)
[2018-01-27] MEDS ORDERED: Acetaminophen 500 MG TAB PO SCH (10:15)
[2018-01-27] MEDS ORDERED: SODIUM CHLORIDE 0.9% IV SCH ×2 (10:15→10:45)
[2018-01-27] MEDS ORDERED: diphenhydrAMINE 25 MG CAP PO SCH (10:15)
[2018-01-27] MEDS ORDERED: Dexamethasone 20 MG in Sodium Chloride 0.9% 50 ML IVPB SCH (10:15)
[2018-01-27 11:08] VITALS: BP 180/79; TEMP 97.6
== END 2018-01-27 17:15 | disposition home or self-care (01) ==
LOC: ONC/OP 09:37
PROVIDERS: ATTEND Internal Medicine Hematology & Oncology
DX: Z51.12 Encounter for antineoplastic immunotherapy (principal); C90.00 Multiple myeloma not having achieved remission; I25.2 Old myocardial infarction; I12.0 Hypertensive chronic kidney disease with stage 5 chronic kidney disease or end stage renal disease; E11.22 Type 2 diabetes mellitus with diabetic chronic kidney disease; N18.6 End stage renal disease; Z99.2 Dependence on renal dialysis; Z95.5 Presence of coronary angioplasty implant and graft; Z95.1 Presence of aortocoronary bypass graft; Z79.4 Long term (current) use of insulin; Z79.899 Other long term (current) drug therapy
CPT/HCPCS: 36415; 80053; 82248; 83615; 84100; 84550; 96375; 96413; 96415; J1100; J1642; J7050; J9145

== ENCOUNTER 2018-02-10 10:41 | Day surgery (SDC) | payer MEDICARE, MEDICAID ==
[2018-02-10] MEDS ORDERED: Acetaminophen 500 MG TAB PO SCH (11:00)
[2018-02-10] MEDS ORDERED: Dexamethasone 20 MG in Sodium Chloride 0.9% 50 ML IVPB SCH (11:00)
[2018-02-10] MEDS ORDERED: diphenhydrAMINE 25 MG CAP PO SCH (11:00)
[2018-02-10] MEDS ORDERED: Sodium Chloride 0.9% 30 ML ONE (11:09)
[2018-02-10] MEDS ORDERED: SODIUM CHLORIDE 0.9% IV SCH (11:15)
[2018-02-10] MEDS ORDERED: DARATUMUMAB IV SCH (11:15)
[2018-02-10 15:08] VITALS: BP 158/72; TEMP 97.9
== END 2018-02-10 16:23 | disposition home or self-care (01) ==
LOC: ONC/OP 10:41
PROVIDERS: ATTEND Internal Medicine Hematology & Oncology
DX: Z51.11 Encounter for antineoplastic chemotherapy (principal); C90.00 Multiple myeloma not having achieved remission; I12.0 Hypertensive chronic kidney disease with stage 5 chronic kidney disease or end stage renal disease; E11.22 Type 2 diabetes mellitus with diabetic chronic kidney disease; N18.6 End stage renal disease; Z99.2 Dependence on renal dialysis; I25.2 Old myocardial infarction; Z95.5 Presence of coronary angioplasty implant and graft; Z79.4 Long term (current) use of insulin; Z79.899 Other long term (current) drug therapy; Z98.890 Other specified postprocedural states
CPT/HCPCS: 36416; 96367; 96413; 96415; J1100; J1642; J7050; J9145

== ENCOUNTER 2018-02-24 10:05 | Day surgery (SDC) | payer MEDICARE, MEDICAID ==
[2018-02-24] MEDS ORDERED: Sodium Chloride 0.9% 30 ML ONE (10:26)
[2018-02-24 10:44] VITALS: BP 139/63; TEMP 97.4
[2018-02-24] MEDS ORDERED: SODIUM CHLORIDE 0.9% IV SCH (10:45)
[2018-02-24] MEDS ORDERED: DARATUMUMAB IV SCH (10:45)
[2018-02-24] MEDS ORDERED: Acetaminophen 500 MG TAB PO SCH (10:45)
[2018-02-24] MEDS ORDERED: Dexamethasone 20 MG in Sodium Chloride 0.9% 50 ML IVPB SCH (10:45)
[2018-02-24] MEDS ORDERED: diphenhydrAMINE 25 MG CAP PO SCH (10:45)
== END 2018-02-24 16:31 | disposition home or self-care (01) ==
LOC: ONC/OP 10:05
PROVIDERS: ATTEND Internal Medicine Hematology & Oncology
DX: Z51.12 Encounter for antineoplastic immunotherapy (principal); C90.00 Multiple myeloma not having achieved remission; I25.2 Old myocardial infarction; I25.10 Atherosclerotic heart disease of native coronary artery without angina pectoris; I12.0 Hypertensive chronic kidney disease with stage 5 chronic kidney disease or end stage renal disease; E11.22 Type 2 diabetes mellitus with diabetic chronic kidney disease; N18.6 End stage renal disease; Z79.4 Long term (current) use of insulin; Z79.899 Other long term (current) drug therapy; Z95.1 Presence of aortocoronary bypass graft; Z95.5 Presence of coronary angioplasty implant and graft; Z99.2 Dependence on renal dialysis
CPT/HCPCS: 36415; 80053; 82248; 83615; 84100; 84550; 96413; 96415; J1100; J1642; J7050; J9145

== ENCOUNTER 2018-03-10 09:56 | Day surgery (SDC) | payer MEDICAID, MEDICARE ==
[2018-03-10] MEDS ORDERED: Sodium Chloride 0.9% 20 ML ONE (10:03)
[2018-03-10] MEDS ORDERED: Dexamethasone 20 MG in Sodium Chloride 0.9% 50 ML IVPB SCH (10:30)
[2018-03-10] MEDS ORDERED: Acetaminophen 500 MG TAB PO SCH (10:30)
[2018-03-10] MEDS ORDERED: DARATUMUMAB IV SCH ×2 (10:30→10:45)
[2018-03-10] MEDS ORDERED: SODIUM CHLORIDE 0.9% IV SCH ×2 (10:30→10:45)
[2018-03-10] MEDS ORDERED: diphenhydrAMINE 25 MG CAP PO SCH (10:30)
[2018-03-10 10:36] VITALS: BP 180/81; TEMP 97.5
== END 2018-03-10 16:15 | disposition home or self-care (01) ==
LOC: ONC/OP 09:56
PROVIDERS: ATTEND Internal Medicine Hematology & Oncology
DX: Z51.12 Encounter for antineoplastic immunotherapy (principal); C90.00 Multiple myeloma not having achieved remission; I25.10 Atherosclerotic heart disease of native coronary artery without angina pectoris; I12.0 Hypertensive chronic kidney disease with stage 5 chronic kidney disease or end stage renal disease; E11.22 Type 2 diabetes mellitus with diabetic chronic kidney disease; N18.6 End stage renal disease; Z99.2 Dependence on renal dialysis; Z95.1 Presence of aortocoronary bypass graft; Z87.891 Personal history of nicotine dependence; Z79.4 Long term (current) use of insulin; Z79.899 Other long term (current) drug therapy
CPT/HCPCS: 96367; 96413; 96415; J1100; J1642; J7050; J9145

== ENCOUNTER → 2018-03-24 | Day surgery (SDC) | payer MEDICARE ==
[~2018-03-24] MED LIST changes: +Dexamethasone 20 MG in Sodium Chloride 0.9% 50 ML IVPB SCH; -Dexamethasone 40 MG in Sodium Chloride 0.9% 50 ML IVPB SCH; -Sodium Chloride 0.9% 20 ML ONE; +Sodium Chloride 0.9% 30 ML ONE; -cloNIDine 0.1 MG TAB PO SCH; +diphenhydrAMINE 25 MG CAP PO SCH; -diphenhydrAMINE 25 MG in Sodium Chloride 0.9% 50 ML IVPB SCH
[2018-03-24 13:53] VITALS: BP 161/76; TEMP 97.7
== END ==
LOC: ONC/OP 10:54
PROVIDERS: ATTEND Internal Medicine Hematology & Oncology
DX: Z51.12 Encounter for antineoplastic immunotherapy (principal); C90.00 Multiple myeloma not having achieved remission; I25.2 Old myocardial infarction; I25.10 Atherosclerotic heart disease of native coronary artery without angina pectoris; I12.0 Hypertensive chronic kidney disease with stage 5 chronic kidney disease or end stage renal disease; E11.22 Type 2 diabetes mellitus with diabetic chronic kidney disease; N18.6 End stage renal disease; Z99.2 Dependence on renal dialysis; Z95.5 Presence of coronary angioplasty implant and graft; Z95.1 Presence of aortocoronary bypass graft; Z79.899 Other long term (current) drug therapy; Z79.4 Long term (current) use of insulin
CPT/HCPCS: 36415; 80053; 82248; 83615; 84100; 84550; 96367; 96413; 96415; J1100; J1642; J7050; J9145; Q0163

== ENCOUNTER 2018-04-07 10:09 | Day surgery (SDC) | payer MEDICARE ==
[~2018-04-07 10:09] MED LIST changes: -Sodium Chloride 0.9% 30 ML ONE; -diphenhydrAMINE 25 MG CAP PO SCH; +diphenhydrAMINE 25 MG in Sodium Chloride 0.9% 50 ML IVPB SCH
[2018-04-07] MEDS ORDERED: Sodium Chloride 0.9% 40 ML ONE (10:40)
[2018-04-07 13:26] VITALS: BP 150/72; TEMP 98.5
== END 2018-04-07 15:33 | disposition home or self-care (01) ==
LOC: ONC/OP 10:09
PROVIDERS: ATTEND Internal Medicine Hematology & Oncology
DX: Z51.12 Encounter for antineoplastic immunotherapy (principal); C90.00 Multiple myeloma not having achieved remission; Z79.4 Long term (current) use of insulin; Z79.899 Other long term (current) drug therapy
CPT/HCPCS: 96375; 96413; 96415; J1100; J1200; J1642; J7050; J9145

== ENCOUNTER 2018-04-21 00:12 | Day surgery (SDC) | payer MEDICARE ==
[2018-04-21] MEDS ORDERED: Acetaminophen 500 MG TAB PO SCH (02:30)
[2018-04-21] MEDS ORDERED: diphenhydrAMINE 50 MG CAP PO SCH (02:30)
[2018-04-21] MEDS ORDERED: DARATUMUMAB IV SCH (02:30)
[2018-04-21] MEDS ORDERED: Dexamethasone 20 MG in Sodium Chloride 0.9% 50 ML IVPB SCH (02:30)
[2018-04-21] MEDS ORDERED: SODIUM CHLORIDE 0.9% IV SCH (02:30)
[2018-04-21] MEDS ORDERED: Sodium Chloride 0.9% 20 ML ONE (10:30)
[2018-04-21 13:36] VITALS: BP 170/79; TEMP 97.7
== END 2018-04-21 16:21 | disposition home or self-care (01) ==
LOC: ONC/OP 00:12
PROVIDERS: ATTEND Internal Medicine Hematology & Oncology
DX: Z51.12 Encounter for antineoplastic immunotherapy (principal); C90.00 Multiple myeloma not having achieved remission; I25.2 Old myocardial infarction; I12.0 Hypertensive chronic kidney disease with stage 5 chronic kidney disease or end stage renal disease; E11.22 Type 2 diabetes mellitus with diabetic chronic kidney disease; N18.6 End stage renal disease; I25.10 Atherosclerotic heart disease of native coronary artery without angina pectoris; Z95.1 Presence of aortocoronary bypass graft; Z95.5 Presence of coronary angioplasty implant and graft; Z79.4 Long term (current) use of insulin; Z79.899 Other long term (current) drug therapy; Z99.2 Dependence on renal dialysis
CPT/HCPCS: 36415; 80053; 82248; 83615; 84100; 84550; 96375; 96413; 96415; J1100; J1642; J7050; J9145

== ENCOUNTER 2018-05-19 13:02 | Day surgery (SDC) | payer MEDICARE ==
[~2018-05-19 13:02] MED LIST changes: +Dexamethasone Sod Phosphate 20 MG in Sodium Chloride 0.9% 50 ML IVPB SCH; +Sodium Chloride 0.9% 200 ML ONE; -diphenhydrAMINE 25 MG in Sodium Chloride 0.9% 50 ML IVPB SCH; +diphenhydrAMINE 50 MG in Sodium Chloride 0.9% 50 ML IVPB SCH
[2018-05-19 14:11] VITALS: BP 193/86; TEMP 97.7
== END 2018-05-19 16:33 | disposition home or self-care (01) ==
LOC: ONC/OP 13:02
PROVIDERS: ATTEND Internal Medicine Hematology & Oncology
DX: Z51.12 Encounter for antineoplastic immunotherapy (principal); C90.00 Multiple myeloma not having achieved remission; I12.0 Hypertensive chronic kidney disease with stage 5 chronic kidney disease or end stage renal disease; E11.22 Type 2 diabetes mellitus with diabetic chronic kidney disease; N18.6 End stage renal disease; I25.2 Old myocardial infarction; Z95.1 Presence of aortocoronary bypass graft; Z95.5 Presence of coronary angioplasty implant and graft; Z79.4 Long term (current) use of insulin; Z99.2 Dependence on renal dialysis
CPT/HCPCS: 36415; 80053; 82248; 83615; 84100; 84550; 85025; 96375; 96413; 96415; J1100; J1200; J1642; J7050; J9145

== ENCOUNTER 2018-06-16 10:03 | Day surgery (SDC) | payer MEDICARE ==
[~2018-06-16 10:03] MED LIST changes: -Dexamethasone 20 MG in Sodium Chloride 0.9% 50 ML IVPB SCH; -Sodium Chloride 0.9% 200 ML ONE
[2018-06-16 12:35] VITALS: BP 182/86; TEMP 97.6
== END 2018-06-16 16:08 | disposition home or self-care (01) ==
LOC: ONC/OP 10:03
PROVIDERS: ATTEND Internal Medicine Hematology & Oncology
DX: Z51.12 Encounter for antineoplastic immunotherapy (principal); C90.00 Multiple myeloma not having achieved remission
CPT/HCPCS: 36415; 80053; 82248; 83615; 83883; 84100; 84550; 96367; 96375; 96413; 96415; J1100; J1200; J7050; J9145

== ENCOUNTER 2018-07-14 11:43 | Day surgery (SDC) | payer MEDICARE ==
[2018-07-14] MEDS ORDERED: Sodium Chloride 0.9% 30 ML ONE (11:45)
[2018-07-14 12:19] VITALS: BP 180/78; TEMP 97.6
== END 2018-07-14 17:10 | disposition home or self-care (01) ==
LOC: ONC/OP 11:43
PROVIDERS: ATTEND Internal Medicine Hematology & Oncology
DX: Z51.12 Encounter for antineoplastic immunotherapy (principal); C90.00 Multiple myeloma not having achieved remission
CPT/HCPCS: 36415; 80053; 82248; 83615; 84100; 84550; 96375; 96413; 96415; J1100; J1200; J1642; J7050; J9145

== ENCOUNTER → 2018-07-21 | Day surgery (SDC) | payer MEDICARE | LOC: ONC/OP 10:48 | PROVIDERS: ATTEND Internal Medicine Nephrology | PROC: 30233N1 Transfusion of Nonautologous Red Blood Cells into Peripheral Vein, Percutaneous Approach (ICD-10-PCS; principal; 2018-07-21) | DX: D64.9 Anemia, unspecified (principal); Z79.4 Long term (current) use of insulin; Z79.899 Other long term (current) drug therapy ==

== ENCOUNTER 2018-08-21 07:20 | Day surgery (SDC) | payer MEDICARE ==
[2018-08-20 10:26] VITALS: BMI 28.3
[~2018-08-21 07:20] MED LIST changes: -Acetaminophen 500 MG TAB PO SCH; -DARATUMUMAB IV SCH; -Dexamethasone Sod Phosphate 20 MG in Sodium Chloride 0.9% 50 ML IVPB SCH; +EPINEPHrine 0.3 MG, Dextrose 50% 3 ML in Ophthalmic Irrigation Solution 500 ML IVP SCH; -SODIUM CHLORIDE 0.9% IV SCH; -diphenhydrAMINE 50 MG in Sodium Chloride 0.9% 50 ML IVPB SCH
[2018-08-21] MEDS ORDERED: Phenylephrine 2.5% Ophth Soln 5 ML BOT ONE (07:42)
[2018-08-21] MEDS ORDERED: Cyclopentolate 1% Opth Drop 2 ML BOT ONE (07:42)
[2018-08-21] MEDS ORDERED: Insulin Regular 300 UNITS/3 ML VIAL ONE (08:09)
[2018-08-21] MEDS ORDERED: Fentanyl 100 MCG/2 ML VIAL ONE (09:40)
[2018-08-21] MEDS ORDERED: PROPOFOL 20 ML ONE (09:40)
[2018-08-21] MEDS ORDERED: Midazolam HCl 2 mg/2 ml Vial ONE (09:40)
--- NOTE | 2018-08-21 13:50 | OP ---
DATE OF PROCEDURE: 08/21/2018 PREOPERATIVE DIAGNOSIS: Neovascular glaucoma, left eye. POSTOPERATIVE DIAGNOSIS: Neovascular glaucoma, left eye. PROCEDURE PERFORMED: Pars plana vitrectomy, panretinal photocoagulation, membrane peel, tube shunt, scleral patch graft, left eye. ANESTHESIA: Local with monitored anesthesia care. PROCEDURE IN DETAIL: The patient was identified in the preoperative holding area. Appropriate informed consent for the planned surgical procedure on the left eye had been obtained. The patient was transported to the operative suite. Appropriate cardiopulmonary monitoring was established. Local anesthesia obtained using retrobulbar modified Van Lint lid block using 50:50 mixture of 4% lidocaine and 0.75% bupivacaine. The patient was prepped and draped in usual sterile manner for ophthalmic surgery in the left eye. Lid speculum was placed in the left eye. A 25-gauge trocar was placed in the conjunctiva and sclera superotemporally, inferotemporally, and supranasally. Infusion line was placed inferotemporally. Light pipe vitreous cutter was inserted into the eye. Core vitrectomy was performed. Posterior hyaloid face was elevated and peeled across the retina. Small amount of bleeding was elicited along the supratemporal arcade. This was treated with endolaser with no further bleeding. Panretinal photocoagulation was placed in all non-macular areas of the retina. An FP7 tube shunt was placed behind a conjunctival peritomy supratemporally and fixated in place with 5-0 [place] sutures. Supratemporal sclerotomy was enlarged with 22-gauge needle and the tube shunt was introduced into the eye. The tube was noted to be in proper position by direct inspection. The Tutoplast graft was fixated above the tube shunt entry site using 7-0 Vicryl suture. Conjunctiva was closed with 6-0 plain gut suture. Retrobulbar Kenalog and sequential Ancef were placed. Atropine antibiotic ointment was placed. The eye was patched and shield. The patient was taken to the postoperative recovery unit in good condition, having suffered no immediate perioperative complications. The patient was instructed to keep the patch and shield on. Avoid lifting or bending. Followup appointment with Dr. Ruiz. Job ID: [id number]
== END 2018-08-21 12:40 | disposition home or self-care (01) ==
LOC: SDC 07:20
PROVIDERS: ATTEND Ophthalmology Retina Specialist
PROC: 08133J4 Bypass Left Anterior Chamber to Sclera with Synthetic Substitute, Percutaneous Approach (ICD-10-PCS; principal; 2018-08-21)
PROC: 08T53ZZ Resection of Left Vitreous, Percutaneous Approach (ICD-10-PCS; 2018-08-21)
PROC: 08QF3ZZ Repair Left Retina, Percutaneous Approach (ICD-10-PCS; 2018-08-21)
DX: H40.89 Other specified glaucoma (principal); E11.9 Type 2 diabetes mellitus without complications; Z95.1 Presence of aortocoronary bypass graft; Z95.5 Presence of coronary angioplasty implant and graft; Z79.4 Long term (current) use of insulin; Z79.899 Other long term (current) drug therapy
CPT/HCPCS: 36416; J0171; J1815; J2250; J2704; J3010; L8612

== ENCOUNTER 2018-11-13 22:02 | Observation (INO) | payer MEDICARE ==
[2018-11-13 23:03] LABS: Hemoglobin 11.1 g/dL (14.0-18.0); Mean Corpuscular Hemoglobin 31.9 pg (27.0-31.0); Mean Corpuscular Volume 91.4 fL (78.0-98.0); Mean Platelet Volume 8.4 fL (7.4-10.4); Platelet Count 59 thou/uL (130-400); Red Blood Cell (RBC) Count 3.49 mill/uL (4.70-6.10); White Blood Cell (WBC) Count 4.5 thou/uL (4.8-10.8)
[2018-11-13 23:09] LABS: Anion Gap 19 mmol/L (10-20); BUN (Urea Nitrogen) 63 mg/dL (8.4-25.7); Calc. Creatinine Clearance 0 mL/min (70-130); Calcium 11.4 mg/dL (7.8-10.44); Carbon Dioxide 19 mmol/L (23-31); Chloride 103 mmol/L (98-107); Estimated GFR-MDRD 6; Glucose 143 mg/dL (80-115); Potassium 5.7 mmol/L (3.5-5.1); Sodium 135 mmol/L (136-145)
[2018-11-13 23:13] LABS: Band 1 % (5-11); Eosinophils 2 % (0-10); Lymphocytes 48 % (21-51); MDiff Complete? YES; Monocytes 4 % (0-10); Neutrophil 45 % (42-75); Platelet Morphology Comment Appears Decreased
[2018-11-13] MEDS ORDERED: Morphine 4 MG/ML VIAL ONE (23:14)
[2018-11-13] MEDS ORDERED: Ondansetron PF 4 MG/2 ML Vial ONE (23:14)
--- NOTE | 2018-11-14 | RAD ---
EXAM: Single view of the chest HISTORY: Abdominal pain in need of dialysis COMPARISON: 05/03/2017 FINDINGS: Single view of the chest shows an enlarged but stable cardiomediastinal silhouette. The pa tient is status post sternotomy. The Mediport is unchanged in position. Atelectasis is seen in the left lung base. There is no evidence of consolidation, mass, or pleural effusion. The bones are unre markable. IMPRESSION: No evidence of acute cardiopulmonary disease
[2018-11-14] MEDS ORDERED: Acetaminophen 325 MG TAB PO PRN (01:43)
[2018-11-14] MEDS ORDERED: Ondansetron PF 4 MG/2 ML Vial IVP PRN (01:43)
[2018-11-14] MEDS ORDERED: Ondansetron ODT 4 MG TAB SL PRN (01:43)
[2018-11-14 01:45] VITALS: BMI 24.7
[2018-11-14] MEDS ORDERED: HumaLOG 300 UNITS/3 ML VIAL SC PRN (02:25)
[2018-11-14] MEDS ORDERED: Dextrose 5% in Water 1,000 ML IV PRN (02:25)
[2018-11-14] MEDS ORDERED: Dextrose 50% Abboject 50 ML SYRINGE SLOW IVP PRN (02:25)
[2018-11-14 05:08] LABS: Anion Gap 16 mmol/L (10-20); BUN (Urea Nitrogen) 62 mg/dL (8.4-25.7); Calc. Creatinine Clearance 9 mL/min (70-130); Calcium 11.2 mg/dL (7.8-10.44); Carbon Dioxide 21 mmol/L (23-31); Chloride 105 mmol/L (98-107); Estimated GFR-MDRD 7; Potassium 5.6 mmol/L (3.5-5.1); Sodium 136 mmol/L (136-145)
[2018-11-14 05:10] LABS: Band 2 % (5-11); Eosinophils 1 % (0-10); Glucose 59 mg/dL (80-115); Hemoglobin 10.6 g/dL (14.0-18.0); Lymphocytes 36 % (21-51); MDiff Complete? YES; Mean Corpuscular HGB CONC 35.1 g/dL (32.0-36.0); Mean Corpuscular Hemoglobin 32.5 pg (27.0-31.0); Mean Corpuscular Volume 92.6 fL (78.0-98.0); Mean Platelet Volume 9.2 fL (7.4-10.4); Monocytes 16 % (0-10); Neutrophil 45 % (42-75); Platelet Count 58 thou/uL (130-400); Platelet Morphology Comment Appears Decreased; RBC Distribution Width 13.2 % (11.5-14.5); Red Blood Cell (RBC) Count 3.25 mill/uL (4.70-6.10); White Blood Cell (WBC) Count 5.1 thou/uL (4.8-10.8)
--- NOTE | 2018-11-14 07:43 | HP ---
PRIMARY CARE DOCTOR: Dr. Desire Mascorro. CODE STATUS: Full code. TIME OF EVALUATION: 2:40 a.m. CHIEF COMPLAINT: Abdominal pain. HISTORY OF PRESENT ILLNESS: This is a 63-year-old male patient, past medical history of end-stage renal disease, on hemodialysis, followed with Dr. Grewal, last hemodialysis was yesterday, was unable to get it down due to severe abdominal pain. Also, the patient has history of multiple myeloma, has been followed by Dr. Randall and has been transferred to [place] after the last consult for further management. The patient came to the hospital today after having severe abdominal pain that was in the upper part. He referred that the pain is related to his ribs and is bilateral, although mostly on the right side and in lower back. There are no clear triggers, no alleviating factors. Symptoms are severe and worse with movement. The CT abdomen without contrast was done, was negative. Concern remains for this patient having neuropathic pain related to metastatic disease of multiple myeloma, bone destruction in the spine area. REVIEW OF SYSTEMS: All systems were reviewed, negative, except for the findings mentioned above. PAST MEDICAL HISTORY: Positive for end-stage renal disease, on hemodialysis; diabetes; hyperlipidemia; hypertension; coronary artery disease; and multiple myeloma. PAST SURGICAL HISTORY: History of jaw surgery following an injury. FAMILY HISTORY: Reviewed and non contributory for current presentation. PSYCHIATRIC HISTORY: Depression. SOCIAL HISTORY: No alcohol, no drugs. Smoking history, quit smoking more than 10 years ago. KNOWN ALLERGIES: No known drug allergies. REPORTED MEDICATIONS: Lantus and aspirin. PHYSICAL EXAMINATION: VITAL SIGNS: On presentation, blood pressure 203/99 with heart rate of 70, respiratory rate was 18, temperature 97.6, pain was 10/10, and oxygen saturation was 100% on room air. GENERAL APPEARANCE: Patient is alert and oriented, in no acute distress. HEENT: Eyes; normal conjunctivae. Moist oral mucosa. Anicteric. No JVD. RESPIRATORY: Bilateral air entry. No rales. No wheezes. Symmetric expansion. CHEST: Patient has bilateral pain mostly in the low rib cage area that is painful on palpation and worsened with movement. ABDOMEN: Soft. Normal bowel sounds. Patient has right flank pain. CARDIOVASCULAR: Normal rate, regular rhythm. No murmurs. No gallop. No edema. MUSCULOSKELETAL: Patient has right lower back pain, also left upper abdomen and lower rib cage pain as described above. SKIN: Warm, intact. No pallor. No rash. No redness. Capillary refill seems to be intact. NEUROLOGIC: No evidence of any new focal weakness. Cranial nerves seem to be intact. PSYCH: Patient has good mood. No anxiety. Optimal judgment. DATA REVIEWED: EKG was reviewed. The patient has normal sinus rhythm with a rate of 70, ND 148, QRS 82. LABORATORY FINDINGS: GFR was 7, glucose 254, BUN 62, creatinine 8.53, sodium 136, potassium 6.2, chloride 101, carbon dioxide 23, calcium 10.8, total bilirubin 0.5, and alk phos 147. LFTs were negative. Lipase 41. White count 4.2, hemoglobin 10.8, MCV 92.3, and platelets 64. UA was done and the patient has a glucose of 500, protein more than 300, rbc's . No white count in the urine. CT abdomen was done, did not show any intraabdominal pelvic pathology, although the study has lack of contrast. ASSESSMENT AND PLAN: The patient will be placed in the hospital with following medical problems. 1. Severe abdominal pain. The pain is located in the left rib cage and also radiating to the lower back. Patient has multiple myeloma. The CAT scan of the abdomen and pelvis is negative. There is concern for pain coming from the back spine, infiltration from multiple myeloma is a possibility. If the pain has not improved tomorrow, further diagnostic exams including CT and MRI of the back spine. 2. Multiple myeloma. Patient has been transferred to [place] for treatment by Dr. Randall. This can be followed as outpatient. 3. Uncontrolled diabetes. We will reconcile home medication. We will place the patient on sliding scale for optimal control. 4. Uncontrolled hypertension. The patient is hypertensive. Systolic blood pressure 190 on presentation. We will reconcile home medications. We will adjust treatment as needed. 5. History of coronary artery disease. Patient has history of coronary artery bypass graft. He has been taking just baby aspirin. Reconcile home medications , adjust medicines as needed. This is chronic and is stable. 6. High cholesterol. Low-cholesterol diet is advised. Reconcile home medication. 7. History of renal disease, on hemodialysis. Follow with Dr. Camacho as outpatient. The patient was unable to get dialysis yesterday due to severe pain. Dr. Camacho is aware. We will do dialysis in the morning as per ER discussion with him. 8. Hyperkalemia due to the patient missing dialysis history. The potassium has corrected from 6.5 to 5.4. Patient to go for dialysis in the morning. 9. Deep venous thrombosis prophylaxis. Job ID: [id number] MTDD
[2018-11-14] MEDS ORDERED: Enoxaparin Sodium 30 MG/0.3 ML SYRINGE SC SCH (09:00)
[2018-11-14] MEDS: Insulin Glargine 20 UNITS in Pre-Filled Syringe 1 EACH SC SCH (09:21)
[2018-11-14] MEDS ORDERED: EPOETIN ALFA-EPBX (ESRD) 4,000 UNIT/ML VIAL SC SCH (09:45)
[2018-11-14] MEDS ORDERED: NIFEdipine XL 30 MG TAB PO SCH (11:00)
--- NOTE | 2018-11-14 11:07 | CT ---
EXAM: CT Chest W Con PROVIDED CLINICAL HISTORY: Chest pain COMPARISON: None FINDINGS: The heart, pericardium and great vessels demonstrate no acute abnormality. Vascular calcification inc luding coronary calcium is demonstrated. Median sternotomy and CABG changes are seen. There is no evidence for thoracic lymph node enlargement. The airway appears patent and of normal caliber. Bibasilar subsegmental atelectatic changes are seen. The lungs are free of significant opacity. No pleural fluid or pneumothorax apparent. The osseous structures demonstrate no concerning lytic or blastic lesions. Remote, ununited left post erior 11th rib fracture. The visualized portions of the upper abdomen demonstrate an unremarkable CT appearance. IMPRESSION: No evidence for an acute process.
[2018-11-14] MEDS ORDERED: Iopamidol 370 76% 100 ML VIAL ONE (11:59)
--- NOTE | 2018-11-14 15:25 | CON ---
DATE OF CONSULTATION: HISTORY OF PRESENT ILLNESS: Mr. Carrasco is a 63-year-old male with ESRD-on maintenance hemodialysis, history of multiple myeloma, and came in with a complaint of left-sided chest pain and back pain. The pain was noted to be aggravated by deep palpation on the left side of the ribs. Of interest, the chest x-ray was done, which showed no rib abnormality. However, my concern is that the patient due to history of multiple myeloma, may have lytic lesions. We will further evaluate left-sided chest pain-CAT scan of the chest with and without contrast has been ordered. We are now following up this patient for his maintenance hemodialysis. He did miss dialysis yesterday and for that reason, he will be dialyzed today. REVIEW OF SYSTEMS: Positive for left-sided chest pain. He denies abdominal pain. He has no nausea. No vomiting. He has right back pain. No syncopal episode. No productive cough. No fever or chills. Appetite and energy level are fair. No gross hematuria. No dysuria. No urinary frequency. No productive cough. No fever or chills. No syncopal episode. No headache. MEDICATIONS: Currently, the patient is on: 1. Lovenox 30 mg subcu daily. 2. Insulin sliding scale. 3. Insulin glargine 20 units subcu q.a.m. 4. Zofran p.r.n. PAST MEDICAL HISTORY: 1. ESRD secondary to a presumed diabetic nephropathy. 2. Type 2 diabetes mellitus. 3. Hypertension. 4. Multiple myeloma. 5. 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 He has limited Kyrgyz and speaks mostly Indian. Lives in [place]. Smoked for 5 years, one pack a day. Alcohol, rarely. No IV drug abuse. Status post blood transfusion. Education-3rd grade. Currently, not smoking. Sedentary lifestyle. FAMILY HISTORY: No family history of ESRD. ALLERGIES: UNKNOWN. TRAUMA: None. IMMUNIZATION: Up-to-date. HOSPITALIZATIONS: Please see past medical history. PHYSICAL EXAMINATION: VITAL SIGNS: Blood pressure is noted at 185/90, heart rate 77, respiratory rate 14, temperature 97.6, and pulse ox 98%. GENERAL: Awake, alert, comfortable, not in overt distress. SKIN: Adequate turgor. HEENT: He has slightly pale conjunctivae. Anicteric sclerae. NECK: No neck mass. No carotid bruits. No JVD. CHEST: No deformities. Positive for tenderness of the left chest area/rib area. LUNGS: Clear breath sounds. No wheezing. No crackles. HEART: Normal sinus rhythm. No murmurs, gallops, or rubs. ABDOMEN: Globular, soft, nontender. No masses. EXTREMITIES: No edema. No deformities. LABORATORY DATA: Laboratories of November 14, 2018; white count 5.1, hemoglobin 10.6. Sodium 136, potassium 5.6, chloride 105, carbon dioxide 21, BUN 62, creatinine 8.38, calcium is 11.2. Chest x-ray, no acute abnormalities. CT scan of the abdomen-benign findings per report from the [facility]. ASSESSMENT AND PLAN: 1. Left-sided chest pain-quite tender on deep palpation. We will do further imaging with CT scan of the chest with and without contrast. If the CT scan is negative , we may need to consider a bone scan with this patient. 2. Mild hypercalcemia-consideration for underlying lytic lesions with this patient due to history of multiple myeloma. 3. Multiple myeloma. Oncology consultation with Dr. Randall have been made. 4. End-stage renal disease, stable. We will continue current hemodialysis regimen. Review of the last Kt/V suggests he is adequately dialyzed with the current dialysis regimen. 5. Anemia. Start Epogen 7500 units subcu q.week. Thank you for the consult. We will continue to follow. Job ID: [id number] [facility]
[2018-11-14] MEDS ORDERED: Ketorolac Tromethamine 30 MG/ML VIAL IVP SCH (19:15)
[2018-11-14] MEDS ORDERED: Insulin Glargine 10 UNITS in Pre-Filled Syringe 1 EACH SC SCH (21:00)
[2018-11-15] MEDS: Ketorolac Tromethamine 30 MG/ML VIAL IVP PRN ×2 (03:39→13:16)
[2018-11-15] MEDS: Insulin Glargine 20 UNITS in Pre-Filled Syringe 1 EACH SC SCH (08:29)
[2018-11-15 08:34] VITALS: TEMP 97.5
[2018-11-15] MEDS ORDERED: NIFEdipine XL 30 MG TAB PO SCH (09:00)
--- NOTE | 2018-11-15 10:19 | PRG ---
DATE OF SERVICE: 11/15/2018 SUBJECTIVE: Mr. Carrasco is a 63-year-old male with ESRD, on maintenance hemodialysis. He was initially admitted for abdominal/chest pain. Review of his history does not suggest abdominal pain, but more of left-sided chest pain on the back. A CT scan of the abdomen was done, which was reportedly said to be normal. We did a CT scan of the chest with contrast and again negative findings. No evidence of blastic or lytic lesions noted on the ribs. In addition, there was a finding of remote fracture of one of the ribs. This could explain the left-sided chest pain of the patient. No new complaints today. The patient denies any shortness of breath. He is undergoing hemodialysis. Please note, he received dialysis yesterday due to his missed dialysis last . OBJECTIVE: VITAL SIGNS: Blood pressure is 143/75, heart rate 82, respiratory rate 20, temperature 97.5, and pulse oximetry 94%. GENERAL: Awake, alert, and comfortable, not in overt distress. SKIN: Adequate turgor. HEENT: He has a slightly pale conjunctivae. Anicteric sclerae. NECK: No neck mass. No carotid bruits. No JVD. CHEST: No deformities. LUNGS: Clear breath sounds. HEART: Normal sinus rhythm. No murmur. No gallops. No rubs. ABDOMEN: Globular, soft, and nontender. No masses. EXTREMITIES: No edema. No deformities. MEDICATIONS: Medications of November 15, 2018, reviewed. LABORATORY DATA: Laboratories of November 14, 2018, white count 5.1 and hemoglobin 10.6. On November 14, 2018, sodium 136, potassium 3.6, chloride 105, carbon dioxide 21, BUN 62, creatinine 8.38, and calcium is 11.2. On November 15, 2018, glucose 179. ASSESSMENT AND PLAN: 1. End-stage renal disease, stable. We will continue current hemodialysis regimen. Currently, tolerating hemodialysis treatment. Fluid removal only as tolerated. 2. Mild hypercalcemia. We will observe. Recheck basic metabolic profile in a.m. 3. Anemia. The patient resume on weekly Epogen. 4. Multiple myeloma. Follows up with his oncologist. 5. Agree with current management. 6. Recheck basic metabolic profile and CBC in a.m. Job ID: [id number]
--- NOTE | 2018-11-15 12:12 | EKG ---
Test Reason : Blood Pressure : / mmHG Vent. Rate : 070 BPM Atrial Rate : 070 BPM P-R Int : 148 ms QRS Dur : 082 ms QT Int : 402 ms P-R-T Axes : 018 045 100 degrees QTc Int : 434 ms Normal sinus rhythm Nonspecific ST and T wave abnormality Abnormal ECG Confirmed by NICOLE BRICENO D.O. ([id number]), international editorial producer LIBORIO TANG ([id number]) on 11/15/2018 12:12:00 PM Referred By: Confirmed By:NICOLE BRICENO D.O.
[2018-11-15 14:38] VITALS: BP 111/60
--- NOTE | 2018-11-16 12:40 | DIS ---
DATE OF ADMISSION: 11/13/2018 DATE OF DISCHARGE: 11/15/2018 DISCHARGE DIAGNOSES: 1. Abdominal pain, which appeared to be localized to the left chest wall, unlikely musculoskeletal. 2. History of multiple myeloma. 3. End-stage renal disease, on chronic hemodialysis. 4. Diabetes mellitus. 5. Hypertension. 6. Coronary artery disease. 7. Hyperlipidemia. 8. Hyperkalemia. HISTORY OF PRESENT ILLNESS: The patient is a 63-year-old male, who reported pain in his abdomen, which appeared to be more localized to his left lateral lower ribs. He also complained of some low back pain. The patient reported missing dialysis because of the pain and subsequently presented to the emergency department. There, he was noted to have a potassium of 5.7. He had some hypercalcemia at 11.4 as well. He was given morphine and Zofran in the emergency department. HOSPITAL COURSE: The patient was subsequently placed in observation status. Dr. Camacho, his manager of engineering, was consulted, and the patient did get dialysis. He had a chest x-ray, which was unremarkable. Given his history of multiple myeloma, he also had a CT of the chest, which failed to reveal any new bony lesions or other significant pathology. He then underwent dialysis again on the day of discharge. His labs had improved somewhat, and after discussion with Dr. Camacho, it was felt the patient would be stable for discharge to home once the patient was completed his dialysis. He was returned back to the floor, where he was able to ambulate with nursing without any difficulties or complications. It was felt to be stable for outpatient discharge and followup. PHYSICAL EXAMINATION: VITAL SIGNS: On the day of discharge, temperature is 97.5, pulse 81 to 92, respirations 20, O2 saturation 94% on room air, and blood pressure 111/60. GENERAL APPEARANCE: Age-appropriate male, in no distress. He is awake and alert. HEART: Regular rate and rhythm. LUNGS: Clear bilaterally. ABDOMEN: Soft, nontender. EXTREMITIES: No edema. MUSCULOSKELETAL: Tenderness to palpation in the lower lateral left ribcage and some mild paraspinal tenderness in the left lower lumbar area. DISPOSITION: The patient is discharged to home. MEDICATIONS: The patient had previously discontinued a number of his medications on his own, so it was not clear what his home medication regimen was; however, he will be discharged to continue with, 1. Erythropoietin q.7 days. 2. Nifedipine XL 30 mg daily. 3. Tramadol 50 mg t.i.d. p.r.n. pain. DIET: He is to have a diabetic renal diet. ACTIVITY: As tolerated. FOLLOWUP: He is to follow up with Dr. Camacho and a PCP of his choice. DISCHARGE INSTRUCTIONS: He can return to the hospital should he have any problems prior to that time. Job ID: [id number]
== END 2018-11-15 15:37 | disposition home or self-care (01) ==
LOC: ERS 22:02 → 2SW 23:33
PROVIDERS: ADMIT Hospitalist; ATTEND Hospitalist
DX: R07.9 Chest pain, unspecified (principal); R10.9 Unspecified abdominal pain; I12.0 Hypertensive chronic kidney disease with stage 5 chronic kidney disease or end stage renal disease; E11.22 Type 2 diabetes mellitus with diabetic chronic kidney disease; N18.6 End stage renal disease; I25.10 Atherosclerotic heart disease of native coronary artery without angina pectoris; E78.00 Pure hypercholesterolemia, unspecified; D64.9 Anemia, unspecified; C90.00 Multiple myeloma not having achieved remission; E78.5 Hyperlipidemia, unspecified; E87.5 Hyperkalemia; E83.52 Hypercalcemia; Z79.4 Long term (current) use of insulin; Z79.82 Long term (current) use of aspirin; Z87.891 Personal history of nicotine dependence; Z99.2 Dependence on renal dialysis
CPT/HCPCS: 71045; 71260; 80048 ×2; 82962 ×2; 85025 ×2; 93005; 96374; 96375; 99285; Q5105; 36415; 36416; 90935; 96372; 96376; G0257; G0378; J1650; J1815; J1885; J2270; J2405; Q9967

== ENCOUNTER 2018-12-03 17:38 | Inpatient (IN) | payer MEDICARE ==
[~2018-12-03 17:38] MED LIST changes: -EPINEPHrine 0.3 MG, Dextrose 50% 3 ML in Ophthalmic Irrigation Solution 500 ML IVP SCH; +ISOVUE-370 76%-LOCM 1 ML ONE
[2018-12-03] MEDS ORDERED: Ondansetron PF 4 MG/2 ML Vial ONE (18:37)
[2018-12-03 18:42] LABS: Hemoglobin 9.7 g/dL (14.0-18.0); Mean Corpuscular HGB CONC 35.2 g/dL (32.0-36.0); Mean Corpuscular Hemoglobin 32.3 pg (27.0-31.0); Mean Corpuscular Volume 91.9 fL (78.0-98.0); Platelet Count 42 thou/uL (130-400); Red Blood Cell (RBC) Count 2.99 mill/uL (4.70-6.10)
[2018-12-03 18:51] LABS: Lymphocytes 32 % (21-51); MDiff Complete? YES; Monocytes 8 % (0-10); Neutrophil 60 % (42-75); Nucleated RBC 1 % (0); Ovalocytes SLIGHT = 2-5 cells (100X) (0-1/hpf); Platelet Morphology Comment Appears Decreased; Polychromasia SLIGHT = 2-3 cells (100X) (0-2/hpf)
[2018-12-03 18:57] LABS: ALT (SGPT) 23 U/L (8-55); AST (SGOT) 18 U/L (5-34); Albumin 4.7 g/dL (3.4-4.8); Alkaline Phosphatase 142 U/L (40-110); Anion Gap 22 mmol/L (10-20); BUN (Urea Nitrogen) 46 mg/dL (8.4-25.7); Bilirubin, Total 0.7 mg/dL (0.2-1.2); Calc. Creatinine Clearance 0 mL/min (70-130); Carbon Dioxide 23 mmol/L (23-31); Chloride 95 mmol/L (98-107); Estimated GFR-MDRD 8; Glucose 142 mg/dL (80-115); Lipase 9 U/L (8-78); Potassium 4.8 mmol/L (3.5-5.1); Protein, Total 7.7 g/dL (5.8-8.1); Sodium 135 mmol/L (136-145)
[2018-12-03 19:02] LABS: Calcium 12.1 mg/dL (7.8-10.44)
--- NOTE | 2018-12-03 19:05 | CT ---
CT Abdomen Pelvis W Con History: Nausea and vomiting Comparison: None. Findings: Scar or bronchiectasis in the lower lobes. This is similar to the prior examination of the chest. Heart size is enlarged. No pericardial effusion. The spleen, pancreas, liver, gallbladder are unremar kable. No free intraperitoneal gas or fluid. No dilated loops of large or small bowel. No retroperitoneal periaortic adenopathy. Aortoiliac contour is normal. No hydronephrosis. Bilateral mild renal cortical thinning. At least moderate narrowing of the ostia of both renal arteries due to calcific and soft plaque. Multifocal areas of rarefaction medullary cavity of the ilium with in fact peripheral trabecula not l ikely related to osteolytic process. There are, however, some round hypodense foci within the ischium, vertebral bodies, and left ilium. Compression fracture of L5 superior endplate extending to the posterior superior vertebral body with 2 mm retropulsion. There is also fracture of the superior and inferior endplates of L3 with 10% superior and 30% inferior endplate height loss. There is also inferior endplate fractures of T12 supe rior endplate fracture of T8. Impression: 1. No acute inflammatory process within the abdomen or pelvis. 2. Lytic foci of the ischium can be seen with patient's history of myeloma as well as some lytic foci of the ilium on the left. 3. Numerous compression fractures also may be sequelae of patient's myeloma with scattered lytic foci of the thoracic and lumbar vertebra. Low-grade retropulsion of the posterior superior endplate of L5, 2 mm. 4. Old rib fractures.
[2018-12-03] MEDS ORDERED: Morphine 4 MG/ML VIAL ONE (19:28)
[2018-12-03] MEDS ORDERED: Metoclopramide HCl 10 MG/2 ML VIAL ONE (22:57)
[2018-12-03] MEDS ORDERED: Morphine 4 MG/ML VIAL SLOW IVP PRN (23:37)
[2018-12-03] MEDS ORDERED: Acetaminophen 325 MG TAB PO PRN (23:37)
[2018-12-03] MEDS ORDERED: Ondansetron PF 4 MG/2 ML Vial IVP PRN (23:37)
[2018-12-03] MEDS ORDERED: Ondansetron ODT 4 MG TAB SL PRN (23:37)
[2018-12-03 23:47] VITALS: BMI 24.1
[2018-12-04] MEDS ORDERED: Metoclopramide HCl 10 MG/2 ML VIAL IVP PRN (08:46)
[2018-12-04] MEDS ORDERED: Acetaminophen 650 MG Suppository PR PRN (08:51)
[2018-12-04] MEDS ORDERED: hydrALAZINE 20 MG/ML VIAL SLOW IVP PRN (08:57)
[2018-12-04] MEDS ORDERED: Sodium Chloride 0.9% 1,000 ML IV SCH (09:00)
[2018-12-04] MEDS ORDERED: Metoclopramide HCl 10 MG/2 ML VIAL IVP SCH (09:00)
[2018-12-04] MEDS ORDERED: hydrALAZINE 20 MG/ML VIAL SLOW IVP SCH (09:00)
--- NOTE | 2018-12-04 09:11 | PDOC.HHP ---
Hospitalist HPI - History of Present Illness Severe back pain/ nausea&vomiting History of Present Illness: Mr. Venegas is a very pleasant 63 year old sami speaking man who has a history of multiple myeloma and ESRD. He has had multiple visit to the hospital, last discharged from here on 11/15/18 and recently seen at [facility] ER this past Saturday for hematemesis. Patient states he was given antiemetics and discharged home. He presents with persistent nausea/vomiting (uncontrolled with Reglan at home), unable to tolerate any oral intake x 3 weeks. He has also been experiencing severe low back pain, affecting his ability to walk and reports having this for the last month. He had no further bright red blood in emesis but since yesterday has had coffee ground emesis x 2. He otherwise had constant dry heaving and intermittent bouts of hiccups. Denies any abdominal pain at present. Denies any stool output for 12 days which he associates with having no oral intake. He has had flatus. Reports having long standing issues with GI motility. He was diagnosed with multiple myeloma in 04/2017 and is under the care of Dr. Randall, off treatment for the last 3 months due to insurance issues. He follows with Dr. Camacho for hemodialysis and is due for dialysis today. States he continues to make urine and denies any hematuria or dysuria. ED Course: In the ED he underwent labs which are notable for an elevated calcium of 12.1. Renal function is further deranged from baseline but has been stable for the last few weeks. Alk phos elevated at 142. WCC 4, Hgb 9.7, platelets low at 47. CT A/P: No acute inflammatory process within the A/P. He was noted to have lytic foci of the left ilium. Numerous compression fractures with scattered lytic foci of thoracic and lumbar vertebra. Low-grade retropulsion of posterior superior endplate of L5 (2mm), and old rib fractures. Hospitalist ROS - Review of Systems Constitutional: reports: weakness, malaise, other (Constant headache for the last week) Eyes: denies: pain, vision change, conjunctivae inflammation, eyelid inflammation, redness, other ENT: denies: ear pain, ear discharge, nose pain, nose discharge, nose congestion , mouth pain, mouth swelling, throat pain, throat swelling, other Respiratory: denies: cough, dry, shortness of breath, hemoptysis, SOB with excertion, pleuritic pain, sputum, wheezing, other Cardiovascular: reports: chest pain (left sided, when he moves and tender to touch), light headedness. denies: palpitations, orthopnea, paroxysmal noc. dyspnea, edema, other Gastrointestinal: reports: nausea, vomiting, other (No bowel movement for the last 12 days, has flatus) Genitourinary: denies: dysuria, frequency, incontinence, hematuria, retention, other Musculoskeletal: reports: back pain. denies: neck pain, shoulder pain, arm pain , hand pain, leg pain, foot pain (across lower back and over left posterior hip) , other Skin: denies: rash, lesions, dorinda, bruising, other Neurological: reports: numbness (slight altered sensation on soles of both feet only). denies: weakness, incoordination, change in speech, confusion, seizures , other - Medication Medications: Home Medications Ondansetron, Reglan, Hydrocodone, Atorvastatin, Nifedipine. Allergies: No known drug allergies. Hospitalist History - Past Medical History Source: patient, family (His ) Cardiac: reports: CAD, HTN, Hyperlipidemia Heme/Onc: reports: Other (Metastatic multiple myeloma) Hepatobiliary: reports: no pertinent history Psych: reports: Depression Musculoskeletal: reports: Other (Low back pain progressively worsening) Rheumatologic: reports: no pertinent history Infectious Disease: reports: no pertinent history ENT: reports: no pertinent history Renal/: reports: Other (ESRD on HD) Endocrine: reports: Diabetes Dermatology: reports: no pertinent history - Past Surgical History Past Surgical History: reports: CABG (x 3 vessels) - Family History Family History: reports: no pertinent history - Social History Smoking Status: Never smoker Alcohol: reports: None Drugs: reports: none Living Situation: With Family Activity level: independent ambulation - Exam General Appearance: NAD, ill appearing Eye: PERRL, anicteric sclera ENT: normocephalic atraumatic, no oropharyngeal lesions, dry oral mucosa Neck: supple, no lymphadenopathy Heart: RRR, no murmur, no gallops, no rubs, normal peripheral pulses Heart - other findings: tenderness to left chest with palpiation, guarding, worse with movement Respiratory: CTAB, no wheezes, no rales, no ronchi, normal chest expansion, no tachypnea Respiratory - other findings: Gastrointestinal: soft, non-tender, non-distended, normal bowel sounds, no guarding, no rigidity Extremities: no edema Skin: no lesions, no rashes Neurological: cranial nerve grossly intact Neurological - other findings: Power 5/5 in all limbs, slightly reduced sensation of soles of feet bilat Musculoskeletal: no muscle wasting, generalized weakness Psychiatric: normal affect, normal behavior, A&O x 3 Hospitalist Results - Labs Result Diagrams: 12/04/18 09:05 12/04/18 09:05 Lab results: WBC 4.0 thou/uL (4.8-10.8) L 12/03/18 18:23 Hgb 9.7 g/dL (14.0-18.0) L 12/03/18 18:23 Hct 27.5 % (42.0-52.0) L 12/03/18 18:23 MCV 91.9 fL (78.0-98.0) 12/03/18 18:23 Plt Count 42 thou/uL (130-400) L 12/03/18 18:23 Sodium 135 mmol/L (136-145) L 12/03/18 18:23 Potassium 4.8 mmol/L (3.5-5.1) 12/03/18 18:23 Chloride 95 mmol/L (98-107) L 12/03/18 18:23 Carbon Dioxide 23 mmol/L (23-31) 12/03/18 18:23 BUN 46 mg/dL (8.4-25.7) H 12/03/18 18:23 Creatinine 7.01 mg/dL (0.7-1.3) H 12/03/18 18:23 Glucose 142 mg/dL (80-115) H 12/03/18 18:23 Calcium 12.1 mg/dL (7.8-10.44) H* 12/03/18 18:23 Total Bilirubin 0.7 mg/dL (0.2-1.2) 12/03/18 18:23 AST 18 U/L (5-34) 12/03/18 18:23 ALT 23 U/L (8-55) 12/03/18 18:23 Alkaline Phosphatase 142 U/L (40-110) H 12/03/18 18:23 Troponin I 0.024 ng/mL (< 0.028) 12/03/18 18:23 Serum Total Protein 7.7 g/dL (5.8-8.1) 12/03/18 18:23 Albumin 4.7 g/dL (3.4-4.8) 12/03/18 18:23 Lipase 9 U/L (8-78) 12/03/18 18:23 - EKG Interpretation EKG: NSR HR 80, no ST changes or T wave abnormalities. - Radiology Interpretation CT scan - abdomen Status: report reviewed by mi Hospitalist H&P A/P - Problem (1) Prolonged severe nausea and vomiting Code(s): R11.2 - NAUSEA WITH VOMITING, UNSPECIFIED Status: Acute Assessment and Plan: (2) Weakness Code(s): R53.1 - WEAKNESS Status: Acute (3) Pain from bone metastases Code(s): G89.3 - NEOPLASM RELATED PAIN (ACUTE) (CHRONIC); C79.51 - SECONDARY MALIGNANT NEOPLASM OF BONE Status: Acute (4) Metastatic multiple myeloma to bone Code(s): C90.00 - MULTIPLE MYELOMA NOT HAVING ACHIEVED REMISSION Status: Acute (5) Hypercalcemia Code(s): E83.52 - HYPERCALCEMIA Status: Acute (6) Thrombocytopenia Code(s): D69.6 - THROMBOCYTOPENIA, UNSPECIFIED Status: Acute (7) ESRD on dialysis Code(s): N18.6 - END STAGE RENAL DISEASE; Z99.2 - DEPENDENCE ON RENAL DIALYSIS Status: Acute (8) Decreased oral intake Code(s): R63.8 - OTHER SYMPTOMS AND SIGNS CONCERNING FOOD AND FLUID INTAKE Status: Acute (9) Persistent headaches Code(s): R51 - HEADACHE Status: Acute (10) Compression fracture of lumbar vertebra Code(s): S32.000A - [place] COMPRESSION FRACTURE OF UNSP LUMBAR VERTEBRA, INIT Status: Acute (11) Hypertension Code(s): I10 - ESSENTIAL (PRIMARY) HYPERTENSION Status: Chronic (12) Diabetes Code(s): E11.9 - TYPE 2 DIABETES MELLITUS WITHOUT COMPLICATIONS Status: Chronic Qualifiers: Diabetes mellitus type: type 2 Diabetes mellitus intermission coordinator insulin use: with intermission coordinator use Diabetes mellitus complication status: without complication Qualified Code(s): E11.9 - Type 2 diabetes mellitus without complications; Z79.4 - emt intermediate (current) use of insulin (13) Coronary artery disease Code(s): I25.10 - ATHSCL HEART DISEASE OF [place] CORONARY ARTERY W/O ANG PCTRS Status: Acute Qualifiers: Coronary Disease-Associated Artery/Lesion type: [place] artery [place] vs. transplanted heart: [place] heart Associated angina: angina presence unspecified Qualified Code(s): I25.10 - Atherosclerotic heart disease of [place] coronary artery without angina pectoris - Plan Plan: N/V persisting x 3 weeks. Coffee ground emesis yesterday. None this am. Consult placed to GI. IV protonix. Keep NPO. Continue IVF. Reglan changed to IV. Given associated persistent JACKMAN, MRI brain ordered to rule out brain mets. Chest pain seems to be musculoskeletal in nature due to forceful vomiting/dry heaving, tender on exam. Repeat CBC (monitor H/H and platelets). For pain, continue Morphine. Lidocaine patch. Consult placed to Dr. Randall given progressive metastasis. Monitor Ca+. Dr. Camacho has been consulted for continued dialysis. Monitor BP, hold PO meds given poor tolerance. IV Hydralazine. Monitor blood glucose, ISS. Consult placed to palliative care. Code Status: FULL Surrogate decision maker: , Reid Vitale Case discussed with Dr. Sy who agrees with plan as above.
[2018-12-04 09:17] LABS: Hemoglobin 9.1 g/dL (14.0-18.0); Mean Corpuscular HGB CONC 35.3 g/dL (32.0-36.0); Mean Corpuscular Volume 90.6 fL (78.0-98.0); Mean Platelet Volume 9.1 fL (7.4-10.4); Platelet Count 32 thou/uL (130-400); RBC Distribution Width 14.1 % (11.5-14.5); Red Blood Cell (RBC) Count 2.84 mill/uL (4.70-6.10); White Blood Cell (WBC) Count 3.5 thou/uL (4.8-10.8)
[2018-12-04] MEDS ORDERED: Pantoprazole 40 MG VIAL IVP SCH (09:30)
[2018-12-04 09:39] LABS: Lactic Acid 0.5 mmol/L (0.5-2.2)
[2018-12-04 09:44] LABS: ALT (SGPT) 19 U/L (8-55); AST (SGOT) 15 U/L (5-34); Albumin 4.2 g/dL (3.4-4.8); Alkaline Phosphatase 129 U/L (40-110); Anion Gap 20 mmol/L (10-20); BUN (Urea Nitrogen) 52 mg/dL (8.4-25.7); Bilirubin, Total 0.5 mg/dL (0.2-1.2); Calc. Creatinine Clearance 9 mL/min (70-130); Calcium 11.5 mg/dL (7.8-10.44); Carbon Dioxide 22 mmol/L (23-31); Chloride 99 mmol/L (98-107); Estimated GFR-MDRD 7; Globulin 2.6 g/dL (2.4-3.5); Glucose 107 mg/dL (80-115); Magnesium 2.5 mg/dL (1.6-2.6); Potassium 4.6 mmol/L (3.5-5.1); Protein, Total 6.8 g/dL (5.8-8.1); Sodium 136 mmol/L (136-145)
[2018-12-04 09:48] LABS: Lymphocytes 30 % (21-51); MDiff Complete? YES; Monocytes 17 % (0-10); Neutrophil 44 % (42-75); Ovalocytes SLIGHT = 2-5 cells (100X) (0-1/hpf); Platelet Morphology Comment Appears Decreased; Polychromasia SLIGHT = 2-3 cells (100X) (0-2/hpf); Reactive Lymphocytes 9 % (0-10)
[2018-12-04] MEDS ORDERED: Dextrose 50% Abboject 50 ML SYRINGE SLOW IVP PRN (10:02)
[2018-12-04] MEDS ORDERED: Dextrose 5% in Water 1,000 ML IV PRN (10:02)
[2018-12-04] MEDS ORDERED: Dextrose 5 %-0.45 % NaCl 1,000 ML IV SCH (10:15)
--- NOTE | 2018-12-04 10:27 | PRG ---
DATE OF SERVICE: 12/04/2018 SUBJECTIVE: Mr. Carrasco is a 63-year-old male with known history of multiple myeloma, ESRD-currently on maintenance hemodialysis, who was admitted with persistent headache and nausea and vomiting. An MRI of the head without contrast is being scheduled to rule out any metastatic lesion. He denies any chest pain or shortness of breath. He is scheduled for dialysis today. OBJECTIVE: VITAL SIGNS: Blood pressure 168/88, heart rate 78, respiratory rate 18, temperature 97.9, pulse ox 95%. GENERAL: Awake, alert, and comfortable. SKIN: Adequate turgor. HEENT: Slightly pale conjunctivae. Anicteric sclerae. No neck mass. No carotid bruits. No JVD. CHEST: No deformities. LUNGS: Clear breath sounds. No wheezing. No crackles. HEART: Normal sinus rhythm. No murmur. No gallops. No rubs. ABDOMEN: Globular, soft, nontender. No masses. EXTREMITIES: No edema. MEDICATIONS: Of December 04, 2018, reviewed. LABORATORY DATA: Of December 04, 2018: White count 3.5, hemoglobin 9.1. Sodium 136, potassium 4.6, chloride 99, carbon dioxide 22, BUN 52, creatinine 7.72, calcium 11.5. AST 15, ALT 19. ASSESSMENT AND PLAN: 1. End-stage renal disease - continuing current hemodialysis regimen, Saturday, , and Saturday. Fluid removal only as tolerated. 2. Headache - rule out for metastatic lesions. Please note, this patient has underlying multiple myeloma. 3. Multiple myeloma, managed by Dr. Randall. Continue supportive care. 4. Anemia. Continue to observe. P.r.n. blood transfusion. Job ID: [id number]
[2018-12-04] MEDS: Dextrose 5 %-0.45 % NaCl 1,000 ML IV SCH (11:09)
--- NOTE | 2018-12-04 11:52 | MRI ---
MRI BRAIN WITHOUT CONTRAST: Date: 12/04/18 HISTORY: Persistent headache, nausea and vomiting. Known cancer. Assess for mets. Myeloma, end-stage renal dis ease. FINDINGS: No restricted diffusion is identified. There are multiple foci of T2 prolongation in the periventricu lar white matter consistent with mild chronic small vessel ischemic disease. The ventricular size is appropriate and the basilar cisterns are patent. No evidence of infarct, hemorrhage, midline shift, o r abnormal extra-axial fluid collections are seen. IMPRESSION: No evidence of acute intracranial process. Absence of IV contrast precludes the definite exclusion of metastatic disease. POS: OFF
--- NOTE | 2018-12-04 12:31 | CON ---
DATE OF CONSULTATION: REASON FOR CONSULT: Multiple myeloma. HISTORY OF PRESENT ILLNESS: Mr. Venegas is a 63-year-old male with multiple myeloma. He has undergone multiple treatments and in July of this year, progressed while on Darzalex based therapy. He was referred to a tertiary care center for their opinion regarding further management including clinical trials. Unfortunately, he never made it to [facility]. He has not been on myeloma treatment for the last 3 months. He presented to our clinic yesterday and had intractable pain, nausea, and vomiting for the past four days. He was extremely weak. He was referred to the emergency room for evaluation. He had an elevated calcium of 12.1 and BNP of 725. He is on hemodialysis and has been compliant with treatment. He has been admitted and started on gentle hydration. He has had improvement of his calcium to 11.5 this morning. PAST MEDICAL HISTORY: 1. [place] light [place] multiple myeloma. 2. Diabetes mellitus. 3. End-stage renal disease, on hemodialysis. 4. Hypertension. 5. History of NE. 6. Latent tuberculosis, treated. PAST SURGICAL HISTORY: 1. Cardiac stent placement, MediPort placement, coronary artery bypass grafting, EGDs. 2. Dialysis catheter placement. ALLERGIES: NO KNOWN DRUG ALLERGIES. HOME MEDICATIONS: 1. . 2. Hydrocodone. 3. Reglan. 4. Nifedipine. 5. Zofran. FAMILY HISTORY: No known history of cancer. SOCIAL HISTORY: , has 3 children. Lives in [place]. No alcohol, tobacco, or illicit drug use. REVIEW OF SYSTEMS: CONSTITUTIONAL: Positive for fatigue, loss of appetite. EYES: Positive for blurred vision. ENT: Positive for sore throat. CV: No chest pain, palpitations, or syncope. RESPIRATORY: No shortness of breath, dyspnea on exertion, or orthopnea. GI: Positive for nausea, vomiting. : No dysuria or hematuria. MUSCULOSKELETAL: Positive for joint and back pain. SKIN: No rash or pruritus. HEMATOLOGICAL: No bleeding, bruising, or clotting. NEUROLOGICAL: Positive for weakness, headaches, dizziness, and loss of balance. PHYSICAL EXAMINATION: VITAL SIGNS: Temperature is 97.9, pulse is 78, respiratory rate 18, BP is 168/88. He is 95% on room air. GENERAL: This is a chronically ill-appearing male, in no acute distress. HEENT: Normocephalic and atraumatic. Pupils are equal and reactive to light. CV: Regular rate and rhythm. LUNGS: Clear. ABDOMEN: Soft and nontender. Bowel sounds are positive. EXTREMITIES: No clubbing or cyanosis. SKIN: No rash. HEMATOLOGICAL: No petechiae or purpura. NEUROLOGICAL: Nonfocal. PERTINENT LABS AND X-RAYS: Current WBCs are 3.5, hemoglobin 9.1, hematocrit 25.7, platelet count is 32,000. He has 44% neutrophils, 30% lymphocytes, 9% reactive lymphocytes, and 17% monocytes. Sodium 136, potassium 4.6, chloride 99, CO2 is 22, BUN is 52, creatinine 7.72, magnesium 2.5, total bilirubin 0.5, AST is 15, ALT is 19, alkaline phosphatase is 129. BNP is 725. Serum total protein 6.8, albumin 4.2, globulin 4.3. CT scan showed lytic lesion in the ischium and numerous old compression fractures and old rib fractures. ASSESSMENT: 1. Multiple myeloma, untreated for the last 3 months. 2. Intractable nausea and vomiting. 3. Hypercalcemia. 4. End-stage renal disease, on dialysis. DISCUSSION: The patient has started gentle hydration. He will go for dialysis today. He is unable to get Zometa secondary to his kidney failure. Xgeva is non-formulary and unavailable. We will begin acute treatment for his multiple myeloma with dexamethasone 40 mg IV x4 days and he will follow up in the outpatient setting to discuss further treatment options. Thank you for the consult. Job ID: [id number]
--- NOTE | 2018-12-04 15:49 | PDOC.PALFU ---
Palliative Care Follow-up Note Attempted to initiate contact with patient. He was out of room receiving dialysis. Will return to establish care.
[2018-12-04] MEDS: Dexamethasone 40 MG in Sodium Chloride 0.9% 50 ML IVPB SCH (17:34)
[2018-12-04] MEDS: Pantoprazole 40 MG VIAL IVP SCH (20:08)
[2018-12-04] MEDS: Acetaminophen 325 MG TAB PO PRN (20:08)
--- NOTE | 2018-12-05 00:16 | CON ---
DATE OF CONSULTATION: 12/04/2018 REASON FOR CONSULTATION: Nausea and vomiting, coffee-grounds emesis. HISTORY OF PRESENT ILLNESS: Mr. Venegas is a 63-year-old gentleman with multiple myeloma refractory to treatment. He had been referred to a tertiary facility sometime ago, but apparently did not make it to that referral. He presented to the emergency room with complaints of abdominal pain, back pain, headache, nausea, and vomiting. He had not had dialysis, had mild hyperkalemia, his potassium was over 12. His pain was dull and wrapped around to his back. He also had quite a bit of constipation. A CAT scan was done while he was in the emergency room of the abdomen and pelvis. It showed no acute inflammatory process in the abdomen and pelvis. Lytic lesions in the ischium. There were compression fractures in the back, old rib fractures. He had a brain MRI performed this morning that was without IV contrast, it showed no overt large lesions. He has had dialysis today, somewhat better, he has not vomited since around 11:00 a.m. He has known history of prior gastritis with H pylori, which was treated last year. He was recently here and discharged just at the end of October. He has had quite a bit of nausea and vomiting. He has had poor oral intake for several weeks. He had a little bit of coffee-grounds emesis. His hemoglobin has been fairly stable. He did not eat or drink for about 12 days by his report. He has hemodialysis, Dr. Camacho apparently there he looked sick and he was sent to the emergency room for admission. PAST MEDICAL HISTORY: History of Crohn disease, hypertension, hyperlipidemia, multiple myeloma. PAST SURGICAL HISTORY: CABG x3; EGD last year, H pylori. No ulcers. FAMILY HISTORY: Noncontributory. SOCIAL HISTORY: Negative for alcohol, drugs, or tobacco. His is at the bedside. REVIEW OF SYSTEMS: No dysphagia or odynophagia. Positive for hiccups. Negative for fever or chills. Negative for melena. Negative for hematochezia. MEDICATIONS: At home; 1. Zofran. 2. Nifedipine. 3. Metoclopramide. 4. Hydrocodone. 5. Atorvastatin. Medications here, 1. Dexamethasone. 2. D5 half-normal 65 an hour. 3. Insulin sliding scale. 4. Reglan p.r.n. 5. Protonix 40 IV q.12. 6. P.r.n. morphine. PHYSICAL EXAMINATION: VITAL SIGNS: Temperature 97, pulse 83, blood pressure 157/74. GENERAL: He is resting in bed. HEENT: His Conjunctivae and sclerae are clear. Mucous membranes are dry. NECK: Supple. LUNGS: Clear. HEART: Regular rhythm. ABDOMEN: Soft. Mild tenderness in the epigastrium. There is no rebound. There is no guarding. EXTREMITIES: No clubbing, cyanosis, or edema. There is no ecchymosis or rashes. LABORATORY STUDIES: White count 3.5, hemoglobin 9.1, platelet count 32,000. Hemoglobin is about at his baseline. INR 1.3. Sodium 136, potassium 4.6, chloride 99, bicarb 22, BUN and creatinine 52 and 7.72. Calcium 11.5, it was 12.1 yesterday. AST and ALT are 15 and 19, alkaline phosphatase is 129, bilirubin 0.5. Lipase is 9. CAT scan, my review of the films, there is no overt signs of gastric outlet obstruction or severe constipation. ASSESSMENT: 1. Nausea and vomiting likely related to hypercalcemia and dehydration related to hypercalcemia and uncontrolled metastatic myeloma. 2. Stable hemoglobin. 3. Prior history of gastritis on prior endoscopies. No signs of acute hemorrhage this time. 4. Abdominal pain related to hypercalcemia. 5. Bone pain related to multiple myeloma and hypercalcemia. RECOMMENDATIONS: 1. Control hypercalcemia. I agree with IV steroids. I would give him more aggressive hydration as he is probably dehydrated in light of what he states he has been able to hold down lately. I will defer to the primary service. I agree with IV Protonix q.12 hours. 2. No role for endoscopy at this point in time. We will follow along with you. Job ID: [id number]
[2018-12-05] MEDS: Dextrose 5 %-0.45 % NaCl 1,000 ML IV SCH ×2 (02:34→14:44)
[2018-12-05] MEDS: HumaLOG 300 UNITS/3 ML VIAL SC PRN ×4 (04:39→20:42)
[2018-12-05 07:16] LABS: #Lymphocytes 0.6 thou/uL (1.20-3.40); #Monocytes 0.1 thou/uL (0.11-0.59); #Neutrophils 1.4 thou/uL (1.40-6.50); %Basophils 0.2 % (0.0-1.0); %Eosinophils 0.2 % (0.0-10.0); %Lymphocytes 26.8 % (21.0-51.0); %Monocytes 4.5 % (0.0-10.0); %Neutrophils 68.3 % (42.0-75.0); Hemoglobin 8.6 g/dL (14.0-18.0); Mean Corpuscular HGB CONC 34.6 g/dL (32.0-36.0); Mean Corpuscular Volume 92.6 fL (78.0-98.0); Mean Platelet Volume 9.4 fL (7.4-10.4); Platelet Count 31 thou/uL (130-400); Red Blood Cell (RBC) Count 2.68 mill/uL (4.70-6.10); White Blood Cell (WBC) Count 2.1 thou/uL (4.8-10.8)
[2018-12-05 07:34] LABS: ALT (SGPT) 19 U/L (8-55); AST (SGOT) 14 U/L (5-34); Alkaline Phosphatase 125 U/L (40-110); Anion Gap 19 mmol/L (10-20); BUN (Urea Nitrogen) 36 mg/dL (8.4-25.7); Bilirubin, Total 0.5 mg/dL (0.2-1.2); Calc. Creatinine Clearance 13 mL/min (70-130); Calcium 10.6 mg/dL (7.8-10.44); Carbon Dioxide 22 mmol/L (23-31); Chloride 98 mmol/L (98-107); Estimated GFR-MDRD 11; Globulin 2.5 g/dL (2.4-3.5); Glucose 316 mg/dL (80-115); Potassium 4.4 mmol/L (3.5-5.1); Protein, Total 6.5 g/dL (5.8-8.1); Sodium 135 mmol/L (136-145)
[2018-12-05] MEDS: Pantoprazole 40 MG VIAL IVP SCH ×2 (08:20→20:38)
--- NOTE | 2018-12-05 14:37 | PDOC.MOPN ---
Interval History: Feels better, taking liquids with no n/v. Pain in back but otherwise no complaints. - Vital Signs Vital Signs: Vital Signs (12 hours) Temp Pulse Resp BP BP Pulse Ox 12/05/18 08:00 98.7 F 72 16 163/72 H 95 12/05/18 04:41 173/77 H 12/05/18 04:00 98.3 F 91 20 173/77 H 97 Weight Admit Weight 145 lb Weight 145 lb - Physical Exam General: Alert, Oriented x3, No acute distress HEENT: Atraumatic, PERRLA, EOMI, Mucous membr. moist/pink Lungs: Clear to auscultation, Normal air movement Cardiovascular: Regular rate, Normal S1, Normal S2, No murmurs, Gallops, Rubs Abdomen: Normal bowel sounds, Soft, No tenderness, No hepatospenomegaly, No masses Extremities: No clubbing, No cyanosis, No edema, Normal pulses, No tenderness/ swelling Skin: No rashes, No breakdown, No significant lesion Neurological: Normal gait, Normal speech, Strength at 5/5 X4 ext, Normal tone, Sensation intact, Cranial nerves 3-12 NL, Reflexes 2+ Psych/Mental Status: Mental status NL, Mood NL - Labs Result Diagrams: 12/05/18 06:48 12/05/18 06:48 Lab results: Laboratory Results - last 24 hr 12/05/18 11:03: POC Glucose 293 H 12/05/18 06:48: WBC 2.1 L, RBC 2.68 L, Hgb 8.6 L, Hct 24.9 L, MCV 92.6, MCH 32.0 H, MCHC 34.6, RDW 14.0, Plt Count 31 L, MPV 9.4, Neutrophils % 68.3, Neutrophils % (Manual) Not Reportable, Lymphocytes % 26.8, Monocytes % 4.5, Eosinophils % 0.2, Basophils % 0.2, Neutrophils # 1.4, Lymphocytes # 0.6 L, Monocytes # 0.1 L, Eosinophils # 0.0, Basophils # 0.0 12/05/18 06:48: Sodium 135 L, Potassium 4.4, Chloride 98, Carbon Dioxide 22 L, Anion Gap 19, BUN 36 H, Creatinine 5.44 H, Estimated GFR (MDRD) 11, Glucose 316 H, Calcium 10.6 H, Total Bilirubin 0.5, AST 14, ALT 19, Alkaline Phosphatase 125 H, Serum Total Protein 6.5, Albumin 4.0, Globulin 2.5, Albumin/Globulin Ratio 1.6 12/05/18 04:22: POC Glucose 306 H 12/04/18 19:21: POC Glucose 114 H 12/04/18 16:42: POC Glucose 85 Status: lab reviewed by me A/P - Problem (1) ESRD on dialysis Current Visit: Yes Code(s): N18.6 - END STAGE RENAL DISEASE; Z99.2 - DEPENDENCE ON RENAL DIALYSIS Status: Acute (2) Hypercalcemia Current Visit: Yes Code(s): E83.52 - HYPERCALCEMIA Status: Acute (3) Metastatic multiple myeloma to bone Current Visit: Yes Code(s): C90.00 - MULTIPLE MYELOMA NOT HAVING ACHIEVED REMISSION Status: Acute (4) Multiple myeloma Current Visit: No Code(s): C90.00 - MULTIPLE MYELOMA NOT HAVING ACHIEVED REMISSION Status: Acute Qualifiers: Multiple myeloma remission status: not in remission Qualified Code(s): C90.00 - Multiple myeloma not having achieved remission - Plan Plan: 1. Continue gentle hydration for hypercalcemia 2. Day 2 of 4 Dexamethasone IV 3. pain control 4. follow CBC, no transfusion required at this time
[2018-12-05] MEDS: Dexamethasone 40 MG in Sodium Chloride 0.9% 50 ML IVPB SCH (14:43)
--- NOTE | 2018-12-05 16:47 | PRG ---
DATE OF SERVICE: 12/05/2018 SUBJECTIVE: Mr. Venegas is tolerating a full liquid diet. No hematemesis. No vomiting. His abdomen feels better. MEDICATIONS: Reviewed. PHYSICAL EXAMINATION: VITAL SIGNS: Temperature 98.7, pulse 72, blood pressure 173/77. ABDOMEN: Soft, nontender. LABORATORY DATA: Hemoglobin is 8.6, white count 2.1, platelet count 31,000, calcium is around 10.6, alkaline phosphatase 125. Sodium 135, BUN and creatinine are 36 and 5.44. ASSESSMENT: 1. Multiple myeloma. 2. Hypercalcemia secondary to multiple myeloma. 3. Renal failure. 4. Prior history of gastric erosions and ulcerations in the past upon endoscopy at this hospital. 5. History of H pylori partially treated. 6. Nausea and vomiting secondary to hypercalcemia, resolved. RECOMMENDATIONS: 1. Maintenance PPI therapy would not attempt to treat the H pylori in light of his multiple medical problems and the fact this is going to cause lower GI upset. We can just add a maintenance PPI. 2. At this time, we will sign off. If I can be of any further assistance in the patient's care, please do not hesitate to contact me. Consider changing PPI to p.o. in the next 1 to 2 days. Job ID: [id number]
--- NOTE | 2018-12-05 17:19 | PDOC.HOSPP ---
- Subjective Subjective: Doing ok. Says his pain is improved. Meds are helping. Still some in his left chest and back. Nausea is improved. Tolerating some clears. - Objective Vital Signs & Weight: Vital Signs (12 hours) Temp Pulse Resp BP Pulse Ox 12/05/18 08:00 98.7 F 72 16 163/72 H 95 Weight Admit Weight 145 lb Weight 145 lb Result Diagrams: 12/05/18 06:48 12/05/18 06:48 Additional Labs: Accuchecks 12/05/18 12/05/18 12/05/18 16:14 11:03 04:22 POC Glucose 381 H 293 H 306 H 12/04/18 19:21 POC Glucose 114 H Hospitalist ROS - Medication Medications: Active Medications Generic Name Dose Route Start Last Admin Trade Name Freq PRN Reason Stop Dose Admin Acetaminophen 650 mg 12/04/18 08:51 12/04/18 20:08 Tylenol PO 650 mg Q4H PRN Administration Headache/Fever/Mild Pain (1-3) Hydralazine HCl 5 mg 12/04/18 08:57 12/05/18 04:41 Apresoline SLOW IVP 5 mg Q4H PRN Administration SBP Greater Than 170 Dextrose/Sodium Chloride 1,000 mls @ 65 mls/hr 12/04/18 10:15 12/05/18 14:44 D5 1/2 Ns IV Not Given .[id number] MELODY Dexamethasone 40 mg/ Sodium 54 mls @ 100 mls/hr 12/04/18 13:00 12/05/18 14:43 Chloride IVPB 12/07/18 13:33 54 mls 1300 MELODY Administration Insulin Human Lispro 0 units 12/04/18 10:02 12/05/18 16:47 Humalog SC 5 unit .MILD SLIDING SCALE PRN Administration Mild Correctional Scale Metoclopramide HCl 10 mg 12/04/18 08:46 12/04/18 20:09 Reglan IVP 10 mg Q6H PRN Administration Nausea/Vomiting Pantoprazole Sodium 40 mg 12/04/18 21:00 12/05/18 08:20 Protonix IVP 40 mg Q12HR MELODY Administration - Exam General Appearance: NAD, awake alert Heart: RRR, no murmur, no gallops, no rubs, normal peripheral pulses Respiratory: CTAB, no wheezes, no rales, no ronchi, normal chest expansion, no tachypnea, normal percussion Gastrointestinal: soft, non-tender, non-distended, normal bowel sounds, no palpable masses, no hepatomegaly, no splenomegaly, no bruit Skin: normal turgor Musculoskeletal: generalized weakness Psychiatric: normal affect Hosp A/P (1) Compression fracture of lumbar vertebra Code(s): S32.000A - WEDGE COMPRESSION FRACTURE OF UNSP LUMBAR VERTEBRA, INIT Status: Acute (2) ESRD on dialysis Code(s): N18.6 - END STAGE RENAL DISEASE; Z99.2 - DEPENDENCE ON RENAL DIALYSIS Status: Acute (3) Hypercalcemia Code(s): E83.52 - HYPERCALCEMIA Status: Acute (4) Metastatic multiple myeloma to bone Code(s): C90.00 - MULTIPLE MYELOMA NOT HAVING ACHIEVED REMISSION Status: Acute (5) Pain from bone metastases Code(s): G89.3 - NEOPLASM RELATED PAIN (ACUTE) (CHRONIC); C79.51 - SECONDARY MALIGNANT NEOPLASM OF BONE Status: Acute (6) Prolonged severe nausea and vomiting Code(s): R11.2 - NAUSEA WITH VOMITING, UNSPECIFIED Status: Acute (7) Hypertension Code(s): I10 - ESSENTIAL (PRIMARY) HYPERTENSION Status: Chronic (8) Anemia Code(s): D64.9 - ANEMIA, UNSPECIFIED Status: Acute (9) Coronary artery disease Code(s): I25.10 - ATHSCL HEART DISEASE OF [place] CORONARY ARTERY W/O ANG PCTRS Status: Acute Qualifiers: Coronary Disease-Associated Artery/Lesion type: [place] artery [place] vs. transplanted heart: [place] heart Associated angina: angina presence unspecified Qualified Code(s): I25.10 - Atherosclerotic heart disease of [place] coronary artery without angina pectoris (10) Diabetes Code(s): E11.9 - TYPE 2 DIABETES MELLITUS WITHOUT COMPLICATIONS Status: Chronic Qualifiers: Diabetes mellitus type: type 2 Diabetes mellitus cat sitter insulin use: with detention use Diabetes mellitus complication status: without complication Qualified Code(s): E11.9 - Type 2 diabetes mellitus without complications; Z79.4 - MCFP (current) use of insulin - Plan Bone marrow biopsy proven MM with numerous osseous lesions. Untreated for several months. Presented with severe hypercalcemia and associated N/V. Calcium improving with steroids. Today is day 2/4. Continue IV steroids. Advance diet as tolerated.
[2018-12-05] MEDS: Acetaminophen 325 MG TAB PO PRN (20:45)
[2018-12-06] MEDS: HumaLOG 300 UNITS/3 ML VIAL SC PRN ×4 (06:33→21:38)
--- NOTE | 2018-12-06 09:51 | PRG ---
DATE OF SERVICE: 12/06/2018 SUBJECTIVE: Mr. Carrasco is a 63-year-old male with known history of multiple myeloma, ESRD, on maintenance hemodialysis. Initially, he was admitted for complaints of abdomen with nausea and vomiting. He is currently undergoing dialysis and tolerating said treatment. No chest pain or shortness of breath. Abdominal pain is better. OBJECTIVE: VITAL SIGNS: Blood pressure 150/66, heart rate 86, respiratory rate 20, temperature 98.2, and pulse ox 100%. GENERAL: Awake, alert, and comfortable, not in distress. SKIN: Adequate turgor. HEENT: Slightly pale conjunctivae. Anicteric sclerae. NECK: No neck mass. No carotid bruits. No JVD. CHEST: No deformities. LUNGS: Clear breath sounds. No wheezing. No crackles. HEART: Normal sinus rhythm. No murmur. No gallops. No rubs. ABDOMEN: Globular, soft, and nontender. No masses. EXTREMITIES: No edema. No deformities. MEDICATIONS: Medications of December 06, 2018, was reviewed. LABORATORY DATA: Laboratories of December 06, 2018; glucose 287. On December 05, 2018; sodium 135, potassium 4.4, chloride 98, carbon dioxide 22, BUN 36, creatinine 5.44, and calcium 10.6. White count 2.1, hemoglobin 8.6, hematocrit 24.9, and platelet count is 31,000. ASSESSMENT AND PLAN: 1. End-stage renal disease, stable. We will continue current hemodialysis regimen. Continue supportive care. Tolerating current dialysis regimen. Continue Saturday, , and Saturday dialysis. 2. Multiple myeloma, not in remission. Oncology is following. Currently, on dexamethasone. 3. Anemia. Start Epogen 10,000 units subcu every week. 4. Nausea/vomiting - clinically improved. GI has evaluated this patient. Supportive care is recommended. Job ID: [id number]
[2018-12-06] MEDS ORDERED: EPOETIN ALFA-EPBX (ESRD) 10,000 UNIT/ML VIAL SC SCH (10:00)
[2018-12-06] MEDS ORDERED: Polyethylene Glycol 3350 17 GM Packet PO PRN (10:47)
--- NOTE | 2018-12-06 10:49 | PDOC.MOPN ---
Interval History: he is c/o abdominal pain from constipation, no BM for many days - Vital Signs Vital Signs: Vital Signs (12 hours) Pulse Ox 12/06/18 08:00 96 Weight Admit Weight 145 lb Weight 145 lb - Physical Exam General: Alert HEENT: Atraumatic Lungs: Clear to auscultation Cardiovascular: Regular rate, Normal S1 Abdomen: Normal bowel sounds, No tenderness Extremities: No clubbing Skin: No rashes Neurological: Normal speech - Labs Result Diagrams: 12/05/18 06:48 12/05/18 06:48 Lab results: Laboratory Results - last 24 hr 12/06/18 04:25: POC Glucose 287 H 12/05/18 19:36: POC Glucose 314 H 12/05/18 16:14: POC Glucose 381 H 12/05/18 11:03: POC Glucose 293 H A/P - Problem (1) Constipation Current Visit: Yes Code(s): K59.00 - CONSTIPATION, UNSPECIFIED Status: Acute (2) ESRD on dialysis Current Visit: Yes Code(s): N18.6 - END STAGE RENAL DISEASE; Z99.2 - DEPENDENCE ON RENAL DIALYSIS Status: Acute (3) Hypercalcemia Current Visit: Yes Code(s): E83.52 - HYPERCALCEMIA Status: Acute (4) Metastatic multiple myeloma to bone Current Visit: Yes Code(s): C90.00 - MULTIPLE MYELOMA NOT HAVING ACHIEVED REMISSION Status: Acute (5) Pain from bone metastases Current Visit: Yes Code(s): G89.3 - NEOPLASM RELATED PAIN (ACUTE) (CHRONIC); C79.51 - SECONDARY MALIGNANT NEOPLASM OF BONE Status: Acute (6) Anemia Current Visit: No Code(s): D64.9 - ANEMIA, UNSPECIFIED Status: Acute - Plan Plan: 1. add laxatives 2. cont HD 3. cont dex 40 mg for 4 days 4. follow cbc
[2018-12-06] MEDS: Dexamethasone 40 MG in Sodium Chloride 0.9% 50 ML IVPB SCH (12:15)
[2018-12-06] MEDS: Pantoprazole 40 MG VIAL IVP SCH ×2 (12:15→19:49)
[2018-12-06] MEDS ORDERED: HumaLOG 300 UNITS/3 ML VIAL SC PRN (18:08)
[2018-12-06] MEDS ORDERED: Insulin Glargine 10 UNITS in Pre-Filled Syringe 1 EACH SC SCH (18:15)
[2018-12-06] MEDS: Morphine 2 MG/ML SYRINGE SLOW IVP PRN ×2 (18:34→22:31)
[2018-12-06] MEDS: Senokot S 8.6-50 MG TAB PO SCH (19:50)
--- NOTE | 2018-12-06 20:03 | PDOC.HOSPP ---
- Subjective Encounter Date: 12/06/18 Encounter Time: 10:30 Subjective: pt complains of lower back pain. - Objective Vital Signs & Weight: Vital Signs (12 hours) Temp Pulse Resp BP BP Pulse Ox 12/06/18 19:40 97.7 F 90 18 166/79 H 100 12/06/18 16:00 97.6 F 92 18 167/79 H 94 L 12/06/18 12:00 98.1 F 84 18 146/80 H 95 Weight Admit Weight 145 lb Weight 145 lb I&O: 12/05/18 12/06/18 12/07/18 06:59 06:59 06:59 Intake Total 2280 Balance 2280 Result Diagrams: 12/05/18 06:48 12/05/18 06:48 Additional Labs: Accuchecks 12/06/18 12/06/18 12/06/18 16:48 12:23 04:25 POC Glucose 467 H 203 H 287 H 12/05/18 19:36 POC Glucose 314 H Hospitalist ROS - Review of Systems Respiratory: denies: cough, dry, shortness of breath, hemoptysis, SOB with excertion, pleuritic pain, sputum, wheezing, other Cardiovascular: denies: chest pain, palpitations, orthopnea, paroxysmal noc. dyspnea, edema, light headedness, other Musculoskeletal: reports: other (lower back pain) - Medication Medications: Active Medications Generic Name Dose Route Start Last Admin Trade Name Freq PRN Reason Stop Dose Admin Acetaminophen 650 mg 12/04/18 08:51 12/05/18 20:45 Tylenol PO 650 mg Q4H PRN Administration Headache/Fever/Mild Pain (1-3) Epoetin Leander-epbx 10,000 unit 12/06/18 10:00 12/06/18 10:35 Retacrit SC 10,000 unit Q7D MELODY Administration Hydralazine HCl 5 mg 12/04/18 08:57 12/05/18 04:41 Apresoline SLOW IVP 5 mg Q4H PRN Administration SBP Greater Than 170 Dexamethasone 40 mg/ Sodium 54 mls @ 100 mls/hr 12/04/18 13:00 12/06/18 12:15 Chloride IVPB 12/07/18 13:33 54 mls 1300 MELODY Administration Insulin Glargine 10 units/ 0.1 mls @ 0 mls/hr 12/06/18 18:15 12/06/18 18:30 Miscellaneous Medication SC 12/06/18 20:15 0.1 mls NOW MELODY Administration As Directed Insulin Human Lispro 0 units 12/04/18 10:02 12/05/18 20:42 Humalog SC 5 unit .BEDTIME SLIDING SC PRN Administration Bedtime Correctional Scale Metoclopramide HCl 10 mg 12/04/18 08:46 12/04/18 20:09 Reglan IVP 10 mg Q6H PRN Administration Nausea/Vomiting Morphine Sulfate 2 mg 12/04/18 09:44 12/06/18 18:34 Morphine SLOW IVP 2 mg Q4H PRN Administration Pain Pantoprazole Sodium 40 mg 12/04/18 21:00 12/06/18 19:49 Protonix IVP 40 mg Q12HR MELODY Administration Polyethylene Glycol 17 gm 12/06/18 10:47 12/06/18 12:22 Miralax PO 17 gm DAILYPRN PRN Administration Constipation Senna/Docusate Sodium 1 tab 12/06/18 21:00 12/06/18 19:50 Senokot S PO 1 tab BID MELODY Administration - Exam Neck: negative: supple, symmetric, no JVD, no thyromegaly, no lymphadenopathy, no carotid bruit, JVD Heart: negative: RRR, no murmur, no gallops, no rubs, normal peripheral pulses, irregular, diminshed peripheral pulses, murmur present, II/IV, III/IV Respiratory: negative: CTAB, no wheezes, no rales, no ronchi, normal chest expansion, no tachypnea, normal percussion, rales, rhonchi, tachypneic, wheezes Hosp A/P (1) Compression fracture of lumbar vertebra Code(s): S32.000A - WEDGE COMPRESSION FRACTURE OF UNSP LUMBAR VERTEBRA, INIT Status: Acute (2) Constipation Code(s): K59.00 - CONSTIPATION, UNSPECIFIED Status: Acute (3) ESRD on dialysis Code(s): N18.6 - END STAGE RENAL DISEASE; Z99.2 - DEPENDENCE ON RENAL DIALYSIS Status: Acute (4) Hypercalcemia Code(s): E83.52 - HYPERCALCEMIA Status: Acute (5) Metastatic multiple myeloma to bone Code(s): C90.00 - MULTIPLE MYELOMA NOT HAVING ACHIEVED REMISSION Status: Acute - Plan will add stool softeners. pt on steroids. will monitor blood sugar. will add short acting and long acting insulin. PT consulted.
[2018-12-06] MEDS ORDERED: Bisacodyl 5 MG TAB PO SCH (20:15)
[2018-12-06] MEDS: Insulin Glargine 8 UNITS in Pre-Filled Syringe 1 EACH SC SCH (21:38)
--- NOTE | 2018-12-07 02:34 | EKG ---
Test Reason : Blood Pressure : / mmHG Vent. Rate : 080 BPM Atrial Rate : 080 BPM P-R Int : 140 ms QRS Dur : 090 ms QT Int : 392 ms P-R-T Axes : 024 048 077 degrees QTc Int : 452 ms Normal sinus rhythm Normal ECG Confirmed by ISHAAN TURNER, ELIAN Garibay ([id number]), security guard NEIL WILLIS ([id number]) on 12/07/2018 2:34:06 AM Referred By: Confirmed By:ELIAN QUIROS MD
[2018-12-07 07:45] LABS: Anion Gap 15 mmol/L (10-20); BUN (Urea Nitrogen) 46 mg/dL (8.4-25.7); Calc. Creatinine Clearance 13 mL/min (70-130); Calcium 10.6 mg/dL (7.8-10.44); Carbon Dioxide 25 mmol/L (23-31); Chloride 97 mmol/L (98-107); Estimated GFR-MDRD 10; Glucose 121 mg/dL (80-115); Potassium 4.2 mmol/L (3.5-5.1); Sodium 133 mmol/L (136-145)
[2018-12-07] MEDS: Pantoprazole 40 MG VIAL IVP SCH ×2 (07:58→20:11)
[2018-12-07] MEDS: HumaLOG 300 UNITS/3 ML VIAL SC SCH ×3 (08:01→16:58)
[2018-12-07] MEDS: Senokot S 8.6-50 MG TAB PO SCH ×2 (08:03→20:11)
[2018-12-07] MEDS: Polyethylene Glycol 3350 17 GM Packet PO SCH (08:03)
[2018-12-07 08:04] LABS: Hemoglobin 8.7 g/dL (14.0-18.0); Lymphocytes 36 % (21-51); MDiff Complete? YES; Mean Corpuscular Hemoglobin 33.1 pg (27.0-31.0); Mean Corpuscular Volume 91.9 fL (78.0-98.0); Mean Platelet Volume 9.1 fL (7.4-10.4); Monocytes 4 % (0-10); Neutrophil 60 % (42-75); Platelet Count 29 thou/uL (130-400); Platelet Morphology Comment Appears Decreased; RBC Distribution Width 14.5 % (11.5-14.5); Red Blood Cell (RBC) Count 2.62 mill/uL (4.70-6.10)
[2018-12-07] MEDS ORDERED: PARoxetine 20 MG TAB ONE (08:44)
[2018-12-07] MEDS: Insulin Glargine 8 UNITS in Pre-Filled Syringe 1 EACH SC SCH ×2 (08:46→20:11)
--- NOTE | 2018-12-07 11:59 | PRG ---
DATE OF SERVICE: 12/07/2018 SUBJECTIVE: Mr. Theo Carrasco is a 63-year-old male with ESRD and currently on maintenance hemodialysis. He is still complaining of some back pain. He has history of multiple myeloma with mets. He continues to receive dialysis without any difficulty. He has been started on prednisone by Oncology. He will receive dexamethasone 40 mg for a total of four days. No other new complaints today. No chest pain or shortness of breath. He did undergo hemodialysis yesterday without any difficulty. OBJECTIVE: VITAL SIGNS: Blood pressure 160/71, heart rate 74, respiratory rate 18, temperature 98.1, and pulse ox 95%. GENERAL: Noted to be awake, alert, comfortable, not in distress. SKIN: Adequate turgor. HEENT: He has a slightly pale conjunctivae. Anicteric sclerae. NECK: No neck mass. No carotid bruits. No JVD. CHEST: No deformities. LUNGS: Clear breath sounds. No wheezing. No crackles. HEART: Normal sinus rhythm. No murmur. No gallops. No rubs. ABDOMEN: Globular, soft, nontender. No masses. EXTREMITIES: No edema. No deformities. MEDICATIONS: Medications of December 07, 2018, reviewed. LABORATORY DATA: December 07, 2018; white count 5, hemoglobin 8.7. Sodium 133, potassium 4.2, chloride 97, carbon dioxide 25, BUN 46, creatinine 5.56, glucose 284, calcium 10.6. ASSESSMENT AND PLAN: 1. Multiple myeloma with mets - currently on dexamethasone 40 mg daily for a total of four days. 2. End-stage renal disease, stable. We will continue current Saturday, , and Saturday dialysis regimen. Fluid removal as tolerated. 3. No indication for any emergent dialysis today. 4. Anemia continuing weekly Epogen of 10,000 units subcu weekly. 5. Recheck basic metabolic profile and CBC in a.m. Job ID: [id number]
[2018-12-07] MEDS: Dexamethasone 40 MG in Sodium Chloride 0.9% 50 ML IVPB SCH (12:13)
--- NOTE | 2018-12-07 15:54 | PDOC.HOSPP ---
- Subjective Encounter Date: 12/07/18 Encounter Time: 13:00 Subjective: pt up in bed complains of pain to his lower back. He had a bm - Objective Vital Signs & Weight: Vital Signs (12 hours) Temp Pulse Resp BP BP Pulse Ox 12/07/18 08:00 98.1 F 84 18 172/92 H 99 12/07/18 04:00 98.1 F 74 18 160/71 H 95 Weight Admit Weight 145 lb Weight 145 lb I&O: 12/06/18 12/07/18 12/08/18 06:59 06:59 06:59 Intake Total 2280 Balance 2280 Result Diagrams: 12/07/18 07:09 12/07/18 07:09 Additional Labs: Accuchecks 12/07/18 12/07/18 12/06/18 11:13 04:19 21:37 POC Glucose 384 H 114 H 438 H 12/06/18 12/06/18 19:35 16:48 POC Glucose 468 H 467 H Hospitalist ROS - Review of Systems Respiratory: denies: cough, dry, shortness of breath, hemoptysis, SOB with excertion, pleuritic pain, sputum, wheezing, other Cardiovascular: denies: chest pain, palpitations, orthopnea, paroxysmal noc. dyspnea, edema, light headedness, other Gastrointestinal: denies: nausea, vomiting, abdominal pain, diarrhea, constipation, melena, hematochezia, other Genitourinary: denies: dysuria, frequency, incontinence, hematuria, retention, other Musculoskeletal: reports: back pain - Medication Medications: Active Medications Generic Name Dose Route Start Last Admin Trade Name Gonzalezq PRN Reason Stop Dose Admin Acetaminophen 650 mg 12/04/18 08:51 12/05/18 20:45 Tylenol PO 650 mg Q4H PRN Administration Headache/Fever/Mild Pain (1-3) Epoetin Leander-epbx 10,000 unit 12/06/18 10:00 12/06/18 10:35 Retacrit SC 10,000 unit Q7D MELODY Administration Hydralazine HCl 5 mg 12/04/18 08:57 12/05/18 04:41 Apresoline SLOW IVP 5 mg Q4H PRN Administration SBP Greater Than 170 Insulin Glargine 8 units/ 0.08 mls @ 0 mls/hr 12/07/18 09:00 12/07/18 08:46 Miscellaneous Medication SC 0.08 mls QAM MELODY Administration Insulin Glargine 8 units/ 0.08 mls @ 0 mls/hr 12/06/18 21:00 12/06/18 21:38 Miscellaneous Medication SC 0.08 mls HS MELODY Administration Insulin Human Lispro 0 units 12/04/18 10:02 12/06/18 21:38 Humalog SC 5 unit .BEDTIME SLIDING SC PRN Administration Bedtime Correctional Scale Insulin Human Lispro 6 units 12/07/18 08:00 12/07/18 12:13 Humalog SC 6 unit TID-WM MELODY Administration Metoclopramide HCl 10 mg 12/04/18 08:46 12/04/18 20:09 Reglan IVP 10 mg Q6H PRN Administration Nausea/Vomiting Morphine Sulfate 2 mg 12/04/18 09:44 12/06/18 22:31 Morphine SLOW IVP 2 mg Q4H PRN Administration Pain Pantoprazole Sodium 40 mg 12/04/18 21:00 12/07/18 07:58 Protonix IVP 40 mg Q12HR MELODY Administration Polyethylene Glycol 17 gm 12/07/18 09:00 12/07/18 08:03 Miralax PO Not Given DAILY MELODY Senna/Docusate Sodium 1 tab 12/06/18 21:00 12/07/18 08:03 Senokot S PO Not Given BID MELODY - Exam Heart: RRR, no murmur Respiratory: CTAB, no wheezes, no rales, no ronchi Gastrointestinal: soft, non-tender, normal bowel sounds Hosp A/P (1) Compression fracture of lumbar vertebra Code(s): S32.000A - WEDGE COMPRESSION FRACTURE OF UNSP LUMBAR VERTEBRA, INIT Status: Acute (2) Constipation Code(s): K59.00 - CONSTIPATION, UNSPECIFIED Status: Acute (3) ESRD on dialysis Code(s): N18.6 - END STAGE RENAL DISEASE; Z99.2 - DEPENDENCE ON RENAL DIALYSIS Status: Acute (4) Hypercalcemia Code(s): E83.52 - HYPERCALCEMIA Status: Acute (5) Metastatic multiple myeloma to bone Code(s): C90.00 - MULTIPLE MYELOMA NOT HAVING ACHIEVED REMISSION Status: Acute (6) Thrombocytopenia Code(s): D69.6 - THROMBOCYTOPENIA, UNSPECIFIED Status: Acute - Plan will add stool softeners. pt on steroids. will monitor blood sugar. will add short acting and long acting insulin. PT consulted. 12/07 will monitor pt's platelets for now. pt had bm. pt on iv steroids last day today. insulin titrated per blood sugars. Discharge when ok with oncology.
[2018-12-07] MEDS: Morphine 2 MG/ML SYRINGE SLOW IVP PRN ×2 (16:59→21:50)
[2018-12-07] MEDS ORDERED: Atorvastatin Calcium 20 MG TAB PO SCH (21:00)
[2018-12-08] MEDS: Polyethylene Glycol 3350 17 GM Packet PO SCH (06:40)
[2018-12-08 07:11] LABS: Hemoglobin 8.6 g/dL (14.0-18.0); Mean Corpuscular HGB CONC 35.4 g/dL (32.0-36.0); Mean Corpuscular Volume 90.4 fL (78.0-98.0); Mean Platelet Volume 9.4 fL (7.4-10.4); Platelet Count 36 thou/uL (130-400); RBC Distribution Width 14.4 % (11.5-14.5); Red Blood Cell (RBC) Count 2.69 mill/uL (4.70-6.10); White Blood Cell (WBC) Count 3.3 thou/uL (4.8-10.8)
[2018-12-08 07:28] LABS: Anion Gap 18 mmol/L (10-20); BUN (Urea Nitrogen) 75 mg/dL (8.4-25.7); Calc. Creatinine Clearance 10 mL/min (70-130); Calcium 10.4 mg/dL (7.8-10.44); Carbon Dioxide 21 mmol/L (23-31); Chloride 96 mmol/L (98-107); Estimated GFR-MDRD 8; Glucose 315 mg/dL (80-115); Potassium 4.6 mmol/L (3.5-5.1); Sodium 130 mmol/L (136-145)
[2018-12-08 07:44] LABS: Lymphocytes 29 % (21-51); MDiff Complete? YES; Monocytes 3 % (0-10); Neutrophil 68 % (42-75); Platelet Morphology Comment Appears Decreased; Polychromasia MODERATE = 3-4 cells (100X) (0-2/hpf); Schistocytes SLIGHT = 2-5 cells (100X) (0-1/hpf)
[2018-12-08 07:47] VITALS: BP 178/84; TEMP 98
[2018-12-08] MEDS: Pantoprazole 40 MG VIAL IVP SCH (08:13)
[2018-12-08] MEDS: Senokot S 8.6-50 MG TAB PO SCH (08:13)
[2018-12-08] MEDS: Insulin Glargine 8 UNITS in Pre-Filled Syringe 1 EACH SC SCH (08:13)
[2018-12-08] MEDS: HumaLOG 300 UNITS/3 ML VIAL SC SCH ×2 (08:13→11:39)
[2018-12-08] MEDS ORDERED: NIFEdipine XL 30 MG TAB PO SCH ×2 (09:00→21:00)
[2018-12-08] MEDS ORDERED: Metoprolol Tartrate 25 MG TAB PO SCH (10:15)
--- NOTE | 2018-12-08 15:00 | PDOC.HOSPP ---
- Subjective Encounter Date: 12/08/18 Encounter Time: 12:45 Subjective: pt up in bed no complains - Objective Vital Signs & Weight: Vital Signs (12 hours) Temp Pulse Resp BP BP Pulse Ox 12/08/18 08:12 85 178/84 H 12/08/18 07:46 98.0 F 85 20 178/84 H 100 12/08/18 04:00 98.2 F 82 18 168/78 H 99 Weight Admit Weight 145 lb Weight 145 lb Result Diagrams: 12/08/18 06:35 12/08/18 06:35 Additional Labs: Accuchecks 12/08/18 12/08/18 12/07/18 10:39 04:26 19:36 POC Glucose 337 H 366 H 283 H 12/07/18 16:53 POC Glucose 300 H Hospitalist ROS - Review of Systems Respiratory: denies: cough, dry, shortness of breath, hemoptysis, SOB with excertion, pleuritic pain, sputum, wheezing, other Cardiovascular: denies: chest pain, palpitations, orthopnea, paroxysmal noc. dyspnea, edema, light headedness, other Gastrointestinal: denies: nausea, vomiting, abdominal pain, diarrhea, constipation, melena, hematochezia, other - Medication Medications: Active Medications Generic Name Dose Route Start Last Admin Trade Name Freq PRN Reason Stop Dose Admin Acetaminophen 650 mg 12/04/18 08:51 12/05/18 20:45 Tylenol PO 650 mg Q4H PRN Administration Headache/Fever/Mild Pain (1-3) Atorvastatin Calcium 20 mg 12/07/18 21:00 12/07/18 20:11 Lipitor PO 20 mg HS MELODY Administration Epoetin Leander-epbx 10,000 unit 12/06/18 10:00 12/06/18 10:35 Retacrit SC 10,000 unit Q7D MELODY Administration Hydralazine HCl 5 mg 12/04/18 08:57 12/05/18 04:41 Apresoline SLOW IVP 5 mg Q4H PRN Administration SBP Greater Than 170 Insulin Human Lispro 0 units 12/04/18 10:02 12/06/18 21:38 Humalog SC 5 unit .BEDTIME SLIDING SC PRN Administration Bedtime Correctional Scale Insulin Human Lispro 0 units 12/06/18 18:08 12/08/18 06:33 Humalog SC 10 unit .MODERATE SLIDING SC PRN Administration MODERATE SLIDING SCALE Protocol Metoclopramide HCl 10 mg 12/04/18 08:46 12/04/18 20:09 Reglan IVP 10 mg Q6H PRN Administration Nausea/Vomiting Morphine Sulfate 2 mg 12/04/18 09:44 12/07/18 21:50 Morphine SLOW IVP 2 mg Q4H PRN Administration Pain Pantoprazole Sodium 40 mg 12/04/18 21:00 12/08/18 08:13 Protonix IVP 40 mg Q12HR MELODY Administration Polyethylene Glycol 17 gm 12/07/18 09:00 12/08/18 06:40 Miralax PO 17 gm DAILY MELODY Administration Senna/Docusate Sodium 1 tab 12/06/18 21:00 12/08/18 08:13 Senokot S PO 1 tab BID MELODY Administration - Exam Neck: supple, symmetric Heart: RRR, no murmur Respiratory: CTAB, no wheezes Gastrointestinal: soft, non-tender Hosp A/P (1) Compression fracture of lumbar vertebra Code(s): S32.000A - WEDGE COMPRESSION FRACTURE OF UNSP LUMBAR VERTEBRA, INIT Status: Acute (2) Constipation Code(s): K59.00 - CONSTIPATION, UNSPECIFIED Status: Acute (3) ESRD on dialysis Code(s): N18.6 - END STAGE RENAL DISEASE; Z99.2 - DEPENDENCE ON RENAL DIALYSIS Status: Acute (4) Hypercalcemia Code(s): E83.52 - HYPERCALCEMIA Status: Acute (5) Metastatic multiple myeloma to bone Code(s): C90.00 - MULTIPLE MYELOMA NOT HAVING ACHIEVED REMISSION Status: Acute (6) Thrombocytopenia Code(s): D69.6 - THROMBOCYTOPENIA, UNSPECIFIED Status: Acute - Plan will add stool softeners. pt on steroids. will monitor blood sugar. will add short acting and long acting insulin. PT consulted. 12/07 will monitor pt's platelets for now. pt had bm. pt on iv steroids last day today. insulin titrated per blood sugars. Discharge when ok with oncology. 12/08 pt's platelets have improved. will adjust his insulin again given his elevated blood sugars. bp meds added for better control. possible discharge when medically stable.
--- NOTE | 2018-12-08 15:41 | PDOC.MOPN ---
Interval History: continued back pain but controlled with medications. - Vital Signs Vital Signs: Vital Signs (12 hours) Temp Pulse Resp BP BP Pulse Ox 12/08/18 08:12 85 178/84 H 12/08/18 07:46 98.0 F 85 20 178/84 H 100 12/08/18 04:00 98.2 F 82 18 168/78 H 99 Weight Admit Weight 145 lb Weight 145 lb - Physical Exam General: Alert, Oriented x3, No acute distress HEENT: Atraumatic, PERRLA, EOMI, Mucous membr. moist/pink Lungs: Clear to auscultation, Normal air movement Cardiovascular: Regular rate, Normal S1, Normal S2, No murmurs, Gallops, Rubs Abdomen: Normal bowel sounds, Soft, No tenderness, No hepatospenomegaly, No masses Extremities: No clubbing, No cyanosis, No edema, Normal pulses, No tenderness/ swelling Skin: No rashes, No breakdown, No significant lesion Neurological: Normal gait, Normal speech, Strength at 5/5 X4 ext, Normal tone, Sensation intact, Cranial nerves 3-12 NL, Reflexes 2+ Psych/Mental Status: Mental status NL, Mood NL - Labs Result Diagrams: 12/08/18 06:35 12/08/18 06:35 Lab results: Laboratory Results - last 24 hr 12/08/18 10:39: POC Glucose 337 H 12/08/18 06:35: WBC 3.3 L, RBC 2.69 L, Hgb 8.6 L, Hct 24.3 L, MCV 90.4, MCH 32.0 H, MCHC 35.4, RDW 14.4, Plt Count 36 L, MPV 9.4, Neutrophils % (Manual) 68 , Lymphocytes % (Manual) 29, Monocytes % (Manual) 3, Neutrophils # Not Reportable, Lymphocytes # Not Reportable, Plt Morphology Comment Appears Decreased L, Polychromasia MODERATE = 3-4 cells H, Schistocytes SLIGHT = 2-5 cells 12/08/18 06:35: Sodium 130 L, Potassium 4.6, Chloride 96 L, Carbon Dioxide 21 L , Anion Gap 18, BUN 75 H, Creatinine 7.27 H, Estimated GFR (MDRD) 8, Glucose 315 H, Calcium 10.4 12/08/18 04:26: POC Glucose 366 H 12/07/18 19:36: POC Glucose 283 H 12/07/18 16:53: POC Glucose 300 H Status: lab reviewed by me A/P - Problem (1) ESRD on dialysis Current Visit: Yes Code(s): N18.6 - END STAGE RENAL DISEASE; Z99.2 - DEPENDENCE ON RENAL DIALYSIS Status: Acute (2) Hypercalcemia Current Visit: Yes Code(s): E83.52 - HYPERCALCEMIA Status: Resolved (3) Metastatic multiple myeloma to bone Current Visit: Yes Code(s): C90.00 - MULTIPLE MYELOMA NOT HAVING ACHIEVED REMISSION Status: Acute (4) Multiple myeloma Current Visit: No Code(s): C90.00 - MULTIPLE MYELOMA NOT HAVING ACHIEVED REMISSION Status: Acute Qualifiers: Multiple myeloma remission status: not in remission Qualified Code(s): C90.00 - Multiple myeloma not having achieved remission - Plan Plan: 1. Follow-up with Dr. Randall next week 2. continue pain medication at home
[2018-12-08] MEDS ORDERED: HumaLOG 300 UNITS/3 ML VIAL SC SCH (17:00)
[2018-12-08] MEDS ORDERED: Insulin Glargine 15 UNITS in Pre-Filled Syringe 1 EACH SC SCH (21:00)
--- NOTE | 2018-12-08 23:10 | DIS ---
DATE OF ADMISSION: 12/04/2018 DATE OF DISCHARGE: 12/08/2018 DISCHARGE DIAGNOSES: As of the followin. Compression fracture of the lumbar vertebrae. 2. Hypercalcemia. 3. Constipation. 4. End-stage renal disease, on dialysis. 5. Metastatic multiple myeloma to the bone and thrombocytopenia. HOSPITAL COURSE: The patient is a 63-year-old male, who initially presented to the hospital with complaints of severe back pain, nausea, and vomiting. He has a history of multiple myeloma and has been following up with Oncology. He also had a persistent headache, so at that time, an MRI brain was done. He was diagnosed with multiple myeloma on 04/2017 and for the past 3 months has been off chemotherapy due to insurance issues. He is also on dialysis and his rn lactation is Dr. Camacho. He had an MRI brain, which did not show any acute intracranial processes. However, no contrast was provided. He also had a CT of abdomen and pelvis, which indicated no acute inflammatory process of the abdomen pelvis. However, he did have a lytic foci in the ischium and numerous compression fractures most likely sequela due to his myeloma. He also had old rib fractures. The patient was seen by Oncology, was treated with high-dose steroids for 4 days total. The patient was unable to be given Zometa due to his end-stage renal disease and also Xgeva was non formulary and unavailable in the hospital. At this time, he was given some gentle IV hydration and also was started on steroids. His calcium did improve down on discharge to 10.4. However, due to heavy steroids, his sugars were significantly elevated, which were aggressively managed. The patient's sugar per nursing staff on discharge was 162 and he will resume his home medications in terms of his diabetes. The patient in the hospital did have some thrombocytopenia. His lowest one was platelets of 29, which improved the next stage of 36. His H and H also was stable at 8.6. He also was seen by my Gastroenterology for abdominal pain, which was thought to be most likely secondary to combination of hypercalcemia and also the reason initially GI has seen the patient was for nausea, vomiting, and coffee-grounds emesis. It was thought that the nausea and vomiting were most likely secondary to hypercalcemia and dehydration. The patient has had prior history of gastritis and recommended IV Protonix initially. The patient again will be discharged home. Today, he feels well. He will follow up with his primary care doctor and also Oncology. HOME MEDICATIONS: His home medications will be, 1. Tresiba 30 units daily. 2. Metoprolol 25 mg b.i.d. 3. Procardia 30 mg b.i.d. 4. Protonix 40 mg daily. 5. Hydralazine 50 mg b.i.d. 6. Atorvastatin 20 mg daily. 7. Hydrocodone 2 tablets q.6 hours p.r.n. 8. Zofran 4 mg p.o. b.i.d. PHYSICAL EXAMINATION: VITAL SIGNS: Temperature 98.0, blood pressure 168/78, pulse 82, respiratory rate 18, and 99% on room air. GENERAL: He is awake, alert, and oriented x3. Does not appear in distress. CV: S1, S2 present. No murmurs, rubs, or gallops. ABDOMEN: Soft and nontender. Bowel sounds are present x2. Again, he will be discharged home to follow up with his primary and also Oncology on 12/15. Job ID: [id number]
[2018-12-09] MEDS ORDERED: Insulin Glargine 10 UNITS in Pre-Filled Syringe 1 EACH SC SCH (09:00)
== END 2018-12-08 17:07 | disposition home or self-care (01) | DRG 640 ==
LOC: ERS 17:38 → T4-B 21:05 → OBSVTOIN 12-04 08:35
PROVIDERS: ADMIT Hospitalist; ATTEND Hospitalist
PROC: 3E1M39Z Irrigation of Peritoneal Cavity using Dialysate, Percutaneous Approach (ICD-10-PCS; principal; 2018-12-04)
DX: E83.52 Hypercalcemia (principal); N18.6 End stage renal disease; M48.56XA Collapsed vertebra, not elsewhere classified, lumbar region, initial encounter for fracture; C90.01 Multiple myeloma in remission; C79.51 Secondary malignant neoplasm of bone; I12.0 Hypertensive chronic kidney disease with stage 5 chronic kidney disease or end stage renal disease; G89.3 Neoplasm related pain (acute) (chronic); D69.6 Thrombocytopenia, unspecified; R63.8 Other symptoms and signs concerning food and fluid intake; R51 Headache; I25.10 Atherosclerotic heart disease of native coronary artery without angina pectoris; E11.22 Type 2 diabetes mellitus with diabetic chronic kidney disease; D64.9 Anemia, unspecified; I25.2 Old myocardial infarction; Z95.1 Presence of aortocoronary bypass graft; E86.0 Dehydration; K59.00 Constipation, unspecified
CPT/HCPCS: 36415; 36416; 70551; 74177; 80048; 80053; 83605; 83690; 83735; 83880; 84484; 85025; 93005; 96361; 96374; 96375; 99292; C9113; J0360; J1100; J1815; J2270; J2405; J2765; Q0162; Q5105; Q9966

== ENCOUNTER 2018-12-24 02:27 | Inpatient (IN) | payer MEDICARE ==
[2018-12-24] MEDS ORDERED: Morphine 4 MG/ML VIAL ONE (02:46)
[2018-12-24] MEDS ORDERED: Cyclobenzaprine 10 MG TAB ONE (04:01)
[2018-12-24] MEDS ORDERED: methylPREDNISolone Sod Succ 40 MG VIAL ONE (04:25)
[2018-12-24 05:59] VITALS: BMI 23.2
[2018-12-24] MEDS ORDERED: Ondansetron ODT 4 MG TAB SL PRN (06:14)
[2018-12-24] MEDS ORDERED: Ondansetron PF 4 MG/2 ML Vial IVP PRN (06:14)
[2018-12-24] MEDS ORDERED: EPOETIN ALFA-EPBX (ESRD) 4,000 UNIT/ML VIAL SC SCH (08:30)
--- NOTE | 2018-12-24 09:38 | CON ---
DATE OF CONSULTATION: HISTORY OF PRESENT ILLNESS: Mr. Theo Carrasco is a 63-year-old male with ESRD and was admitted for generalized pain. He has a diagnosis of multiple myeloma with multiple spinal metastatic lesions. The pain was said to be intractable. He is now admitted for further pain management. We are being consulted for his maintenance hemodialysis. Please note, he did receive dialysis yesterday. This morning, he is still complaining of diffuse back pain. However, he does not complain of any chest pain or shortness of breath. No nausea. No vomiting. Decreased appetite. Decreased energy level. No abdominal pain. No headache. HOME MEDICATIONS: Included the following; 1. Zofran 4 mg t.i.d. as needed. 2. Reglan 10 mg t.i.d. before meals. 3. Hydrocodone/acetaminophen 10/325 one tab q.i.d. 4. Atorvastatin 20 mg tablet at bedtime. 5. Nifedipine 30 mg at bedtime. 6. Aspirin 81 mg tablet once a day. 7. Levemir, dose unknown. 8. Promethazine 25 mg p.r.n. PAST MEDICAL HISTORY: 1. ESRD from diabetic nephropathy, on maintenance hemodialysis on Saturday, , and Saturday. 2. Type 2 diabetes mellitus. 3. Hypertension. 4. Multiple myeloma with multiple metastases. 5. Coronary artery disease. PAST SURGICAL HISTORY: Status post bone marrow biopsy, status post cuffed hemodialysis catheter placement, status post cardiac cath, status post CABG, and status post AV fistula. 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 Lives in [place]. , 3 children. Smoked for 5 years, 1 pack a day. Alcohol, rarely. No IV drug abuse. Status post multiple blood transfusion. Education in [place], 3rd grade. No smoking. FAMILY HISTORY: No family history of ESRD. ALLERGIES: NONE. TRAUMA: None. IMMUNIZATIONS: Up-to-date. HOSPITALIZATIONS: Please see past medical history. PHYSICAL EXAMINATION: VITAL SIGNS: Blood pressure is noted at 159/73, heart rate 87, respiratory rate 20, temperature 98.2, and pulse ox 92%. GENERAL: Noted to be awake, alert, comfortable, not in overt distress. SKIN: Adequate turgor. HEENT: Slightly pale conjunctivae. Anicteric sclerae. NECK: No neck mass. No carotid bruits. No JVD. CHEST: No deformities. LUNGS: Clear breath sounds. HEART: Normal sinus rhythm. No murmur. No gallops. No rubs. ABDOMEN: Globular, soft, and nontender. No masses. EXTREMITIES: No edema. No deformities. LABORATORY DATA: Laboratories of December 08, 2018; white count 3.2, hemoglobin 8.6, and hematocrit 24.3. On December 19, 2018; sodium 136, potassium 4.8, chloride 98, carbon dioxide 30, BUN 19, creatinine 5.08, and calcium is 11.5. ASSESSMENT AND PLAN: 1. End-stage renal disease - stable. We will continue current hemodialysis regimen of Saturday, , and Saturday. Fluid removal only as tolerated. There is no indication for any emergent hemodialysis. 2. Chronic anemia. Restart Epogen as needed. 3. Multiple myeloma with metastatic lesions to the bones - Oncology following. Unfortunately, the patient does not achieve remission with regard to his multiple myeloma. Overall, agree with current management. We will recheck basic metabolic panel and CBC in a.m. Start Epogen. Job ID: [id number]
[2018-12-24] MEDS ORDERED: HYDROcodone/Acetaminophen 10/325 mg Tablet PO PRN (10:06)
[2018-12-24] MEDS ORDERED: traMADol HCl 50 MG TAB PO PRN ×2 (11:11)
[2018-12-24] MEDS: NIFEdipine XL 30 MG TAB PO SCH (11:16)
[2018-12-24] MEDS ORDERED: Calcium Carbonate 500 MG ChewTAB PO PRN (12:21)
[2018-12-24] MEDS ORDERED: Senokot S 8.6-50 MG TAB PO PRN (12:21)
[2018-12-24] MEDS: Morphine 4 MG/ML VIAL SLOW IVP PRN ×2 (13:34→16:26)
[2018-12-24 14:42] LABS: Hemoglobin 8.3 g/dL (14.0-18.0); Mean Corpuscular HGB CONC 34.7 g/dL (32.0-36.0); Mean Corpuscular Hemoglobin 32.4 pg (27.0-31.0); Mean Corpuscular Volume 93.4 fL (78.0-98.0); Platelet Count 27 thou/uL (130-400); RBC Distribution Width 14.5 % (11.5-14.5); Red Blood Cell (RBC) Count 2.56 mill/uL (4.70-6.10); White Blood Cell (WBC) Count 1.7 thou/uL (4.8-10.8)
[2018-12-24 14:56] LABS: Anion Gap 18 mmol/L (10-20); BUN (Urea Nitrogen) 34 mg/dL (8.4-25.7); Calc. Creatinine Clearance 11 mL/min (70-130); Calcium 11.7 mg/dL (7.8-10.44); Carbon Dioxide 25 mmol/L (23-31); Chloride 96 mmol/L (98-107); Estimated GFR-MDRD 9; Glucose 309 mg/dL (80-115); Potassium 5.6 mmol/L (3.5-5.1); Sodium 133 mmol/L (136-145)
--- NOTE | 2018-12-24 15:03 | CON ---
DATE OF CONSULTATION: REASON FOR CONSULT: Multiple myeloma. HISTORY OF PRESENT ILLNESS: Mr. Carrasco is a pleasant 63-year-old gentleman who has multiple myeloma. He unfortunately has progressed through Velcade and Darzalex treatment, and was referred to [facility] in July of 2018. He was admitted to this facility approximately a week ago for back pain given 4 days of high-dose dexamethasone and followed up with Dr. Randall, who once again referred him to [facility] for clinical trials. Unfortunately, he has not had made it to this appointment yet. I believe it is scheduled for next week. He presented to the emergency room yesterday with pain. He has been taking [place] 10/325, which helped except when he has to get up and move around. He has diffuse back pain. He was admitted for dialysis and better pain control. PAST MEDICAL HISTORY: 1. Multiple myeloma, untreated since July. 2. Diabetes mellitus. 3. Hypertension. 4. History of PA. 5. Coronary artery disease. 6. End-stage renal disease, on dialysis. 7. Hypertension. 8. Treated latent tuberculosis. PAST SURGICAL HISTORY: 1. Stent placement, MediPort placement, coronary artery bypass graft. 2. Dialysis catheter placement. ALLERGIES: NO KNOWN DRUG ALLERGIES. HOME MEDICATIONS: 1. Atorvastatin. 2. Hydrocodone. 3. Insulin. 4. Zofran. 5. Hydralazine. 6. Metoprolol. 7. Protonix. FAMILY HISTORY: No history of cancer. SOCIAL HISTORY: , has 3 children. Lives with his spouse. No alcohol, tobacco, or illicit drug use. REVIEW OF SYSTEMS: CONSTITUTIONAL: No fever, chills, or night sweats. Positive for fatigue. EYES: No blurred or double vision. ENT: No pain, hoarseness, sore throat, or dysphagia. CV: No chest pain or palpitations. RESPIRATORY: No shortness of breath. GI: No nausea, vomiting, diarrhea, or constipation. : Positive for joint and back pain. SKIN: No rash. HEMATOLOGICAL: No bruising, bleeding, or clotting. NEUROLOGICAL: Positive for weakness, headache, dizziness, and loss of balance. PHYSICAL EXAMINATION: VITAL SIGNS: Temperature is 98.3, pulse is 77, respiratory rate 16, blood pressure is 140/75. He is 96% on room air. GENERAL: This is a well-developed, well-nourished male, in no acute distress. HEENT: Normocephalic and atraumatic. Pupils are equal and reactive to light. NECK: Supple. CV: Regular rate and rhythm. LUNGS: Clear. ABDOMEN: Soft and nontender. Bowel sounds are positive. EXTREMITIES: There is no clubbing, cyanosis, or edema. SKIN: No rash. HEMATOLOGICAL: No petechiae or purpura. NEUROLOGICAL: Nonfocal. PERTINENT LABS AND X-RAYS: Current WBCs 3.3, hemoglobin 8.6, hematocrit 24.3, platelet count is 36,000. He has 68% neutrophils, 29% lymphocytes. Sodium is 130, potassium 4.6, chloride 96, CO2 is 22, BUN is 75, creatinine 7.27, calcium is 10.4. ASSESSMENT: 1. Untreated multiple myeloma. 2. Intractable pain, back pain secondary to #1. 3. End-stage renal disease, on dialysis. DISCUSSION: The patient's Scarville has been resumed. We will add tramadol for pain. Ultimately, he needs to be seen at [facility] as scheduled for treatment for his multiple myeloma. I believe he is having dialysis tomorrow and can go home once his pain is adequately controlled. Thank you for the consult. Job ID: [id number]
--- NOTE | 2018-12-24 15:05 | PDOC.HHP ---
Hospitalist HPI - History of Present Illness back pain History of Present Illness: This is a 63 year old male with history of multiple myeloma since 04/2017 who presents to the ER with uncontrolled back pain. The patient went to [facility] this morning and had a CT lumbar spine there which showed new fractures in L2+ L4 plus progression compression deformities in T11, L3 and findings consistent with malignancy. Patient was transferred to [place] for higher level of care. The patient states he has 10/10 back pain, sharp, nonradiating to his legs. He takes hydrocodone at home but he states it doesn't help much and only lasts for a few hours. He denies numbness in his legs, bowel or bladder incontinence. He uses a wheel chair to walk. He denies any recent trauma. He does have dysuria for the past one week, and some chills. He also reports some nausea but denies abdominal pain. He has mild constipation and hasn't had a bowel movement in three days. The patient was recently discharged frin here on the . He was treated for his back pain with high dose steroids for four days, could not receive xgeva due to it being non formulary and was unable to receive Zometa due to ESRD. The patient is trying to get an appointment with Dr. Randall at [facility] but is having difficulty due to insurance issues. ED Course: In the Ed he got solumedrol 40 mg IV, flexeril and morphine push. Labs show pancytopenia, hyperkalemia Hospitalist ROS - Review of Systems Constitutional: reports: chills. denies: fever, sweats Eyes: denies: vision change Respiratory: denies: cough, dry, shortness of breath Cardiovascular: denies: chest pain, palpitations, orthopnea Gastrointestinal: reports: nausea, constipation. denies: vomiting, abdominal pain Genitourinary: reports: dysuria Musculoskeletal: reports: back pain Skin: denies: rash, lesions Neurological: denies: weakness, numbness, seizures - Medication Medications: Active Medications Generic Name Dose Route Start Last Admin Trade Name Freq PRN Reason Stop Dose Admin Hydrocodone Bitart/Acetaminophen 1 tab 12/24/18 10:06 12/24/18 11:17 [place] 10/325 PO 1 tab Q4H PRN Administration Moderate Pain (4-6) Epoetin Leander-epbx 7,500 unit 10/30/19 08:30 12/24/18 11:17 Retacrit SC 7,500 unit Q7D MELODY Administration Morphine Sulfate 4 mg 12/24/18 06:15 12/24/18 13:34 Morphine SLOW IVP 12/25/18 15:48 4 mg Q4H PRN Administration Severe Pain (7-10) Nifedipine 30 mg 12/24/18 09:00 12/24/18 11:16 Procardia Xl PO 30 mg DAILY MELODY Administration Hospitalist History - Past Medical History Cardiac: reports: CAD, Hyperlipidemia Gastrointestinal: reports: GERD Heme/Onc: reports: Other (Metastatic multiple myeloma) Hepatobiliary: reports: no pertinent history Psych: reports: Depression Musculoskeletal: reports: Other (Low back pain progressively worsening) Rheumatologic: reports: no pertinent history Renal/: reports: Other (ESRD on HD) Endocrine: reports: Diabetes Dermatology: reports: no pertinent history - Past Surgical History Past Surgical History: reports: CABG (x 3 vessels) Other Surgical History: Nose surgery Mouth surgery - Family History Other Family History: Mom of cancer - Social History Smoking Status: Former smoker Alcohol: reports: None Drugs: reports: none Living Situation: With Family - Exam General Appearance: NAD, awake alert Eye: PERRL, anicteric sclera ENT: normocephalic atraumatic, no oropharyngeal lesions Neck: supple, symmetric, no thyromegaly Heart: RRR, no murmur, no gallops, no rubs, normal peripheral pulses Respiratory: CTAB, no wheezes, no rales, no ronchi Gastrointestinal: soft, non-tender, non-distended, normal bowel sounds Extremities: no cyanosis, no clubbing, no edema Skin: normal turgor, no lesions, no rashes Neurological: cranial nerve grossly intact, normal sensation to touch, no focal deficits, no new deficit Musculoskeletal: normal tone, normal strength, no muscle wasting Musculoskeletal - other findings: 5/5 strength in lower extremities. Neg Babinski, no clonus. Spinal tendern Psychiatric: normal affect, normal behavior, A&O x 3, oriented to place Hospitalist Results - Labs Result Diagrams: 12/24/18 14:29 12/24/18 14:29 Lab results: WBC 1.7 thou/uL (4.8-10.8) L 12/24/18 14:29 Hgb 8.3 g/dL (14.0-18.0) L 12/24/18 14:29 Hct 23.9 % (42.0-52.0) L 12/24/18 14:29 MCV 93.4 fL (78.0-98.0) 12/24/18 14:29 Plt Count 27 thou/uL (130-400) L* 12/24/18 14:29 Sodium 133 mmol/L (136-145) L 12/24/18 14:29 Potassium 5.6 mmol/L (3.5-5.1) H 12/24/18 14:29 Chloride 96 mmol/L (98-107) L 12/24/18 14:29 Carbon Dioxide 25 mmol/L (23-31) 12/24/18 14:29 BUN 34 mg/dL (8.4-25.7) H 12/24/18 14:29 Creatinine 6.22 mg/dL (0.7-1.3) H 12/24/18 14:29 Glucose 309 mg/dL (80-115) H 12/24/18 14:29 Calcium 11.7 mg/dL (7.8-10.44) H 12/24/18 14:29 Hospitalist H&P A/P - Plan Plan: Lumbar spine MRI: acute wedge compression of T11, acute endplate compression involving L1-L5, degenerative disc disease. Myeloma in spine. Moderate bilateral paraspinal muscular strains This is a 63 year old male with history of multiple myeloma who is presenting with intractable back pain, currently awaiting transfer to [facility] #Acute T11 compression fracture extending to L1-L5 #Multiple myeloma in spine - MRI lumbar spine findings as noted above with lytic lesions in spine - oncology consulted, needs transfer to [facility] for further treatment - pain management with reordering patient's home vicodin, trial of morphine 15 mg q4 hours prn - PT #Hyperkalemia #ESRD on Dialysis - potassium 5.6, s/p kayexelate, will repeat BMP in evening - patient to get dialysis this evening #Pancytopenia - secondary to multiple myeloma - WBC 1.7, HB 8.3, platelets 27 - continue to monitor. Oncology following #Constipation - order laxatives prn #Dysuria - check UA #CAD s/p CABG - continue atorvastatin 20 mg daily, metoprolol, procardia, hydralazine #Type II Diabetes - continue tresiba 20 units qam - insulin sliding scale - diabetic diet #GERD - protonix Dispo: transfer to [facility] when possible Code status: full code
[2018-12-24] MEDS ORDERED: Morphine IR 10 MG/5 ML UDCUP PO PRN (15:14)
[2018-12-24] MEDS ORDERED: Gabapentin 100 MG CAP PO PRN (15:14)
--- NOTE | 2018-12-24 17:08 | MRI ---
MR the lumbar spine without contrast INDICATION: Back pain history of multiple myeloma COMPARISON: CT of the abdomen and pelvis dated December 03, 2018 TECHNIQUE: Multiplanar multisequence MR images were obtained of lumbar spine without IV contrast. FINDINGS: Bone marrow: There is heterogeneous marrow signal intensity that is demonstrating areas of scattered T1 hypointensity consistent patient's history of myeloma. One of the more prominent regions is seen within the left aspect of L4 which corresponds to an area of diminished radiodensity on the compariso n CT examination on image 15 of series 4 measuring approximately 2.1 cm. Additional smaller punctate foci of low T1 signal intensity likely related to patient's myeloma seen within scattered ar eas of the thoracolumbar spine. There is an acute moderate wedge compression abnormality involving T11 that appears slightly worse in loss of height to the comparison CT examination. There is an acute inferior endplate compression abnormality involving L1. There is an acute superior supine endplate compression abnormality involving L2. There is an acute central endplate compression abnormality involving L3. There is an acute superior endplate compression abnormality involving L4. There is an acute superior endplate compression abnormality involving L5. These endplate compression abnormalities are likely stable from the comparison CT. There is muscular edema within the paraspinal musculature of the lower lumbar spine likely related to muscular strain. The conus seen to terminate at approximately T12-L1. Vertebral levels: L5-S1: There is a mild broad-based bulge with facet hypertrophy inducing no appreciable central canal or neural foraminal narrowing.. L4-5: There is a broad-based bulge with facet hypertrophy inducing mild left neural foraminal narrowi ng. L3-4: There is a broad-based bulge with mild facet hypertrophy inducing mild bilateral neural foramin al narrowing L2-3: No appreciable central canal or neuroforaminal narrowing. L1-L2: No appreciable central canal or neuroforaminal narrowing. T12-L1: No appreciable central canal or neuroforaminal narrowing. IMPRESSION: 1. Scattered foci of marrow signal abnormality involving the lumbosacral spine consistent patient's h istory of myeloma. 2. Moderate wedge compression abnormality of T11 is acute. There appears to be slightly worsening los s of height when compared to a prior CT dated 12/03/2017. There is approximately 40% loss of height involving this vertebral level. 3. Acute endplate compression abnormalities involving L1-L5. 4. Moderate bilateral paraspinal muscular strains.
[2018-12-24] MEDS ORDERED: Dextrose 5% in Water 1,000 ML IV PRN (18:18)
[2018-12-24] MEDS ORDERED: Dextrose 50% Abboject 50 ML SYRINGE SLOW IVP PRN (18:18)
[2018-12-24] MEDS: HumaLOG 300 UNITS/3 ML VIAL SC PRN (18:35)
[2018-12-24] MEDS ORDERED: Polyethylene Glycol 3350 17 GM Packet PO PRN (19:37)
[2018-12-24] MEDS ORDERED: Bisacodyl 10 MG SUPP PR PRN (19:37)
[2018-12-24] MEDS ORDERED: Fleet Enema 133 ML BOT PR PRN (19:43)
[2018-12-24] MEDS ORDERED: Acetaminophen 1,000 MG in Premix Bag 1 BAG IVPB SCH (20:00)
[2018-12-24] MEDS: hydrALAZINE 25 MG TAB PO SCH (20:57)
[2018-12-24] MEDS: Atorvastatin Calcium 20 MG TAB PO SCH (20:57)
[2018-12-24] MEDS: Metoprolol Tartrate 25 MG TAB PO SCH (20:57)
[2018-12-25 00:11] LABS: Bacteria/HPF None Seen HPF (None Seen); Bilirubin Negative (Negative); Blood, Urine Negative (Negative); Clarity Clear (Clear); Glucose, Urine (Dipstick) 500 mg/dL (Negative); Leukocyte Negative Leu/uL (Negative); Nitrite Negative (Negative); Protein, Urine (Dipstick) 600 mg/dL (Neg-Trace); RBC/HPF 0-3 HPF (0-3); Squamous Epithelial None Seen HPF (0-3); Urobilinogen Normal mg/dL (Less than 2); WBC/HPF 0-3 HPF (0-3)
[2018-12-25 00:14] LABS: Urine Culture Reflex No No
[2018-12-25] MEDS: Morphine 4 MG/ML VIAL SLOW IVP PRN (05:02)
[2018-12-25] MEDS: Lidocaine Patch Removal 1 EACH TOP SCH ×2 (05:03→05:07)
[2018-12-25 07:34] LABS: Hemoglobin 7.8 g/dL (14.0-18.0); Mean Corpuscular HGB CONC 34.2 g/dL (32.0-36.0); Mean Corpuscular Hemoglobin 32.6 pg (27.0-31.0); Mean Corpuscular Volume 95.5 fL (78.0-98.0); Mean Platelet Volume 8.9 fL (7.4-10.4); Platelet Count 31 thou/uL (130-400); RBC Distribution Width 14.4 % (11.5-14.5); White Blood Cell (WBC) Count 3.6 thou/uL (4.8-10.8)
[2018-12-25 07:39] LABS: Anion Gap 19 mmol/L (10-20); BUN (Urea Nitrogen) 48 mg/dL (8.4-25.7); Calc. Creatinine Clearance 9 mL/min (70-130); Carbon Dioxide 27 mmol/L (23-31); Chloride 96 mmol/L (98-107); Estimated GFR-MDRD 8; Glucose 168 mg/dL (80-115); Potassium 4.7 mmol/L (3.5-5.1); Sodium 137 mmol/L (136-145)
[2018-12-25 07:48] LABS: Calcium 12.4 mg/dL (7.8-10.44)
[2018-12-25 07:56] LABS: Band 3 % (5-11); Eosinophils 1 % (0-10); Lymphocytes 35 % (21-51); MDiff Complete? YES; Monocytes 12 % (0-10); Neutrophil 45 % (42-75); Ovalocytes SLIGHT = 2-5 cells (100X) (0-1/hpf); Platelet Morphology Comment Appears Decreased; Polychromasia MODERATE = 3-4 cells (100X) (0-2/hpf); Reactive Lymphocytes 4 % (0-10)
[2018-12-25] MEDS ORDERED: EPOETIN ALFA-EPBX (ESRD) 4,000 UNIT/ML VIAL SC SCH (08:26)
--- NOTE | 2018-12-25 08:49 | PRG ---
DATE OF SERVICE: 12/25/2018 SUBJECTIVE: Mr. Carrasco is a 63-year-old male with known history of ESRD - on maintenance hemodialysis, multiple myeloma with bony mets, and chronic back pain. The patient underwent an MRI of the lumbar spine without contrast. Findings showed moderate wedge compression abnormality of T12, which is acute. There was also acute endplate compression abnormalities involving L1 and L5. There is also muscular edema within the paraspinal musculatures of the lumbar spine, which is likely related to a muscular strain. This morning, he voices no new complaints. OBJECTIVE: VITAL SIGNS: Blood pressure 149/70, heart rate 82, respiratory rate 16, temperature 98.4, and pulse oximetry 94%. GENERAL: Noted to be awake, alert, comfortable, not in overt distress. SKIN: Adequate turgor. HEENT: He has a pinkish conjunctivae. Anicteric sclerae. NECK: No neck mass. No carotid bruits. No JVD. CHEST: No deformities. LUNGS: Clear breath sounds. HEART: Normal sinus rhythm. No murmur. No gallops. No rubs. ABDOMEN: Globular, soft, nontender. No masses. EXTREMITIES: No edema, no deformities. MEDICATIONS: Medications of December 25, 2018, was reviewed. LABORATORY DATA: Laboratories of December 25, 2018; white count 3.6, hemoglobin 7.8. Sodium 137, potassium 4.7, chloride 96, carbon dioxide 27, BUN 48, creatinine 7.35, calcium noted to be 12.4. ASSESSMENT AND PLAN: 1. End stage renal disease, stable. We will continue current hemodialysis regimen. The patient undergoing dialysis today. Fluid removal only as tolerated. 2. Anemia, continuing [place] [address] units subcutaneous every week. 3. Hypercalcemia. Calcium noted at 12.4. This is most likely related to the patient's underlying myeloma. Oncology is following. 4. Chronic low back pain. Continue supportive care. Continue pain medications. 5. Overall prognosis remains guarded. Job ID: [id number]
[2018-12-25] MEDS: Insulin Glargine 20 UNITS in Pre-Filled Syringe 1 EACH SC SCH (09:00)
[2018-12-25] MEDS: NIFEdipine XL 30 MG TAB PO SCH (09:00)
[2018-12-25] MEDS ORDERED: Non-Formulary Item 1 EACH (Insulin Degludec [Tresiba] 20 UNIT) SQ SCH (09:00)
[2018-12-25] MEDS: Metoprolol Tartrate 25 MG TAB PO SCH ×2 (09:00→19:33)
[2018-12-25] MEDS: hydrALAZINE 25 MG TAB PO SCH ×2 (09:00→19:32)
[2018-12-25] MEDS: Acetaminophen 1,000 MG in Premix Bag 1 BAG IVPB SCH (09:00)
--- NOTE | 2018-12-25 09:28 | PDOC.MOPN ---
Interval History: seen in dialysis, resting comfortably. - Vital Signs Vital Signs: Vital Signs (12 hours) Temp Pulse Resp BP BP Pulse Ox 12/25/18 08:00 98.2 F 79 18 124/61 96 12/24/18 23:41 98.4 F 82 16 149/70 H 94 L Weight Admit Weight 139 lb 9.6 oz Weight 139 lb 9.6 oz - Physical Exam General: Alert, Oriented x3, No acute distress Lungs: Clear to auscultation, Normal air movement Cardiovascular: Regular rate, Normal S1, Normal S2, No murmurs, Gallops, Rubs Abdomen: Normal bowel sounds, Soft, No tenderness, No hepatospenomegaly, No masses Skin: No rashes, No breakdown, No significant lesion Neurological: Normal gait, Normal speech, Strength at 5/5 X4 ext, Normal tone, Sensation intact, Cranial nerves 3-12 NL, Reflexes 2+ Psych/Mental Status: Mental status NL, Mood NL - Labs Result Diagrams: 12/25/18 07:03 12/25/18 07:03 Lab results: Laboratory Results - last 24 hr 12/25/18 07:03: WBC 3.6 L, RBC 2.40 L, Hgb 7.8 L, Hct 22.9 L, MCV 95.5, MCH 32.6 H, MCHC 34.2, RDW 14.4, Plt Count 31 L, MPV 8.9, Neutrophils % (Manual) 45 , Band Neuts % (Manual) 3 L, Lymphocytes % (Manual) 35, Reactive Lymphs % 4, Monocytes % (Manual) 12 H, Eosinophils % (Manual) 1, Neutrophils # Not Reportable, Lymphocytes # Not Reportable, Plt Morphology Comment Appears Decreased L, Polychromasia MODERATE = 3-4 cells H, Ovalocytes SLIGHT = 2-5 cells 12/25/18 07:03: Sodium 137, Potassium 4.7, Chloride 96 L, Carbon Dioxide 27, Anion Gap 19, BUN 48 H, Creatinine 7.35 H, Estimated GFR (MDRD) 8, Glucose 168 H , Calcium 12.4 H* 12/25/18 05:06: POC Glucose 184 H 12/24/18 23:47: Urine Color Light-Yellow, Urine Clarity Clear, Urine pH 8.0, Ur Specific [place] 1.012, Urine Protein 600 A, Urine Glucose (UA) 500 A, Urine Ketones Negative, Urine Blood Negative, Urine Nitrite Negative, Urine Bilirubin Negative, Urine Urobilinogen Normal, Ur Leukocyte Esterase Negative, Urine RBC 0 -3, Urine WBC 0-3, Ur Squamous Epith Cells None Seen, Urine Bacteria None Seen, Hyaline Casts 0-3, Urine Culture Reflexed No 12/24/18 20:58: POC Glucose 225 H 12/24/18 17:36: POC Glucose 332 H 12/24/18 14:29: WBC 1.7 L, RBC 2.56 L, Hgb 8.3 L, Hct 23.9 L, MCV 93.4, MCH 32.4 H, MCHC 34.7, RDW 14.5, Plt Count 27 L*, MPV 10.0 12/24/18 14:29: Sodium 133 L, Potassium 5.6 H, Chloride 96 L, Carbon Dioxide 25 , Anion Gap 18, BUN 34 H, Creatinine 6.22 H, Estimated GFR (MDRD) 9, Glucose 309 H, Calcium 11.7 H 12/24/18 12:04: POC Glucose 269 H Status: lab reviewed by me A/P - Problem (1) Metastatic multiple myeloma to bone Current Visit: No Code(s): C90.00 - MULTIPLE MYELOMA NOT HAVING ACHIEVED REMISSION Status: Acute (2) Multiple myeloma Current Visit: No Code(s): C90.00 - MULTIPLE MYELOMA NOT HAVING ACHIEVED REMISSION Status: Acute Qualifiers: Multiple myeloma remission status: not in remission Qualified Code(s): C90.00 - Multiple myeloma not having achieved remission (3) Pancytopenia Current Visit: No Code(s): D61.818 - OTHER PANCYTOPENIA Status: Acute - Plan Plan: 1. pain control 2. needs to get to [facility] appointment to see if qualifies for trial 3. consider hospice, will consult PCT
[2018-12-25] MEDS: Zoledronic Acid 4 MG in Sodium Chloride 0.9% 100 ML IVPB SCH ×2 (11:00→12:42)
[2018-12-25] MEDS ORDERED: EPOETIN ALFA-EPBX (ESRD) 10,000 UNIT/ML VIAL SC SCH (12:00)
[2018-12-25] MEDS: HYDROcodone/Acetaminophen 10/325 mg Tablet PO PRN ×2 (13:15→17:03)
--- NOTE | 2018-12-25 16:40 | EKG ---
Test Reason : Blood Pressure : / mmHG Vent. Rate : 083 BPM Atrial Rate : 083 BPM P-R Int : 150 ms QRS Dur : 088 ms QT Int : 366 ms P-R-T Axes : 023 054 103 degrees QTc Int : 430 ms Normal sinus rhythm Nonspecific ST and T wave abnormality ST elevation, consider early repolarization Abnormal ECG Confirmed by HANS GAMA ([id number]) on 12/25/2018 4:40:05 PM Referred By: ANGELIC Confirmed By:HANS GAMA
[2018-12-25] MEDS: HumaLOG 300 UNITS/3 ML VIAL SC PRN (17:04)
[2018-12-25] MEDS: Lidocaine 5% Patch TD SCH (17:05)
[2018-12-25] MEDS: Atorvastatin Calcium 20 MG TAB PO SCH (19:32)
--- NOTE | 2018-12-25 23:55 | PDOC.HOSPP ---
- Subjective Encounter Date: 12/25/18 Encounter Time: 18:00 Subjective: Had severe back pain today, no tingling or numbness in legs. States he did not receive morphine this morning but it helps. Needs records sent to [facility] before he can make an appointment NO bowel or bladder incontinence - Objective Vital Signs & Weight: Vital Signs (12 hours) Temp Pulse Resp BP BP Pulse Ox 12/25/18 20:00 98.1 F 81 20 157/70 H 94 L 12/25/18 19:32 81 157/70 H 12/25/18 16:00 98.8 F 77 18 121/59 L 97 Weight Admit Weight 139 lb 9.6 oz Weight 139 lb 9.6 oz I&O: 12/24/18 12/25/18 12/26/18 06:59 06:59 06:59 Intake Total 1240 Output Total 500 Balance 740 Result Diagrams: 12/25/18 07:03 12/25/18 07:03 Additional Labs: Accuchecks 12/25/18 12/25/18 12/25/18 20:55 16:02 12:40 POC Glucose 176 H 238 H 162 H 12/25/18 05:06 POC Glucose 184 H Hospitalist ROS - Review of Systems Constitutional: reports: chills. denies: fever - Medication Medications: Active Medications Generic Name Dose Route Start Last Admin Trade Name Freq PRN Reason Stop Dose Admin Hydrocodone Bitart/Acetaminophen 1 tab 12/24/18 10:06 12/24/18 11:17 [place] 10/325 PO 1 tab Q4H PRN Administration Moderate Pain (4-6) Hydrocodone Bitart/Acetaminophen 2 tab 12/24/18 10:06 12/25/18 17:03 [place] 10/325 PO 2 tab Q4H PRN Administration Moderate to Severe Pain (6-10) Atorvastatin Calcium 20 mg 12/24/18 21:00 12/25/18 19:32 Lipitor PO 20 mg QPM MELODY Administration Epoetin Leander-epbx 10,000 unit 12/25/18 12:00 12/25/18 13:16 Retacrit SC 10,000 unit Q7D MELODY Administration Hydralazine HCl 50 mg 12/24/18 21:00 12/25/18 19:32 Apresoline PO 50 mg BID MELODY Administration Insulin Glargine 20 units/ 0.2 mls @ 0 mls/hr 12/25/18 09:00 12/25/18 09:00 Miscellaneous Medication SC Not Given QAM MELODY As Directed Acetaminophen 1,000 mg/ Device 100 mls @ 400 mls/hr 12/25/18 09:00 12/25/18 09:00 IVPB 12/26/18 09:01 Not Given DAILY MELODY Insulin Human Lispro 0 units 12/24/18 18:18 12/25/18 17:04 Humalog SC 4 unit .MILD SLIDING SCALE PRN Administration Mild Correctional Scale Lidocaine 1 patch 12/25/18 17:00 12/25/18 17:05 Lidoderm 5% Patch TD 1 patch 1700 MELODY Administration Metoprolol Tartrate 25 mg 12/24/18 21:00 12/25/18 19:33 Lopressor PO 25 mg BID MELODY Administration Miscellaneous Medication 1 each 12/25/18 05:00 12/25/18 05:07 Lidocaine Patch Removal TOP Not Given 0500 MELODY Morphine Sulfate 15 mg 12/24/18 15:14 12/25/18 18:37 Morphine Ir PO 15 mg Q4H PRN Administration Severe Pain (7-10) Nifedipine 30 mg 12/24/18 09:00 12/25/18 09:00 Procardia Xl PO Not Given DAILY MELODY Pantoprazole Sodium 40 mg 12/25/18 09:00 12/25/18 09:00 Protonix PO Not Given DAILY MELODY - Exam General Appearance: NAD, awake alert Eye: PERRL, anicteric sclera ENT: normocephalic atraumatic, no oropharyngeal lesions, moist mucosa Neck: supple, symmetric, no JVD, no thyromegaly, no lymphadenopathy Heart: RRR, no murmur, no gallops, normal peripheral pulses Respiratory: CTAB, no wheezes, no rales Gastrointestinal: soft, non-tender, non-distended, no palpable masses Extremities: no cyanosis, no clubbing, no edema Skin: normal turgor, no lesions Neurological: cranial nerve grossly intact, normal sensation to touch, no focal deficits Musculoskeletal: normal tone, normal strength Hosp A/P - Plan This is a 63 year old male with history of multiple myeloma who is presenting with intractable back pain, currently awaiting transfer to [facility] #Acute T11 compression fracture extending to L1-L5 #Multiple myeloma in spine - MRI lumbar spine findings as noted above with lytic lesions in spine - oncology consulted, needs transfer to [facility] for further treatment - pain management with reordering patient's home vicodin. Increase morphine to 20 mg q4 hours prn - PT #Hyperkalemia #ESRD on Dialysis - resolved #Pancytopenia - secondary to multiple myeloma - WBC 3.6, HB 8.3, platelets 31 - continue to monitor. Oncology following #Constipation - order laxatives prn #Dysuria - UA shows no infection. Has proteinuria from myeloma #CAD s/p CABG - continue atorvastatin 20 mg daily, metoprolol, procardia, hydralazine #Type II Diabetes - continue tresiba 20 units qam - insulin sliding scale - diabetic diet #GERD - protonix
[2018-12-26] MEDS ORDERED: Morphine IR 10 MG/5 ML UDCUP PO PRN (00:54)
[2018-12-26] MEDS: Ondansetron ODT 4 MG TAB PO PRN ×2 (02:47→11:18)
[2018-12-26] MEDS ORDERED: Benzonatate 100 MG CAP PO PRN (03:03)
[2018-12-26] MEDS: Lidocaine Patch Removal 1 EACH TOP SCH (04:11)
[2018-12-26 04:51] LABS: Anion Gap 14 mmol/L (10-20); BUN (Urea Nitrogen) 28 mg/dL (8.4-25.7); Calc. Creatinine Clearance 13 mL/min (70-130); Calcium 10.8 mg/dL (7.8-10.44); Carbon Dioxide 29 mmol/L (23-31); Chloride 98 mmol/L (98-107); Estimated GFR-MDRD 11; Glucose 152 mg/dL (80-115); Potassium 4.3 mmol/L (3.5-5.1); Sodium 137 mmol/L (136-145)
[2018-12-26 05:11] LABS: Eosinophils 2 % (0-10); Hemoglobin 7.8 g/dL (14.0-18.0); Hypochromia SLIGHT = 6-15 cells (100X) (0-5/hpf); Lymphocytes 23 % (21-51); MDiff Complete? YES; Mean Corpuscular HGB CONC 34.4 g/dL (32.0-36.0); Mean Corpuscular Hemoglobin 32.7 pg (27.0-31.0); Mean Corpuscular Volume 94.9 fL (78.0-98.0); Mean Platelet Volume 8.5 fL (7.4-10.4); Monocytes 3 % (0-10); Neutrophil 72 % (42-75); Platelet Count 31 thou/uL (130-400); Platelet Morphology Comment Appears Decreased; RBC Distribution Width 14.3 % (11.5-14.5); Red Blood Cell (RBC) Count 2.38 mill/uL (4.70-6.10); White Blood Cell (WBC) Count 2.9 thou/uL (4.8-10.8)
[2018-12-26] MEDS: NIFEdipine XL 30 MG TAB PO SCH (08:28)
[2018-12-26] MEDS: Acetaminophen 1,000 MG in Premix Bag 1 BAG IVPB SCH (08:29)
[2018-12-26] MEDS: hydrALAZINE 25 MG TAB PO SCH ×2 (08:29→20:26)
[2018-12-26] MEDS: Metoprolol Tartrate 25 MG TAB PO SCH ×2 (08:29→20:26)
[2018-12-26] MEDS: Insulin Glargine 20 UNITS in Pre-Filled Syringe 1 EACH SC SCH (08:34)
--- NOTE | 2018-12-26 08:53 | PRG ---
DATE OF SERVICE: 12/26/2018 SUBJECTIVE: Mr. Theo Carrasco is a 63-year-old male with known history of ESRD and multiple myeloma. He is tolerating his said dialysis regimen. He has no new complaints today. He is feeling a little better. The patient is being followed up by Oncology. Arrangements regarding consultation with [facility]/followup appointment is being done. No complaints of chest pain or shortness of breath. OBJECTIVE: VITAL SIGNS: Blood pressure 133/62, heart rate 102, respiratory rate is 20, and pulse ox 95% on room air. GENERAL: Awake, alert, comfortable, not in distress. SKIN: Adequate turgor. HEENT: Slightly pale conjunctivae. Anicteric sclerae. NECK: No neck mass. No carotid bruits. No JVD. CHEST: No deformities. LUNGS: Clear breath sounds. HEART: Normal sinus rhythm. No murmurs. No gallops. No rubs. ABDOMEN: Globular, soft, and nontender. No masses. EXTREMITIES: No edema. No deformities. MEDICATIONS: Medications of December 26, 2018, reviewed. LABORATORY DATA: Laboratories of December 26, 2018; white count 2.9, hemoglobin 7.8. Sodium 137, potassium 4.3, chloride 98, carbon dioxide 29, BUN 28, creatinine 5.51, and calcium is 10.8. ASSESSMENT AND PLAN: 1. End-stage renal disease, stable. We will continue current hemodialysis regimen of Saturday, , and Saturday. Tolerating said treatment. 2. Hypercalcemia, much improved this morning. Currently at 10.8. 3. Anemia. Continuing weekly Epogen. 4. Multiple myeloma. Oncology is following. Agree with current management. Recheck basic metabolic panel and CBC in a.m. Job ID: [id number]
[2018-12-26] MEDS: Acetaminophen 325 MG TAB PO PRN (11:18)
[2018-12-26] MEDS: HumaLOG 300 UNITS/3 ML VIAL SC PRN (12:56)
--- NOTE | 2018-12-26 14:51 | PDOC.MOPN ---
Interval History: c/o back pain. - Vital Signs Vital Signs: Vital Signs (12 hours) Temp Pulse BP BP Pulse Ox 12/26/18 08:29 102 H 133/62 12/26/18 08:28 102 H 133/62 12/26/18 08:00 99.6 F 102 H 133/62 95 Weight Admit Weight 139 lb 9.6 oz Weight 139 lb 9.6 oz - Physical Exam General: Alert HEENT: Atraumatic Lungs: Clear to auscultation Cardiovascular: Regular rate Abdomen: Normal bowel sounds Skin: No rashes, No breakdown, No significant lesion Neurological: Normal speech Psych/Mental Status: Mental status NL - Labs Result Diagrams: 12/26/18 04:07 12/26/18 04:07 Lab results: Laboratory Results - last 24 hr 12/26/18 10:52: POC Glucose 172 H 12/26/18 04:07: WBC 2.9 L, RBC 2.38 L, Hgb 7.8 L, Hct 22.6 L, MCV 94.9, MCH 32.7 H, MCHC 34.4, RDW 14.3, Plt Count 31 L, MPV 8.5, Neutrophils % (Manual) 72 , Lymphocytes % (Manual) 23, Monocytes % (Manual) 3, Eosinophils % (Manual) 2, Hypochromia SLIGHT = 6-15 cells, Plt Morphology Comment Appears Decreased L 12/26/18 04:07: Sodium 137, Potassium 4.3, Chloride 98, Carbon Dioxide 29, Anion Gap 14, BUN 28 H, Creatinine 5.51 H, Estimated GFR (MDRD) 11, Glucose 152 H, Calcium 10.8 H 12/25/18 20:55: POC Glucose 176 H 12/25/18 16:02: POC Glucose 238 H Status: lab reviewed by me A/P - Problem (1) Metastatic multiple myeloma to bone Current Visit: No Code(s): C90.00 - MULTIPLE MYELOMA NOT HAVING ACHIEVED REMISSION Status: Acute (2) Multiple myeloma Current Visit: No Code(s): C90.00 - MULTIPLE MYELOMA NOT HAVING ACHIEVED REMISSION Status: Acute Qualifiers: Multiple myeloma remission status: not in remission Qualified Code(s): C90.00 - Multiple myeloma not having achieved remission (3) Pancytopenia Current Visit: No Code(s): D61.818 - OTHER PANCYTOPENIA Status: Acute - Plan Plan: 1. pain control, will ask PCT for help 2. PCT for goals of care 3. Medical records from Cancer clinic have been re4. sent to [facility] as requested 4. Home when pain managed to follow-up at [facility], they will call him with appointment time.
--- NOTE | 2018-12-26 15:23 | PDOC.PALCO ---
Palliative Care Consult - Consult Details Requesting Physician: Murphy ADORNO Reason for Consult: symptom management, assistance with communication prognosis/ disease Family Members Present: None - Pertinent HPI 63 year old male with multiple myeloma since 2018 who has uncontrolled back pain. Presented to the emergency room after being seen at [facility] where a CT revealed new fractures in L2 and L4 put compression deformities in T 11, L3 and findings consistent with malignancy. Was transferred to [facility] for higher level of care. - Pertinent PMH Multiple myeloma with metastasis, end stage renal disease, CABG x3, Diabetes, HDL, CAD, - Social History Smoking Status: Former smoker Smoking: quit greater than 1 year Alcohol Use: none Drug Use History: none Living Situation: with family/parents - Medications MAR Reviewed: Yes - Allergies Allergies/Adverse Reactions: Allergies Allergy/AdvReac Type Severity Reaction Status Date / Time No Known Allergies Allergy Verified 12/03/18 23:38 - Subjective Resting in bed, awake alert. Complains of pain to lower back and right hip. 7/ 10. Denies nausea, vomiting, constipation. Mild weakness and blindness to left eye. ROS: 10 point review otherwise negative - Objective Vital Signs: Vital Signs - Most Recent Temp Pulse Resp BP Pulse Ox 99.6 F 102 H 20 133/62 95 12/26/18 08:00 12/26/18 08:29 12/25/18 20:00 12/26/18 08:29 12/26/18 08:00 Palliative Performance Scale: 50 - Physical Exam Constitutional: NAD HEENT: moist MMs, sclera anicteric, EOMI Deviation from normal: Left pupil fixed. Vision loss left eye Respiratory: no wheezing, clear to auscultation bilateral Cardiovascular: RRR, no significant murmur Gastrointestinal: soft, non-tender, positive bowel sounds Musculoskeletal: no edema, pulses present Neurological: moves all 4 limbs Psychiatric: normal affect, A&O x 3 Skin: cap refill <2 seconds - Problem List (1) Palliative care encounter Code(s): Z51.5 - ENCOUNTER FOR PALLIATIVE CARE Current Visit: Yes Status: Acute (2) Compression fracture of lumbar vertebra Code(s): S32.000A - WEDGE COMPRESSION FRACTURE OF UNSP LUMBAR VERTEBRA, INIT Current Visit: No Status: Acute (3) Metastatic multiple myeloma to bone Code(s): C90.00 - MULTIPLE MYELOMA NOT HAVING ACHIEVED REMISSION Current Visit : No Status: Acute (4) Multiple myeloma Code(s): C90.00 - MULTIPLE MYELOMA NOT HAVING ACHIEVED REMISSION Current Visit : No Status: Acute Qualifiers: Multiple myeloma remission status: not in remission Qualified Code(s): C90.00 - Multiple myeloma not having achieved remission (5) Pain from bone metastases Code(s): G89.3 - NEOPLASM RELATED PAIN (ACUTE) (CHRONIC); C79.51 - SECONDARY MALIGNANT NEOPLASM OF BONE Current Visit: No Status: Acute (6) Weakness Code(s): R53.1 - WEAKNESS Current Visit: No Status: Acute - Plan/Recommendations Plan: Initial visit with Mr Venegas this morning with Murphy Cloud RNyarn worker RN and patient , follow up this afternoon, quality management coordinator utilized for visits. *Dexa 2 mg po bid to mitigate pain, low dose that hopefully can be transitioned to discharge, aware of diabetes and weighed the risk/benifit. May consider increasing. *Education in relation to PRN pain medications/consider scheduling Morphine ER 15mg po q 12 *Discussion of Palliative nature of MM at present time *Murphy Cloud RN to follow up with Aviva ORTEGA in relation to follow up appt at [facility] for assessment of possibility of clinical trial *Patient confirms he has transportation to [facility] when appt is confirmed [60] minutes spent on this encounter with >50% of the time in counseling and coordination of care. Thank you for this very appropriate consult.
[2018-12-26] MEDS: Dexamethasone 1 MG TAB PO SCH (16:27)
[2018-12-26] MEDS: Lidocaine 5% Patch TD SCH (16:29)
[2018-12-26] MEDS ORDERED: Ondansetron ODT 4 MG TAB PO PRN (18:07)
--- NOTE | 2018-12-26 18:08 | PDOC.HOSPP ---
- Subjective Encounter Date: 12/26/18 Encounter Time: 18:07 Subjective: The patient states his back pain is a little better, but the IV works better than the oral pills. He felt nauseous today and vomited. He also complains of headache - Objective Vital Signs & Weight: Vital Signs (12 hours) Temp Pulse BP BP Pulse Ox 12/26/18 08:29 102 H 133/62 12/26/18 08:28 102 H 133/62 12/26/18 08:00 99.6 F 102 H 133/62 95 Weight Admit Weight 139 lb 9.6 oz Weight 139 lb 9.6 oz I&O: 12/25/18 12/26/18 12/27/18 06:59 06:59 06:59 Intake Total 1240 400 800 Output Total 500 300 420 Balance 740 100 380 Result Diagrams: 12/26/18 04:07 12/26/18 04:07 Additional Labs: Accuchecks 12/26/18 12/26/18 12/25/18 16:47 10:52 20:55 POC Glucose 65 L 172 H 176 H Hospitalist ROS - Review of Systems Constitutional: denies: fever, chills - Medication Medications: Active Medications Generic Name Dose Route Start Last Admin Trade Name Freq PRN Reason Stop Dose Admin Acetaminophen 650 mg 12/24/18 12:21 12/26/18 11:18 Tylenol PO 650 mg Q4H PRN Administration Headache/Fever/Mild Pain (1-3) Hydrocodone Bitart/Acetaminophen 1 tab 12/24/18 10:06 12/24/18 11:17 [place] 10/325 PO 1 tab Q4H PRN Administration Moderate Pain (4-6) Hydrocodone Bitart/Acetaminophen 2 tab 12/24/18 10:06 12/25/18 17:03 [place] 10/325 PO 2 tab Q4H PRN Administration Moderate to Severe Pain (6-10) Atorvastatin Calcium 20 mg 12/24/18 21:00 12/25/18 19:32 Lipitor PO 20 mg QPM MELODY Administration Benzonatate 100 mg 12/26/18 03:03 12/26/18 03:23 Tessalon PO 100 mg Q4H PRN Administration Cough Dexamethasone 2 mg 12/26/18 17:00 12/26/18 16:27 Decadron PO 2 mg BID-WM MELODY Administration Epoetin Leander-epbx 10,000 unit 12/25/18 12:00 12/25/18 13:16 Retacrit SC 10,000 unit Q7D MELODY Administration Hydralazine HCl 50 mg 12/24/18 21:00 12/26/18 08:29 Apresoline PO 50 mg BID MELODY Administration Insulin Glargine 20 units/ 0.2 mls @ 0 mls/hr 12/25/18 09:00 12/26/18 08:34 Miscellaneous Medication SC 0.2 mls QAM MELODY Administration As Directed Insulin Human Lispro 0 units 12/24/18 18:18 12/26/18 12:56 Humalog SC 2 unit .MILD SLIDING SCALE PRN Administration Mild Correctional Scale Lidocaine 1 patch 12/25/18 17:00 12/26/18 16:29 Lidoderm 5% Patch TD 1 patch 1700 MELODY Administration Metoprolol Tartrate 25 mg 12/24/18 21:00 12/26/18 08:29 Lopressor PO 25 mg BID MELODY Administration Miscellaneous Medication 1 each 12/25/18 05:00 12/26/18 04:11 Lidocaine Patch Removal TOP 1 each 0500 MELODY Administration Morphine Sulfate 20 mg 12/26/18 00:54 12/26/18 03:23 Morphine Ir PO 20 mg Q4H PRN Administration Severe Pain (7-10) Nifedipine 30 mg 12/24/18 09:00 12/26/18 08:28 Procardia Xl PO 30 mg DAILY MELODY Administration Ondansetron HCl 4 mg 12/24/18 15:13 12/26/18 11:18 Zofran Odt PO 4 mg BIDPRN PRN Administration Nausea Pantoprazole Sodium 40 mg 12/25/18 09:00 12/26/18 08:29 Protonix PO 40 mg DAILY MELODY Administration - Exam General Appearance: NAD, awake alert General - other findings: in distress from pain Eye: PERRL, anicteric sclera ENT: normocephalic atraumatic, no oropharyngeal lesions Neck: supple, symmetric, no JVD, no thyromegaly Heart: RRR, no murmur, no gallops, no rubs Respiratory: CTAB, no wheezes, no rales, no ronchi Gastrointestinal: soft, non-tender, non-distended Extremities: no cyanosis, no clubbing, no edema Skin: normal turgor, no lesions, no rashes Neurological: cranial nerve grossly intact, normal sensation to touch, no focal deficits, no new deficit Musculoskeletal: normal tone, normal strength, no muscle wasting Psychiatric: normal affect, normal behavior, A&O x 3, oriented to person Hosp A/P - Plan This is a 63 year old male with history of multiple myeloma who is presenting with intractable back pain, currently awaiting transfer to [facility] #Acute T11 compression fracture extending to L1-L5 #Multiple myeloma in spine - MRI lumbar spine findings as noted above with lytic lesions in spine - oncology consulted, needs transfer to [facility] for further treatment. Patient sent records -Increase morphine to30 mg q4 hours prn, added dexamethasone. D/c tramadol. D/c hydrocodone since patient states no relief - PT #Hyperkalemia #ESRD on Dialysis - resolved #Pancytopenia - secondary to multiple myeloma - WBC 2.9, HB 8.3, platelets 31 - continue to monitor. Oncology following Hypercalcemia - secondary to multiple myeloma -calcium 12.4 on 12/25, got zoledronic acid x 1 - calcium downtrending to 10 - on dexamethasone 2 mg po bid #Constipation - order laxatives prn #Dysuria- resolved - UA shows no infection. Has proteinuria from myeloma #CAD s/p CABG - continue atorvastatin 20 mg daily, metoprolol, procardia, hydralazine #Type II Diabetes - continue tresiba 20 units qam - insulin sliding scale - diabetic diet #GERD - protonix
[2018-12-26] MEDS ORDERED: Fioricet 325/50/40 mg Tablet PO SCH (18:15)
[2018-12-26] MEDS: Ondansetron HCl/PF 8 MG in Sodium Chloride 0.9% 50 ML IVPB PRN (18:27)
[2018-12-26] MEDS: Atorvastatin Calcium 20 MG TAB PO SCH (20:26)
[2018-12-27 04:56] LABS: Anion Gap 18 mmol/L (10-20); BUN (Urea Nitrogen) 41 mg/dL (8.4-25.7); Calc. Creatinine Clearance 10 mL/min (70-130); Calcium 9.7 mg/dL (7.8-10.44); Carbon Dioxide 25 mmol/L (23-31); Chloride 98 mmol/L (98-107); Estimated GFR-MDRD 8; Potassium 4.5 mmol/L (3.5-5.1); Sodium 136 mmol/L (136-145)
[2018-12-27 05:01] LABS: Band 5 % (5-11); Elliptocytes SLIGHT = 2-5 cells (100X) (0-1/hpf); Hemoglobin 7.4 g/dL (14.0-18.0); Lymphocytes 31 % (21-51); MDiff Complete? YES; Mean Corpuscular HGB CONC 34.3 g/dL (32.0-36.0); Mean Corpuscular Hemoglobin 32.9 pg (27.0-31.0); Mean Corpuscular Volume 95.8 fL (78.0-98.0); Mean Platelet Volume 9.4 fL (7.4-10.4); Monocytes 10 % (0-10); Neutrophil 44 % (42-75); Platelet Count 32 thou/uL (130-400); Platelet Morphology Comment Appears Decreased; RBC Distribution Width 14.4 % (11.5-14.5); Reactive Lymphocytes 10 % (0-10); Red Blood Cell (RBC) Count 2.26 mill/uL (4.70-6.10); White Blood Cell (WBC) Count 2.9 thou/uL (4.8-10.8)
[2018-12-27 05:13] LABS: Glucose 57 mg/dL (80-115)
[2018-12-27] MEDS: Lidocaine Patch Removal 1 EACH TOP SCH (05:43)
--- NOTE | 2018-12-27 09:37 | PRG ---
DATE OF SERVICE: 12/27/2018 SERVICE: Nephrology. SUBJECTIVE: A 63-year-old male with end-stage renal disease, on hemodialysis as well as multiple myeloma, admitted with worsening generalized body ache. The patient was found to have multiple lytic lesions. Nephrology is seeing the patient for end-stage renal disease management. The patient also was found to have hypercalcemia, which has improved. Had hypoglycemia earlier today, which was treated appropriately. The patient was seen during dialysis and is tolerating treatment with no complaints. Had some nausea, which was treated with Zofran with improvement. OBJECTIVE: VITAL SIGNS: Temperature 98.6, pulse 82, respiratory rate 18, SpO2 of 94% on room air, and blood pressure is 152/73. GENERAL: Male patient, in no obvious distress. Afebrile. Anicteric. Acyanotic. HEENT: Normocephalic, atraumatic. Oral mucosa is dry. CARDIOVASCULAR: Regular rhythm and rate with normal heart sounds 1 and 2. RESPIRATORY: Fair air entry bilaterally with no crackle or rhonchi. GASTROINTESTINAL: Full, soft, nontender, and nondistended with normal bowel sounds. EXTREMITIES: Right forearm AV fistula noted. Otherwise, extremities are grossly normal, atraumatic with no edema or erythema. DIAGNOSTIC DATA: CBC showed WBC count of 2.9, hemoglobin of 7.4, and platelet of 32. Renal function panel showed sodium 136, potassium 4.5, chloride 98, CO2 of 25, BUN 41, creatinine 7.22, glucose 57, and calcium 9.7. ASSESSMENT: 1. End-stage renal disease, on hemodialysis. The patient dialyzes on Saturday, , and Saturday. He was seen during dialysis, which is tolerated appropriately. 2. Hypercalcemia: Improved, currently 9.7. 3. Pancytopenia: Due to multiple myeloma. 4. Multiple myeloma with metastases. Treatment as per Oncology. PLAN: 1. Continue dialysis 3 times a week, Saturday, , and Saturday in-line with outpatient therapy. 2. Continue antihypertensives. 3. Treatment of hypoglycemia as per primary attending. Thiells oral intake advised. Job ID: [id number]
[2018-12-27] MEDS: Insulin Glargine 5 UNITS in Pre-Filled Syringe 1 EACH SC SCH (12:13)
[2018-12-27] MEDS: Ondansetron HCl/PF 8 MG in Sodium Chloride 0.9% 50 ML IVPB PRN (12:16)
[2018-12-27] MEDS: NIFEdipine XL 30 MG TAB PO SCH (13:01)
[2018-12-27] MEDS: Metoprolol Tartrate 25 MG TAB PO SCH ×2 (13:01→20:14)
[2018-12-27] MEDS: hydrALAZINE 25 MG TAB PO SCH ×2 (13:01→20:14)
[2018-12-27] MEDS: Dexamethasone 1 MG TAB PO SCH ×2 (13:03→18:05)
--- NOTE | 2018-12-27 15:06 | PDOC.HOSPP ---
- Subjective Encounter Date: 12/27/18 Encounter Time: 15:04 Subjective: Patient seen and examined. No new complaints. No overnight events. c/o nausea. pain is better. had HD today. - Objective Vital Signs & Weight: Vital Signs (12 hours) Temp Pulse Resp BP Pulse Ox 12/27/18 11:33 100.1 F H 12/27/18 11:30 99.7 F H 97 16 149/67 H 91 L Weight Admit Weight 139 lb 9.6 oz Weight 139 lb 9.6 oz I&O: 12/26/18 12/27/18 12/28/18 06:59 06:59 05:59 Intake Total 400 800 Output Total 300 620 Balance 100 180 Result Diagrams: 12/27/18 04:09 12/27/18 04:09 Additional Labs: Accuchecks 12/27/18 12/27/18 12/27/18 12:28 06:36 03:21 POC Glucose 130 H 90 70 12/27/18 12/26/18 12/26/18 00:21 20:08 18:29 POC Glucose 67 L 109 105 12/26/18 16:47 POC Glucose 65 L Hospitalist ROS - Medication Medications: Active Medications Generic Name Dose Route Start Last Admin Trade Name Freq PRN Reason Stop Dose Admin Acetaminophen 650 mg 12/24/18 12:21 12/26/18 11:18 Tylenol PO 650 mg Q4H PRN Administration Headache/Fever/Mild Pain (1-3) Atorvastatin Calcium 20 mg 12/24/18 21:00 12/26/18 20:26 Lipitor PO 20 mg QPM MELODY Administration Benzonatate 100 mg 12/26/18 03:03 12/26/18 03:23 Tessalon PO 100 mg Q4H PRN Administration Cough Dexamethasone 2 mg 12/26/18 17:00 12/27/18 13:03 Decadron PO 2 mg BID-WM MELODY Administration Epoetin Leander-epbx 10,000 unit 12/25/18 12:00 12/25/18 13:16 Retacrit SC 10,000 unit Q7D MELODY Administration Hydralazine HCl 50 mg 12/24/18 21:00 12/27/18 13:01 Apresoline PO 50 mg BID MELODY Administration Ondansetron HCl 8 mg/ Sodium 54 mls @ 200 mls/hr 12/24/18 10:06 12/27/18 12: 16 Chloride IVPB 54 mls Q8H PRN Administration Nausea Dextrose/Water 1,000 mls @ 0 mls/hr 12/24/18 18:18 12/27/18 05:45 D5w IV 1,000 mls .Q0M PRN Administration Hypoglycemia As Directed Insulin Glargine 5 units/ 0.05 mls @ 0 mls/hr 12/27/18 01:09 12/27/18 12:13 Miscellaneous Medication SC Not Given QAM MELODY As Directed Insulin Human Lispro 0 units 12/24/18 18:18 12/26/18 12:56 Humalog SC 2 unit .MILD SLIDING SCALE PRN Administration Mild Correctional Scale Lidocaine 1 patch 12/25/18 17:00 12/26/18 16:29 Lidoderm 5% Patch TD 1 patch 1700 MELODY Administration Metoprolol Tartrate 25 mg 12/24/18 21:00 12/27/18 13:01 Lopressor PO 25 mg BID MELODY Administration Miscellaneous Medication 1 each 12/25/18 05:00 12/27/18 05:43 Lidocaine Patch Removal TOP 1 each 0500 MELODY Administration Nifedipine 30 mg 12/24/18 09:00 12/27/18 13:01 Procardia Xl PO 30 mg DAILY MELODY Administration Ondansetron HCl 4 mg 12/26/18 18:07 12/27/18 05:43 Zofran Odt PO 4 mg Q6H PRN Administration Nausea/Vomiting Pantoprazole Sodium 40 mg 12/25/18 09:00 12/27/18 13:02 Protonix PO 40 mg DAILY MELODY Administration - Exam General Appearance: NAD Eye: anicteric sclera ENT: normocephalic atraumatic Neck: supple Respiratory: CTAB Gastrointestinal: soft Skin: normal turgor Musculoskeletal: normal tone Psychiatric: normal affect Hosp A/P (1) ESRD on dialysis Code(s): N18.6 - END STAGE RENAL DISEASE; Z99.2 - DEPENDENCE ON RENAL DIALYSIS Status: Acute (2) Multiple myeloma Code(s): C90.00 - MULTIPLE MYELOMA NOT HAVING ACHIEVED REMISSION Status: Acute Qualifiers: Multiple myeloma remission status: not in remission Qualified Code(s): C90.00 - Multiple myeloma not having achieved remission (3) Pancytopenia Code(s): D61.818 - OTHER PANCYTOPENIA Status: Acute (4) Diabetes Code(s): E11.9 - TYPE 2 DIABETES MELLITUS WITHOUT COMPLICATIONS Status: Chronic Qualifiers: Diabetes mellitus type: type 2 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 on D5W due to hypoglycemia Insulin on hold. will monitor. Greer for N/V.
[2018-12-27] MEDS: Lidocaine 5% Patch TD SCH (18:03)
[2018-12-27] MEDS: Atorvastatin Calcium 20 MG TAB PO SCH (20:14)
[2018-12-27] MEDS: Acetaminophen 325 MG TAB PO PRN (20:15)
[2018-12-27] MEDS: Morphine IR 10 MG/5 ML UDCUP PO PRN (20:16)
[2018-12-28] MEDS: Lidocaine Patch Removal 1 EACH TOP SCH (05:00)
[2018-12-28] MEDS: Acetaminophen 325 MG TAB PO PRN (06:20)
[2018-12-28] MEDS: Morphine IR 10 MG/5 ML UDCUP PO PRN (07:58)
[2018-12-28] MEDS: Dexamethasone 1 MG TAB PO SCH ×2 (07:58→17:38)
[2018-12-28] MEDS: hydrALAZINE 25 MG TAB PO SCH ×2 (08:00→21:48)
[2018-12-28] MEDS: Metoprolol Tartrate 25 MG TAB PO SCH ×2 (08:00→21:49)
[2018-12-28] MEDS: NIFEdipine XL 30 MG TAB PO SCH (08:01)
[2018-12-28] MEDS: Insulin Glargine 5 UNITS in Pre-Filled Syringe 1 EACH SC SCH (09:30)
[2018-12-28] MEDS: HumaLOG 300 UNITS/3 ML VIAL SC PRN ×2 (11:39→17:49)
--- NOTE | 2018-12-28 12:26 | PDOC.HOSPP ---
- Subjective Encounter Date: 12/28/18 Encounter Time: 12:25 Subjective: c/o vomiting X2 today. No fever or chills. still having pain. 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 20:45 POC Glucose 229 H 253 H 187 H 12/27/18 17:02 POC Glucose 139 H Hospitalist ROS - Medication Medications: Active Medications Generic Name Dose Route Start Last Admin Trade Name Freq PRN Reason Stop Dose Admin Acetaminophen 650 mg 12/24/18 12:21 12/28/18 06:20 Tylenol PO 650 mg Q4H PRN Administration Headache/Fever/Mild Pain (1-3) Atorvastatin Calcium 20 mg 12/24/18 21:00 12/27/18 20:14 Lipitor PO 20 mg QPM MELODY Administration Benzonatate 100 mg 12/26/18 03:03 12/26/18 03:23 Tessalon PO 100 mg Q4H PRN Administration Cough Dexamethasone 2 mg 12/26/18 17:00 12/28/18 07:58 Decadron PO 2 mg BID-WM MELODY Administration Epoetin Leander-epbx 10,000 unit 12/25/18 12:00 12/25/18 13:16 Retacrit SC 10,000 unit Q7D MELODY Administration Hydralazine HCl 50 mg 12/24/18 21:00 12/28/18 08:00 Apresoline PO 50 mg BID MELODY Administration Ondansetron HCl 8 mg/ Sodium 54 mls @ 200 mls/hr 12/24/18 10:06 12/27/18 12: 16 Chloride IVPB 54 mls Q8H PRN Administration Nausea Dextrose/Water 1,000 mls @ 0 mls/hr 12/24/18 18:18 12/27/18 05:45 D5w IV 1,000 mls .Q0M PRN Administration Hypoglycemia As Directed Insulin Glargine 5 units/ 0.05 mls @ 0 mls/hr 12/27/18 01:09 12/28/18 09:30 Miscellaneous Medication SC Not Given QAM MELODY As Directed Insulin Human Lispro 0 units 12/24/18 18:18 12/28/18 11:39 Humalog SC 4 unit .MILD SLIDING SCALE PRN Administration Mild Correctional Scale Lidocaine 1 patch 12/25/18 17:00 12/27/18 18:03 Lidoderm 5% Patch TD 1 patch 1700 MELODY Administration Metoprolol Tartrate 25 mg 12/24/18 21:00 12/28/18 08:00 Lopressor PO 25 mg BID MELODY Administration Miscellaneous Medication 1 each 12/25/18 05:00 12/28/18 05:00 Lidocaine Patch Removal TOP 1 each 0500 MELODY Administration Morphine Sulfate 30 mg 12/26/18 18:14 12/28/18 07:58 Morphine Ir PO 30 mg Q4H PRN Administration Severe Pain (7-10) Nifedipine 30 mg 12/24/18 09:00 12/28/18 08:01 Procardia Xl PO 30 mg DAILY MELODY Administration Ondansetron HCl 4 mg 12/26/18 18:07 12/27/18 05:43 Zofran Odt PO 4 mg Q6H PRN Administration Nausea/Vomiting Pantoprazole Sodium 40 mg 12/25/18 09:00 12/28/18 08:01 Protonix PO 40 mg DAILY MELODY Administration - Exam General Appearance: NAD Eye: anicteric sclera ENT: normocephalic atraumatic Neck: supple Heart: RRR Respiratory: CTAB Gastrointestinal: soft Extremities: no edema Skin: normal turgor Neurological: no weakness Musculoskeletal: normal tone Psychiatric: normal affect Hosp A/P (1) ESRD on dialysis Code(s): N18.6 - END STAGE RENAL DISEASE; Z99.2 - DEPENDENCE ON RENAL DIALYSIS Status: Acute (2) Multiple myeloma Code(s): C90.00 - MULTIPLE MYELOMA NOT HAVING ACHIEVED REMISSION Status: Acute Qualifiers: Multiple myeloma remission status: not in remission Qualified Code(s): C90.00 - Multiple myeloma not having achieved remission (3) Pancytopenia Code(s): D61.818 - OTHER PANCYTOPENIA Status: Acute (4) Diabetes Code(s): E11.9 - TYPE 2 DIABETES MELLITUS WITHOUT COMPLICATIONS Status: Chronic Qualifiers: Diabetes mellitus type: type 2 Diabetes mellitus senior living insulin use: with exterminator termite use Diabetes mellitus complication status: without complication Qualified Code(s): E11.9 - Type 2 diabetes mellitus without complications; 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 will monitorMinoo Butterfield for N/V.
--- NOTE | 2018-12-28 13:47 | PRG ---
DATE OF SERVICE: 12/28/2018 SERVICE: Nephrology. SUBJECTIVE: A 63-year-old male with known history of end-stage renal disease, on hemodialysis, as well as multiple myeloma with recurrence, admitted due to generalized body aches. Nephrology is following the patient for end-stage renal disease management. The patient's last dialysis was yesterday. He has no new complaints. Denied nausea, vomiting, or edema. OBJECTIVE: VITAL SIGNS: Temperature 98.4, pulse 71, respiratory rate 16, SpO2 of 92 on room air, and blood pressure is 112/60. GENERAL: Male patient, in no distress. Afebrile. Anicteric. Acyanotic. HEENT: Normocephalic and atraumatic. Oral mucosa is moist. CARDIOVASCULAR: Regular rhythm and rate with normal heart sounds 1 and 2. RESPIRATORY: Fair air entry bilaterally with no obvious crackle or rhonchi or use of accessory muscles. GI: Full, soft, nontender, and nondistended with normal bowel sounds. EXTREMITIES: Right forearm AV fistula noted. Otherwise, extremities are grossly normal looking and atraumatic with no obvious edema or erythema. MEDIA RELATIONS MANAGER: Conscious, alert, oriented x3 with appropriate mental status. DIAGNOSTIC DATA: No new labs today. ASSESSMENT AND PLAN: 1. End-stage renal disease, on hemodialysis. Stable. We will continue maintenance hemodialysis using outpatient schedule Saturday, , and Saturday. 2. Hypercalcemia, resolved. 3. Pancytopenia due to multiple myeloma. Treatment as per Hematology and Oncology. 4. Multiple myeloma with metastasis. Treatments are as per Oncology. We will continue to follow along with you. Job ID: [id number]
[2018-12-28] MEDS: Lidocaine 5% Patch TD SCH (17:39)
[2018-12-28] MEDS: Ondansetron PF 4 MG/2 ML Vial IVP PRN (17:40)
[2018-12-28] MEDS: Atorvastatin Calcium 20 MG TAB PO SCH (21:51)
[2018-12-29] MEDS: Morphine IR 10 MG/5 ML UDCUP PO PRN (03:55)
[2018-12-29] MEDS: Lidocaine Patch Removal 1 EACH TOP SCH (05:45)
[2018-12-29] MEDS: Dexamethasone 1 MG TAB PO SCH ×3 (08:00→16:21)
[2018-12-29] MEDS ORDERED: Acetaminophen 325 MG TAB PO PRN (08:53)
[2018-12-29] MEDS ORDERED: traMADol HCl 50 MG TAB PO PRN (08:53)
[2018-12-29] MEDS: Insulin Glargine 5 UNITS in Pre-Filled Syringe 1 EACH SC SCH (09:00)
--- NOTE | 2018-12-29 09:22 | PRG ---
DATE OF SERVICE: 12/29/2018 SUBJECTIVE: Mr. Theo Carrasco is a 63-year-old male with ESRD and multiple myeloma. We are following him up for his maintenance hemodialysis. He is tolerating the said dialysis. His multiple myeloma has been refractory to several medications. Attempt to send him to [facility] is being done. He will follow up as an outpatient. He voices no new complaints except for diffuse joint pains and back pains. OBJECTIVE: VITAL SIGNS: Blood pressure 126/61, heart rate 81, respiratory rate 18, temperature 99, and pulse ox 94%. GENERAL: The patient is awake, alert, comfortable, in mild pain. SKIN: Adequate turgor. HEENT: He has slightly pale conjunctivae. Anicteric sclerae. No neck mass. No carotid bruits. No JVD. CHEST: No deformities. LUNGS: Decreased breath sounds. HEART: Normal sinus rhythm. No murmur. No gallops or rubs. ABDOMEN: Globular, soft, nontender. No masses. EXTREMITIES: No edema. MEDICATIONS: Medications of December 29, 2018, were reviewed. LABORATORY DATA: Laboratories of December 29, 2018, white count 2.9, hemoglobin 7.4. On December 29, 2018, glucose 210. On December 27, 2018, calcium 9.7, BUN 41, creatinine 7.22, potassium 4.5. ASSESSMENT AND PLAN: 1. End-stage renal disease, stable. We will continue current Saturday, , and Saturday hemodialysis regimen. Fluid removal as tolerated. 2. Anemia on weekly Epogen. 3. Multiple myeloma. Refractory to current medications. Referral to [facility] has been done. The patient is supposed to follow up as an outpatient. 4. Recheck basic metabolic and CBC in a.m. Job ID: [id number]
[2018-12-29] MEDS ORDERED: Fentanyl 100 MCG/2 ML VIAL SLOW IVP SCH (09:30)
[2018-12-29] MEDS: hydrALAZINE 25 MG TAB PO SCH ×2 (09:33→20:29)
[2018-12-29] MEDS: NIFEdipine XL 30 MG TAB PO SCH (09:33)
[2018-12-29] MEDS: Metoprolol Tartrate 25 MG TAB PO SCH ×2 (09:33→20:30)
--- NOTE | 2018-12-29 09:47 | PDOC.HOSPP ---
- Subjective Encounter Date: 12/29/18 Encounter Time: 09:45 Subjective: Patient seen and examined for multiple issues. Back pain still uncontrolled. Poor appetite. No other complaints. No overnight events - Objective Vital Signs & Weight: Vital Signs (12 hours) Temp Pulse Resp BP BP Pulse Ox 12/29/18 09:33 81 126/71 12/29/18 08:21 99.0 F 81 18 126/61 94 L 12/28/18 21:48 76 98/56 L Weight Admit Weight 139 lb 9.6 oz Weight 139 lb 9.6 oz I&O: 12/28/18 12/29/18 12/30/18 06:59 06:59 06:59 Intake Total 240 Balance 240 Result Diagrams: 12/27/18 04:09 12/27/18 04:09 Additional Labs: Accuchecks 12/29/18 12/28/18 12/28/18 06:14 20:20 16:26 POC Glucose 210 H 200 H 224 H 12/28/18 11:38 POC Glucose 252 H Radiology Reviewed by me: Yes (Lumbar MRI - reviewed) Hospitalist ROS - Review of Systems Respiratory: denies: cough, dry, shortness of breath, hemoptysis, SOB with excertion, pleuritic pain, sputum, wheezing, other Cardiovascular: denies: chest pain, palpitations, orthopnea, paroxysmal noc. dyspnea, edema, light headedness, other Gastrointestinal: denies: nausea, vomiting, abdominal pain, diarrhea, constipation, melena, hematochezia, other Musculoskeletal: reports: back pain. denies: neck pain, shoulder pain, arm pain , hand pain, leg pain, foot pain, other - Medication Medications: Active Medications Generic Name Dose Route Start Last Admin Trade Name Freq PRN Reason Stop Dose Admin Acetaminophen 650 mg 12/24/18 12:21 12/28/18 06:20 Tylenol PO 650 mg Q4H PRN Administration Headache/Fever/Mild Pain (1-3) Atorvastatin Calcium 20 mg 12/24/18 21:00 12/28/18 21:51 Lipitor PO 20 mg QPM MELODY Administration Benzonatate 100 mg 12/26/18 03:03 12/26/18 03:23 Tessalon PO 100 mg Q4H PRN Administration Cough Dexamethasone 2 mg 12/26/18 17:00 12/28/18 17:38 Decadron PO 2 mg BID-WM MELODY Administration Epoetin Leander-epbx 10,000 unit 12/25/18 12:00 12/25/18 13:16 Retacrit SC 10,000 unit Q7D MELODY Administration Fentanyl 25 mcg 12/29/18 09:00 12/29/18 09:26 Duragesic TD 01/01/19 09:01 25 mcg NOW MELODY Administration Fentanyl 25 mcg 12/29/18 09:30 12/29/18 09:29 Sublimaze SLOW IVP 12/29/18 11:30 25 mcg NOW MELODY Administration Hydralazine HCl 50 mg 12/24/18 21:00 12/29/18 09:33 Apresoline PO 50 mg BID MELODY Administration Ondansetron HCl 8 mg/ Sodium 54 mls @ 200 mls/hr 12/24/18 10:06 12/27/18 12: 16 Chloride IVPB 54 mls Q8H PRN Administration Nausea Dextrose/Water 1,000 mls @ 0 mls/hr 12/24/18 18:18 12/27/18 05:45 D5w IV 1,000 mls .Q0M PRN Administration Hypoglycemia As Directed Insulin Human Lispro 0 units 12/24/18 18:18 12/28/18 17:49 Humalog SC 3 unit .MILD SLIDING SCALE PRN Administration Mild Correctional Scale Lidocaine 1 patch 12/25/18 17:00 12/28/18 17:39 Lidoderm 5% Patch TD 1 patch 1700 MELODY Administration Metoprolol Tartrate 25 mg 12/24/18 21:00 12/29/18 09:33 Lopressor PO 25 mg BID MELODY Administration Miscellaneous Medication 1 each 12/25/18 05:00 12/29/18 05:45 Lidocaine Patch Removal TOP 1 each 0500 MELODY Administration Nifedipine 30 mg 12/24/18 09:00 12/29/18 09:33 Procardia Xl PO 30 mg DAILY MELODY Administration Ondansetron HCl 4 mg 12/28/18 13:02 12/28/18 17:40 Zofran IVP 4 mg Q6H PRN Administration Nausea/Vomiting Pantoprazole Sodium 40 mg 12/25/18 09:00 12/29/18 09:33 Protonix PO 40 mg DAILY MELODY Administration - Exam General Appearance: ill appearing General - other findings: Pt in distress - significant pain Heart: RRR, no rubs Respiratory: CTAB, no rales Gastrointestinal: soft, non-tender, non-distended, normal bowel sounds Extremities: no edema Hosp A/P - Plan DVT proph w/SCDs Intractable back pain due to T11 compression fracture Multiple myeloma ESRD on HD - TTS (Dr Camacho) Pancytopenia due to MM DM2 Physical decontining Other issues per previous notes PLAN: DC Morphine Add Fentanul patch Add schedule Tylenol/Tramadol Add PRN [place] Consult Acute Pain mngt Add OT Eval Inpt Rehab eval [facility]eral [facility] for [facility]pt Appt (Patient has failed Rx for Multiple myeloma) DC Lantus due to poor appetite Dialysis per Nephrology Cont other meds SCDs for DVT prophylaxis
[2018-12-29] MEDS: HYDROcodone/Acetaminophen 5/325 mg Tablet PO PRN (10:34)
[2018-12-29] MEDS: Acetaminophen 325 MG TAB PO SCH ×3 (13:29→20:28)
[2018-12-29] MEDS: traMADol HCl 50 MG TAB PO SCH ×3 (13:29→20:33)
[2018-12-29] MEDS: Ondansetron PF 4 MG/2 ML Vial IVP PRN ×2 (13:34→18:04)
--- NOTE | 2018-12-29 15:24 | PDOC.MOPN ---
Interval History: patient having emesis and intractable pain. - Vital Signs Vital Signs: Vital Signs (12 hours) Temp Pulse Resp BP BP Pulse Ox 12/29/18 09:33 81 126/71 12/29/18 08:21 99.0 F 81 18 126/61 94 L 12/29/18 08:00 94 L Weight Admit Weight 139 lb 9.6 oz Weight 139 lb 9.6 oz - Physical Exam General: Alert, Oriented x3, No acute distress HEENT: Atraumatic, PERRLA, EOMI, Mucous membr. moist/pink Lungs: Clear to auscultation, Normal air movement Cardiovascular: Regular rate, Normal S1, Normal S2, No murmurs, Gallops, Rubs Abdomen: Normal bowel sounds, Soft, No tenderness, No hepatospenomegaly, No masses Extremities: No clubbing, No cyanosis, No edema, Normal pulses, No tenderness/ swelling Skin: No rashes, No breakdown, No significant lesion Neurological: Normal speech Psych/Mental Status: Mental status NL, Mood NL - Labs Result Diagrams: 12/27/18 04:09 12/27/18 04:09 Lab results: Laboratory Results - last 24 hr 12/29/18 11:46: POC Glucose 182 H 12/29/18 06:14: POC Glucose 210 H 12/28/18 20:20: POC Glucose 200 H 12/28/18 16:26: POC Glucose 224 H 12/28/18 11:38: POC Glucose 252 H 12/27/18 09:19: POC Glucose 99 Status: lab reviewed by me A/P - Problem (1) Metastatic multiple myeloma to bone Current Visit: No Code(s): C90.00 - MULTIPLE MYELOMA NOT HAVING ACHIEVED REMISSION Status: Acute (2) Multiple myeloma Current Visit: No Code(s): C90.00 - MULTIPLE MYELOMA NOT HAVING ACHIEVED REMISSION Status: Acute Qualifiers: Multiple myeloma remission status: not in remission Qualified Code(s): C90.00 - Multiple myeloma not having achieved remission (3) Pancytopenia Current Visit: No Code(s): D61.818 - OTHER PANCYTOPENIA Status: Acute - Plan Plan: 1. Fentanyl patch for pain. 2. antiemetic. 3. Long discussion between patient, , myself, and RAGINI, piano case maker at . Patient understands severity of disease and limited options. Patient would like to seek pain control and comfort care. Agrees to hospice. Understands that he wll not get dialysis with hospice and agrees. HBV consulted.
[2018-12-29] MEDS ORDERED: Promethazine 25 MG TAB PO PRN (15:25)
[2018-12-29] MEDS: Lidocaine 5% Patch TD SCH (16:17)
[2018-12-29] MEDS: HumaLOG 300 UNITS/3 ML VIAL SC PRN (18:04)
[2018-12-29] MEDS: Atorvastatin Calcium 20 MG TAB PO SCH (20:29)
[2018-12-29] MEDS: Senokot S 8.6-50 MG TAB PO SCH (20:33)
[2018-12-30] MEDS: HYDROcodone/Acetaminophen 5/325 mg Tablet PO PRN ×2 (00:01→07:30)
[2018-12-30] MEDS: Ondansetron PF 4 MG/2 ML Vial IVP PRN (00:05)
[2018-12-30] MEDS: Lidocaine Patch Removal 1 EACH TOP SCH (05:49)
[2018-12-30 08:24] VITALS: BP 150/68; TEMP 98.3
[2018-12-30] MEDS: Dexamethasone 1 MG TAB PO SCH (08:52)
[2018-12-30] MEDS: hydrALAZINE 25 MG TAB PO SCH (09:00)
[2018-12-30] MEDS ORDERED: Polyethylene Glycol 3350 17 GM Packet PO SCH (09:00)
[2018-12-30] MEDS: NIFEdipine XL 30 MG TAB PO SCH (09:00)
[2018-12-30] MEDS: Acetaminophen 325 MG TAB PO SCH (09:00)
[2018-12-30] MEDS: Metoprolol Tartrate 25 MG TAB PO SCH (09:00)
[2018-12-30] MEDS: Senokot S 8.6-50 MG TAB PO SCH (09:00)
--- NOTE | 2018-12-30 09:18 | PRG ---
DATE OF SERVICE: 12/30/2018 SUBJECTIVE: Mr. Carrasco is a 63-year-old male with ESRD - on maintenance hemodialysis, diabetes mellitus, and multiple myeloma. He has been refractory to his treatment with multiple myeloma. Case was discussed with the patient's family, they have opted for hospice. We are currently doing his hemodialysis. This will be his last dialysis treatment. OBJECTIVE: VITAL SIGNS: Blood pressure 150/68, heart rate 92, respiratory rate 20, temperature 98.3, and pulse ox 94%. GENERAL: Noted to be awake, alert, comfortable, not in distress. SKIN: Adequate turgor. HEENT: Slightly pale conjunctivae. Anicteric sclerae. NECK: No neck mass. No carotid bruits. No JVD. CHEST: No deformities. LUNGS: Clear breath sounds. No wheezing. No crackles. HEART: Normal sinus rhythm. No murmur. No gallops. No rubs. ABDOMEN: Globular, soft, and nontender. No masses. EXTREMITIES: No edema. MEDICATIONS: Medications of December 30, 2018, were reviewed. LABORATORY DATA: Laboratories of December 30, 2018, glucose 165. ASSESSMENT AND PLAN: End-stage renal disease - undergoing hemodialysis. I have discussed the case with the dialysis nurses. This will be his last dialysis treatment. The patient has opted for hospice due to his underlying multiple myeloma, which have been refractory to the standard treatments. We will be signing off. Please recall if needed. Job ID: [id number]
[2018-12-30 09:21] LABS: Anion Gap 18 mmol/L (10-20); BUN (Urea Nitrogen) 41 mg/dL (8.4-25.7); Calc. Creatinine Clearance 13 mL/min (70-130); Calcium 8.5 mg/dL (7.8-10.44); Carbon Dioxide 26 mmol/L (23-31); Chloride 96 mmol/L (98-107); Estimated GFR-MDRD 11; Glucose 138 mg/dL (80-115); Potassium 3.4 mmol/L (3.5-5.1); Sodium 137 mmol/L (136-145)
[2018-12-30 09:23] LABS: Band 1 % (5-11); Hemoglobin 8.3 g/dL (14.0-18.0); Lymphocytes 35 % (21-51); MDiff Complete? YES; Mean Corpuscular HGB CONC 34.1 g/dL (32.0-36.0); Mean Corpuscular Hemoglobin 31.9 pg (27.0-31.0); Mean Corpuscular Volume 93.5 fL (78.0-98.0); Mean Platelet Volume 8.9 fL (7.4-10.4); Monocytes 7 % (0-10); Neutrophil 57 % (42-75); Nucleated RBC 1 % (0); Platelet Count 40 thou/uL (130-400); Platelet Morphology Comment Appears Decreased; RBC Distribution Width 14.6 % (11.5-14.5); Red Blood Cell (RBC) Count 2.59 mill/uL (4.70-6.10); White Blood Cell (WBC) Count 3.3 thou/uL (4.8-10.8)
[2018-12-30] MEDS: traMADol HCl 50 MG TAB PO SCH (10:50)
[2018-12-30] MEDS ORDERED: Morphine 2 MG/ML SYRINGE SLOW IVP SCH (11:15)
[2018-12-30] MEDS ORDERED: Morphine 2 MG/ML SYRINGE SLOW IVP PRN (11:28)
--- NOTE | 2018-12-31 12:47 | DIS ---
DATE OF ADMISSION: 12/24/2018 DATE OF DISCHARGE: 12/30/2018 DISCHARGE DISPOSITION: Inpatient hospice. ALLERGIES: NO KNOWN DRUG ALLERGIES. DISCHARGE MEDICATIONS: Per hospice. The patient was seen and examined on the day of discharge. Denies any new complaints. Pain controlled with IV narcotics. BRIEF HOSPITAL COURSE: The patient is a 63-year-old male with advanced multiple myeloma, presented to the hospital on 24 December 2018 with uncontrolled back pain. He was seen at [facility] on the day of admission that showed lumbar compression fractures on the CT. He was transferred to this facility. His pain was intractable 10/10, sharp without any radiation to the legs. Please refer to the history and physical for further details. The patient was admitted to the hospital with a diagnosis of intractable back pain secondary to multiple myeloma. The patient was evaluated by Oncology Service. He underwent lumbar spine MRI that showed wedge compression abnormality at T11, which is acute. It also showed acute endplate compression abnormality involving L1-L5. His pain was controlled with IV narcotics. He was also started on fentanyl patch without significant improvement. After a long discussion between the patient, the , and the Oncology Service, the patient decided to go on comfort care. He was accepted by inpatient hospice. FINAL DIAGNOSES: 1. Advanced multiple myeloma. 2. Pancytopenia secondary to multiple myeloma. 3. End-stage renal disease, on hemodialysis Saturday, , Saturday. Dr. Camacho was managing dialysis during this admission. 4. Intractable back pain secondary to T11 compression fracture. 5. Diabetes mellitus type 2. 6. Physical deconditioning. 7. Hyperkalemia. 8. Constipation. 9. Coronary artery disease. 10. Gastroesophageal reflux disease. 11. Hypokalemia at discharge at 3.4. 12. Hypercalcemia secondary to multiple myeloma. PLAN: Plan was discussed with the patient and the family in detail. They stated understanding. Job ID: [id number]
== END 2018-12-30 13:10 | disposition hospice, inpatient (51) | DRG 542 ==
LOC: ERS 02:27 → ONC 05:45
PROVIDERS: ADMIT Family Medicine; ATTEND Family Medicine
PROC: 5A1D70Z Performance of Urinary Filtration, Intermittent, Less than 6 Hours Per Day (ICD-10-PCS; principal; 2018-12-25)
DX: C79.51 Secondary malignant neoplasm of bone (principal); N18.6 End stage renal disease; C90.00 Multiple myeloma not having achieved remission; D61.818 Other pancytopenia; M48.56XA Collapsed vertebra, not elsewhere classified, lumbar region, initial encounter for fracture; M48.54XA Collapsed vertebra, not elsewhere classified, thoracic region, initial encounter for fracture; Z66 Do not resuscitate; Z51.5 Encounter for palliative care; K59.00 Constipation, unspecified; E87.5 Hyperkalemia; I10 Essential (primary) hypertension; I25.10 Atherosclerotic heart disease of native coronary artery without angina pectoris; E78.5 Hyperlipidemia, unspecified; R30.0 Dysuria; K21.9 Gastro-esophageal reflux disease without esophagitis; E11.22 Type 2 diabetes mellitus with diabetic chronic kidney disease; E83.52 Hypercalcemia; F32.9 Major depressive disorder, single episode, unspecified; G89.3 Neoplasm related pain (acute) (chronic); E11.649 Type 2 diabetes mellitus with hypoglycemia without coma; I25.2 Old myocardial infarction; Z99.2 Dependence on renal dialysis; Z95.1 Presence of aortocoronary bypass graft; Z87.891 Personal history of nicotine dependence; Z95.5 Presence of coronary angioplasty implant and graft; Z79.4 Long term (current) use of insulin; Z79.899 Other long term (current) drug therapy; Z79.82 Long term (current) use of aspirin
CPT/HCPCS: 36415; 36416; 72148; 80048; 81001; 85025; 85027; 93005; 93010; 96374; 96375; J0131; J1815; J2270; J2405; J2920; J3010; J3489; J3490; J8540; Q0162; Q0169; Q5105